=== PATIENT | female | born 1955 | race Caucasian/White ===

== ENCOUNTER 2016-09-29 01:56 | Observation (INO) | payer OTHER ==
[~2016-09-29] VITALS: Ht 154.9 cm; Wt 75.1 kg
[2016-09-29] VITALS (9 sets, daily range): BP systolic 120–155; BP diastolic 72–88; PULSE 65–84; TEMP 36.4–36.7; O2SAT 96–97; Ht 154.9 cm; Wt 75.1 kg
[~2016-09-29 01:56] MED LIST: AMT50 PO; ASPI81TA28 PO; DOCU-94 PO; FIBER PO; FRN PO; HYDR-5688 PO; LAMO25TA PO; MULT-506 PO; OMEG10007 PO; POLY1SOL6 OP; PROM25TA9 PO; TOPI100T20 PO
[2016-09-29] MEDS ORDERED: SODIUM CHLORIDE 0.9% 1000ML 1,000 ML IV STA (02:03)
[2016-09-29 02:11] LABS: HEMATOCRIT 36.6 % (37-47); MEAN CORPUSCULAR HEMOGLOBIN 33.4 pg (25-34); MEAN CORPUSCULAR HGB CONC 36.3 g/dl (32-36); MEAN PLATELET VOLUME 9.6 fL (7.4-10.4); PLATELET COUNT 158 K/uL (130-400); RED BLOOD COUNT 3.98 M/uL (4.2-5.4); WHITE BLOOD COUNT 5.01 K/uL (4.8-10.8)
[2016-09-29 02:32] LABS: ALT/SGPT 25 U/L (12-78); AST/SGOT 16 U/L (15-37); BLOOD UREA NITROGEN 25 mg/dl (7-18); BUN/CREATININE RATIO 26.4 (10-20); CALCIUM 9.2 mg/dl (8.5-10.1); CARBON DIOXIDE 24 mmol/L (21-32); CHLORIDE 108 mmol/L (98-107); CREATININE 0.94 mg/dl (0.60-1.20); GLUCOSE 95 mg/dl (70-99); POTASSIUM 3.4 mmol/L (3.5-5.1); SODIUM 143 mmol/L (136-145)
[2016-09-29 02:36] LABS: BASO ABS # 0.05 K/uL (0-0.2); BASOPHIL % 0.9 %; COMPLETE YES; EOSINOPHIL % 1.8 %; LYMPH ABS # 2.06 K/uL (1.2-3.4); LYMPHOCYTE % 41.2 %; NEUTROPHILS % 26.3 %; VARIANT LYM ABS # 1.36 K/uL; VARIANT LYMPHOCYTE % 27.2 %
[2016-09-29 02:37] LABS: ALKALINE PHOSPHATASE 85 U/L (45-117)
--- NOTE | 2016-09-29 03:35 | EMERGENCY ROOM VISIT NOTE ---
History Report prepared by Madi: Keya Luis Under the Supervision of: Dr. Pedro Glover M.D. First contact with patient: 01:58 Chief Complaint: SYNCOPE (NEAR SYNCOPE) Stated Complaint: SYNCOPE Nursing Triage Summary: Patient arrives to ED from 4th floor. 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 Patient informed physician that she nearly passed out. Patient has pale, haynes color. BSG in the 80's per PCU nurse. 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 She was working tonight. She was sitting in a chair watching a patient when she suddenly became very nauseated and developed indigestion and diffuse abdominal pain. She gets indigestion often and this is not unusual for her. Her pain did not radiate into her back, but it did go into her throat and left chest. The patient became lightheaded and felt like she was going to pass out. She informed a physician and a code purple was called to the fourth floor. The patient was brought down to the ED for further evaluation. She states that she is feeling better laying flat. She has not eaten a meal since yesterday morning and has only had a few crackers and coffee throughout the day. The patient denies pain or swelling in her legs, headache, black or bloody stools, headache, and any history of blood clots. She denies any alcohol use or any recent changes to medications. 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 A total of 10 systems reviewed and were otherwise negative. Past Medical & Surgical Medical Problems: (1) CVA (cerebral vascular accident) (2) Headache (3) PFO (patent foramen ovale) (4) Symptomatic anemia (5) Syncope Family History Stroke Social History Smoking Status: Unknown if Ever Smoked Alcohol Use: none Drug Use: none Marital Status: Occupation Status: employed Current/Historical Medications Scheduled Amitriptyline Hcl (Elavil), 25 MG PO HS Aspirin (Aspirin Ec), 81 MG PO QPM Fiber Laxative (Fiber Laxative), 1 DOSE PO QPM Fish Oil ([place]-3), 2 CAP PO QPM Lamotrigine (Lamictal), 50 MG PO BID Multivitamin (Multivitamin), 1 TAB PO QPM Topiramate (Topamax), 200 MG PO BID Scheduled PRN Zfryawmrrf-Lojrird-Rfkbghvw (Butalbital/Aspirin/Caffei 50-325-40 mg), 1 CAP PO UD PRN for HEADACHES Hydrocodone/Acetaminophen 5MG/325MG ([place] 5MG/325MG), 1 TABLET PO Q4 PRN for Pain Polyethylene Glycol-Propylene (Systane Ultra), 1 DROPS OP BID PRN for PRN Promethazine Hcl (Phenergan), 25 MG PO Q6H PRN for Nausea Allergies Coded Allergies: Nickel (Verified Allergy, Unknown, RASH, 09/29/16) Penicillins (Verified Allergy, Unknown, HIVES A CHILD, 09/29/16) Physical Exam Vital Signs Date Time Temp Pulse Resp B/P Pulse Ox O2 Delivery O2 Flow Rate FiO2 09/29/16 03:24 68 18 113/62 99 Room Air 69 141/71 64 141/71 09/29/16 02:26 60 18 132/55 99 Room Air 09/29/16 02:12 67 17 109/82 99 Room Air 09/29/16 02:04 63 Physical Exam GENERAL: Patient is unwell appearing and in mild distress, pale with clammy skin. HEENT: No acute trauma, normocephalic atraumatic, mucous membranes moist, no nasal congestion, no scleral icterus. NECK: No stridor, no adenopathy, no meningismus, trachea is midline. LUNGS: No dyspnea. Clear to auscultation and equal bilaterally. No wheeze, no rhonchi. HEART: Regular rate and rhythm. No murmurs, rubs, gallops appreciated. ABDOMEN: Soft, nontender, bowel sounds positive, no masses appreciated, no peritonitis. BACK: No midline tenderness, no CVA tenderness EXTREMITIES: Normal motion all extremities, no cyanosis, no edema. NEUROLOGIC: Alert and oriented, no acute motor or sensory deficits, no focal weakness, cranial nerves grossly intact. SKIN: No rash, no jaundice, no diaphoresis. Medical Decision & Procedures ER Provider Diagnostic Interpretation: X ray results are stated below per my interpretation: Chest: 1 view: No infiltrate, no effusion, normal cardiac border. CT HEAD: No ICH, mass effect or edema. No evidence of acute cortical stroke. No midline shift or hydrocephalus. Benign small cystic process along the anterior aspect of the left tentorium. Visualized sinuses and mastoid air cells are clear. Radiologist: Shaan Haque MD Laboratory Results 09/29/16 02:04 Red Blood Count 3.98, Mean Corpuscular Volume 92.0, Mean Corpuscular Hemoglobin 33.4, Mean Corpuscular Hemoglobin Concent 36.3, Mean Platelet Volume 9.6 09/29/16 02:04 Test 09/29/16 02:04 White Blood Count 5.01 K/uL (4.8-10.8) Red Blood Count 3.98 M/uL (4.2-5.4) Hemoglobin 13.3 g/dL (12.0-16.0) Hematocrit 36.6 % (37-47) Mean Corpuscular Volume 92.0 fL (80-100) Mean Corpuscular Hemoglobin 33.4 pg (25-34) Mean Corpuscular Hemoglobin Concent 36.3 g/dl (32-36) Platelet Count 158 K/uL (130-400) Mean Platelet Volume 9.6 fL (7.4-10.4) RDW Standard Deviation 43.4 fL (36.4-46.3) RDW Coefficient of Variation 12.9 % (11.5-14.5) Neutrophils % (Manual) 26.3 % Lymphocytes % (Manual) 41.2 % Variant Lymphocytes % (manual) 27.2 % Monocytes % (Manual) 2.6 % Eosinophils % (Manual) 1.8 % Basophils % (Manual) 0.9 % Neutrophils # (Manual) 1.32 K/uL (1.4-6.5) Total Absolute Neutrophils 1.32 K/uL (1.4-6.5) Lymphocytes # (Manual) 2.06 K/uL (1.2-3.4) Absolute Variant Lymphocytes 1.36 K/uL Total Absolute Lymphocytes 3.43 K/uL (1.2-3.4) Monocytes # (Manual) 0.13 K/uL (0.11-0.59) Eosinophils # (Manual) 0.09 K/uL (0-0.5) Basophils # (Manual) 0.05 K/uL (0-0.2) Anion Gap 11.0 mmol/L (3-11) Est Creatinine Clear Calc Drug Dose 59.9 ml/min Estimated GFR () 77.0 Estimated GFR (Non- 66.4 BUN/Creatinine Ratio 26.4 (10-20) Calcium Level 9.2 mg/dl (8.5-10.1) Total Bilirubin 0.3 mg/dl (0.2-1) Direct Bilirubin < 0.1 mg/dl (0-0.2) Aspartate Amino Transf (AST/SGOT) 16 U/L (15-37) Alanine Aminotransferase (ALT/SGPT) 25 U/L (12-78) Alkaline Phosphatase 85 U/L (45-117) Troponin I < 0.015 ng/ml (0-0.045) Total Protein 7.2 gm/dl (6.4-8.2) Albumin 3.8 gm/dl (3.4-5.0) Lipase 159 U/L (73-393) Laboratory results as reviewed by me. Medications Administered Medications (Trade) Dose Ordered Sig/Linsey Route Start Time Stop Time Status Last Admin Dose Admin Sodium Chloride (Nss 1000ml) 1,000 ml @ 999 mls/hr Q1H1M STAT IV 09/29/16 02:03 09/29/16 03:03 DC 09/29/16 02:03 999 MLS/HR ECG Indication: syncope Rate (beats per minute): 58 Rhythm: sinus bradycardia Findings: no acute ischemic change, no ectopy ED Course 0158: The patient was evaluated in room A1. A complete history and physical exam was performed. 0203: NSS 1000 ml @ 999 mls/hr IV 0230: The patient was moved to room A11B. 0311: I reassessed the patient at this time. On repeat evaluation her color is returning and she is looking much improved. She still has moments of lightheadedness and admits to having episodes of crushing chest pain over the past 3 days. 0401: I reassessed the patient at this time. She is resting comfortably. I discussed the results and treatment plan with the patient. I answered all pertaining questions that she had. She expressed understanding and verbalized agreement. 0416: I spoke with Dr. Newsome. We discussed the patients results and treatment plan. The patient will be evaluated by the [facility] for further management. Medical Decision Differential: Vaso-vagal, Intracerebral Event, Neurologic, Infectious, Volume Deficiency, Hypoglycemia, Electrolyte Abnormality, Cardiac Source, Toxicologic, amongst other pathologies entertained. 61 yr old female with full/near syncopal event while while working upstairs in hospital. Reportedly quite unwell appearing with severe bradycardia on hospitalist evaluation prior to being brought to ED. Improving here and much improved with NSS bolus. Appears this has happened previously without clear cause, though felt to be due to anemia from hemorrhoids. She has normal CT head here and no neuro deficits. No evidence of need for stroke alert. EKG/ Trop negative thus I do not feel ACS though will need further rule out. Seems likely vagal though will need further work-up. No history leaning towards dissection and without shortness of breath I do not feel there is PE risk currently. Consults Time Called: [phone] Consulting Physician: Dr. Newsome Returned Call: [phone] Newsome. We discussed the patients results and treatment plan. The patient will be evaluated by the [facility] for further management. Impression Primary Impression: Syncope Additional Impression: Chest pressure Scribe Attestation The scribe's documentation has been prepared under my direction and personally reviewed by me in its entirety. I confirm that the note above accurately reflects all work, treatment, procedures, and medical decision making performed by me. Departure Information Dispostion Being Evaluated By Hospitalist Referrals Jim Colin M.D. (PCP) Patient Instructions My [facility] Problem Qualifiers Primary Impression: Syncope Syncope type: unspecified Qualified Codes: R55 - Syncope and collapse
[2016-09-29] MEDS ORDERED: ZOLPIDEM TARTRATE 5 MG TAB PO PRN (04:15)
[2016-09-29] MEDS ORDERED: ACETAMINOPHEN 325 MG TAB PO PRN (04:15)
[2016-09-29] MEDS ORDERED: MAGNESIUM HYDROXIDE SUSP 30 ML UDC PO PRN (04:15)
[2016-09-29] MEDS ORDERED: POLYETHYLENE (MIRALAX) 17 GM PACK PO PRN (04:15)
[2016-09-29] MEDS ORDERED: ALUMINUM/MAGNESIUM/SIMETH (MAALOX MAX) 30 ML UDC PO PRN (04:15)
[2016-09-29] MEDS ORDERED: ARTIFICIAL TEARS OP SOLN OP PRN ×2 (04:15)
--- NOTE | 2016-09-29 04:48 | History and Physical ---
History & Physical Date & Time of Service: Sep 29, 2016 at 04:07 Chief Complaint: Syncope Primary Care Physician: Jim Colin M.D. 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 Pt has a history of syncope, symptomatic anemia, severe migraines and CVA possibly related to a PFO. She was sitting with a pt on the 4th floor and became nauseous and dizzy. She alerted another employee to get help from a nurse and then apparently lost consciousness briefly. She was dizzy and nauseous when she awoke. She was noted to be hypotensive although they could not obtain an exact pressure and was also bradycardic into the mid 30s. The pt was transported to the ER following a code purple. She was provided with hydration and gradually improved although she continues to c/o light headedness. She was not orthostatic after receiving a fluid bolus. Incidentally on further questioning she states that she had "crushing" chest pain 2 days earlier but had not alerted her rock dust sprayer. She denies CP or discernible palpitations prior to LOC this AM. On review of records the pt had a negative stress in 2014 and was placed on ambulatory monitoring which did not yield a diagnosis. She was admitted for syncope 10/12 and at the time this was partially attributed to symptomatic anemia due to hemorrhoidal bleeding. Past Medical/Surgical History Medical Problems: (1) CVA (cerebral vascular accident) Status: Resolved (2) Migraine disorder Status: Resolved (3) PFO (patent foramen ovale) Status: Resolved 4) Syncope 10/12, 10/13 5) PFO - there was some debate as to weather or not this should be surgically repaired - she consulted a rock dust sprayer at [place] who advised that this was not in her best interest 6) Hyperlipidemia 7) Small brain aneurysm being followed by neurology Family History Stroke Social History Smoking Status: Never Smoker Drug Use: none Marital Status: Housing status: lives with family Occupational Status: employed Multi-Drug Resistant Organisms History of MDRO: No Allergies Coded Allergies: Nickel (Verified Allergy, Unknown, RASH, 09/29/16) Penicillins (Verified Allergy, Unknown, HIVES A CHILD, 09/29/16) Home Medications Scheduled Amitriptyline Hcl (Elavil), 25 MG PO HS Aspirin (Aspirin Ec), 81 MG PO QPM Fiber Laxative (Fiber Laxative), 1 DOSE PO QPM Fish Oil ([place]-3), 2 CAP PO QPM Lamotrigine (Lamictal), 50 MG PO BID Multivitamin (Multivitamin), 1 TAB PO QPM Topiramate (Topamax), 200 MG PO BID Scheduled PRN Vgnzfstxzr-Bhjyymv-Tpcpwtvb (Butalbital/Aspirin/Caffei 50-325-40 mg), 1 CAP PO UD PRN for HEADACHES Hydrocodone/Acetaminophen 5MG/325MG ([place] 5MG/325MG), 1 TABLET PO Q4 PRN for Pain Polyethylene Glycol-Propylene (Systane Ultra), 1 DROPS OP BID PRN for PRN Promethazine Hcl (Phenergan), 25 MG PO Q6H PRN for Nausea Review of Systems Constitutional: No chills, No fever, No sweats Eyes: No eye pain, No worsening of vision ENT: No hearing loss, No nasal symptoms, No unusual epistaxis Respiratory: No cough, No sputum, No wheezing Cardiovascular: + chest pain (2 days prior), No PND, No claudication, No edema , No orthopnea Abdomen: + nausea, No pain, No vomiting Musculoskeletal: No joint pain, No muscle pain Genitourinary - Female: No dysuria, No urinary frequency, No urinary urgency Neurologic: + problem reported (syncopal episode as above), No memory loss Psychiatric: No depression symptoms Endocrine: No fatigue Hematologic / Lymphatic: No abnormal bleeding/bruising Integumentary: No rash Allergic / Immunologic: No environmental allergies Physical Exam Vital Signs Date Time Temp Pulse Resp B/P Pulse Ox O2 Delivery O2 Flow Rate FiO2 09/29/16 03:24 68 18 113/62 99 Room Air 69 141/71 64 141/71 09/29/16 02:26 60 18 132/55 99 Room Air 09/29/16 02:12 67 17 109/82 99 Room Air 09/29/16 02:04 63 General Appearance: WD/WN, no apparent distress Head: normocephalic, atraumatic Eyes: normal inspection, PERRL, EOMI ENT: normal ENT inspection, pharynx normal Neck: supple, no JVD Respiratory/Chest: chest non-tender, lungs clear, normal breath sounds, no respiratory distress, no accessory muscle use Cardiovascular: regular rate, rhythm, no edema, no gallop, no JVD, no murmur, normal peripheral pulses Abdomen/GI: normal bowel sounds, non tender, soft Back: normal inspection Extremities/Musculoskelatal: normal inspection, no calf tenderness, normal capillary refill, no pedal edema Neurologic/Psych: motion pictures cartoonist II-XII nml as tested, no motor/sensory deficits, alert, normal mood/affect, oriented x 3 Skin: normal color, warm/dry, no rash Diagnostics Laboratory Results Results Past 24 Hours Test 09/29/16 02:04 Range/Units White Blood Count 5.01 4.8-10.8 K/uL Red Blood Count 3.98 4.2-5.4 M/uL Hemoglobin 13.3 12.0-16.0 g/dL Hematocrit 36.6 37-47 % Mean Corpuscular Volume 92.0 80-100 fL Mean Corpuscular Hemoglobin 33.4 25-34 pg Mean Corpuscular Hemoglobin Concent 36.3 32-36 g/dl Platelet Count 158 130-400 K/uL Mean Platelet Volume 9.6 7.4-10.4 fL RDW Standard Deviation 43.4 36.4-46.3 fL RDW Coefficient of Variation 12.9 11.5-14.5 % Neutrophils % (Manual) 26.3 % Lymphocytes % (Manual) 41.2 % Variant Lymphocytes % (manual) 27.2 % Monocytes % (Manual) 2.6 % Eosinophils % (Manual) 1.8 % Basophils % (Manual) 0.9 % Neutrophils # (Manual) 1.32 1.4-6.5 K/uL Total Absolute Neutrophils 1.32 1.4-6.5 K/uL Lymphocytes # (Manual) 2.06 1.2-3.4 K/uL Absolute Variant Lymphocytes 1.36 K/uL Total Absolute Lymphocytes 3.43 1.2-3.4 K/uL Monocytes # (Manual) 0.13 0.11-0.59 K/uL Eosinophils # (Manual) 0.09 0-0.5 K/uL Basophils # (Manual) 0.05 0-0.2 K/uL Sodium Level 143 136-145 mmol/L Potassium Level 3.4 3.5-5.1 mmol/L Chloride Level 108 98-107 mmol/L Carbon Dioxide Level 24 21-32 mmol/L Anion Gap 11.0 3-11 mmol/L Blood Urea Nitrogen 25 7-18 mg/dl Creatinine 0.94 0.60-1.20 mg/dl Est Creatinine Clear Calc Drug Dose 59.9 ml/min Estimated GFR () 77.0 Estimated GFR (Non- 66.4 BUN/Creatinine Ratio 26.4 10-20 Random Glucose 95 70-99 mg/dl Calcium Level 9.2 8.5-10.1 mg/dl Total Bilirubin 0.3 0.2-1 mg/dl Direct Bilirubin < 0.1 0-0.2 mg/dl Aspartate Amino Transf (AST/SGOT) 16 15-37 U/L Alanine Aminotransferase (ALT/SGPT) 25 12-78 U/L Alkaline Phosphatase 85 45-117 U/L Troponin I < 0.015 0-0.045 ng/ml Total Protein 7.2 6.4-8.2 gm/dl Albumin 3.8 3.4-5.0 gm/dl Lipase 159 73-393 U/L Diagnostic Radiology Head CT negative EKG NSR Impression Assessment and Plan 61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 Pt has a history of syncope, symptomatic anemia, severe migraines and CVA possibly related to a PFO. She was sitting with a pt on the 4th floor and became nauseous and dizzy. She alerted another employee to get help from a nurse and then apparently lost consciousness briefly. She was dizzy and nauseous when she awoke. She was noted to be hypotensive although they could not obtain an exact pressure and was also bradycardic into the mid 30s. The pt was transported to the ER following a code purple. She was provided with hydration and gradually improved although she continues to c/o light headedness. She was not orthostatic after receiving a fluid bolus. Incidentally on further questioning she states that she had "crushing" chest pain 2 days earlier but had not alerted her rock dust sprayer. She denies CP or discernible palpitations prior to LOC this AM. 1) Syncope - 2nd admission for - previously attributed to symptomatic anemia and vasovagal syncope. She was notably bradycardic and likely hypotensive however this was preceded by intense nausea so it is not possible to know if this was again vasovagal or if her symptoms were precipitated by bradycardia. Pt will be hydrated obernight, monitored on telemetry and we will request a cardiology consultation to advise on any further workup. 2) History of CVA - cont ASA. 3) Migraines - cont Topamax and Lamictal. 4) Chest pain 2 days prior - normal trop and EKG - no recurrence prior to syncope - defer to cardiology for further workup. SCDs considering significant hemorrhoidal bleeding and aneurysm - Full code Total time for this admit including chart review - review of labs, imaging, ekg - discussion with pt and ER attending 38 min Level of Care Telemetry Resuscitation Status FULL RESUSCITATION VTE Prophylaxis Given or contraindicated: SCD's
[2016-09-29] MEDS ORDERED: IV FLUIDS COMPLETED PRN (06:00)
[2016-09-29] MEDS: D5NSS + 20MEQ KCL 1,000 ML IV SCH ×3 (06:21→19:35)
[2016-09-29] MEDS: HYDROCODONE/ACETAMOPHEN 5/325MG TAB PO PRN ×3 (06:27→19:31)
[2016-09-29] MEDS: ONDANSETRON INJ 2 MG/ML 2 ML VIAL IV PRN ×3 (06:27→19:31)
--- NOTE | 2016-09-29 06:35 | DIAGNOSTIC IMAGING REPORT ---
CT HEAD WITHOUT CONTRAST (CT) CLINICAL HISTORY: There is syncope COMPARISON STUDY: 09/29/2014 TECHNIQUE: Axial CT of the brain is performed from the vertex to the skull base. IV contrast was not administered for this examination. CT DOSE: 537.48 mGy.cm FINDINGS: No intra or extra-axial mass lesions are visualized. There is no CT evidence of acute cortical infarction. There is no evidence of midline shift. There is no acute hemorrhage. No calvarial fractures are visualized. There is stable hypodensity within the left cerebellar hemisphere abutting the left tentorium. There is no evidence of pathologic ventricular dilatation. There is no evidence of acute sinusitis IMPRESSION: No acute intracranial findings Electronically signed by: Zenon Mayer M.D. 09/29/2016 6:34 AM Dictated Date/Time: 09/29/2016 6:32 AM
--- NOTE | 2016-09-29 07:12 | DIAGNOSTIC IMAGING REPORT ---
CHEST ONE VIEW PORTABLE CLINICAL HISTORY: Altered mental status. Syncope. COMPARISON STUDY: Chest radiograph February 22, 2016. FINDINGS: Lung volumes are normal. There is no pneumothorax or pleural effusion. Cardiac size is normal. Mediastinal contours are normal. There is no evidence of pulmonary edema. IMPRESSION: No acute cardiopulmonary findings. Electronically signed by: Collin Fischer M.D. 09/29/2016 7:11 AM Dictated Date/Time: 09/29/2016 7:09 AM
[2016-09-29] MEDS: TOPIRAMATE 100 MG TAB PO SCH ×2 (08:09→21:05)
--- NOTE | 2016-09-29 10:40 | Cardiology Consultation ---
Cardiology Consultation Date of Consultation: Sep 29, 2016. Requesting Physician: Dr. Newsome Attending Physician: Dr. Owen Reason for Consultation: Syncope Pt evaluation today including: conversation w/ patient, physical exam, chart review, lab review, review of studies, review of inpatient medication list, conversation w/ attending History of Present Illness Mrs. Valdovinos is a 61-year-old female with a past medical history significant for PFO first diagnosed after TIA in 2002 and syncopal event in September 2015 who was admitted early this morning following a syncopal event. Her PFO was diagnosed in 2002 after a TIA. A RAJESH performed at that time demonstrated a patent foramen ovale. Thereafter she was felt to possibly have a second TIA in 2010. The symptoms on this occasion included paresthesias involving the right side of her body which lasted for a few minutes. At that time, it was recommended that she switch her anticoagulation therapy with warfarin and discontinue aspirin. She refused warfarin. She was seen in the [facility] at [facility] on October 14, 2014. It was felt by Dr. Severo Chung who performed the consult that it was unclear whether the patient actually ever had an embolic stroke. He felt that closure of her PFO was not indicated. This was based on review of her history as well as available trial data for PFO closure. There was no trial data evidence of benefit from device closure of a PFO. He recommend continued antiplatelet therapy or anticoagulation therapy. The patient declined anticoagulation therapy. She was comfortable with staying on aspirin therapy. In September 2015, she was admitted to [facility] after a syncopal event. At the time she was having marked hemorrhoidal bleeding. During the bleeding episodes she felt nauseated and then felt presyncopal. She then had a syncopal event. In the ED she was found to be anemic with a hemoglobin of 8.2. It was felt that her syncope was secondary to a vasovagal event. The patient herself thought that she was also dehydrated. She was transfused 2 units of packed red blood cells. Her cardiac enzymes were negative for myocardial injury. She subsequently underwent surgery for her hemorrhoids on February 21, 2016. Regarding her current admission, the patient was working at [employer] [employer] [employer] last evening. She was sitting with a patient at bedside a little before 2 am when she suddenly felt very lightheaded, nauseous, and diaphoretic. She felt as though she could pass out, and then she reports that she did lose consciousness while sitting in her chair. She is not sure how long she was unconscious. She did not experience any palpitations, chest pain, or shortness of breath prior to the syncopal event. A nurse came in to evaluate her. She reports that the nurse was unable to obtain her blood pressure and her heart rate was in the 30's. She reports that she could have been dehydrated since she only had a cup of tea with her breakfast that day and a cup of coffee. She did not eat or drink anything else the rest of the day. She is currently asymptomatic. She has not had any recurrent syncopal or presyncopal events since admission. She notes occasional chest tightness, which occurs in the setting of emotional distress. Her most recent episode was a couple of days ago, but she has had similar episodes of chest discomfort intermittently for several months. This discomfort was reported to Dr. Owen during her outpatient visit on 07/19/16. She denies any exertional chest discomfort, other anginal type symptoms, or limiting dyspnea. She notes occasional palpitations described as "skipped beats" which have also been occurring intermittently for an extended period of time and are not bothersome to her. She denies orthopnea or PND. She notes mild dependent edema, which resolves with elevating her extremities. She denies abnormal bleeding or cerebrovascular symptoms. Review of Systems: As noted in HPI. All other 10 point ROS otherwise negative. Past Medical/Surgical History 1. Patent foramen ovale 2. Hemorrhoidal bleeding s/p hemorrhoidal surgery 02/21/16 3. Possible TIA 4. Migraine headache 5. Tonsillectomy 6. Sinus surgery 7. Tubal ligation Family History Stroke Father of [place] at the age of 57. Social History Smoking Status: Never Smoker History of Alcohol Use: No She is and has 4 children. 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 She notes a remote history of smoking; she quit at the age of 26. She denies alcohol or drug use. Allergies Coded Allergies: Nickel (Verified Allergy, Unknown, RASH, 09/29/16) Penicillins (Verified Allergy, Unknown, HIVES A CHILD, 09/29/16) Medications Current Inpatient Medications Medications (Trade) Dose Ordered Sig/Linsey Route Start Time Stop Time Status Last Admin Dose Admin Amitriptyline HCl (Elavil Tab) 25 mg HS PO 09/29/16 21:00 10/29/16 20:59 Aspirin (Ecotrin Tab) 81 mg QPM PO 09/29/16 21:00 10/29/16 20:59 Fish Oil ([place]-3 (Purified Fish Oil) Cap) 1 gm QPM PO 09/29/16 21:00 10/29/16 20:59 Acetaminophen/ Hydrocodone Bitart ([place] 5/325 Tab) 1 tab Q4 PRN PO 09/29/16 04:15 10/13/16 04:14 09/29/16 06:27 1 TAB Lamotrigine (Lamictal Tab) 50 mg BID PO 09/29/16 09:00 10/29/16 08:59 09/29/16 08:09 50 MG Topiramate (Topamax Tab) 200 mg BID PO 09/29/16 09:00 10/29/16 08:59 09/29/16 08:09 200 MG Artificial Tears (Artificial Tears) 1 drops BID PRN OP 09/29/16 04:15 10/29/16 04:14 Acetaminophen (Tylenol Tab) 650 mg Q4H PRN PO 09/29/16 04:15 10/29/16 04:14 Al Hydrox/Mg Hydrox/Simethicone (Maalox Max Susp) 15 ml Q4H PRN PO 09/29/16 04:15 10/29/16 04:14 Magnesium Hydroxide (Milk Of Magnesia Susp) 30 ml Q6H PRN PO 09/29/16 04:15 10/29/16 04:14 Polyethylene (Miralax Powder Packet) 17 gm DAILY PRN PO 09/29/16 04:15 10/29/16 04:14 Zolpidem Tartrate (Ambien Tab) 5 mg HSZ PRN PO 09/29/16 04:15 10/29/16 04:14 Ondansetron HCl 4 mg 4 mg Q6H PRN IV 09/29/16 04:15 10/29/16 04:14 09/29/16 06:27 4 MG Potassium Chloride/Dextrose/ Sod Cl (D5nss + 20meq KCl) 1,000 ml @ 150 mls/hr Q6H40M IV 09/29/16 06:15 10/29/16 06:14 09/29/16 06:21 150 MLS/HR Miscellaneous (Iv Fluids Completed) 1 ea PRN PRN N/A 09/29/16 06:00 09/29/17 05:59 Physical Exam Vital Signs Past 12 Hours Date Time Temp Pulse Resp B/P Pulse Ox O2 Delivery O2 Flow Rate FiO2 09/29/16 07:57 36.4 65 18 120/75 97 Room Air 09/29/16 05:43 97 Room Air 09/29/16 05:14 36.4 84 20 155/88 09/29/16 04:42 71 20 152/89 97 Room Air 09/29/16 03:24 68 18 113/62 99 Room Air 69 141/71 64 141/71 09/29/16 02:26 60 18 132/55 99 Room Air 09/29/16 02:12 67 17 109/82 99 Room Air 09/29/16 02:04 63 Constitutional: Alert, oriented, in no acute distress HEENT: Head is atraumatic and normocephalic. EOMs intact. Sclera anicteric. Face is symmetric. No perioral cyanosis. Mucous membranes moist. Neck: Supple, no appreciable JVD, no carotid bruits Pulmonary: Normal respiratory effort, clear to auscultation bilaterally Cardiac: Regular rate and rhythm, normal S1 and S2, no gallops, no rubs, no murmur Extremities: No edema. No clubbing or cyanosis. Pulses intact. Abdomen: Normal bowel sounds, soft, non-tender, no abdominal mass palpated Skin: Normal skin color, turgor, and pigmentation, no rash, no skin lesions Neurological: Oriented to person, place, and time Data Laboratory Results: Last 24 Hours Test 09/29/16 02:04 White Blood Count 5.01 K/uL Red Blood Count 3.98 M/uL Hemoglobin 13.3 g/dL Hematocrit 36.6 % Mean Corpuscular Volume 92.0 fL Mean Corpuscular Hemoglobin 33.4 pg Mean Corpuscular Hemoglobin Concent 36.3 g/dl Platelet Count 158 K/uL Mean Platelet Volume 9.6 fL RDW Standard Deviation 43.4 fL RDW Coefficient of Variation 12.9 % Neutrophils % (Manual) 26.3 % Lymphocytes % (Manual) 41.2 % Variant Lymphocytes % (manual) 27.2 % Monocytes % (Manual) 2.6 % Eosinophils % (Manual) 1.8 % Basophils % (Manual) 0.9 % Neutrophils # (Manual) 1.32 K/uL Total Absolute Neutrophils 1.32 K/uL Lymphocytes # (Manual) 2.06 K/uL Absolute Variant Lymphocytes 1.36 K/uL Total Absolute Lymphocytes 3.43 K/uL Monocytes # (Manual) 0.13 K/uL Eosinophils # (Manual) 0.09 K/uL Basophils # (Manual) 0.05 K/uL Sodium Level 143 mmol/L Potassium Level 3.4 mmol/L Chloride Level 108 mmol/L Carbon Dioxide Level 24 mmol/L Anion Gap 11.0 mmol/L Blood Urea Nitrogen 25 mg/dl Creatinine 0.94 mg/dl Est Creatinine Clear Calc Drug Dose 59.9 ml/min Estimated GFR () 77.0 Estimated GFR (Non- 66.4 BUN/Creatinine Ratio 26.4 Random Glucose 95 mg/dl Calcium Level 9.2 mg/dl Total Bilirubin 0.3 mg/dl Direct Bilirubin < 0.1 mg/dl Aspartate Amino Transf (AST/SGOT) 16 U/L Alanine Aminotransferase (ALT/SGPT) 25 U/L Alkaline Phosphatase 85 U/L Troponin I < 0.015 ng/ml Total Protein 7.2 gm/dl Albumin 3.8 gm/dl Lipase 159 U/L Head CT: No acute intracranial findings. CXR: No acute cardiopulmonary findings. EKG: Sinus bradycardia at 58 bpm. Otherwise normal EKG. Telemetry reviewed: Normal sinus rhythm in 60-70's bpm. No ventricular or atrial arrhythmias. Assessment & Plan ASSESSMENT/PLAN: 1. 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 She was sitting at a patient's bedside when the event occurred. Her syncope was preceded by lightheadedness, nausea, and diaphoresis. She reports that a nurse was unable to obtain a blood pressure, and her heart rate was noted to be in the 30's. Work-up thus far has been unremarkable including cardiac enzymes, EKG, telemetry monitoring, and head CT. She reports that she may have been dehydrated with little food and water intake yesterday. She had a similar event about a year ago in the setting of anemia and dehydration. Her recent event appears vasovagal in nature given the description of her symptoms and unremarkable work-up thus far. Recommend continuing to monitor on telemetry today to monitor for any arrhythmias, but no additional cardiovascular studies or intervention is recommended at this time. Would encourage adequate hydration in the future. 2. Atypical chest pain: Patient notes intermittent chest tightness, which occurs at rest in the setting of emotional distress. This has been intermittent for several months. She denies any exertional chest pain or other anginal type symptoms. Her most recent episode was about 2 days ago. EKG this admission shows no acute ischemic change. Cardiac enzymes were negative. Her symptoms are not consistent with myocardial ischemia. 3. PFO: Patient diagnosed with patent foramen ovale in 2002. She was evaluated at [facility] in 2015, and they felt that closure of the PFO was not indicated. Head CT this admission showed no acute intracranial findings. Continue aspirin therapy. Thank you for allowing us to see this patient in consultation. Patient was discussed with Dr. Owen. The patient was seen and examined by me this evening. Her case was discussed earlier today by me with Ms. Chen. the patient reconfirmed to me this evening that she had minimal oral intake yesterday. She had eaten breakfast at approximately 9 a.m.. She had minimal intake until her episode of syncope overnight. She states that her any intake been a couple coffee and some Bartolome crackers. She had been sitting in a chair for 2-3 hours prior to her episode of lightheadedness, nausea, diaphoresis. The symptoms were worsened when she sat up and walked into the bathroom. The symptoms improved when she was placed supine on a stretcher. As documented above she was found to have a low blood pressure and low heart rate by the nursing staff. Since admission to the telemetry unit she has had no ectopy noted. No abnormal bradyarrhythmias noted. No current cardiac complaints. She does have a headache. This is typical for her. Her cardiovascular exam is unremarkable this evening. Agree that she likely had an episode of vasovagal syncope superimposed upon dehydration. She had also been sitting for a prolonged time with her legs dependent. Since admission no arrhythmia is noted. There is no evidence of an embolic event on her CT scan. Would not expect an embolic event to the brain to cause low blood pressure and a low heart rate. Recommend monitoring overnight. No further cardiac workup at this time other than the monitoring. No specific medical therapy for the episode yesterday. I strongly recommended to the patient that she try to maintain good hydration and to eat meals regularly. She was also advised to avoid standing or sitting in 1 position for a prolonged period of time. Thank you for asking us to see this patient in Cardiology consultation. Kodak Owen MD
--- NOTE | 2016-09-29 14:02 | Progress Note ---
Subjective Date of Service: Sep 29, 2016. (Berta Brand PA-C) Subjective Pt evaluation today including: conversation w/ patient, physical exam, chart review, lab review, review of studies, review of inpatient medication list Patient seen and evaluated. Patient was admitted overnight. Patient reports no further syncopal episodes. Denies lightheadedness. This report nausea after ambulation to the bathroom to urinate. Had similar episode one year ago due to hemorrhoidal bleeding and symptomatic anemia. Patient feels she was dehydrated and not much prior to this episode. Verbalizes no other complaints at this time. Cardiology was in to see patient. She follows with Dr. Owen. (Berta Brand PA-C) Problem List Medical Problems: (1) Chest pressure Status: Acute (2) Constipation Status: Acute (3) Syncope and collapse Status: Acute (Berta Brand PA-C) Review of Systems Constitutional: No chills, No fever Respiratory: No shortness of breath Cardiac: No chest pain Abdomen: + nausea, No constipation, No diarrhea, No pain, No vomiting Musculoskeletal: + swelling (chronic dependent edema), No muscle pain Female : No dysuria Neurologic: No vertigo Skin: No rash (Berta Brand PA-C) Medications Current Inpatient Medications Medications (Trade) Dose Ordered Sig/Linsey Route Start Time Stop Time Status Last Admin Dose Admin Amitriptyline HCl (Elavil Tab) 25 mg HS PO 09/29/16 21:00 10/29/16 20:59 Aspirin (Ecotrin Tab) 81 mg QPM PO 09/29/16 21:00 10/29/16 20:59 Fish Oil ([place]-3 (Purified Fish Oil) Cap) 1 gm QPM PO 09/29/16 21:00 10/29/16 20:59 Acetaminophen/ Hydrocodone Bitart ([place] 5/325 Tab) 1 tab Q4 PRN PO 09/29/16 04:15 10/13/16 04:14 09/29/16 13:00 1 TAB Lamotrigine (Lamictal Tab) 50 mg BID PO 09/29/16 09:00 10/29/16 08:59 09/29/16 08:09 50 MG Topiramate (Topamax Tab) 200 mg BID PO 09/29/16 09:00 10/29/16 08:59 09/29/16 08:09 200 MG Artificial Tears (Artificial Tears) 1 drops BID PRN OP 09/29/16 04:15 10/29/16 04:14 09/29/16 13:04 1 DROPS Acetaminophen (Tylenol Tab) 650 mg Q4H PRN PO 09/29/16 04:15 10/29/16 04:14 Al Hydrox/Mg Hydrox/Simethicone (Maalox Max Susp) 15 ml Q4H PRN PO 09/29/16 04:15 10/29/16 04:14 Magnesium Hydroxide (Milk Of Magnesia Susp) 30 ml Q6H PRN PO 09/29/16 04:15 10/29/16 04:14 Polyethylene (Miralax Powder Packet) 17 gm DAILY PRN PO 09/29/16 04:15 10/29/16 04:14 Zolpidem Tartrate (Ambien Tab) 5 mg HSZ PRN PO 09/29/16 04:15 10/29/16 04:14 Ondansetron HCl 4 mg 4 mg Q6H PRN IV 09/29/16 04:15 10/29/16 04:14 09/29/16 13:01 4 MG Potassium Chloride/Dextrose/ Sod Cl (D5nss + 20meq KCl) 1,000 ml @ 150 mls/hr Q6H40M IV 09/29/16 06:15 10/29/16 06:14 09/29/16 12:55 150 MLS/HR Miscellaneous (Iv Fluids Completed) 1 ea PRN PRN N/A 09/29/16 06:00 09/29/17 05:59 (Berta Brand, PA-C) Objective Vital Signs Date Time Temp Pulse Resp B/P Pulse Ox O2 Delivery O2 Flow Rate FiO2 09/29/16 12:00 96 Room Air 09/29/16 11:36 36.5 73 18 121/72 97 Room Air 09/29/16 08:00 97 Room Air 09/29/16 07:57 36.4 65 18 120/75 97 Room Air 09/29/16 05:43 97 Room Air 09/29/16 05:14 36.4 84 20 155/88 09/29/16 04:42 71 20 152/89 97 Room Air 09/29/16 03:24 68 18 113/62 99 Room Air 69 141/71 64 141/71 09/29/16 02:26 60 18 132/55 99 Room Air 09/29/16 02:12 67 17 109/82 99 Room Air 09/29/16 02:04 63 (Berta Brand PA-C) Physical Exam General Appearance: WD/WN, no apparent distress Eyes: sclerae normal ENT: hearing grossly normal Neck: supple, no JVD, trachea midline Respiratory/Chest: lungs clear, normal breath sounds, no respiratory distress, no accessory muscle use Cardiovascular: regular rate, rhythm, no gallop, no murmur Abdomen: normal bowel sounds, non tender, soft Extremities: no pedal edema, no calf tenderness Neurologic/Psychiatric: alert, oriented x 3 Skin: normal color, warm/dry (Berta Brand PA-C) Laboratory Results Last 24 Hours Test 09/29/16 02:04 White Blood Count 5.01 K/uL Red Blood Count 3.98 M/uL Hemoglobin 13.3 g/dL Hematocrit 36.6 % Mean Corpuscular Volume 92.0 fL Mean Corpuscular Hemoglobin 33.4 pg Mean Corpuscular Hemoglobin Concent 36.3 g/dl Platelet Count 158 K/uL Mean Platelet Volume 9.6 fL RDW Standard Deviation 43.4 fL RDW Coefficient of Variation 12.9 % Neutrophils % (Manual) 26.3 % Lymphocytes % (Manual) 41.2 % Variant Lymphocytes % (manual) 27.2 % Monocytes % (Manual) 2.6 % Eosinophils % (Manual) 1.8 % Basophils % (Manual) 0.9 % Neutrophils # (Manual) 1.32 K/uL Total Absolute Neutrophils 1.32 K/uL Lymphocytes # (Manual) 2.06 K/uL Absolute Variant Lymphocytes 1.36 K/uL Total Absolute Lymphocytes 3.43 K/uL Monocytes # (Manual) 0.13 K/uL Eosinophils # (Manual) 0.09 K/uL Basophils # (Manual) 0.05 K/uL Sodium Level 143 mmol/L Potassium Level 3.4 mmol/L Chloride Level 108 mmol/L Carbon Dioxide Level 24 mmol/L Anion Gap 11.0 mmol/L Blood Urea Nitrogen 25 mg/dl Creatinine 0.94 mg/dl Est Creatinine Clear Calc Drug Dose 59.9 ml/min Estimated GFR () 77.0 Estimated GFR (Non- 66.4 BUN/Creatinine Ratio 26.4 Random Glucose 95 mg/dl Calcium Level 9.2 mg/dl Total Bilirubin 0.3 mg/dl Direct Bilirubin < 0.1 mg/dl Aspartate Amino Transf (AST/SGOT) 16 U/L Alanine Aminotransferase (ALT/SGPT) 25 U/L Alkaline Phosphatase 85 U/L Troponin I < 0.015 ng/ml Total Protein 7.2 gm/dl Albumin 3.8 gm/dl Lipase 159 U/L (Berta Brand PA-C) Assessment and Plan 61 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 Pt has a history of syncope, symptomatic anemia, severe migraines and CVA possibly related to a PFO. She was sitting with a pt on the 4th floor and became nauseous and dizzy. She alerted another employee to get help from a nurse and then apparently lost consciousness briefly. She was dizzy and nauseous when she awoke. She was noted to be hypotensive although they could not obtain an exact pressure and was also bradycardic into the mid 30s. The pt was transported to the ER following a code purple. She was provided with hydration and gradually improved although she continues to c/o light headedness. She was not orthostatic after receiving a fluid bolus. Incidentally on further questioning she states that she had "crushing" chest pain 2 days earlier but had not alerted her plate driller. She denies CP or discernible palpitations prior to LOC this AM. Syncope: Symptomatic Bradycardia vs Vasovagal - Hydrate with D5 NSS + 20 mEq KCl - Cardiac enzymes trended and negative - Cardiology - appreciate recommendations - no further workup at this time -- Monitor rhythm today H/O TIA 2/2 PFO: - ASA 81 mg daily Migraines: - Topamax 200 mg BID and Lamictal 50 mg BID DVT Prophylaxis: - SCDs - withhold chemical prophylaxis due to significant hemorrhoidal bleeding and aneurysm Code Status: FULL RESUSCITATION Disposition: Probable D/C home tomorrow - will monitor rhythm today (Berta Brand PA-C) ATTENDING ATTESTATION I have seen and examined patient this am. I have discussed plan of care in detail with NING and agree with plan as stated above. Patient denies any dizziness or chest pain. Vitals-reviewed GEN- NAD CVS-RRR RESP-CTA ABD-+BS EXT- no edema Labs-reviewed Syncope h/o PFO Migraines HLD h/o CVA - appreciate cardiology input - continue to monitor on telemetry - per cardiology suspect 2/2 to vasovagal no more cardiac testing recommended - monitor on telemetry for arrhythmia overnight (Berta Hernandez MD)
[2016-09-29] MEDS ORDERED: AMITRIPTYLINE HCL 25 MG TAB PO SCH (21:00)
[2016-09-29] MEDS ORDERED: OMEGA-3 (PURIFIED FISH OIL) 1 GM CAP PO SCH (21:00)
[2016-09-29] MEDS ORDERED: ASPIRIN 81 MG ECTAB PO SCH (21:00)
[2016-09-30 00:17] VITALS: BP 111/71; PULSE 78; TEMP 36.5; O2SAT 97
[2016-09-30] MEDS: D5NSS + 20MEQ KCL 1,000 ML IV SCH ×2 (02:12→08:11)
[2016-09-30 03:57] VITALS: BP 118/72; PULSE 71; TEMP 36.6; O2SAT 98
[2016-09-30] MEDS: ONDANSETRON INJ 2 MG/ML 2 ML VIAL IV PRN (04:45)
[2016-09-30] MEDS: HYDROCODONE/ACETAMOPHEN 5/325MG TAB PO PRN (04:45)
[2016-09-30 06:59] LABS: HEMATOCRIT 32.2 % (37-47); MEAN CORPUSCULAR HEMOGLOBIN 32.4 pg (25-34); MEAN CORPUSCULAR HGB CONC 34.2 g/dl (32-36); MEAN PLATELET VOLUME 9.7 fL (7.4-10.4); PLATELET COUNT 128 K/uL (130-400); RED BLOOD COUNT 3.39 M/uL (4.2-5.4); WHITE BLOOD COUNT 2.64 K/uL (4.8-10.8)
[2016-09-30 07:34] LABS: BUN/CREATININE RATIO 14.7 (10-20); CREATININE 0.86 mg/dl (0.60-1.20); POTASSIUM 4.5 mmol/L (3.5-5.1)
[2016-09-30] MEDS: TOPIRAMATE 100 MG TAB PO SCH (08:13)
--- NOTE | 2016-09-30 11:35 | Discharge Instructions ---
Discharge Instructions Admission Admission Date: Sep 29, 2016 at 04:11 Admission Diagnosis: Syncope. Discharge Care Plan - Problem: Medical Problems: (1) Vasovagal Syncope Care Plan - Goal(s): Decrease discomfort, Improve function Care Plan - Instructions: Activity Recommendations: no limitations Recommended Home Diet: AHA Phase I (2gmNa/LoCho) Provider Instructions: Please follow up with PCP and Neurologist VTE Core Measure Inpt VTE Proph given/why not?: SCD's Work Instructions Additional Instructions: Return to Work on 10.03.16 [facility] Recommendations: Call your doctor if: * Temperature above 101 degrees * Pain not relieved by pain medicine ordered * There is increased drainage or redness from any incision * You have any unanswered questions or concerns. Your Doctors Instructions noted above were prepared by provider Berta Hernandez.
[2016-09-30 11:50] VITALS: BP 154/77; PULSE 65; TEMP 36.8; O2SAT 100
[2016-09-30 12:39] VITALS: BP 154/77; PULSE 65; TEMP 36.8; O2SAT 100
--- NOTE | 2016-09-30 17:36 | Discharge Summary ---
Discharge Summary Date of Service Sep 30, 2016. Discharge Summary Admission Date: Sep 29, 2016 at 04:11 Discharge Date: Sep 30, 2016 Discharge Disposition: Home Principal Diagnosis: Vasovagal Syncope Problems/Secondary Diagnoses: Migraines h/o CVA Consultations: Cardiology Medication Reconciliation Continued Medications: Amitriptyline Hcl (Elavil) 50 Mg Tab 25 MG PO HS, TAB Aspirin (Aspirin Ec) 81 Mg Tab 81 MG PO QPM Bxffivavuu-Pkbxwug-Ptkjszgl (Butalbital/Aspirin/Caffei 50-325-40 mg) 1 Cap Cap 1 CAP PO UD PRN for HEADACHES Fiber Laxative (Fiber Laxative) Ea 1 DOSE PO QPM Fish Oil ([place]-3) 1 Ea Cap 2 CAP PO QPM, CAP Hydrocodone/Acetaminophen 5MG/325MG ([place] 5MG/325MG) Tab 1 TABLET PO Q4 PRN for Pain Lamotrigine (Lamictal) 25 Mg Tab 50 MG PO BID, TAB Multivitamin (Multivitamin) Tab 1 TAB PO QPM, TAB Polyethylene Glycol-Propylene (Systane Ultra) 1 Jessica Jessica 1 DROPS OP BID PRN for PRN, 1 Refill Promethazine Hcl (Phenergan) 25 Mg Tab 25 MG PO Q6H PRN for Nausea Topiramate (Topamax) 100 Mg Tab 200 MG PO BID, TAB Discharge Exam Review of Systems: Constitutional: No chills, No fever Eyes: No worsening of vision Respiratory: No cough, No shortness of breath Cardiovascular: No chest pain, No orthopnea Abdomen: No diarrhea, No pain Musculoskeletal: No joint pain Genitourinary - Female: No dysuria Genitourinary - Male: No dysuria, No hematuria Neurologic: No memory loss Endocrine: No fatigue Integumentary: No itch, No rash Physical Exam: General Appearance: WD/WN, no apparent distress Eyes: normal inspection ENT: normal ENT inspection Neck: supple, no adenopathy Respiratory/Chest: chest non-tender, lungs clear, normal breath sounds Cardiovascular: regular rate, rhythm, no edema Abdomen / GI: normal bowel sounds, non tender, soft Extremities: normal inspection Neurologic/Psychiatric: magnetic healer II-XII nml as tested, no motor/sensory deficits , alert, oriented x 3 Skin: normal color, warm/dry Hospital Course 61 y/o F employed at [employer] as a [employer]. Pt has a history of syncope, symptomatic anemia, severe migraines and CVA possibly related to a PFO. She was sitting with a pt on the 4th floor and became nauseous and dizzy. She alerted another employee to get help from a nurse and then apparently lost consciousness briefly. She was dizzy and nauseous when she awoke. She was noted to be hypotensive although they could not obtain an exact pressure and was also bradycardic into the mid 30s. The pt was transported to the ER following a code purple. She was provided with hydration and gradually improved although she continues to c/o light headedness. She was not orthostatic after receiving a fluid bolus. Incidentally on further questioning she states that she had "crushing" chest pain 2 days earlier but had not alerted her transferrer. She denies CP or discernible palpitations prior to LOC this AM. Patient was admitted to the hospitalist service. Patient was placed on telemetry and ruled out for ACS. Cardiology was consulted. and believed symptoms were due to vasovagal syncope. Patient was observed for 24 hours on telemetry with no events. Patient was discharged and instructed to f/u with PCP Total Time Spent: Greater than 30 minutes This includes examination of the patient, discharge planning, medication reconciliation, and communication with other providers. Discharge Instructions Please refer to the electronic Patient Visit Report (Discharge Instructions) for additional information.
== END 2016-09-30 14:28 | disposition home or self-care (01) ==
LOC: ENRESERVTM → ENRESERVDT → C.EDA 01:57 → EEVIPCON 04:11 → C.2T 04:11
PROVIDERS: ADMIT Internal Medicine; ATTEND Internal Medicine
DX: R55 Syncope and collapse (principal); G43.909 Migraine, unspecified, not intractable, without status migrainosus; Q21.1 Atrial septal defect; E78.5 Hyperlipidemia, unspecified; Z86.73 Personal history of transient ischemic attack (TIA), and cerebral infarction without residual deficits; Z79.82 Long term (current) use of aspirin; Z79.899 Other long term (current) drug therapy

== ENCOUNTER → 2016-10-05 | Outpatient (CLI) | payer OTHER ==
[~2016-10-05] MED LIST changes: -DOCU-94 PO
[2016-10-05 12:55] LABS: BASO % 0.6 %; BASO ABS # 0.02 K/uL (0-0.2); COMPLETE YES; EOS % 2.9 %; HEMATOCRIT 36.2 % (37-47); LYMPH % 40.1 %; LYMPH ABS # 1.39 K/uL (1.2-3.4); MEAN CORPUSCULAR HEMOGLOBIN 33.6 pg (25-34); MEAN CORPUSCULAR HGB CONC 35.4 g/dl (32-36); MEAN PLATELET VOLUME 10.6 fL (7.4-10.4); MONO % 7.8 %; NEUT % 48.6 %; PLATELET COUNT 159 K/uL (130-400); RED BLOOD COUNT 3.81 M/uL (4.2-5.4); WHITE BLOOD COUNT 3.47 K/uL (4.8-10.8)
[2016-10-05 13:28] LABS: ALT/SGPT 38 U/L (12-78); BLOOD UREA NITROGEN 25 mg/dl (7-18); BUN/CREATININE RATIO 26.2 (10-20); CALCIUM 9.5 mg/dl (8.5-10.1); CARBON DIOXIDE 22 mmol/L (21-32); CHLORIDE 108 mmol/L (98-107); CHOLESTEROL 272 mg/dl (0-200); CREATININE 0.95 mg/dl (0.60-1.20); GLUCOSE 89 mg/dl (70-99); POTASSIUM 4.2 mmol/L (3.5-5.1); SODIUM 141 mmol/L (136-145)
[2016-10-05 13:38] LABS: ALKALINE PHOSPHATASE 93 U/L (45-117); AST/SGOT 26 U/L (15-37); CHOLESTEROL/HDL RATIO 3.5; HDL CHOLESTEROL 77 mg/dl; LDL CHOLESTEROL CALCULATED 162 mg/dl; TRIGLYCERIDES 163 mg/dl (0-150); VERY LOW DENSITY LIPOPROT CALC 33 mg/dl
== END | disposition home or self-care (01) ==
LOC: C.LABPVFM 11:25
PROVIDERS: ATTEND Family Medicine
DX: D50.0 Iron deficiency anemia secondary to blood loss (chronic) (principal); E78.5 Hyperlipidemia, unspecified; Z51.81 Encounter for therapeutic drug level monitoring; Z79.899 Other long term (current) drug therapy; Z11.59 Encounter for screening for other viral diseases

== ENCOUNTER → 2017-06-18 | Outpatient (CLI) | payer OTHER ==
[~2017-06-18] MED LIST changes: +CYCL0.052 OP; +ZNTT/150 PO
[2017-06-18 13:06] LABS: ALT/SGPT 29 U/L (12-78); AST/SGOT 21 U/L (15-37); BLOOD UREA NITROGEN 17 mg/dl (7-18); BUN/CREATININE RATIO 15.7 (10-20); CALCIUM 9.5 mg/dl (8.5-10.1); CARBON DIOXIDE 24 mmol/L (21-32); CHLORIDE 108 mmol/L (98-107); CHOLESTEROL 324 mg/dl (0-200); CREATININE 1.09 mg/dl (0.60-1.20); GLUCOSE 84 mg/dl (70-99); POTASSIUM 4.1 mmol/L (3.5-5.1); SODIUM 140 mmol/L (136-145); TRIGLYCERIDES 127 mg/dl (0-150); VERY LOW DENSITY LIPOPROT CALC 25 mg/dl
[2017-06-18 13:09] LABS: ALKALINE PHOSPHATASE 86 U/L (45-117); CHOLESTEROL/HDL RATIO 3.4; HDL CHOLESTEROL 94 mg/dl; LDL CHOLESTEROL CALCULATED 205 mg/dl
== END | disposition home or self-care (01) ==
LOC: C.LABPVFM 10:57
PROVIDERS: ATTEND Family Medicine
DX: Z51.81 Encounter for therapeutic drug level monitoring (principal); Z79.899 Other long term (current) drug therapy; E78.5 Hyperlipidemia, unspecified

== ENCOUNTER 2017-10-08 20:18 | Emergency (ER) | payer OTHER ==
[~2017-10-08] VITALS: Ht 154.9 cm; Wt 76.0 kg
[~2017-10-08 20:18] MED LIST changes: +RANI150T85 PO; -ZNTT/150 PO
[2017-10-08 20:24] VITALS: TEMP 36.5; Ht 154.9 cm; Wt 76.0 kg
[2017-10-08] MEDS ORDERED: DiphenhydrAMINE HCL 50 MG/ML VIAL IV STA (20:46)
[2017-10-08] MEDS ORDERED: SODIUM CHLORIDE 0.9% 1000ML 2,000 ML IV STA (20:46)
[2017-10-08] MEDS ORDERED: METOCLOPRAMIDE HCL INJ 5 MG/ML 2 ML VIAL IV STA (20:46)
--- NOTE | 2017-10-08 21:07 | EMERGENCY ROOM VISIT NOTE ---
History Report prepared by Madi: Gabriela Rainey Under the Supervision of: Dr. Tommy Dennis M.D. First contact with patient: 20:40 Chief Complaint: HEADACHE Stated Complaint: MIGRAINE History of Present Illness The patient is a 62 year old female who presents to the Emergency Room with complaints of a worsening migraine that began 5 hours prior to arrival. She states that her migraine radiates through her entire head, but is more prevalent on the left side. The patient describes her migraine as a pressure and throbbing feeling. She reports a history of migraines, noting that taking Maxalt usually resolves her symptoms. The patient states that this time she took her medication but was unable to relieve her symptoms, noting it worsened when with bright lighting but feels similar to her usual migraines. She notes that she has been experiencing some nausea and pressure behind her eyes, but denies any vomiting, diarrhea, changes in vision or hearing, burning with urination, shortness of breath, chest pain, or fevers. She states that applying pressure to her head and using an ice pack helps relieve some of her symptoms. The patient states that she sometimes vomits from when she has migraines. She reports that she woke up feeling fine this morning, but did have a minor migraine one day ago which relieved itself. The patient states a history of TIA' s and vertigo. 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 Source of History: patient Onset: 5 hours prior to arrival Position: other (neurological) Quality: other (migraine) Timing: worsening Associated Symptoms: + nausea (some), No fevers, No chest pain, No SOB, No diarrhea Note: Associated symptoms include: pressure behind her eyes Patient denies: any changes in vision or hearing, burning with urination Review of Systems See HPI for pertinent positives and negatives. A total of ten systems were reviewed and were otherwise negative. Past Medical & Surgical Medical Problems: (1) CVA (cerebral vascular accident) (2) Headache (3) PFO (patent foramen ovale) (4) Symptomatic anemia (5) Syncope Family History Stroke Social History Smoking Status: Never Smoker Alcohol Use: none Drug Use: none Marital Status: Occupation Status: employed Current/Historical Medications Scheduled Amitriptyline Hcl (Elavil), 50 MG PO HS Aspirin (Aspirin Ec), 81 MG PO QPM Cyclosporine (Ophth) (Restasis), 1 DROP OP BID Fish Oil ([place]-3), 2 CAP PO QPM Lamotrigine (Lamictal), 50 MG PO BID Multivitamin (Multivitamin), 1 TAB PO QPM Polyethylene Glycol 3350 (Clearlax), 1 DOSE PO DAILY Ranitidine (Zantac), 150 MG PO BID Topiramate (Topamax), 200 MG PO BID Scheduled PRN Sxpvtcubdl-Rvopsbm-Cwkxgxwl (Butalbital/Aspirin/Caffei 50-325-40 mg), 1 CAP PO UD PRN for Headache Promethazine Hcl (Phenergan), 25 MG PO Q6H PRN for Nausea Allergies Coded Allergies: Nickel (Verified Allergy, Unknown, RASH, 09/29/16) Penicillins (Verified Allergy, Unknown, HIVES A CHILD, 09/29/16) Physical Exam Vital Signs Date Time Temp Pulse Resp B/P (MAP) Pulse Ox O2 Delivery O2 Flow Rate FiO2 10/08/17 23:44 88 20 138/80 98 Room Air 10/08/17 22:09 78 18 141/73 98 Room Air 10/08/17 20:24 36.5 83 16 159/81 97 Room Air Physical Exam GENERAL: Awake, alert, uncomfortable-appearing, in no distress HENT: Dry mucous membranes. Normocephalic, atraumatic. Oropharynx unremarkable. EYES: Normal conjunctiva. Sclera non-icteric. NECK: Supple. No nuchal rigidity. FROM. No JVD. RESPIRATORY: Clear to auscultation. CARDIAC: Regular rate, normal rhythm. Extremities warm and well perfused. Pulses equal. ABDOMEN: Soft, non-distended. No tenderness to palpation. No rebound or guarding. No masses. RECTAL: Deferred. MUSCULOSKELETAL: Chest examination reveals no tenderness. The back is symmetrical on inspection without obvious abnormality. There is no CVA tenderness to palpation. No joint edema. LOWER EXTREMITIES: Calves are equal size bilaterally and non-tender. No edema. No discoloration. NEURO: Normal sensorium. No sensory or motor deficits noted. normal cerebellar function with [id number], alternating palms, [id number] SKIN: No rash or jaundice noted. Medical Decision & Procedures ER Provider Diagnostic Interpretation: Radiology results as stated below per my review and radiologist interpretation: Brain MRI WITHOUT CONTRAST HISTORY: vertigo TECHNIQUE: Multiplanar multisequence MRI of the brain was performed without the use of contrast. COMPARISON STUDY: Head CT 09/29/2016. Brain MRI 10/21/2015. FINDINGS: The paranasal sinuses are clear. The orbits are unremarkable. Trace fluid within the right mastoid air cells, unchanged. Hypoplastic basilar artery, unchanged. Otherwise, the major vascular flow-voids at the skull base are well-maintained. The ventricles are normal in size. There is no mass, hematoma, midline shift, acute infarct. Stable focal scarring within the body of the corpus callosum. No change in the old small cerebellar infarcts. No change in the mild periventricular white matter T2 hyperintensity. This may be due to mild microvascular ischemic change. IMPRESSION: No significant change compared to the prior study. No acute intracranial abnormality. Old cerebellar infarcts are again noted. Electronically signed by: Pb Ayala M.D. 10/08/2017 10:29 PM Dictated Date/Time: 10/08/2017 10:21 PM Laboratory Results 10/08/17 21:06 Red Blood Count 3.97, Mean Corpuscular Volume 92.2, Mean Corpuscular Hemoglobin 33.8, Mean Corpuscular Hemoglobin Concent 36.6, Mean Platelet Volume 9.6, Neutrophils (%) (Auto) 45.8, Lymphocytes (%) (Auto) 45.3, Monocytes (%) (Auto) 6.3, Eosinophils (%) (Auto) 1.9, Basophils (%) (Auto) 0.5, Neutrophils # (Auto) 1.88, Lymphocytes # (Auto) 1.86, Monocytes # (Auto) 0.26, Eosinophils # (Auto) 0.08, Basophils # (Auto) 0.02 10/08/17 21:06 Test 10/08/17 21:06 White Blood Count 4.11 K/uL (4.8-10.8) Red Blood Count 3.97 M/uL (4.2-5.4) Hemoglobin 13.4 g/dL (12.0-16.0) Hematocrit 36.6 % (37-47) Mean Corpuscular Volume 92.2 fL (80-100) Mean Corpuscular Hemoglobin 33.8 pg (25-34) Mean Corpuscular Hemoglobin Concent 36.6 g/dl (32-36) Platelet Count 155 K/uL (130-400) Mean Platelet Volume 9.6 fL (7.4-10.4) Neutrophils (%) (Auto) 45.8 % Lymphocytes (%) (Auto) 45.3 % Monocytes (%) (Auto) 6.3 % Eosinophils (%) (Auto) 1.9 % Basophils (%) (Auto) 0.5 % Neutrophils # (Auto) 1.88 K/uL (1.4-6.5) Lymphocytes # (Auto) 1.86 K/uL (1.2-3.4) Monocytes # (Auto) 0.26 K/uL (0.11-0.59) Eosinophils # (Auto) 0.08 K/uL (0-0.5) Basophils # (Auto) 0.02 K/uL (0-0.2) RDW Standard Deviation 42.9 fL (36.4-46.3) RDW Coefficient of Variation 12.7 % (11.5-14.5) Immature Granulocyte % (Auto) 0.2 % Immature Granulocyte # (Auto) 0.01 K/uL (0.00-0.02) Anion Gap 10.0 mmol/L (3-11) Est Creatinine Clear Calc Drug Dose 72.4 ml/min Estimated GFR () 97.3 Estimated GFR (Non- 83.9 BUN/Creatinine Ratio 24.0 (10-20) Calcium Level 9.3 mg/dl (8.5-10.1) Troponin I < 0.015 ng/ml (0-0.045) Laboratory results reviewed by me Medications Administered Medications (Trade) Dose Ordered Sig/[facility] Route Start Time Stop Time Status Last Admin Dose Admin Sodium Chloride 2,000 ml @ 999 mls/hr Q2H1M STAT IV 10/08/17 20:46 10/08/17 22:46 DC 10/08/17 21:16 999 MLS/HR Metoclopramide HCl (Reglan Inj) 10 mg NOW STAT IV 10/08/17 20:46 10/08/17 20:56 DC 10/08/17 21:16 10 MG Diphenhydramine HCl (Benadryl Inj) 25 mg NOW STAT IV 10/08/17 20:46 10/08/17 20:56 DC 10/08/17 21:16 25 MG Dexamethasone Sodium Phosphate (Dexamethasone Inj Pf) 10 mg NOW ONCE IV 10/08/17 23:45 10/08/17 23:46 DC 10/08/17 23:39 10 MG ECG Per My Interpretation Indication: nausea Rate (beats per minute): 64 Rhythm: normal sinus Findings: no acute ischemic change, other (Normal axis) ED Course 2044: The patient was evaluated in room A4. A complete history and physical exam was performed. 2158: I reevaluated the patient, who was resting. I updated her on some test findings and she verbalized complete understanding. 2332: I reevaluated the patient. Discussed results and discharge instructions: she verbalized understanding and agreement. The patient is ready for discharge. Medical Decision I reviewed the patient's past medical history, medications, and the nursing notes as described above. Differential diagnosis: Etiologies such as migraine headache, meningitis, sinusitis, CO exposure, ICH, SAH, infection, tumor, headache, sinus thrombosis, arterial dissection, as well as others were entertained. The patient is a 62 y/o woman with a pmhx of migraines and TIAs who presents to the emergency department with gradual onset ARAYA that is typical of her migraines per HPI. On arrival the patient is uncomfortable but in NAD, AFVSS. Of note, patient reports recent episodes of vertigo when waking up in the morning that would resolve. On exam, neuro intact including normal cerebellar function with hoxbti-jr-xblv, alternating palms, mwuh-eb-sbng. While the patient's sx appear as her typical migraines, given the patient's recent recurrent vertigo in the setting of her h/o TIAs, MRI was performed. MRI unchanged from prior. Labs unremarkable. Patient feeling some improvement after migraine cocktail but still with ARAYA. Patient requesting "pain medicine", I explained narcotics are an effective pain medication for acute severe pain such as from a bone fracture or after surgery, however, they are not recommended for chronic pain such as for headaches or back pain as they have the potential to promote rebound hyperalgesia resulting in increased severity of the initial chronic pain when not taking narcotics. We agreed to does of dexamethasone and patient then requesting discharge to rest at home. Findings and plan for follow-up reviewed with patient. Patient agreeable and d/c'd per discharge instructions. Medication Reconcilliation Current Medication List: was personally reviewed by me Blood Pressure Screening Patient's blood pressure: Normal blood pressure Blood pressure disposition: Did not require urgent referral Impression Primary Impression: Migraine Scribe Attestation The scribe's documentation has been prepared under my direction and personally reviewed by me in its entirety. I confirm that the note above accurately reflects all work, treatment, procedures, and medical decision making performed by me. Departure Information Dispostion Home / Self-Care Referrals No Doctor, Assigned (PCP) Forms HOME CARE DOCUMENTATION FORM, IMPORTANT VISIT INFORMATION Patient Instructions ED Headache Migraine, My [facility] Additional Instructions Please follow up with your primary care physician in the next 1-3 days for re- evaluation. Your symptoms are likely related to your chronic migraines. Otherwise, your exam, EKG, chest xray, lab results, and MRI of your brain did not show signs of an emergent condition at this time. Continue your current medications as prescribed. Drink plenty of fluids to ensure hydration. Return to the emergency department for worsening symptoms as described in the accompanying instructions. Work Instructions Return To Work: 2 days
[2017-10-08 21:19] LABS: BASO % 0.5 %; BASO ABS # 0.02 K/uL (0-0.2); EOS % 1.9 %; EOS ABS # 0.08 K/uL (0-0.5); HEMATOCRIT 36.6 % (37-47); HEMOGLOBIN 13.4 g/dL (12.0-16.0); IG# 0.01 K/uL (0.00-0.02); LYMPH % 45.3 %; LYMPH ABS # 1.86 K/uL (1.2-3.4); MEAN CELL VOLUME 92.2 fL (80-100); MEAN CORPUSCULAR HEMOGLOBIN 33.8 pg (25-34); MEAN CORPUSCULAR HGB CONC 36.6 g/dl (32-36); MEAN PLATELET VOLUME 9.6 fL (7.4-10.4); MONO % 6.3 %; MONO ABS # 0.26 K/uL (0.11-0.59); NEUT % 45.8 %; NEUT ABS # 1.88 K/uL (1.4-6.5); PLATELET COUNT 155 K/uL (130-400); RED CELL DISTRIBUTION WIDTH CV 12.7 % (11.5-14.5); RED CELL DISTRIBUTION WIDTH SD 42.9 fL (36.4-46.3); WHITE BLOOD COUNT 4.11 K/uL (4.8-10.8)
[2017-10-08 21:39] LABS: BLOOD UREA NITROGEN 18 mg/dl (7-18); CALCIUM 9.3 mg/dl (8.5-10.1); CARBON DIOXIDE 22 mmol/L (21-32); CREATININE 0.77 mg/dl (0.60-1.20); GLUCOSE 82 mg/dl (70-99); POTASSIUM 3.4 mmol/L (3.5-5.1); SODIUM 140 mmol/L (136-145)
--- NOTE | 2017-10-08 22:30 | DIAGNOSTIC IMAGING REPORT ---
Brain MRI WITHOUT CONTRAST HISTORY: vertigo TECHNIQUE: Multiplanar multisequence MRI of the brain was performed without the use of contrast. COMPARISON STUDY: Head CT 09/29/2016. Brain MRI 10/21/2015. FINDINGS: The paranasal sinuses are clear. The orbits are unremarkable. Trace fluid within the right mastoid air cells, unchanged. Hypoplastic basilar artery, unchanged. Otherwise, the major vascular flow-voids at the skull base are well-maintained. The ventricles are normal in size. There is no mass, hematoma, midline shift, acute infarct. Stable focal scarring within the body of the corpus callosum. No change in the old small cerebellar infarcts. No change in the mild periventricular white matter T2 hyperintensity. This may be due to mild microvascular ischemic change. IMPRESSION: No significant change compared to the prior study. No acute intracranial abnormality. Old cerebellar infarcts are again noted. Electronically signed by: Pb Ayala M.D. 10/08/2017 10:29 PM Dictated Date/Time: 10/08/2017 10:21 PM
[2017-10-08] MEDS ORDERED: POLY1POW PO (22:36)
[2017-10-08 23:44] VITALS: BP 138/80; PULSE 88; O2SAT 98
[2017-10-08] MEDS ORDERED: DEXAMETHASONE **PF** INJ 10 MG/ML VIAL IV ONE (23:45)
== END 2017-10-08 23:51 | disposition home or self-care (01) ==
LOC: C.EDB 20:20 → C.EDA 23:51
DX: G43.909 Migraine, unspecified, not intractable, without status migrainosus (principal); Z86.73 Personal history of transient ischemic attack (TIA), and cerebral infarction without residual deficits; Z79.82 Long term (current) use of aspirin; Z88.0 Allergy status to penicillin; Z91.048 Other nonmedicinal substance allergy status; Z82.3 Family history of stroke

== ENCOUNTER → 2017-10-26 | Outpatient (CLI) | payer OTHER ==
[~2017-10-26] MED LIST changes: -FIBER PO; -HYDR-5688 PO; +POLY1POW PO; -POLY1SOL6 OP
--- NOTE | 2017-10-26 15:04 | MAMMOGRAPHY REPORT ---
BILATERAL DIGITAL SCREENING MAMMOGRAM TOMOSYNTHESIS WITH CAD: 10/26/2017 CLINICAL HISTORY: Routine screening. Patient has no new complaints. TECHNIQUE: Breast tomosynthesis in addition to standard 2D mammography was performed. Current study was also evaluated with a Computer Aided Detection (CAD) system. COMPARISON: Comparison is made to exam dated: 10/05/2011 mammogram - [facility]. BREAST COMPOSITION: There are scattered areas of fibroglandular density in both breasts. FINDINGS: No suspicious masses, calcifications, or areas of architectural distortion are noted in ei ther breast. The breasts are diffusely less dense and more fatty compared to the 2011 exam, which ma y be due to interval weight gain. Scattered bilateral benign-appearing calcifications are again note d. IMPRESSION: ACR BI-RADS CATEGORY 2: BENIGN There is no mammographic evidence of malignancy. A 1 year screening mammogram is recommended. The pa tient will receive written notification of the results. Approximately 10% of breast cancers are not detected with mammography. A negative mammographic report should not delay biopsy if a clinically suggestive mass is present. Estelle Louis M.D. ah/:10/26/2017 08:55:32 Limb Driver: [place] PEREYRA,R, M, [facility] letter sent: Normal 1/2 BI-RADS Code: ACR BI-RADS Category 2: Benign
== END | disposition home or self-care (01) ==
LOC: C.MAMM 08:15
PROVIDERS: ATTEND Nurse Practitioner
DX: Z12.31 Encounter for screening mammogram for malignant neoplasm of breast (principal)

== ENCOUNTER 2019-09-04 21:26 | Observation (INO) ==
--- NOTE | 2019-09-04 21:55 | Emergency Department Note ---
History of Present Illness General Chief complaint: Neuro Symptoms/Deficit Stated complaint: CONFUSION,R ARM WENT NUMB History of Present Illness Maximum Pain Intensity: 3 This 64-year-old presents to the ER complaining of confusion and right arm weakness Location: Generalized Quality: Confused Severity: Moderate Duration: 1 hour Timing: Started a little after 6 Context: Patient and coworkers were concerned and brought her in Modifying factors: better with nothing; worse with rest Patient has a history of a brain aneurysm with history of TIAs and small ischemic stroke in the past. She follows Dr. Huffman. She does have a PFO. Patient states tonight she was driving to work and her right arm went weak and she lost vision in her right eye and next thing she knew she was nearly driving off the road. She corrected her driving and then made her way to work. She states she felt confused and sat in her car for a while. She then walked inside and next thing he knew it was 730pm. She normally goes to work early. Her coworkers noticed she was confused and had some facial droop and sent her in. Patient states she now feels back to baseline. She states she just feels fatigued. Patient states she did not sleep well today. Patient denies chest pain, dyspnea, fevers, cough, congestion, abdominal pain, localized weakness, loss of vision. She does not smoke. Home Medications Home Medications Medication Instructions Recorded Confirmed Type hydrocodone 5 mg-acetaminophen 325 1 tab PO .COMPLEX PRN tab 03/12/19 03/12/19 History mg tablet lifitegrast 5 % eye drops in a 1 OP .INSTILL 1 DROP Daily ea 03/12/19 03/12/19 History dropperette multivitamin 1 tab PO DAILY 03/12/19 03/12/19 History omega-3 acid ethyl esters 1 gram 2 PO .TAKE 2 CAPSULE Daily cap 03/12/19 03/12/19 History capsule peg 400-propylene glycol 0.4 %-0.3 OP .INSTILL 1 DROP IN AF ml 03/12/19 History % eye drops polyethylene glycol 3350 17 PO .USE 17 GRAMS (1 CAPF gm 03/12/19 03/12/19 History gram/dose oral powder galcanezumab-gnlm 120 mg/mL 120 mg SQ .COMPLEX 30 Days #1 ml 04/25/19 06/19/19 Rx subcutaneous pen injector aspirin 81 mg tablet 81 mg PO DAILY tab 06/05/19 06/19/19 History famotidine 20 mg tablet 20 mg PO BID #60 tab 06/05/19 06/19/19 Rx lamotrigine 100 mg tablet 100 mg PO BID #60 tab 06/19/19 06/19/19 Rx topiramate 100 mg tablet 200 mg PO .COMPLEX tab 06/19/19 03/12/19 History jgstlzgiuf-uptehlmvqhpmf-lmkzxfsz 1 tab PO .COMPLEX 30 Days #30 tab 08/14/19 Rx 50 mg-325 mg-40 mg tablet Allergies Allergy/AdvReac Type Severity Reaction Status Date / Time nickel Allergy Unknown RASH Verified 09/04/19 23:22 Penicillins Allergy Unknown HIVES A Verified 09/04/19 23:22 CHILD Sulfa (Sulfonamide Allergy Hives Verified 09/04/19 23:22 Antibiotics) Past Med/Surg History Medical History Cerebral aneurysm without rupture Cerebral infarct (Acute) Common migraine without aura (Acute) Hyperlipidemia (Acute) PFO (patent foramen ovale) (Resolved) Surgical History S/P hernia repair S/P hysterectomy S/P tonsillectomy Status post tubal ligation Family History Mother Diabetes Stroke Hypertension Brother Cancer Systemic lupus erythematosus Father Myocardial infarction Social History Preferred Language: Romanian Feels Safe at Home: Yes Smoking Status: Never smoker Review of Systems A total of 10 systems reviewed and were otherwise negative Physical Exam Vital Signs Vital Signs - 24 hr 09/04/19 21:28 Temperature 36.6 C Temperature Source Oral Pulse Rate 83 Respiratory Rate 18 Respiratory Effort / Characteristics Non-Labored Spontaneous Respiratory Depth Normal Respiratory Pattern Regular Blood Pressure 169/84 H Blood Pressure Mean 112 Blood Pressure Position Sitting Pulse Oximetry 98 Oxygen Delivery Method Room Air Sepsis Recent Fever Within 48 Hours No Sepsis Action Taken by Nursing No Action Required VITALS: Vitals are noted on the nurse's note and reviewed by myself. Vital signs stable. GENERAL: Pleasant female, in no acute distress, nondiaphoretic, well-developed well-nourished. SKIN: The skin was without rashes, erythema, edema, or bruising. There is no tenting of the skin. Capillary reflex less than 2 seconds. HEAD: Normocephalic atraumatic. EARS: External auditory canals clear, tympanic membranes pearly haynes without erythema or effusion bilaterally. EYES: Pupils equal round and reactive to light and accommodation. Conjunctivae without injection, sclerae without icterus. Extraocular movements intact. NOSE: Patent, turbinates without inflammation or discharge. MOUTH: Mucous membranes moist. Pharynx without erythema or exudate. Uvula midline. Airway patent. Tongue does not deviate. NECK: Supple without nuchal rigidity. No lymphadenopathy. No thyromegaly. Cer vical spine is nontender. No JVD. HEART: Regular rate and rhythm LUNGS: Clear to auscultation bilaterally without wheezes, rales or rhonchi. No retractions or accessory muscle use. ABDOMEN: Positive bowel sounds x 4. Normal tympanic percussion. Soft, nontender, without masses or organomegaly. Capps sign negative. No guarding or rebound tenderness. No CVA tenderness MUSCULOSKELETAL: No muscle atrophy, erythema, or edema noted. NEURO: Patient was alert and oriented to person place and time. Left nasolabial fold slightly decreased versus right side. Normal sensation to light and sharp touch. Cerebellar exam intact. No pronator drift. Course Administered Medications Ioversol (Optiray 320 125ml) 119 ml IV ONCE PRN PRN Reason: Interaction Checking Stop: 09/08/19 22:00 Last Admin: 09/04/19 22:02 Dose: 119 ml Documented by: [id number] Medical Decision Making Medical Records Attestation: I reviewed the patient's medical records. Home Medications Current Medication List: was personally reviewed by me Laboratory Data Attestation: I reviewed the patient's lab results. Result diagrams: 09/04/19 21:45 09/04/19 21:45 Lab Results 09/04/19 09/04/19 09/04/19 Range/Units 21:45 21:45 21:45 WBC 4.19 L (4.8-10.8) K/uL RBC 3.97 L (4.2-5.4) M/uL Hgb 13.4 (12.0-16.0) g/dL Hct 38.3 (37-47) % MCV 96.5 (80-100) fL MCH 33.8 (25-34) pg MCHC 35.0 (32-36) g/dL RDW Std Deviation 45.9 (36.4-46.3) fL RDW Coeff of Lopez 13.1 (11.5-14.5) % Plt Count 162 (130-400) K/uL MPV 9.9 (7.4-10.4) fL Immature Gran % (Auto) 0.0 % Neut % (Auto) 35.0 % Lymph % (Auto) 53.7 % Sibley % (Auto) 7.9 % Eos % (Auto) 2.9 % Baso % (Auto) 0.5 % Immature Gran # (Auto) 0.00 (0.00-0.02) K/uL Neut # (Auto) 1.47 (1.4-6.5) K/uL Lymph # (Auto) 2.25 (1.2-3.4) K/uL Sibley # (Auto) 0.33 (0.11-0.59) K/uL Eos # (Auto) 0.12 (0-0.5) K/uL Baso # (Auto) 0.02 (0-0.2) K/uL PT 10.2 (9.0-12.0) Seconds INR 1.0 (0.9-1.1) APTT 29.4 (21.0-31.0) Seconds PTT Ratio 1.1 Sodium 140 (136-145) mmol/L Potassium 3.7 (3.5-5.1) mmol/L Chloride 111 H (98-107) mmol/L Carbon Dioxide 23 (21-32) mmol/L Anion Gap 6.0 (3-11) BUN 21 H (7-18) mg/dl Creatinine 1.05 (0.6-1.2) mg/dl POC Creatinine (0.6-1.3) mg/dl Est Cr Clr Drug Dosing 51.0 ml/min Est GFR ( Amer) 65.9 Est GFR (Non-Af Amer) 56.9 BUN/Creatinine Ratio 20.0 (10-20) Glucose 89 (70-99) mg/dl Calcium 9.8 (8.5-10.1) mg/dl Magnesium 2.4 (1.8-2.4) mg/dl Total Bilirubin 0.3 (0.2-1) mg/dl AST 15 (15-37) U/L ALT 23 (12-78) U/L Alkaline Phosphatase 90 (45-117) U/L Troponin I < 0.015 (0-0.045) ng/ml Total Protein 8.0 (6.4-8.2) gm/dl Albumin 4.2 (3.4-5.0) gm/dl Globulin 3.8 (2.5-4.0) gm/dl Albumin/Globulin Ratio 1.1 (0.9-2) Blood Type Antibody Screen 09/04/19 09/04/19 Range/Units 21:52 21:54 WBC (4.8-10.8) K/uL RBC (4.2-5.4) M/uL Hgb (12.0-16.0) g/dL Hct (37-47) % MCV (80-100) fL MCH (25-34) pg MCHC (32-36) g/dL RDW Std Deviation (36.4-46.3) fL RDW Coeff of Lopez (11.5-14.5) % Plt Count (130-400) K/uL MPV (7.4-10.4) fL Immature Gran % (Auto) % Neut % (Auto) % Lymph % (Auto) % Sibley % (Auto) % Eos % (Auto) % Baso % (Auto) % Immature Gran # (Auto) (0.00-0.02) K/uL Neut # (Auto) (1.4-6.5) K/uL Lymph # (Auto) (1.2-3.4) K/uL Sibley # (Auto) (0.11-0.59) K/uL Eos # (Auto) (0-0.5) K/uL Baso # (Auto) (0-0.2) K/uL PT (9.0-12.0) Seconds INR (0.9-1.1) APTT (21.0-31.0) Seconds PTT Ratio Sodium (136-145) mmol/L Potassium (3.5-5.1) mmol/L Chloride (98-107) mmol/L Carbon Dioxide (21-32) mmol/L Anion Gap (3-11) BUN (7-18) mg/dl Creatinine (0.6-1.2) mg/dl POC Creatinine 1.1 (0.6-1.3) mg/dl Est Cr Clr Drug Dosing ml/min Est GFR ( Amer) Est GFR (Non-Af Amer) BUN/Creatinine Ratio (10-20) Glucose (70-99) mg/dl Calcium (8.5-10.1) mg/dl Magnesium (1.8-2.4) mg/dl Total Bilirubin (0.2-1) mg/dl AST (15-37) U/L ALT (12-78) U/L Alkaline Phosphatase (45-117) U/L Troponin I (0-0.045) ng/ml Total Protein (6.4-8.2) gm/dl Albumin (3.4-5.0) gm/dl Globulin (2.5-4.0) gm/dl Albumin/Globulin Ratio (0.9-2) Blood Type Cancelled Antibody Screen Cancelled Imaging Data Attestation: I personally reviewed and interpreted this imaging study as fo llows: MDM Narrative Prior records/ancillary studies reviewed and summarized above. Nursing notes reviewed. Additional history obtained from friend. The patient's history was concerning for neuro sx Differential diagnosis: Etiologies such as metabolic, infection, hypo/hyperglycemia, electrolyte abnormalities, cardiac sources, intracerebral event, toxicologic, neurologic, as well as others were entertained. Physical examination: As above. ER treatment provided: IV Lock An order was placed for continuous cardiac monitoring. The monitor shows a rate of 60-100 with a normal sinus rhythm. Patient was observed On reassessment the patient felt better. Diagnostics interpretation by me: ECG: Normal sinus, normal intervals, no acute ST-T wave changes. Impression normal sinus rhythm interpreted by myself Ordered for stroke symptoms I think arrhythmia is unlikely. EKG shows normal sinus rhythm with no interval abnormalities such as QT prolongation or WPW. There are no findings to suggest Brugada syndrome. Cardiac monitoring in the emergency department reveals no tachycardic or bradycardic dysrhythmia. Hypertrophic cardiomyopathy was considered but there are no clear historical elements pointing toward this. EKG is not suggestive. The QRS voltage is not extremely large and there are no suggestive Q waves. The labs revealed stable H&H. Negative plan. Stable creatinine Imaging studies: CT angio head w con CLINICAL HISTORY: 64 years-old Female presenting with confused, facial droop. TECHNIQUE: Multidetector CT angiography of the head was performed after the administration of intravenous contrast. 3-D volumetric and/or maximum intensity projection (MIP) images were subsequently reconstructed for review. IV contrast: 119 mL of Optiray 320. One or more dose lowering techniques were used consistent with the principles of ALARA (as low as reasonably achievable), including automatic exposure control, mA or kV adjustment to individual patient size, and/or use of iterative reconstruction. COMPARISON: MRA head from 07/10/2019. CT DOSE (mGy.cm): The estimated cumulative dose is 1441.76 mGy.cm. FINDINGS: Job Putter Up And Ticket Preparer topogram: Unremarkable. Anterior circulation: Intracranial portions of the internal carotid arteries patent to the level of the termini. Hypoplastic or aplastic A1 segment of the right anterior cerebral artery. Anterior cerebral arteries otherwise patent. Middle cerebral arteries patent. Anterior communicating artery patent. Posterior circulation: Codominant vertebral arteries. Intradural portions of the vertebral arteries patent. Posterior inferior cerebellar arteries patent. Basilar artery patent. Anterior inferior cerebellar arteries poorly visualized. Superior cerebellar arteries patent. Posterior cerebral arteries patent. 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 Bilateral posterior comm unicating arteries patent. Dural venous sinuses: Patent. Other: Allowing for the phase of contrast, brain parenchyma within normal limits. Calvarium intact. IMPRESSION: 1. No appreciable aneurysm on the current exam including at the site of the prior left P-comm aneurysm. Notably, CTA has improved resolution and specificity over MRA for small aneurysms. No current evidence of aneurysm, focal vessel occlusion, or significant stenosis of the intracranial arteries. ACT 112: Negative or not required by law. Electronically signed by: Jim Rios M.D. 09/04/2019 10:29 PM XR chest 1V portable CLINICAL HISTORY: 64 years-old Female presenting with weak. TECHNIQUE: Portable upright AP view of the chest was obtained. COMPARISON: 02/17/2018. FINDINGS: Cardiomediastinal silhouette normal. Mildly heterogeneous lung parenchyma. No new focal opacity is appreciated. The prior discrete nodule in the right upper lung is not appreciated on current exam. No large effusion or pneumothorax. Osseous structures normal. Upper abdomen normal. IMPRESSION: 1. No acute cardiopulmonary disease. ACT 112: Negative or not required by law. Electronically signed by: Jim Rios M.D. 09/04/2019 10:40 PM Dictated: 09/04/192237 Transcribed: 09/04/192237 CT angio neck with con CLINICAL HISTORY: 64 years-old Female presenting with stroke eval. TECHNIQUE: Multidetector CT angiography of the neck was performed after the administration of intravenous contrast. 3-D volumetric and/or maximum intensity projection (MIP) images were subsequently reconstructed for review. IV contrast: 119 mL of Optiray 320. One or more dose lowering techniques were used consistent with the principles of ALARA (as low as reasonably achievable), including automatic exposure control, mA or kV adjustment to individual patient size, and/or use of iterative reconstruction. Stenosis measurements were based on NASCET-like criteria (distal lumen diameter as the denominator for stenosis measurement). COMPARISON: Carotid Doppler ultrasound from 08/24/2014. CT DOSE (mGy.cm): The estimated cumulative dose is 1041.76. FINDINGS: Job Putter Up And Ticket Preparer topogram: Unremarkable. Aortic arch: Normal three-vessel aortic arch with patent origins of the branch vessels. Innominate artery: Patent. Right subclavian artery: Patent. Right common carotid artery: Patent. Right internal and external carotid arteries: Right carotid bifurcation patent. Right internal and external carotid arteries widely patent. Left common carotid artery: Patent. Left internal and external carotid arteries: Left carotid bifurcation patent. Left internal and external carotid arteries widely patent. Left subclavian artery: Patent. Vertebral arteries: Left dominant vertebral artery. Origins and courses of the bilateral vertebral arteries patent. Other: Limited intracranial evaluation within normal limits. Soft tissues of the neck normal allowing for the phase of contrast. Normal cervical spine. Lung apices clear. IMPRESSION: 1. No evidence of dissection, focal vessel occlusion, or significant stenosis of the cervical arteries. ACT 112: Negative or not required by law. CT head/brain wo con CLINICAL HISTORY: 64 years-old Female presenting with Stroke evaluation, confusion, facial droop. TECHNIQUE: Multidetector CT imaging of the head was performed without the use of intravenous contrast. IV contrast: None. One or more dose lowering techniques were used consistent with the principles of ALARA (as low as reasonably achievable), including automatic exposure control, mA or kV adjustment to individual patient size, and/or use of iterative reconstruction. COMPARISON: 02/17/2018. CT DOSE (mGy.cm): The estimated cumulative dose is 1441.76. FINDINGS: Job Putter Up And Ticket Preparer topogram: Unremarkable. Ventricles and sulci normal in size. Unchanged appearance of the small left posterior fossa cyst along the tentorium suggestive of a supracerebellar arachnoid cyst. No hemorrhage. Brain parenchyma normal in appearance with prese rved haynes-white differentiation. No acute territorial infarct. No mass effect or midline shift. No extra-axial fluid collection. Paranasal sinuses and mastoid air cells clear. Calvarium intact. IMPRESSION: 1. No acute intracranial abnormality. ACT 112: Negative or not required by law. Electronically signed by: Jim Rios M.D. 09/04/2019 10:15 PM Consultation: A consultation was placed with the hospitalist, Dr Miller. The case was discussed and diagnostics were reviewed. The patient was evaluated in the ER for further treatment. TIA Score: Age > 60:(1) 1 BP >140 >90 (1): 1 Clinical features (unilateral weakness) (2): 2 CF speech disturbance (1): 1 Duration of symptoms 10-60min (1): 0 Duration >60min (2): 2 Diabetes (1): 0 Score @ 2days @ 7days @ 90days 0-3 low 1% 1.2% 3.1% 4-5 mod 4.1% 5.9% 9.8% 6-7 high 8.1% 11.7% 17.8% Total: 7 NIH score is 1 for nasolabial fold weakness on the left side Exam and history seem consistent with TIA symptoms. Patient's risk score is high. Patient's had a stroke in the past. Patient will be evaluated by medicine. Patient is agreeable treatment plan of admission. Patient was reassessed multiple times. Imaging was negative. Medicine was consulted. By the evaluation outlined above emergent etiologies such as infection, e lectrolyte abnormalities, cardiac sources, abnormalities blood glucose, metabolic, as well as others were deemed relatively unlikely. The pt informed about the findings as listed above. All questions were answered and pleased with the treatment. The chart was completed utilizing [employer] voice recognition software. Grammatical errors, random word insertions, pronoun errors, and incomplete sentences are an occassional consequence of this system due to software limitations, ambient noise, and hardware issues. Any formal questions or concerns about the content, text, or information contained within the body of this dictation should be directly addressed to the physician assistant corporate secretary for clarification. Impression & Plan Transient ischemic attack (TIA) Discharge Plan Visit Data Chief Complaint: Neuro Symptoms/Deficit Stated Complaint: CONFUSION,R ARM WENT NUMB ED Provider: Gideon Ho ED Midlevel Provider: Louise Teran Discharge Problem: Transient ischemic attack (TIA) Patient Disposition: Admitted As Inpatient Condition: Fair Forms Stand Alone Forms: [facility] [place] [employer] Prescriptions Prescriptions: No Action Emgality Pen 120 mg/mL pen injector 120 mg SQ .COMPLEX 30 Days Qty: 1 RF: 11 famotidine [Pepcid] 20 mg tablet 20 mg PO BID Qty: 60 RF: 3 elpuamvvzc-qlhgufisqlnpv-rnqk 50-325-40 mg tablet 1 tab PO .COMPLEX 30 Days Qty: 30 RF: 1 Xiidra 5 % dropperette 1 OP .INSTILL 1 DROP Daily RF: 0 hydrocodone-acetaminophen 5-325 mg tablet 1 tab PO .COMPLEX PRN (Reason: SEVERE HEADACHE) RF: 0 multivitamin [Multiple Vitamins] tablet 1 tab PO DAILY RF: 0 omega-3 acid ethyl esters 1 gram capsule 2 PO .TAKE 2 CAPSULE Daily RF: 0 Systane (propylene glycol) 0.4-0.3 % drops OP .INSTILL 1 DROP IN AF RF: 0 polyethylene glycol 3350 17 gram/dose powder PO .USE 17 GRAMS (1 CAPF RF: 0 topiramate 100 mg tablet 200 mg PO .COMPLEX RF: 0 lamotrigine 100 mg tablet 100 mg PO BID Qty: 60 RF: 5 aspirin 81 mg tablet 81 mg PO DAILY RF: 0 Referrals Referrals: Adri Saunders CRNP [Primary Care Provider] -
[2019-09-04 22:01] LABS: Hematocrit (blood only) 38.3 % (37-47); Hemoglobin 13.4 g/dL (12.0-16.0); Mean Corpuscular Hemoglobin 33.8 pg (25-34); Mean Corpuscular Volume 96.5 fL (80-100); Mean Platelet Volume 9.9 fL (7.4-10.4); Platelet Count 162 K/uL (130-400); RDW Coefficient of Variation 13.1 % (11.5-14.5); RDW Standard Deviation 45.9 fL (36.4-46.3); Red Blood Count 3.97 M/uL (4.2-5.4); White Blood Count 4.19 K/uL (4.8-10.8)
[2019-09-04] MEDS ORDERED: OPTIRAY 320 125ml IV PRN (22:01)
[2019-09-04 22:13] LABS: Partial Thromboplastin Ratio 1.1; Partial Thromboplastin Time 29.4 Seconds (21.0-31.0); Prothrombin Time 10.2 Seconds (9.0-12.0)
[2019-09-04 22:15] LABS: Albumin Level 4.2 gm/dl (3.4-5.0); Blood Urea Nitrogen 21 mg/dl (7-18); Calcium 9.8 mg/dl (8.5-10.1); Carbon Dioxide 23 mmol/L (21-32); Chloride 111 mmol/L (98-107); Est GFR (African American) 65.9; Est GFR (Non-African American) 56.9; Glucose 89 mg/dl (70-99); Magnesium 2.4 mg/dl (1.8-2.4); Potassium 3.7 mmol/L (3.5-5.1); Sodium 140 mmol/L (136-145)
--- NOTE | 2019-09-04 22:16 | CT Scan Report ---
CT head/brain wo con CLINICAL HISTORY: 64 years-old Female presenting with Stroke evaluation, confusion, facial droop. TECHNIQUE: Multidetector CT imaging of the head was performed without the use of intravenous contrast . IV contrast: None. One or more dose lowering techniques were used consistent with the principles of ALARA (as low as reasonably achievable), including automatic exposure control, mA or kV adjustment t o individual patient size, and/or use of iterative reconstruction. COMPARISON: 02/17/2018. CT DOSE (mGy.cm): The estimated cumulative dose is 1441.76. FINDINGS: Recreation Specialist topogram: Unremarkable. Ventricles and sulci normal in size. Unchanged appearance of the small left posterior fossa cyst elif g the tentorium suggestive of a supracerebellar arachnoid cyst. No hemorrhage. Brain parenchyma sharmin l in appearance with preserved haynes-white differentiation. No acute territorial infarct. No mass effe ct or midline shift. No extra-axial fluid collection. Paranasal sinuses and mastoid air cells clear. Calvarium intact. IMPRESSION: 1. No acute intracranial abnormality. ACT 112: Negative or not required by law. Electronically signed by: Jim Rios M.D. 09/04/2019 10:15 PM
[2019-09-04 22:20] LABS: Alanine Aminotransferase 23 U/L (12-78); Albumin Globulin Ratio 1.1 (0.9-2); Alkaline Phosphatase 90 U/L (45-117); Aspartate Aminotransferase 15 U/L (15-37); Bilirubin,Total 0.3 mg/dl (0.2-1); Globulin 3.8 gm/dl (2.5-4.0); Troponin I < 0.015 ng/ml (0-0.045)
--- NOTE | 2019-09-04 22:20 | CT Scan Report ---
CT angio neck with con CLINICAL HISTORY: 64 years-old Female presenting with stroke eval. TECHNIQUE: Multidetector CT angiography of the neck was performed after the administration of intrave nous contrast. 3-D volumetric and/or maximum intensity projection (MIP) images were subsequently tereza nstructed for review. IV contrast: 119 mL of Optiray 320. One or more dose lowering techniques were u sed consistent with the principles of ALARA (as low as reasonably achievable), including automatic ex posure control, mA or kV adjustment to individual patient size, and/or use of iterative reconstructio n. Stenosis measurements were based on NASCET-like criteria (distal lumen diameter as the denominator for stenosis measurement). COMPARISON: Carotid Doppler ultrasound from 08/24/2014. CT DOSE (mGy.cm): The estimated cumulative dose is 1041.76. FINDINGS: Plastic Mixer topogram: Unremarkable. Aortic arch: Normal three-vessel aortic arch with patent origins of the branch vessels. Innominate artery: Patent. Right subclavian artery: Patent. Right common carotid artery: Patent. Right internal and external carotid arteries: Right carotid bifurcation patent. Right internal and ex ternal carotid arteries widely patent. Left common carotid artery: Patent. Left internal and external carotid arteries: Left carotid bifurcation patent. Left internal and exter nal carotid arteries widely patent. Left subclavian artery: Patent. Vertebral arteries: Left dominant vertebral artery. Origins and courses of the bilateral vertebral ar teries patent. Other: Limited intracranial evaluation within normal limits. Soft tissues of the neck normal allowing for the phase of contrast. Normal cervical spine. Lung apices clear. IMPRESSION: 1. No evidence of dissection, focal vessel occlusion, or significant stenosis of the cervical arteri es. ACT 112: Negative or not required by law. Electronically signed by: Jim Rios M.D. 09/04/2019 10:18 PM
--- NOTE | 2019-09-04 22:30 | CT Scan Report ---
CT angio head w con CLINICAL HISTORY: 64 years-old Female presenting with confused, facial droop. TECHNIQUE: Multidetector CT angiography of the head was performed after the administration of intrave nous contrast. 3-D volumetric and/or maximum intensity projection (MIP) images were subsequently tereza nstructed for review. IV contrast: 119 mL of Optiray 320. One or more dose lowering techniques were u sed consistent with the principles of ALARA (as low as reasonably achievable), including automatic ex posure control, mA or kV adjustment to individual patient size, and/or use of iterative reconstructio n. COMPARISON: MRA head from 07/10/2019. CT DOSE (mGy.cm): The estimated cumulative dose is 1441.76 mGy.cm. FINDINGS: Physician Representative topogram: Unremarkable. Anterior circulation: Intracranial portions of the internal carotid arteries patent to the level of t he termini. Hypoplastic or aplastic A1 segment of the right anterior cerebral artery. Anterior cerebr al arteries otherwise patent. Middle cerebral arteries patent. Anterior communicating artery patent. Posterior circulation: Codominant vertebral arteries. Intradural portions of the vertebral arteries p atent. Posterior inferior cerebellar arteries patent. Basilar artery patent. Anterior inferior cerebe llar arteries poorly visualized. Superior cerebellar arteries patent. Posterior cerebral arteries pat ent. Previously reported 2 mm aneurysm in the region of the ICA takeoff of the left posterior communi cating artery is not appreciated. Bilateral posterior communicating arteries patent. Dural venous sinuses: Patent. Other: Allowing for the phase of contrast, brain parenchyma within normal limits. Calvarium intact. IMPRESSION: 1. No appreciable aneurysm on the current exam including at the site of the prior left P-comm aneury sm. Notably, CTA has improved resolution and specificity over MRA for small aneurysms. No current aaliyah dence of aneurysm, focal vessel occlusion, or significant stenosis of the intracranial arteries. ACT 112: Negative or not required by law. Electronically signed by: Jim Rios M.D. 09/04/2019 10:29 PM
--- NOTE | 2019-09-04 22:41 | XRay Report ---
XR chest 1V portable CLINICAL HISTORY: 64 years-old Female presenting with weak. TECHNIQUE: Portable upright AP view of the chest was obtained. COMPARISON: 02/17/2018. FINDINGS: Cardiomediastinal silhouette normal. Mildly heterogeneous lung parenchyma. No new focal opacity is ap preciated. The prior discrete nodule in the right upper lung is not appreciated on current exam. No l arge effusion or pneumothorax. Osseous structures normal. Upper abdomen normal. IMPRESSION: 1. No acute cardiopulmonary disease. ACT 112: Negative or not required by law. Electronically signed by: Jim Rios M.D. 09/04/2019 10:40 PM
[2019-09-04 22:44] LABS: Basophils # (auto) 0.02 K/uL (0-0.2); Basophils % (auto) 0.5 %; Eosinophils # (auto) 0.12 K/uL (0-0.5); Eosinophils % (auto) 2.9 %; Lymphocytes # (auto) 2.25 K/uL (1.2-3.4); Lymphocytes % (auto) 53.7 %; Monocytes # (auto) 0.33 K/uL (0.11-0.59); Monocytes % (auto) 7.9 %; Neutrophils # (auto) 1.47 K/uL (1.4-6.5)
--- NOTE | 2019-09-05 00:12 | History & Physical Report ---
Date of Service September 04, 2019 Assessment & Plan (1) Altered mental state: Suspect symptoms are most likely from Complex Migraine; although differential includes TIA possible from emobolic known PFO, medication induced from adverse effects of Topiramate, Undiagnosed CHRISTIE. - CTA of Head and Neck confirmed that patient does not have reported aneurysm which was also conveyed from review of [facility] Neuro notes in 2016. - will get hypercoaguable workup since doesn't appear to have one prior to rule this out as etiology - Appears to not have any focal symptoms now of any weakness, does report some facial right sided sensory deficit, but symptoms of right eye blindness and fore arm numbness, facial deficits, and global amnesia are not consistent with a neurologic lesion; it was noted that her cerebellar stroke presented with non- unilateral findings from review of [facility] notes as well. - Will get a Brain MRI to further complete workup as well as consult Neurology. - Patient would greatly benefit from an outpatient sleep study as this could be cause of headaches and also why she has failed numerous outpatient regimens including beta/calcium channel blockers. - This could also be adverse effects from Topiramate as well. - was home too today and without headache so making Carbon Monoxide poisoning unlikely. - Neuro checks per protocol Code: Full DVT ppx: Lovenonx 40mg SQ q24h, receive after Hypercoaguable labs drawn FENGI: Don't see current reason for NPO, tolerating [employer] iced coffee at bedside Dipso: Obs (2) Common migraine without aura: as above, continue with home Lamictal and home Topiramate. (3) PFO (patent foramen ovale): As noted in hx (4) GERD (gastroesophageal reflux disease): c/w home pepcid (5) History of cerebellar stroke: as noted in hx History of Present Illness Chief Complaint: Confusion Primary Care Provider: REGAN Packyury Henning is a 64 y/o female with past medical hx of complex migraines, PFO, cerebellar infarct, GERD who presented to [facility] ED with confusion. 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 She woke up at usual time around 4pm, took her medications including Lamictal, Topiramate (both for migraines), ASA, and some ibuprofen for some low back pain. She started to have a mild typical migraine headache. She notes on the drive to work she had onset of right eye blindness and right forearm to hand numbness and weakness which only lasted a couple seconds. She notes she veered off the road but was able to correct and make it into work safely. She notes arriving to work a little early so she sat in her car to relax before entering building, notes she starts work at 6:40pm. She then is vague of details. She notes she went to women's locker room to change and later one of her co-workers told her she was going the wrong direction. Then she notes it was 10:30pm and somehow last track of time but cannot recall what exactly happened. In the ED, currently she notes her migraine headache is now worse. She also notes she feels tired. She states she has had right leg weakness intermittently for several weeks without evaluation. She also notes she had some right sided facial weakness as well during this but is vague of when this occurred. states she is at her neuro baseline with the exception of appearing tired. She denies any recent medication c hanges. notes she does snore but no hx of CHRISTIE and has never been tested. She follows with Dr. Armida Richardson for complex migraines. She noted to ED staff she has a hx of brain aneurysm. However, review of records from when she saw [facility] Neuro showed that this was infundibulum and not aneurysm. This was confirmed in ED on Head CTA in ED that there was no aneurysm. She has [employer] coffee next to her and notes no issues with drinking/swallowing. She notes she didn't eat anything since waking up for work but states that is typical for her. No recent head trauma. Review of old EMR in [facility] system show she was evaluated by [facility] and that she was prior on Coumadin for her PFO but discontinued it and remained on ASA bc she didn't like the weekly lab draws. She notes she follows with Dariel Thomas with [facility]. Allergies Allergy/AdvReac Type Severity Reaction Status Date / Time nickel Allergy Unknown RASH Verified 09/04/19 23:43 Penicillins Allergy Unknown HIVES A Verified 09/04/19 23:43 CHILD Sulfa (Sulfonamide Allergy Hives Verified 09/04/19 23:43 Antibiotics) Home Medications Home Medications Medication Instructions Recorded Confirmed Type hydrocodone 5 mg-acetaminophen 325 1 tab PO .COMPLEX PRN tab 03/12/19 09/04/19 History mg tablet multivitamin 1 tab PO DAILY 03/12/19 09/04/19 History omega-3 acid ethyl esters 1 gram 2 cap PO DAILY cap 03/12/19 09/04/19 History capsule polyethylene glycol 3350 17 17 g PO DAILY gm 03/12/19 09/04/19 History gram/dose oral powder galcanezumab-gnlm 120 mg/mL 120 mg SQ .COMPLEX 30 Days #1 ml 04/25/19 09/04/19 Rx subcutaneous pen injector aspirin 81 mg tablet 81 mg PO DAILY tab 06/05/19 09/04/19 History famotidine 20 mg tablet 20 mg PO BID #60 tab 06/05/19 09/04/19 Rx lamotrigine 100 mg tablet 100 mg PO BID #60 tab 06/19/19 09/04/19 Rx topiramate 100 mg tablet 300 mg PO DAILY tab 06/19/19 09/04/19 History umxfajagfm-jfwffcmvdilip-jbotthaf 1 tab PO .COMPLEX 30 Days #30 tab 08/14/19 09/04/19 Rx 50 mg-325 mg-40 mg tablet cyclosporine-chondroit sulf A 1 drp OPHTHALMIC (EYE) Q12H 09/04/19 09/04/19 History promethazine 25 mg PO Q6H PRN 09/04/19 09/04/19 History Past Med/Surg History Medical History Cerebral aneurysm without rupture Cerebral infarct (Acute) Common migraine without aura (Acute) Hyperlipidemia (Acute) PFO (patent foramen ovale) (Resolved) Surgical History S/P hernia repair S/P hysterectomy S/P tonsillectomy Status post tubal ligation Family History Mother Diabetes Stroke Hypertension Brother Cancer Systemic lupus erythematosus Father Myocardial infarction Social History Preferred Language: Spanish Communication Ability: Effective Accountant Auditor Required: No Beliefs That Will Affect Care: None Current Living Situation: Spouse Feels Safe at Home: Yes Smoking Status: Never smoker Hx Alcohol Use: No Hx Substance Use: No Review of Systems Review of Systems: All systems reviewed & are unremarkable except as noted in HPI & below Constitutional: no fever and no chills Eyes: as per Subjective / HPI and + eye pain Ear, Nose, Mouth, Throat: no nasal congestion and no sore throat Respiratory: no cough and no dyspnea Cardiovascular: no chest pain and no palpitations Gastrointestinal: no abdominal pain, no nausea and no vomiting Genitourinary: no dysuria and no difficulty urinating Musculoskeletal: + back pain (low); no joint pain and no stiffness Integumentary: no rash Neurologic: as per Subjective / HPI Physical Exam Constitutional: WD/WN, vitals as above comfortable; no acute distress and not ill appearing Eyes: PERRL, conjunctivae normal, anicteric sclerae ENMT: external ear and nose normal, oropharynx normal Neck: normal visual inspection and trachea midline Respiratory: normal respiratory effort, lungs clear to auscultation Cardiovascular: RRR, no murmur, no edema Gastrointestinal (Abdomen): Inspection/Auscultation: normal bowel sounds Percussion/Palpation: abdomen soft; abdomen nontender, no guarding and abdomen not rigid Musculoskeletal: Extremities: strength 5/5 throughout Skin: no rashes, warm and dry Neurologic: CN's II-XI intact bilaterally, moves all extremities and awake; no focal motor deficits Motor/Sensory: + sensory deficit (decreased on right forehead and right facial cheek; otherwise no deficient) Cranial Nerves: EOM intact bilaterally and tongue midline Coordination: normal ywsdya-ff-fqqu test Noted poor effort with facial movements for testing CN7 but test was symmetrical Psychiatric: Orientation: alert and oriented x 3 Affect: + flat affect Results & Data Vital Signs (Past 12 Hours) Vital Signs Temp Pulse Resp BP Pulse Ox 09/04/19 21:28 36.6 C 83 18 169/84 H 98 Code Status & VTE Plan Code Status Full VTE Prophylaxis Plan VTE Prophylaxis will be ordered: Yes Supervising Physician Co-Signing Physician Notes Attending addendum: I have physically seen this patient, have supervised the medical residents activities, and agree with the H&P unless as otherwise noted. Assessment and Plan: Resolved right eye vision and right arm weakness/history of 15 migraines per month- Admit to monitored bed for observation. CTA head neck negative Order hypercoagulable work-up. MRI brain without contrast. Sleep study in the outpatient setting. Consult neurology. Differential has to include complicated migraine. Remainder of orders and notations as noted. Resident Activity Tracking Resident Involvement: Resident Care Provided Care Provided: Adult [facility] Medicine
[2019-09-05] MEDS ORDERED: MAGNESIUM HYDROXIDE SUSP 30 ML UDC PO PRN (00:17)
[2019-09-05] MEDS ORDERED: ONDANSETRON INJ 2 MG/ML 2 ML VIAL IV PRN (00:17)
[2019-09-05] MEDS ORDERED: ALUMINUM/MAGNESIUM SUSP 30 ML UDC PO PRN (00:17)
[2019-09-05] MEDS ORDERED: POLYETHYLENE (MIRALAX) 17 GM PACK PO PRN (00:17)
[2019-09-05] MEDS ORDERED: KETOROLAC TROMETHAMINE 15 MG/ML VIAL IV ONE (00:39)
[2019-09-05] MEDS ORDERED: DiphenhydrAMINE HCL 50 MG/ML VIAL IV STA (00:39)
[2019-09-05] MEDS ORDERED: METOCLOPRAMIDE HCL INJ 5 MG/ML 2 ML VIAL IV ONE (00:39)
[2019-09-05] MEDS ORDERED: GADOBUTROL 65ML VIAL IV PRN (05:38)
[2019-09-05 06:56] LABS: BUN Creatinine Ratio 19.9 (10-20); Calcium 9.6 mg/dl (8.5-10.1); Creatinine Clr Calc Pharmacy 46.5 ml/min; Est GFR (African American) 59.1; Potassium 4.1 mmol/L (3.5-5.1)
--- NOTE | 2019-09-05 07:25 | Magnetic Resonance Report ---
MR brain wo/w con HISTORY: 64 years-old Female R.EyeBlind;R.ArmNumb both resolved; confused acute strokelike symptoms with altered mental status COMPARISON: CTA had and neck 09/04/2019, MRA of the head 07/10/2019, brain MRI 10/08/2017 TECHNIQUE: MRI of the brain was obtained both with and without the use of 7.0 mL Gadavist FINDINGS: Side Puller localizer images demonstrate no gross extracranial abnormality. There is no restricted diffusio n to suggest acute or subacute infarct. Volume loss of the mid body of the corpus callosum may reflec t remote insult, unchanged. Brainstem, optic chiasm, pituitary and pineal glands appear unremarkable on the sagittal T1 series. No cerebellar tonsillar herniation. Mild degenerative changes of the image d cervical spine. No acute intracranial hemorrhage, midline shift, abnormal extra axial collection, hydrocephalus or in tracranial mass. Encephalomalacia of the mid and superior left cerebellar hemisphere from remote infa rct redemonstrated. There are a few punctate foci of T2/FLAIR prolongation within the white matter of the bilateral cerebral hemispheres, indeterminate however statistically favoring early chronic micro vascular ischemic disease. No abnormal intra-axial or extra-axial enhancement. Flow voids appear unre markable. Trace right mastoid effusion. Mild mucosal thickening of the nasal terminates. Paranasal si nuses are clear. The orbits, skull and soft tissues are unremarkable. IMPRESSION: 1. No acute intracranial abnormality, specifically no acute or subacute infarct. 2. Remote cerebellar infarct redemonstrated. 3. No abnormal enhancement. ACT 112: Negative or not required by law. The above report was generated using voice recognition software. It may contain grammatical, syntax o r spelling errors. Electronically signed by: Redd Bermudez M.D. 09/05/2019 7:24 AM
[2019-09-05] MEDS: lamoTRIgine 100 MG TAB PO SCH ×2 (08:26→20:34)
[2019-09-05] MEDS: FAMOTIDINE 20 MG TAB PO SCH ×2 (08:26→20:34)
[2019-09-05] MEDS: ASPIRIN 81 MG ECTAB PO SCH (08:26)
[2019-09-05] MEDS: ENOXAPARIN INJ 40 MG/0.4 ML SYR SQ SCH ×2 (08:26→08:29)
[2019-09-05] MEDS: TOPIRAMATE 100 MG TAB PO SCH ×3 (08:27→20:33)
[2019-09-05] MEDS: ACETAMINOPHEN 325 MG TAB PO PRN ×3 (08:27→20:38)
[2019-09-05 08:45] LABS: Appearance Urine Clear (Clear); Bilirubin Urine Negative (Negative); Blood Urine Negative (Negative); Color Urine Dark Yellow; Glucose Urine UA Negative (Negative); Ketones Urine Negative (Negative); Leukocyte Esterase Urine Negative (Negative); Nitrite Urine Negative (Negative); Protein Urine Negative (Negative); Specific Gravity Urine > 1.045 (1.000-1.030); Urobilinogen Urine Negative (Negative); pH Urine 6.5 (4.5-7.5)
--- NOTE | 2019-09-05 10:32 | Neurology Consultation ---
Date of Consultation September 05, 2019 Assessment & Plan (1) Complicated migraine: This patient's current presentation is most consistent with a complicated migraine. Her MRI is negative for acute or subacute stroke. Her current neurological examination is intact, without evidence of hemiparesis, visual field defect, or ataxia. She does have some inconsistent mild flattening of the left nasolabial fold which I suspect is migrainous. Have patient continue with her standard outpatient migraine preventive medication including topiramate and lamotrigine. She also gets and Emgality injection once a month for migraine prevention as well. As she is still reporting a moderate grade migrainous headache at this time I would recommend treatment with a corticosteroid. Please order patient a one- time dose of 250 mg IV Solu-Medrol and then follow with a Medrol dose pack taper that she can continue as an outpatient. I would not recommend a triptan in this patient given her history of stroke. May use Tylenol or Fioricet to address migraine associated pain at this point in time. (2) H/O stroke without residual deficits: History of small superior left cerebellar ischemic infarct. History of PFO noted. Patient may continue with daily low-dose aspirin. No indication to change her antiplatelet medication at this time. Follow-up with results of hypercoagulable panel as ordered. 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 Patient's migraines have been of a complicated type and she has not done well with trials of several different preventive medications including topiramate, verapamil, propranolol, and amitriptyline as well as several CGRP antagonists. Currently, however, she has been continuing with topiramate, lamotrigine, and Emgality for migraine prevention and does believe that her migraines have been occurring much less frequently and with less intensity than they have been without these medications. In light of her history of stroke, we have avoided use of triptan's. She takes a daily low-dose aspirin as well. No changes were made to her medication regimen at her last appointment with me although I had referred her to physical therapy for assistance with her headaches. The patient presented to the emergency department yesterday with neurological symptoms that began while driving to work. She recalls having some numbness and weakness of the right arm that began acutely while driving, she think she has some difficulty with her vision off to the right as well and apparently began to drive off the road, towards the right. She apparently noticed her error and corrected her trajectory. She managed to drive to work without further incident. She indicates that her vision loss and right arm motor sensory disturbance had resolved by the time she made it to the office. However, she was apparently somewhat confused and had some difficulty clocking in properly. Her coworkers had noted some facial droop as well which prompted her assessment in the emergency department yesterday. The patient does admit that the above symptoms occurred in the context of a headache that began several days prior, consistent with her usual migrainous headache with some light and sound sensitivity. Currently, although her neurological symptoms have resolved, she continues to report a low-grade headache. Additional details including imaging evaluation are as described below. Allergies Allergy/AdvReac Type Severity Reaction Status Date / Time nickel Allergy Unknown RASH Verified 09/04/19 23:43 Penicillins Allergy Unknown HIVES A Verified 09/04/19 23:43 CHILD Sulfa (Sulfonamide Allergy Hives Verified 09/04/19 23:43 Antibiotics) Home Medications Home Medications Medication Instructions Recorded Confirmed Type hydrocodone 5 mg-acetaminophen 325 1 tab PO .COMPLEX PRN tab 03/12/19 09/04/19 History mg tablet multivitamin 1 tab PO DAILY 03/12/19 09/04/19 History omega-3 acid ethyl esters 1 gram 2 cap PO DAILY cap 03/12/19 09/04/19 History capsule polyethylene glycol 3350 17 17 g PO DAILY gm 03/12/19 09/04/19 History gram/dose oral powder galcanezumab-gnlm 120 mg/mL 120 mg SQ .COMPLEX 30 Days #1 ml 04/25/19 09/04/19 Rx subcutaneous pen injector aspirin 81 mg tablet 81 mg PO DAILY tab 06/05/19 09/04/19 History famotidine 20 mg tablet 20 mg PO BID #60 tab 06/05/19 09/04/19 Rx lamotrigine 100 mg tablet 100 mg PO BID #60 tab 06/19/19 09/04/19 Rx topiramate 100 mg tablet 300 mg PO DAILY tab 06/19/19 09/04/19 History ffulkiogkd-amrxbhrnotihw-ukmtxpel 1 tab PO .COMPLEX 30 Days #30 tab 08/14/19 09/04/19 Rx 50 mg-325 mg-40 mg tablet cyclosporine-chondroit sulf A 1 drp OPHTHALMIC (EYE) Q12H 09/04/19 09/04/19 History promethazine 25 mg PO Q6H PRN 09/04/19 09/04/19 History Patient History Medical History Cerebral aneurysm without rupture Cerebral infarct (Acute) Common migraine without aura (Acute) Hyperlipidemia (Acute) PFO (patent foramen ovale) (Resolved) Surgical History S/P hernia repair S/P hysterectomy S/P tonsillectomy Status post tubal ligation Family History Mother Diabetes Stroke Hypertension Brother Cancer Systemic lupus erythematosus Father Myocardial infarction Social History Preferred Language: Georgian Communication Ability: Effective Bus Person Required: No Beliefs That Will Affect Care: None Current Living Situation: Spouse Feels Safe at Home: Yes Smoking Status: Never smoker Hx Alcohol Use: No Hx Substance Use: No Review of Systems Constitutional: no fever, no chills and no fatigue Eyes: as per Subjective / HPI Ear, Nose, Mouth, Throat: no hearing loss Respiratory: no cough and no dyspnea Cardiovascular: no chest pain and no palpitations Gastrointestinal: no nausea and no vomiting Genitourinary: no urinary incontinence Musculoskeletal: no neck pain and no myalgia Integumentary: no rash and no lesions Neurologic: as per Subjective / HPI and + headache(s) Psychiatric: no depression and no anxiety Hematologic / Lymphatic: no easy bleeding and no easy bruising Physical Exam Physical Exam: The patient is a well-developed, well-nourished elderly female. She is alert and fully oriented. Recent and remote memory intact. Attention and concentration normal. Patient exhibits a normal spontaneous speech pattern. She is able to name objects and repeat phrases. Patient exhibits an age- appropriate fund of knowledge and normal comprehension of vocabulary. Visual bazzi full to confrontation. Visual acuity normal. Pupils equal round react to light and accommodation. Eye movements normal. There is no ptosis, nystagmus, ophthalmoplegia. Facial sensation intact. There is inconsistent mild flattening of the left nasolabial fold. Hearing intact. Palate elevates to midline. Shoulder shrug intact. Tongue protrudes to midline. Sensation intact all modalities in all 4 limbs. Deep tendon reflexes intact and symmetri haresh for the arms and legs. Plantar responses downgoing bilaterally. There is no dysdiadochokinesia or dysmetria gspiev-fi-nilu or xymp-pm-uzjy bilaterally. Ophthalmoscopic examination reveals normal-appearing optic disks and posterior segments. No papilledema or hemorrhages. Carotid pulses normal bilaterally, no bruits to auscultation. Gait and station not tested due to safety concerns. Patient exhibits normal muscle strength and tone for all 4 limbs. No atrophy. No abnormal movements observed. Results & Data Vital Signs (Past 12 Hours) Vital Signs Temp Pulse Pulse Resp BP BP Pulse Ox 09/05/19 07:00 36.6 C 71 16 124/79 98 09/05/19 01:29 72 09/05/19 00:19 36.5 C 70 16 147/72 H 98 09/04/19 23:47 68 16 182/71 H 97 09/04/19 23:32 65 16 146/82 H 97 09/04/19 23:00 67 24 146/82 H 98 09/04/19 22:30 67 17 139/76 98 09/04/19 22:12 75 19 155/79 H 96 Laboratory Results WBC 4.19, hemoglobin 13.4, hematocrit 38.3, platelet count 162, ESR 19, sodium 141, potassium 4.1, BUN 23, creatinine 1.15, glucose 131, calcium 9.6, magnesium 2.4, AST 15, ALT 23, troponin less than 0.[address] of the head completed yesterday was negative for hemorrhage or acute process. I reviewed the images as well as the radiologist interpretation of this test. A CT angiogram of the head and neck completed yesterday were normal, no evidence for dissection, focal occlusion, stenosis, or aneurysm. Of note, an MRA of the head done July 10, 2019 did reveal a very small, 2 mm aneurysm at the takeoff of the left posterior communicating artery. This finding was not seen on the recent CT angiogram. I reviewed the images as well as the radiologist interpretation of these tests. MRI of the brain completed September 05, 2019- for acute or subacute infarct. There is evidence of a remote left cerebellar infarct. No abnormal postcontrast enhancement. I reviewed the images as well as the radiologist interpretation of this test. Electrocardiogram reveals a normal sinus rhythm, 67 bpm Coding Level of Care Code 48930 Inpt Consult Level 5 Diagnoses Complicated migraine G43.109 H/O stroke without residual deficits Z86.73
[2019-09-05] MEDS ORDERED: methylPREDNISolone 250 MG in DEXTROSE 5% 100 ML IV ONE (12:00)
--- NOTE | 2019-09-05 14:13 | Electrocardiogram Report ---
Test Reason : Blood Pressure : / mmHG Vent. Rate : 067 BPM Atrial Rate : 067 BPM P-R Int : 160 ms QRS Dur : 086 ms QT Int : 396 ms P-R-T Axes : 050 001 020 degrees QTc Int : 418 ms Normal sinus rhythm Normal ECG When compared with ECG of 17-FEB-2018 22:12, No significant change was found Confirmed by Vladimir Guillen ([id number]) on 09/05/2019 2:13:01 PM Referred By: REFERRED SELF Confirmed By:Vladimir Guillen
--- NOTE | 2019-09-05 15:37 | Discharge Summary ---
Date of Service September 05, 2019 Admission HPI Per Admitting Provider Kristin Henning is a 64 y/o female with past medical hx of complex migraines, PFO, cerebellar infarct, GERD who presented to [facility] ED with confusion. She notes she works overnight at [employer] as a [employer]. She woke up at usual time around 4pm, took her medications including Lamictal, Topiramate (both for migraines), ASA, and some ibuprofen for some low back pain. She started to have a mild typical migraine headache. She notes on the drive to work she had onset of right eye blindness and right forearm to hand numbness and weakness which only lasted a couple seconds. She notes she veered off the road but was able to correct and make it into work safely. She notes arriving to work a little early so she sat in her car to relax before entering building, notes she starts work at 6:40pm. She then is vague of details. She notes she went to women's locker room to change and later one of her co-workers told her she was going the wrong direction. Then she notes it was 10:30pm and somehow last track of time but cannot recall what exactly happened. In the ED, currently she notes her migraine headache is now worse. She also notes she feels tired. She states she has had right leg weakness intermittently for several weeks without evaluation. She also notes she had some right sided facial weakness as well during this but is vague of when this occurred. states she is at her neuro baseline with the exception of appearing tired. She denies any recent medication changes. notes she does snore but no hx of CHRISTIE and has never been tested. She follows with Dr. Armida Richardson for complex migraines. She noted to ED staff she has a hx of brain aneurysm. However, review of records from when she saw [facility] Neuro showed that this was infundibulum and not aneurysm. This was confirmed in ED on Head CTA in ED that there was no aneurysm. She has [employer] coffee next to her and notes no issues with drinking/swallowing. She notes she didn't eat anything since waking up for work but states that is typical for her. No recent head trauma. Review of old EMR in [facility] system show she was evaluated by [facility] and that she was prior on Coumadin for her PFO but discontinued it and remained on ASA bc she didn't like the weekly lab draws. She notes she follows with Dariel Thomas with [facility] Cardiology. Discharge Data Allergies Allergy/AdvReac Type Severity Reaction Status Date / Time nickel Allergy Unknown RASH Verified 09/04/19 23:43 Penicillins Allergy Unknown HIVES A Verified 09/04/19 23:43 CHILD Sulfa (Sulfonamide Allergy Hives Verified 09/04/19 23:43 Antibiotics) Consultations 09/04/19 22:51 ED Decision to Admit Stat 09/05/19 00:17 Consult Neurology Routine Ordered Studies 09/04/19 21:41 CT angio neck with con Stat CT head/brain wo con Stat 09/04/19 21:42 CT angio head w con Stat 09/05/19 00:43 MR brain wo/w con Urgent Discharge Plan Discharge Items Reason For Visit: CONFUSION Condition on Discharge: Fair Medications and DC Order Prescriptions: No Action Emgality Pen 120 mg/mL pen injector 120 mg SQ .COMPLEX 30 Days Qty: 1 RF: 11 famotidine [Pepcid] 20 mg tablet 20 mg PO BID Qty: 60 RF: 3 jbjscddayn-vahzbhampquex-xxmj 50-325-40 mg tablet 1 tab PO .COMPLEX 30 Days Qty: 30 RF: 1 hydrocodone-acetaminophen 5-325 mg tablet 1 tab PO .COMPLEX PRN (Reason: SEVERE HEADACHE) RF: 0 multivitamin [Multiple Vitamins] tablet 1 tab PO DAILY RF: 0 omega-3 acid ethyl esters 1 gram capsule 2 cap PO DAILY RF: 0 polyethylene glycol 3350 17 gram/dose powder 17 g PO DAILY RF: 0 topiramate 100 mg tablet 300 mg PO DAILY RF: 0 lamotrigine 100 mg tablet 100 mg PO BID Qty: 60 RF: 5 aspirin 81 mg tablet 81 mg PO DAILY RF: 0 cyclosporine-chondroit sulf A 0.1-0.25 % Drops 1 drp OPHTHALMIC (EYE) Q12H RF: 0 promethazine 25 mg Tablet 25 mg PO Q6H PRN (Reason: Nausea) RF: 0 Admission Data Admit Date/Time: 09/04/19 23:32 Attending Provider: Cathi Simons Admit Provider: Severo Esquivel Primary Care Provider: Adri Saunders Other Providers: Ottoniel Huffman ; Benny Delatorre
--- NOTE | 2019-09-05 15:46 | Hospitalist Progress Note ---
Date of Service September 05, 2019 Assessment & Plan (1) Complicated migraine: AMS Suspect symptoms are most likely from Complex Migraine; although differential includes TIA possible from emobolic known PFO, medication induced from adverse effects of Topiramate, Undiagnosed CHRISTIE. - CTA of Head and Neck confirmed that patient does not have reported aneurysm which was also conveyed from review of [facility] Neuro notes in 2016. - will get hypercoaguable workup since doesn't appear to have one prior to rule this out as etiology MRI is only noted for old infarct - Patient would greatly benefit from an outpatient sleep study as this could be cause of headaches and also why she has failed numerous outpatient regimens including beta/calcium channel blockers. - This could also be adverse effects from Topiramate as well. Neuro recs for solumedrol 250mg x1 and PO taper Pt with ongoing migraine s/p steroids, monitor overnight for recurrent sx (2) History of cerebellar stroke: as noted in hx (3) GERD (gastroesophageal reflux disease): c/w home pepcid (4) PFO (patent foramen ovale): PFO (patent foramen ovale): As noted in hx (5) Common migraine without aura: as above, continue with home Lamictal and home Topiramate. (6) DVT prophylaxis: Subjective Pt has not had return of vision loss. No vision changes noted at this time. She does have a worse migraine today. No UE/LE weakness/numbness. Tolerating PO. Pt denies fever, SOB, chest pain, abd pain, n/v, LE pain or swelling. Pt states she has multiple loose stools daily and this is her baseline. She used to have significant constipation which resulted in hemorrhaging hemorrhoids 4 years ago that required OR. She has been on miralax since that time. Review of Systems Review of Systems: Pertinent positives and negatives reviewed in HPI--all others negative Physical Exam Constitutional: WD/WN, vitals as above Eyes: normal visual bazzi by confrontation and + anicteric sclerae Neck: normal visual inspection and trachea midline Respiratory: normal respiratory effort, lungs clear to auscultation Cardiovascular: Rate/Rhythm: regular rate and regular rhythm Gastrointestinal (Abdomen): Inspection/Auscultation: abdomen not distended Percussion/Palpation: abdomen soft; abdomen nontender Musculoskeletal: Head/Neck/Chest: normocephalic and head atraumatic negative for edema, peripheral pulses intact Skin: no rashes, warm and dry Neurologic: awake; not confused Speech / Cognition: normal speech Psychiatric: Orientation: oriented x 3 Speech: normal rate/rhythm/volume of speech Affect: + flat affect Results & Data ([facility]) Vital Signs (Past 12 Hours) Vital Signs Temp Pulse Resp BP Pulse Ox 09/05/19 12:07 36.8 C 74 18 143/69 H 95 09/05/19 07:00 36.6 C 71 16 124/79 98 PG Care Time/CCT Total # of Minutes Spent Total Time Spent with Patient: Total time spent is greater than 50% in coordination of care (as documented) at patient's floor/unit and/or counseling patient: Coding Level of Care Code 57725 Subseq Obs Care Lvl 3 Diagnoses Complicated migraine G43.109 History of cerebellar stroke Z86.73 GERD (gastroesophageal reflux disease) K21.9 PFO (patent foramen ovale) Q21.1 Common migraine without aura G43.009 DVT prophylaxis Z29.9
[2019-09-06] MEDS ORDERED: BUTALBITAL/ACETAMIN/CAFFEINE TAB PO STA (00:03)
[2019-09-06] MEDS ORDERED: PROMETHAZINE HCL 12.5 MG in SODIUM CHLORIDE 0.9% 50 ML IV STA (00:04)
--- NOTE | 2019-09-06 04:46 | Billing Data ---
Date of Service September 06, 2019 Coding Level of Care Code 95158 OBS Care - Level 3
[2019-09-06] MEDS ORDERED: methylPREDNISolone 4 MG TAB PO SCH ×2 (07:00→13:00)
[2019-09-06] MEDS: ENOXAPARIN INJ 40 MG/0.4 ML SYR SQ SCH (07:41)
[2019-09-06] MEDS: lamoTRIgine 100 MG TAB PO SCH (07:42)
[2019-09-06] MEDS: FAMOTIDINE 20 MG TAB PO SCH (07:42)
[2019-09-06] MEDS: TOPIRAMATE 100 MG TAB PO SCH (07:42)
[2019-09-06] MEDS: ASPIRIN 81 MG ECTAB PO SCH (07:42)
--- NOTE | 2019-09-06 09:29 | Neurology Progress Note ---
Date of Service September 06, 2019 Assessment & Plan (1) Complicated migraine: Persistent migrainous headache, associated neurological symptoms have resolved, however. Would recommend administration of another dose of IV Solu- Medrol, will give 125 mg IV, follow with Medrol Dosepak taper at time of discharge. Consider IV Toradol to address migraine pain if necessary. Have patient continue with her standard migraine preventive medication including topiramate and lamotrigine. She is also prescribed Emgality for migraine prevention and will be due for her next injection and the next 1 to 2 weeks. Have patient follow-up with me in clinic in 3 to 4 weeks. Subjective Follow-up for complicated migraine The patient is a 64-year-old female with a history of complicated migraine, small chronic left cerebellar infarct occurring in 2014, and PFO. She was admitted to the [facility] 2 days ago with refractory headache and associated neurological symptoms including right-sided numbness, weakness, transient vision disturbance, and confusion. The symptoms have fortunately resolved although she continues to complain of a mild to moderate, persistent migrainous headache. Her imaging evaluation was unremarkable for acute or subacute process or any evidence of a significant vascular lesion. She was given 250 mg of IV Solu-Medrol yesterday to treat her refractory migraine. She has some mild associated nausea as well which has been managed with promethazine. Review of Systems Constitutional: no fever Eyes: no blind spots and no diplopia Neurologic: as per Subjective / HPI and + headache(s); no localized weakness and no loss of sensation Physical Exam Physical Exam: The patient is a well-developed, well-nourished elderly female. She is sitting up comfortably in bed and does not appear to be in significant distress. She is alert and fully oriented. Recent and remote memory intact. Attention and concentration normal. Patient exhibits a normal spontaneous speech pattern as well as an age-appropriate fund of knowledge and normal comprehension of vocabulary. Visual bazzi full to confrontation. Visual acuity normal. Pupils equal round reactive to light and accommodation. Eye movements normal. No nystagmus, ptosis, or ophthalmoplegia. There is no facial droop or weakness. Tongue and palate midline. Shoulder shrug and hearing intact. Gait and station normal. Patient exhibits normal muscle strength and tone for all 4 limbs. No abnormal movements observed. Results & Data Vital Signs (Past 12 Hours) Vital Signs Temp Pulse Pulse Resp BP BP Pulse Ox 09/06/19 07:55 36.6 C 67 18 111/68 96 09/06/19 03:35 36.4 C L 71 18 102/60 97 09/05/19 23:41 36.5 C 79 18 107/62 96 09/05/19 22:20 85 PG Care Time/CCT Total # of Minutes Spent Total Time Spent with Patient: Total time spent is greater than 50% in co ordination of care (as documented) at patient's floor/unit and/or counseling patient: Coding Level of Care Code 49742 Subseq Hosp Care Lvl 2 Diagnoses Complicated migraine G43.109
[2019-09-06] MEDS ORDERED: PROMETHAZINE HCL 25 MG TAB PO PRN (09:30)
[2019-09-06] MEDS ORDERED: HYDROCODONE/ACETAMOPHEN 5/325MG TAB PO PRN (09:30)
[2019-09-06] MEDS ORDERED: methylPREDNISolone 125 MG in SYRINGE 0 ML IV STA (09:34)
[2019-09-06] MEDS ORDERED: POLYETHYLENE (MIRALAX) 17 GM PACK PO SCH (09:45)
[2019-09-06] MEDS ORDERED: KETOROLAC 30 MG/ML VIAL IV ONE (13:54)
--- NOTE | 2019-09-06 15:01 | Discharge Summary ---
Date of Service September 06, 2019 Principal Diagnosis Pt's headache is improved, but still present. She states that she generally takes vicodine and promethazine at home when her headaches are this severe, but it has not been ordered for her. She is requesting this. States she has also not been getting her miralax and is constipated. She has not had a bowel movement since [employer]. Tolerating PO. Pt denies fever, SOB, chest pain, abd pain, n/v, LE pain or swelling. Discharge Exam Constitutional WD/WN, vitals as above Eyes normal visual bazzi by confrontation and + anicteric sclerae Neck normal visual inspection and trachea midline Respiratory normal respiratory effort, lungs clear to auscultation Cardiovascular Rate/Rhythm: regular rate and regular rhythm Gastrointestinal (Abdomen) Inspection/Auscultation: abdomen not distended Percussion/Palpation: abdomen soft; abdomen nontender Musculoskeletal Head/Neck/Chest: normocephalic and head atraumatic Skin no rashes, warm and dry Neurologic awake; not confused Speech / Cognition: normal speech Psychiatric Orientation: oriented x 3 Speech: normal rate/rhythm/volume of speech Affect: + flat affect Discharge Data Allergies Allergy/AdvReac Type Severity Reaction Status Date / Time nickel Allergy Unknown RASH Verified 09/04/19 23:43 Penicillins Allergy Unknown HIVES A Verified 09/04/19 23:43 CHILD Sulfa (Sulfonamide Allergy Hives Verified 09/04/19 23:43 Antibiotics) Consultations 09/04/19 22:51 ED Decision to Admit Stat 09/05/19 00:17 Consult Neurology Routine Ordered Studies 09/04/19 21:41 CT angio neck with con Stat CT head/brain wo con Stat 09/04/19 21:42 CT angio head w con Stat 09/05/19 00:43 MR brain wo/w con Urgent Hospital Course (1) Altered mental state: AMS Suspect symptoms are most likely from Complex Migraine; although differential includes TIA possible from emobolic known PFO, medication induced from adverse effects of Topiramate, Undiagnosed CHRISTIE. - CTA of Head and Neck confirmed that patient does not have reported aneurysm which was also conveyed from review of [facility] Neuro notes in 2016. - hypercoag workup pending MRI is only noted for old infarct - Patient would greatly benefit from an outpatient sleep study as this could be cause of headaches and also why she has failed numerous outpatient regimens including beta/calcium channel blockers. - This could also be adverse effects from Topiramate as well. Neuro recs for solumedrol 250mg x1 and PO taper as outpt Pt with ongoing migraine s/p steroids, some improvement with home tx of vicodin and promethazine f/u neuro in 3-4 weeks Suggested trial of acupuncture as outpt (2) Common migraine without aura: as above, continue with home Lamictal and home Topiramate. (3) PFO (patent foramen ovale): PFO (patent foramen ovale): As noted in hx (4) GERD (gastroesophageal reflux disease): c/w home pepcid (5) History of cerebellar stroke: as noted in hx Total Time Total Time Spent Total Time Spent (In Minutes): >30 Total Time Includes: Examination of the Patient, Discharge Planning, Medication Reconciliation and Other Discharge Plan Discharge Items Patient Disposition: Home - Self-Care Reason For Visit: CONFUSION Discharge Diagnosis: Complex migraine Condition on Discharge: Fair Activity: Resume your previous activity Non-emergency contact: Primary Care Provider and Neurologist Call non-emergency contact if: you have any medication questions, your symptoms worsen and your pain is not controlled Follow-up/Referrals: Adri Saunders CRNP [Primary Care Provider] - (1 week) Ottoniel Huffman MD [Physician] - (3-4 weeks) Diet: Regular Addtl Attending Provider Instructions: You should consider adding a probiotic as it may help with your migraines. The one I recommend for most patients is Jarrow EPS 5 billion. It is a mix of 8 different bacteria. You can find this product at [employer] in [place]. You should start with 1 a day. The goal is to have 1 solid bowel movement a day. If after 2 weeks you are still having repeated loose bowel movements, you should increase to 2 probiotics daily. You can take up to 4 a day, but you want to take the least amount of any type of medication or supplement. You should take the probiotic away from your reflux medication. You can take it 30 minutes before the reflux medication in the morning or the evening. Pending Studies at Discharge: No Stand-Alone Forms: [employer], Smoking Cessation Medications and DC Order Prescriptions: New methylprednisolone [Medrol (Contreras)] 4 mg tablets,dose pack See Rx Instructions .ROUTE .COMPLEX Qty: 21 RF: 0 Continued Emgality Pen 120 mg/mL pen injector 120 mg SQ .COMPLEX 30 Days Qty: 1 RF: 11 famotidine [Pepcid] 20 mg tablet 20 mg PO BID Qty: 60 RF: 3 clhwrcalph-tuvoobgfwoamo-sdua 50-325-40 mg tablet 1 tab PO .COMPLEX 30 Days Qty: 30 RF: 1 hydrocodone-acetaminophen 5-325 mg tablet 1 tab PO .COMPLEX PRN (Reason: SEVERE HEADACHE) RF: 0 multivitamin [Multiple Vitamins] tablet 1 tab PO DAILY RF: 0 omega-3 acid ethyl esters 1 gram capsule 2 cap PO DAILY RF: 0 polyethylene glycol 3350 17 gram/dose powder 17 g PO DAILY RF: 0 topiramate 100 mg tablet 300 mg PO DAILY RF: 0 lamotrigine 100 mg tablet 100 mg PO BID Qty: 60 RF: 5 aspirin 81 mg tablet 81 mg PO DAILY RF: 0 cyclosporine-chondroit sulf A 0.1-0.25 % Drops 1 drp OPHTHALMIC (EYE) Q12H RF: 0 promethazine 25 mg Tablet 25 mg PO Q6H PRN (Reason: Nausea) RF: 0 Discharge Orders: Discharge Order (Routine); Ordered 09/06/19 Ordered By: Cathi Wright/Other Patient Handouts: Stroke Prevent Healthy Lifestyle Admission Data Admit Date/Time: 09/04/19 23:32 Attending Provider: Cathi Simons Admit Provider: Severo Esquivel Primary Care Provider: Adri Saunders Other Providers: Ottoniel Huffman ; Benny Delatorre Other Interventions: Discharge Summary Assessment (RN) Last Done: 09/06/19 15:15 DC Date/Time DO NOT enter until pt leaves facility: 09/06/19 18:46 Coding Level of Care Code D/C Day Management >30 mins Diagnoses Altered mental state R41.82 Common migraine without aura G43.009 PFO (patent foramen ovale) Q21.1 GERD (gastroesophageal reflux disease) K21.9 History of cerebellar stroke Z86.73
[2019-09-07] MEDS ORDERED: methylPREDNISolone 4 MG TAB PO SCH ×2 (07:00→21:00)
[2019-09-08] MEDS ORDERED: methylPREDNISolone 4 MG TAB PO SCH (07:00)
[2019-09-09] MEDS ORDERED: methylPREDNISolone 4 MG TAB PO SCH (07:00)
[2019-09-10] MEDS ORDERED: methylPREDNISolone 4 MG TAB PO SCH (07:00)
[2019-09-11] MEDS ORDERED: methylPREDNISolone 4 MG TAB PO SCH (07:00)
[2019-09-11 20:35] LABS: Anti-Thrombin III Activity 128 % activity (80-120); Protein S Functional(Activity) 89 % (60-140)
== END 2019-09-06 18:46 | disposition home or self-care (01) ==
LOC: 2N 21:26 → ED 21:26 → SUATTDRO 23:32 → 2N 23:54

== ENCOUNTER 2021-08-14 21:07 | Observation (INO) ==
[2021-08-14] MEDS ORDERED: LORazepam 2 MG/4 ML VIAL ONE (21:14)
[2021-08-14] MEDS ORDERED: ONDANSETRON INJ 2 MG/ML 2 ML VIAL ONE (21:16)
[2021-08-14] MEDS ORDERED: SODIUM CHLORIDE 0.9% 1000ML 500 ML IV ONE (21:21)
[2021-08-14] MEDS ORDERED: LORazepam 1 MG/2 ML VIAL IV STA ×2 (21:21→21:24)
[2021-08-14] MEDS ORDERED: ACETAMINOPHEN 1000 MG/100 ML IV IV STA (21:21)
[2021-08-14] MEDS ORDERED: ONDANSETRON INJ 2 MG/ML 2 ML VIAL IV STA (21:21)
--- NOTE | 2021-08-14 21:34 | Emergency Department Note ---
Impression & Plan Acute confusion, Headache, Near syncope, Visual disturbance, Hyperventilation ED Provider Note NAME: ENA GRAY AGE: 66 SEX: F : 1955 ARRIVES VIA: Walk-In INFORMANT: [Patient][nursing] ED PROVIDER(S): [Christopher Clemens MD] CHIEF COMPLAINT: Near syncope HISTORY OF PRESENT ILLNESS: The patient is a 66-year-old female who presents to the ER from the hospital niesha or for a near syncopal event. The patient works at [employer]. She began feeling nauseated. She noted double vision. She began to feel dizzy and faint and almost passed out. The patient was diaphoretic as per the [facility] staff and she seemed to have nystagmus. A code purple was called. She was brought to the ED for evaluation. The patient denies any current chest pain or chest pain pain during her event on the hospital floor She states that she is hyperventilating though and she cannot seem to stop her rapid breathing. She feels her eyes are moving in funny directions. She is nauseated. She denies any current headache. The patient is having a hard time focusing. She is having a hard time cooperating with her care. She does seem to be able to move all extremities and denies any weakness in 1 arm or 1 leg. The patient's daughter is in the room and states the patient has had a similar presentation before. She had a large work-up and was eventually diagnosed with a complex migraine. As per the daughter, the patient did have a headache earlier today. REVIEW OF SYSTEMS: See HPI for pertinent positives and negatives. A total of ten systems were reviewed and were otherwise negative. PMHx/PSHx: See Below SOCIAL HISTORY: See Below. PHYSICAL EXAM: GENERAL: Patient is in significant distress, hyperventilating. HEENT: No acute trauma, normocephalic atraumatic, mucous membranes moist, no nasal congestion, no scleral icterus. Pupils are equal round and reactive to light. She appears to have a disconjugate gaze. No nystagmus. NECK: No stridor, no adenopathy, no meningismus, trachea is midline. LUNGS: Clear to auscultation bilaterally, no wheeze, no rhonchi, breath sounds equal. There is an increased respiratory rate and she is hyperventilating. HEART: Without murmurs gallops or rubs, regular rate and rhythm. Heart sounds are distant secondary to her rapid breathing. ABDOMEN: Soft, nontender, bowel sounds positive, no hernias, no peritonitis. EXTREMITIES: No cyanosis or edema, full range of motion of all the joints without pain or difficulty, no signs for acute trauma. NEUROLOGIC: Awake and alert, slightly confused, moves all extremities, hyperventilating. No speech slur. Able to answer questions. SKIN: No rash, no jaundice, no diaphoresis. DIFFERENTIAL DIAGNOSIS: Infection, UTI, dehydration, metabolic abnormality, hypo/hyperglycemia, electrolyte disturbance, anemia, complex migraine, hypoxia, cardiac sources, intracerebral event, toxicologic issues, stroke, TIA, as well as other pathologies. EMERGENCY DEPARTMENT COURSE/PROCEDURES: ECG: Indication was near syncope. The ECG shows a sinus rhythm with some potential PACs. The rate is 94. There is some nonspecific ST change. There is significant baseline artifact. No PVCs. There is no ST elevation. The QTC is 507. Compared to an ECG from 09 April 2021, the artifact is now present. The nonspecific ST changes now present. Continuous Cardiac Monitoring: An order was placed for continuous cardiac monitoring. The monitor shows a rate of 87 with normal sinus rhythm. Critical Care Note: I have personally spent 53 minutes of critical care time in the direct management of this patient. This includes bedside care, interpretation of diagnostic studies, and testing, discussion with consultants, patient, and family members, and other required patient management activities. This 53 minutes is in excess of all separately billable procedures. MEDICAL DECISION MAKING: There is no leukocytosis or concerning anemia. There is a normal platelet count. No coagulopathy. Renal panel testing shows a lower CO2 and slight anion gap. I suspect these abnormalities are from her hyperventilation. There was no renal failure. No concerning liver enzyme elevation. ECG shows sinus rhythm with artifact. No ST elevation. No dysrhythmia. Cardiac enzyme testing x1 is not consistent with acute cardiac injury. COVID testing returned negative. Chest film shows a poor inspiratory effort but no focal pneumonia, no CHF. Brain CT shows no acute bleed or mass-effect. CT angio of the head and neck did not show any significant stenosis or clot. The patient presents hyperventilating, somewhat confused and agitated. She was a code purple after a near syncopal event on the [facility] floors. She works here at [facility]. The patient was aggressively managed. She received IV Ativan, a total of 2 mg. This did help her relax and helped her cooperate with care. She did require some O2 supplementation though after the Ativan. She received IV Zofran for nausea, IV saline for hydration. She was given IV Tylenol for her complaints of headache earlier. She received IV Solu-Medrol for the possibility of her headache being migrainous in nature. Patient is doing better, she seems to be resting comfortably. She can follow commands. No focal neurologic deficits. She currently denies any headache. She says that she feels improved compared to earlier. I did speak with case management, I do think a hospital stay is warranted. The on-call hospitalist was consulted. Attempts were made to speak with [facility] neurology however, there was no one environmental engineering technician. Past Med/Surg History Medical History (Updated 08/14/21 @ 22:42 by Christopher Clemens MD) Cerebral aneurysm without rupture Cerebral infarct Common migraine without aura Dry skin Fatigue Hair loss Hyperlipidemia Memory impairment PFO (patent foramen ovale) Surgical History History of hemorrhoidectomy History of sinus surgery S/P hernia repair S/P hysterectomy S/P tonsillectomy Status post tubal ligation Family History Mother Diabetes Stroke Hypertension Brother Cancer Systemic lupus erythematosus Father Myocardial infarction Social History Smoking Status: Former smoker Second Hand Exposure: No; Hx Alcohol Use: No Hx Substance Use: No Preferred Language: Greek Communication Ability: Effective Statue Maker Required: No Beliefs That Will Affect Care: None marital status: Current Living Situation: Spouse current occupational status: employed current occupation: [employer] Feels Safe at Home: Yes caffeine: Yes (coffee) Dental Care, Regularly: Yes Physical Activity Frequency: 1-2 Times per Week Seatbelt Use: always Sunscreen Use: No Assistive Devices: Glasses Allergies Allergies Allergy/AdvReac Type Severity Reaction Status Date / Time nickel Allergy Unknown RASH Verified 08/14/21 21:28 Penicillins Allergy Unknown HIVES A Verified 08/14/21 21:28 CHILD Sulfa (Sulfonamide Allergy Hives Verified 08/14/21 21:28 Antibiotics) Home Meds Home Medications Medication Instructions Recorded Confirmed multivitamin (Multiple Vitamins) 1 tab PO DAILY 03/12/19 08/14/21 omega-3 acid ethyl esters 1 gram 2 cap PO DAILY cap 03/12/19 08/14/21 capsule polyethylene glycol 3350 17 17 g PO DAILY gm 03/12/19 08/14/21 gram/dose oral powder cyclosporine 0.1 %-chondroitin 1 drp OPHTHALMIC (EYE) Q12H 09/04/19 08/14/21 sulfate A sodium 0.25 % eye drops aspirin 81 mg tablet,delayed 81 mg PO DAILY 08/14/21 08/14/21 release (Aspirin Low Dose) Previous Rx's Medication Instructions Recorded famotidine 20 mg tablet (Pepcid) 20 mg PO BID #60 tab 06/21/20 lamotrigine 100 mg tablet 100 mg PO BID #60 tab 08/20/20 topiramate 100 mg tablet 200 mg PO BID 30 Days #120 tab 08/20/20 verapamil 240 mg 24 hr 240 mg PO DAILY #30 cap 08/20/20 capsule,extended release terbinafine HCl 250 mg tablet 250 mg PO DAILY #30 tab 05/13/21 tzfffjwmce-ivqvdvgayprhv-chkexafh 1 tab PO .COMPLEX 30 Days #30 tab 06/01/21 50 mg-325 mg-40 mg tablet rimegepant 75 mg disintegrating 75 mg PO .COMPLEX 30 Days #8 tab 06/01/21 tablet (Nurtec ODT) Results & Data (ED) Vital Signs Vital Signs - 24 hr 08/14/21 21:05 08/14/21 21:20 08/14/21 21:22 Temperature 36.6 C Temperature Source Oral Pulse Rate 88 87 Pulse Rate from SpO2 Sensor 78 Pulse Rhythm Regular Pulse Strength Normal Respiratory Rate 30 H 23 18 Respiratory Effort / Characteristics Spontaneous Labored Short of Breath Non-Labored Spontaneous Respiratory Depth Normal Respiratory Pattern Regular Blood Pressure 92/68 L 92/68 L Blood Pressure Mean 76 76 Blood Pressure Position Lying Pulse Oximetry 96 85 L 93 Oxygen Delivery Method Room Air Room Air Oxymask Oxygen Flow Rate Sepsis Recent Fever Within 48 Hours No Sepsis New/Unexplained Change in Mental Status N/A Sepsis Action Taken by Nursing No Action Required 08/14/21 21:29 08/14/21 21:30 08/14/21 21:47 Temperature Temperature Source Pulse Rate 77 99 H Pulse Rate from SpO2 Sensor 76 74 Pulse Rhythm Pulse Strength Respiratory Rate 20 15 Respiratory Effort / Characteristics Respiratory Depth Respiratory Pattern Blood Pressure 128/75 121/66 125/65 Blood Pressure Mean 92 84 85 Blood Pressure Position Pulse Oximetry 96 100 100 Oxygen Delivery Method Oxymask Nasal Cannula Nasal Cannula Oxygen Flow Rate 6 3 3 Sepsis Recent Fever Within 48 Hours Sepsis New/Unexplained Change in Mental Status Sepsis Action Taken by Nursing 08/14/21 22:08 08/14/21 22:15 08/14/21 22:30 Temperature Temperature Source Pulse Rate 75 71 72 Pulse Rate from SpO2 Sensor 72 70 72 Pulse Rhythm Pulse Strength Respiratory Rate 24 19 13 Respiratory Effort / Characteristics Respiratory Depth Respiratory Pattern Blood Pressure 124/57 L 102/49 L 89/46 L Blood Pressure Mean 79 66 60 Blood Pressure Position Pulse Oximetry 97 96 98 Oxygen Delivery Method Nasal Cannula Nasal Cannula Nasal Cannula Oxygen Flow Rate 3 3 3 Sepsis Recent Fever Within 48 Hours Sepsis New/Unexplained Change in Mental Status Sepsis Action Taken by Nursing 08/14/21 22:45 Temperature Temperature Source Pulse Rate 80 Pulse Rate from SpO2 Sensor 81 Pulse Rhythm Pulse Strength Respiratory Rate 13 Respiratory Effort / Characteristics Respiratory Depth Respiratory Pattern Blood Pressure 113/57 L Blood Pressure Mean 75 Blood Pressure Position Pulse Oximetry 99 Oxygen Delivery Method Nasal Cannula Oxygen Flow Rate 3 Sepsis Recent Fever Within 48 Hours Sepsis New/Unexplained Change in Mental Status Sepsis Action Taken by Correction Medications Current Medication List: was personally reviewed by me Laboratory Data Attestation: I reviewed the patient's lab results. Result diagrams: 08/14/21 21:15 08/14/21 21:15 Lab Results 08/14/21 08/14/21 08/14/21 Range/Units 21:15 21:15 21:15 WBC 5.79 (4.8-10.8) K/uL RBC 3.89 L (4.2-5.4) M/uL Hgb 13.3 (12.0-16.0) g/dL POC Hgb (12.0-16.0) g/dl Hct 38.1 (37-47) % POC Hct (37-47) % MCV 97.9 (80-100) fL MCH 34.2 H (25-34) pg MCHC 34.9 (32-36) g/dL RDW Std Deviation 47.4 H (36.4-46.3) fL RDW Coeff of Lopez 13.3 (11.5-14.5) % Plt Count 190 (130-400) K/uL MPV 10.0 (7.4-10.4) fL Neutrophils % (Manual) 29.8 % Lymphocytes % (Manual) 33.4 % Reactive Lymphs % (Man) 33.3 % Monocytes % (Manual) 2.6 % Eosinophils % (Manual) 0.9 % Neutrophils # (Manual) 1.73 (1.4-6.5) K/uL Total Absolute Neuts 1.73 (1.4-6.5) K/uL Lymphocytes # (Manual) 1.93 (1.2-3.4) K/uL Reactive Lymphs # 1.93 K/uL Total Abs Lymphocytes 3.86 H (1.2-3.4) K/uL Monocytes # (Manual) 0.15 (0.11-0.59) K/uL Eosinophils # (Manual) 0.05 (0-0.5) K/uL RBC Morphology Unremarkable PT 10.0 (9.0-12.0) Seconds INR 1.0 (0.9-1.1) APTT 24.0 (21.0-31.0) Seconds PTT Ratio 0.9 POC Sodium (135-144) mmol/L Sodium 141 (136-145) mmol/L POC Potassium (3.3-5.0) mmol/L Potassium 3.6 (3.5-5.1) mmol/L POC Chloride (101-112) mmol/L Chloride 111 H (98-107) mmol/L Carbon Dioxide 17 L (21-32) mmol/L POC Total CO2 (24-31) mmol/L Anion Gap 13 H (3-11) POC Anion Gap (16-25) mmol/L POC BUN (7-18) mg/dl BUN 25 H (6-23) mg/dl Creatinine 1.17 (0.6-1.2) mg/dl POC Creatinine (0.6-1.3) mg/dl Est Cr Clr Drug Dosing 43.0 ml/min Est GFR ( Amer) 57.0 ml/min Est GFR (Non-Af Amer) 49.2 ml/min BUN/Creatinine Ratio 21.4 H (10-20) Glucose 112 H (70-99(Fasting)) mg/dl POC Glucose (other) (70-99) mg/dl Calcium 9.9 (8.5-10.1) mg/dl POC Ioniz Calcium Vicente (1.12-1.32) mmol/l Magnesium 2.4 (1.7-2.4) mg/dl Total Bilirubin 0.4 (0.2-1.0) mg/dl AST 22 (13-39) U/L ALT 15 (7-52) U/L Alkaline Phosphatase 57 (34-104) U/L Troponin I < 0.03 (0-0.04) ng/ml Total Protein 7.2 (6.0-8.3) gm/dl Albumin 4.4 (3.4-5.0) gm/dl Globulin 2.8 (2.5-4.0) gm/dl Albumin/Globulin Ratio 1.6 (0.9-2) SARS-CoV-2, RNA, NAAT (NEGATIVE) 08/14/21 08/14/21 Range/Units 21:23 21:35 WBC (4.8-10.8) K/uL RBC (4.2-5.4) M/uL Hgb (12.0-16.0) g/dL POC Hgb 12.2 (12.0-16.0) g/dl Hct (37-47) % POC Hct 36 L (37-47) % MCV (80-100) fL MCH (25-34) pg MCHC (32-36) g/dL RDW Std Deviation (36.4-46.3) fL RDW Coeff of Lopez (11.5-14.5) % Plt Count (130-400) K/uL MPV (7.4-10.4) fL Neutrophils % (Manual) % Lymphocytes % (Manual) % Reactive Lymphs % (Man) % Monocytes % (Manual) % Eosinophils % (Manual) % Neutrophils # (Manual) (1.4-6.5) K/uL Total Absolute Neuts (1.4-6.5) K/uL Lymphocytes # (Manual) (1.2-3.4) K/uL Reactive Lymphs # K/uL Total Abs Lymphocytes (1.2-3.4) K/uL Monocytes # (Manual) (0.11-0.59) K/uL Eosinophils # (Manual) (0-0.5) K/uL RBC Morphology PT (9.0-12.0) Seconds INR (0.9-1.1) APTT (21.0-31.0) Seconds PTT Ratio POC Sodium 143 (135-144) mmol/L Sodium (136-145) mmol/L POC Potassium 3.7 (3.3-5.0) mmol/L Potassium (3.5-5.1) mmol/L POC Chloride 114 H (101-112) mmol/L Chloride (98-107) mmol/L Carbon Dioxide (21-32) mmol/L POC Total CO2 18 L (24-31) mmol/L Anion Gap (3-11) POC Anion Gap 16.0 (16-25) mmol/L POC BUN 26 H (7-18) mg/dl BUN (6-23) mg/dl Creatinine (0.6-1.2) mg/dl POC Creatinine 1.2 (0.6-1.3) mg/dl Est Cr Clr Drug Dosing ml/min Est GFR ( Amer) ml/min Est GFR (Non-Af Amer) ml/min BUN/Creatinine Ratio (10-20) Glucose (70-99(Fasting)) mg/dl POC Glucose (other) 111 H (70-99) mg/dl Calcium (8.5-10.1) mg/dl POC Ioniz Calcium Vicente 1.20 (1.12-1.32) mmol/l Magnesium (1.7-2.4) mg/dl Total Bilirubin (0.2-1.0) mg/dl AST (13-39) U/L ALT (7-52) U/L Alkaline Phosphatase (34-104) U/L Troponin I (0-0.04) ng/ml Total Protein (6.0-8.3) gm/dl Albumin (3.4-5.0) gm/dl Globulin (2.5-4.0) gm/dl Albumin/Globulin Ratio (0.9-2) SARS-CoV-2, RNA, NAAT NEGATIVE (NEGATIVE) Administered Medications Discontinued Medications Acetaminophen (Acetaminophen 1000 Mg/100 Ml Iv) 1,000 mg IV NOW STA Stop: 08/14/21 21:22 Last Admin: 08/14/21 21:51 Dose: 1,000 mg Documented by: [id number] Lorazepam (Ativan) 1 mg in 2 mls @ 2 mls/min IV NOW STA Stop: 08/14/21 21:22 Last Admin: 08/14/21 21:43 Dose: 2 mls/min Documented by: [id number] Sodium Chloride (Nss 1000ml) 500 mls @ 999 mls/hr IV .Q31M ONE Stop: 08/14/21 21:51 Last Infusion: 08/14/21 22:15 Dose: 0 mls/hr Documented by: [id number] Admin: 08/14/21 21:42 Dose: 999 mls/hr Documented by: [id number] Lorazepam (Ativan) 1 mg in 2 mls @ 2 mls/min IV NOW STA Stop: 08/14/21 21:25 Last Admin: 08/14/21 21:44 Dose: 2 mls/min Documented by: [id number] Ioversol (Optiray 320 125ml) 116 ml IV ONCE ONE Stop: 08/14/21 22:08 Last Admin: 08/14/21 22:08 Dose: 116 ml Documented by: [id number] Lorazepam (Lorazepam 2 Mg/4 Ml Vial) Confirm Administered Dose 2 mg .ROUTE .STK- MED ONE Stop: 08/14/21 21:15 Last Admin: 08/14/21 21:42 Dose: Not Given Documented by: [id number] Methylprednisolone (Methylprednisolone 125 Mg/2 Ml Vial) 60 mg IV NOW STA Stop: 08/14/21 22:34 Last Admin: 08/14/21 23:04 Dose: 60 mg Documented by: [id number] Ondansetron HCl (Ondansetron Inj 2 Mg/Ml 2 Ml Vial) Confirm Administered Dose 4 mg .ROUTE .STK-MED ONE Stop: 08/14/21 21:17 Last Admin: 08/14/21 21:18 Dose: 4 mg Documented by: [id number] Ondansetron HCl (Ondansetron Inj 2 Mg/Ml 2 Ml Vial) 4 mg IV NOW STA Stop: 08/14/21 21:22 Last Admin: 08/14/21 21:51 Dose: Not Given Documented by: [id number] Imaging Data Radiologist's Impression: Chest X-Ray 08/14/21 21:22 XR chest 1V portable CLINICAL HISTORY: Stroke Like Symptoms. Evaluate cardiopulmonary status COMPARISON STUDY: 04/09/2021 TECHNIQUE: 1 view of the chest FINDINGS: Single frontal view of the chest demonstrates the cardiomediastinal silhouette to be within normal limits. There is a decreased inspiratory effort with elevation of the hemidiaphragms and crowding of the bronchovascular markings at the lung bases and centrally. The lungs are clear of alveolar opacities. There is no evidence for pleural effusion. There is no evidence for vascular congestion. There is no acute osseous pathology. IMPRESSION: There is a decreased inspiratory effort with otherwise no acute chest disease. ACT 112: Negative or not required by law. Electronically signed by: Enrrique Roach M.D. 08/14/2021 10:[address] 08/14/21 21:22 CT head/brain wo con CLINICAL HISTORY: Stroke Like Symptoms COMPARISON STUDY: No previous studies for comparison. CT DOSE: TECHNIQUE: Standard CT of the Brain was performed without IV contrast. A dose lowering technique was utilized adhering to the principles of ALARA. FINDINGS: Extraaxial space: There is no evidence for subdural hematoma. There are no extra-axial fluid collections. Ventricles and cisterns: The ventricles are normal in size and configuration. There is no evidence for midline shift or mass effect. Parenchyma: There is no subarachnoid or intraparenchymal hemorrhage. There is no evidence for an acute infarct or cerebral edema. There is homogeneous attenuation of the brain parenchyma. There are no gross mass lesions. Osseous structures: There is no evidence for an acute fracture. The visualized paranasal sinuses are clear. The mastoid air cells are clear bilaterally. Soft tissues: There is no evidence for focal soft tissue swelling. IMPRESSION: No acute intracerebral pathology. ACT 112: Negative or not required by law. Electronically signed by: Enrrique Roach M.D. 08/14/2021 10:30 PM Head CTA 08/14/21 21:22 CT angio head w con CLINICAL HISTORY: Stroke Like Symptoms COMPARISON STUDY: CT brain without contrast from 08/14/2021 CT DOSE: TECHNIQUE: CT Angio of the brain was performed.followed by image post processing with coronal, and sagittal MIP reformats. Contrast Volume: Optiray 320, 116 ml FINDINGS: Vascular findings: There is normal enhancement within the internal carotid arteries bilaterally. There is normal enhancement noted within the anterior, middle and posterior cerebral arteries. The vessels of the [place] are tortuous. Nonvascular findings: There is homogeneous attenuation of the brain parenchyma bilaterally. There is no evidence for an acute infarct or cerebral edema. IMPRESSION: Essentially negative CT angiogram of the brain with contrast. ACT 112: Negative or not required by law. Electronically signed by: Enrrique Roach M.D. 08/14/2021 10:34 PM Neck CTA 08/14/21 21:22 CT angio neck with con CLINICAL HISTORY: Stroke Like Symptoms COMPARISON STUDY: No previous studies for comparison. CT DOSE: 991.36 mGy.cm TECHNIQUE: CT Angio of the neck was performed.followed by image post processing with coronal, and sagittal MIP reformats.. Stenosis assessment by NASCET criteria. Contrast Volume: Optiray 320, 116 ml FINDINGS: Vascular findings: Right common carotid artery: Patent without significant stenosis. Right internal carotid artery: Patent without significant stenosis. Right vertebral artery: Patent without significant stenosis. Left common carotid artery: Patent without significant stenosis. Left internal carotid artery: Patent without significant stenosis. Left vertebral artery: Patent without significant stenosis. Nonvascular findings: The parotid and submandibular salivary glands appear normal. There is no enlarged cervical adenopathy noted. The airway appears patent. The thyroid gland appears within normal limits. The lung apices appear within normal limits. Impression: Negative CT angiogram of the neck with contrast. ACT 112: Negative or not required by law. Electronically signed by: Enrrique Roach M.D. 08/14/2021 10:39 PM Discharge Plan Visit Data Chief Complaint: Syncope (Near Syncope) Stated Complaint: sob ED Provider: Christopher Clemens Discharge Problem: Acute confusion, Headache, Near syncope, Visual disturbance, Hyperventilation Patient Disposition: Admitted As Inpatient Condition: Fair Forms Stand Alone Forms: [facility] [employer] Prescriptions Prescriptions: No Action famotidine [Pepcid] 20 mg tablet 20 mg PO BID Qty: 60 RF: 11 Nurtec ODT 75 mg tablet,disintegrating 75 mg PO .COMPLEX 30 Days Qty: 8 RF: 3 sipxbdlxcz-wxbzxsbhmgrkd-kzry 50-325-40 mg tablet 1 tab PO .COMPLEX 30 Days Qty: 30 RF: 0 multivitamin [Multiple Vitamins] tablet 1 tab PO DAILY RF: 0 omega-3 acid ethyl esters 1 gram capsule 2 cap PO DAILY RF: 0 polyethylene glycol 3350 17 gram/dose powder 17 g PO DAILY RF: 0 verapamil 240 mg capsule,ext rel. pellets 24 hr 240 mg PO DAILY Qty: 30 RF: 5 lamotrigine 100 mg tablet 100 mg PO BID Qty: 60 RF: 5 topiramate 100 mg tablet 200 mg PO BID 30 Days Qty: 120 RF: 5 terbinafine HCl 250 mg tablet 250 mg PO DAILY Qty: 30 RF: 1 cyclosporine-chondroit sulf A 0.1-0.25 % Drops 1 drp OPHTHALMIC (EYE) Q12H RF: 0 aspirin [Aspirin Low Dose] 81 mg Tablet,Delayed Release (Dr/Ec) 81 mg PO DAILY RF: 0 Referrals Referrals: Adri Saunders CRNP [Primary Care Provider] - Discharge Problem: Headache Qualifiers: Headache type: unspecified Headache chronicity pattern: acute headache Intractability: not intractable Qualified Code(s): R51.9 - Headache, unspecified
[2021-08-14 21:37] LABS: iSTAT Creatinine 1.2 mg/dl (0.6-1.3); iSTAT Hemoglobin 12.2 g/dl (12.0-16.0); iSTAT Ionized Calcium 1.2 mmol/l (1.12-1.32); iSTAT Potassium 3.7 mmol/L (3.3-5.0)
[2021-08-14 21:39] LABS: Hematocrit (blood only) 38.1 % (37-47); Hemoglobin 13.3 g/dL (12.0-16.0); Mean Corpuscular Hemoglobin 34.2 pg (25-34); Mean Corpuscular Hgb Conc 34.9 g/dL (32-36); Mean Corpuscular Volume 97.9 fL (80-100); Platelet Count 190 K/uL (130-400); RDW Coefficient of Variation 13.3 % (11.5-14.5); RDW Standard Deviation 47.4 fL (36.4-46.3); Red Blood Count 3.89 M/uL (4.2-5.4); White Blood Count 5.79 K/uL (4.8-10.8)
[2021-08-14 21:50] LABS: Partial Thromboplastin Ratio 0.9
[2021-08-14 21:55] LABS: Alanine Aminotransferase 15 U/L (7-52); Albumin Globulin Ratio 1.6 (0.9-2); Albumin Level 4.4 gm/dl (3.4-5.0); Alkaline Phosphatase 57 U/L (34-104); Anion Gap 13 (3-11); Aspartate Aminotransferase 22 U/L (13-39); BUN Creatinine Ratio 21.4 (10-20); Bilirubin,Total 0.4 mg/dl (0.2-1.0); Blood Urea Nitrogen 25 mg/dl (6-23); Calcium 9.9 mg/dl (8.5-10.1); Carbon Dioxide 17 mmol/L (21-32); Chloride 111 mmol/L (98-107); Est GFR (Non-African American) 49.2 ml/min; Globulin 2.8 gm/dl (2.5-4.0); Glucose 112 mg/dl (70-99(Fasting)); Magnesium 2.4 mg/dl (1.7-2.4); Potassium 3.6 mmol/L (3.5-5.1); Sodium 141 mmol/L (136-145); Total Protein 7.2 gm/dl (6.0-8.3)
[2021-08-14 21:59] LABS: Troponin I < 0.03 ng/ml (0-0.04)
[2021-08-14] MEDS ORDERED: OPTIRAY 320 125ml IV ONE (22:07)
--- NOTE | 2021-08-14 22:31 | CT Scan Report ---
CT head/brain wo con CLINICAL HISTORY: Stroke Like Symptoms COMPARISON STUDY: No previous studies for comparison. CT DOSE: TECHNIQUE: Standard CT of the Brain was performed without IV contrast. A dose lowering technique was utilized adhering to the principles of ALARA. FINDINGS: Extraaxial space: There is no evidence for subdural hematoma. There are no extra-axial fluid collecti ons. Ventricles and cisterns: The ventricles are normal in size and configuration. There is no evidence f or midline shift or mass effect. Parenchyma: There is no subarachnoid or intraparenchymal hemorrhage. There is no evidence for an acu te infarct or cerebral edema. There is homogeneous attenuation of the brain parenchyma. There are no gross mass lesions. Osseous structures: There is no evidence for an acute fracture. The visualized paranasal sinuses are clear. The mastoid air cells are clear bilaterally. Soft tissues: There is no evidence for focal soft tissue swelling. IMPRESSION: No acute intracerebral pathology. ACT 112: Negative or not required by law. Electronically signed by: Enrrique Roach M.D. 08/14/2021 10:30 PM
[2021-08-14] MEDS ORDERED: methylPREDNISolone 125 MG/2 ML VIAL IV STA (22:33)
--- NOTE | 2021-08-14 22:35 | CT Scan Report ---
CT angio head w con CLINICAL HISTORY: Stroke Like Symptoms COMPARISON STUDY: CT brain without contrast from 08/14/2021 CT DOSE: TECHNIQUE: CT Angio of the brain was performed.followed by image post processing with coronal, and s agittal MIP reformats. Contrast Volume: Optiray 320, 116 ml FINDINGS: Vascular findings: There is normal enhancement within the internal carotid arteries bilaterally. The re is normal enhancement noted within the anterior, middle and posterior cerebral arteries. The vess els of the [place] of [place] are tortuous. Nonvascular findings: There is homogeneous attenuation of the brain parenchyma bilaterally. There is no evidence for an acute infarct or cerebral edema. IMPRESSION: Essentially negative CT angiogram of the brain with contrast. ACT 112: Negative or not required by law. Electronically signed by: Enrrique Roach M.D. 08/14/2021 10:34 PM
--- NOTE | 2021-08-14 22:41 | CT Scan Report ---
CT angio neck with con CLINICAL HISTORY: Stroke Like Symptoms COMPARISON STUDY: No previous studies for comparison. CT DOSE: 991.36 mGy.cm TECHNIQUE: CT Angio of the neck was performed.followed by image post processing with coronal, and sa gittal MIP reformats.. Stenosis assessment by NASCET criteria. Contrast Volume: Optiray 320, 116 ml FINDINGS: Vascular findings: Right common carotid artery: Patent without significant stenosis. Right internal carotid artery: Patent without significant stenosis. Right vertebral artery: Patent without significant stenosis. Left common carotid artery: Patent without significant stenosis. Left internal carotid artery: Patent without significant stenosis. Left vertebral artery: Patent without significant stenosis. Nonvascular findings: The parotid and submandibular salivary glands appear normal. There is no enlarged cervical adenopathy noted. The airway appears patent. The thyroid gland appears within normal limits. The lung apices ap pear within normal limits. Impression: Negative CT angiogram of the neck with contrast. ACT 112: Negative or not required by law. Electronically signed by: Enrrique Roach M.D. 08/14/2021 10:39 PM
[2021-08-14 22:44] LABS: ALC (manual) 3.86 K/uL (1.2-3.4); ANC (manual) 1.73 K/uL (1.4-6.5); Eosinophils # (manual) 0.05 K/uL (0-0.5); Eosinophils % (manual) 0.9 %; Lymphocytes # (manual) 1.93 K/uL (1.2-3.4); Lymphocytes % (manual) 33.4 %; Monocytes # (manual) 0.15 K/uL (0.11-0.59); Monocytes % (manual) 2.6 %; Neutrophils # (manual) 1.73 K/uL (1.4-6.5); Neutrophils % (manual) 29.8 %; RBC Morphology Unremarkable; Reactive Lymphocytes # (manual) 1.93 K/uL; Reactive Lymphocytes % (manual) 33.3 %
--- NOTE | 2021-08-14 22:55 | XRay Report ---
XR chest 1V portable CLINICAL HISTORY: Stroke Like Symptoms. Evaluate cardiopulmonary status COMPARISON STUDY: 04/09/2021 TECHNIQUE: 1 view of the chest FINDINGS: Single frontal view of the chest demonstrates the cardiomediastinal silhouette to be within normal li mits. There is a decreased inspiratory effort with elevation of the hemidiaphragms and crowding of th e bronchovascular markings at the lung bases and centrally. The lungs are clear of alveolar opacities . There is no evidence for pleural effusion. There is no evidence for vascular congestion. There is n o acute osseous pathology. IMPRESSION: There is a decreased inspiratory effort with otherwise no acute chest disease. ACT 112: Negative or not required by law. Electronically signed by: Enrrique Roach M.D. 08/14/2021 10:54 PM
--- NOTE | 2021-08-14 23:35 | History & Physical Report ---
Date of Service August 14, 2021 Assessment & Plan (1) Near syncope: Plan: 66 y/o F w/ migraines,, remote L cerebellar infarct, PFO who presents w/ near syncope and some ocular/facial symptoms. Stable. Considered atypical migraine (most likely) vs near syncope (vasovagal vs cardiogenic) vs CVA vs panic attack. Initially did not have headache but does now, more suggestive of migraine. Lower suspicion for infection. Less consistent w/ seizure. Considered vertigo a nd medication-induced symptoms. Nystagmus on my exam was mild. Slight L lower facial droop noted; will follow clinically. - monitor telemetry - neuro checks - check tickborne - CTA head and neck w/o acute changes - provide full dose ASAx1 - check orthostatics in AM - cbc, cmp, tick borne, mg, a1c, fasting lipids - palpitations: check TSH - MRI brain. defer neuro consult until resulted (2) Hx of atypical migraine: Plan: Patient has frequent migraines and has an extensive regimen. Verapamil, lamotrigine, topiramate, and PRN Fioricet. Has not taken Nurtec in months. She has had migraine w/ aura in past as well as a hospital admission to [facility] 07/2019 w/ similar presentation to today, diagnosed as complicated migraine. (3) Visual disturbance: Plan: - see above (4) Hyperventilation: Plan: - secondary to above, acute, resolved (5) Memory impairment: Plan: - chronic (6) H/O stroke without residual deficits: Plan: - see above (7) PFO (patent foramen ovale): Plan: - noted per hx (8) Transient ischemic attack (TIA): Plan: - considered on differential (9) Palpitations: Plan: -noted (10) Hyperlipidemia: Plan: - not on statin at home. checking fasting lipids in AM Plan: HH diet. Maintenance IV fluids. Full code Impliant History of Present Illness Chief Complaint: near syncope, stroke-like symptoms Primary Care Provider: REGAN Pack 66 y/o F w/ PMHx of migraines (distant hx of aura), remote L cerebellar infarct, PFO, prior hx of brain aneurysm resolved on imaging who presents via code purple this evening for near syncopal symptoms while at work. She has had 2-3 days of migraine (R sided) but otherwise was feeling at baseline. At work today, ~8 or 9 PM, she felt weak and nauseated and after leaning forward to rest, her symptoms worsened. She told a coworker that she wasn't feeling well and a code purple was called. Per staff, some nystagmus on exam. Per ER physician, some dysconjugate gaze. Patient endorsed horizontal diplopia, some room spinning dizziness, near syncopal, and her arms felt weak and shaky. She was hyperventilating during the episode. Nursing report later states patient did not remember the events after the code started. Currently feels better. Had similar symptoms that required hospitalization 07/2019 dx'd as complex migraine. Patient states she was likely slightly dehydrated today. Denies tick bites. Patient's migraines are very frequent and is following neurology. She is on a large regimen of prn Fioricet on top of daily lamotrigine, topiramate, and verapamil. Her migraines have been milder lately, though still present twice a week. Denies med side effects. Per patient, family hx of seizure. Patient had seizure during infancy, but was off of antiepileptics since. PMHx: cerebellar stroke in 2002 and per patient another stroke in late . Asymptomatic covid 03/2021. Has had Pfizer x2. Has not taken Nurtec in months. ED course: 2mg IV Ativan. NSS 500mL. Methylpred 60mg IV. Allergies Allergy/AdvReac Type Severity Reaction Status Date / Time nickel Allergy Unknown RASH Verified 08/14/21 21:28 Penicillins Allergy Unknown HIVES A Verified 08/14/21 21:28 CHILD Sulfa (Sulfonamide Allergy Hives Verified 08/14/21 21:28 Antibiotics) Home Medications Medication Instructions Recorded Confirmed Type multivitamin (Multiple Vitamins) 1 tab PO DAILY 03/12/19 08/14/21 History omega-3 acid ethyl esters 1 gram 2 cap PO DAILY cap 03/12/19 08/14/21 History capsule polyethylene glycol 3350 17 17 g PO DAILY gm 03/12/19 08/14/21 History gram/dose oral powder cyclosporine 0.1 %-chondroitin 1 drp OPHTHALMIC (EYE) Q12H 09/04/19 08/14/21 History sulfate A sodium 0.25 % eye drops famotidine 20 mg tablet (Pepcid) 20 mg PO BID #60 tab 11/23/20 01/16/22 Rx lamotrigine 100 mg tablet 100 mg PO BID #60 tab 08/20/20 08/14/21 Rx topiramate 100 mg tablet 200 mg PO BID 30 Days #120 tab 08/20/20 08/14/21 Rx verapamil 240 mg 24 hr 240 mg PO DAILY #30 cap 08/20/20 08/14/21 Rx capsule,extended release terbinafine HCl 250 mg tablet 250 mg PO DAILY #30 tab 05/13/21 08/14/21 Rx vtilxbiqrj-ymfloznxqiuzb-wtsyllme 1 tab PO .COMPLEX 30 Days #30 tab 06/01/21 08/14/21 Rx 50 mg-325 mg-40 mg tablet rimegepant 75 mg disintegrating 75 mg PO .COMPLEX 30 Days #8 tab 06/01/21 08/14/21 Rx tablet (Nurtec ODT) aspirin 81 mg tablet,delayed 81 mg PO DAILY 08/14/21 08/14/21 History release (Aspirin Low Dose) Past Med/Surg History Medical History (Updated 08/15/21 @ 00:51 by Jona An MD) Cerebral aneurysm without rupture Cerebral infarct Common migraine without aura Dry skin Fatigue Hair loss Hyperlipidemia Memory impairment PFO (patent foramen ovale) Surgical History History of hemorrhoidectomy History of sinus surgery S/P hernia repair S/P hysterectomy S/P tonsillectomy Status post tubal ligation Family History Mother Diabetes Stroke Hypertension Brother Cancer Systemic lupus erythematosus Father Myocardial infarction Social History Smoking Status: Never smoker Second Hand Exposure: No; Hx Alcohol Use: No Hx Substance Use: No Preferred Language: Guatemalan Communication Ability: Effective Carbider Required: No Beliefs That Will Affect Care: None marital status: Current Living Situation: Spouse current occupational status: employed current occupation: [employer] Other Information That Helps Us Care for You: No Feels Safe at Home: Yes Safety Concerns: Feels Safe At This Time caffeine: Yes (coffee) Dental Care, Regularly: Yes Physical Activity Frequency: 1-2 Times per Week Seatbelt Use: always Sunscreen Use: No Assistive Devices: Glasses Review of Systems Review of Systems: All systems reviewed & are unremarkable except as noted in HPI & below Chronic palpitations, fluttering sensation daily. No headache currently. + photophobia. + mild blurry vision. still has some. Update: 1AM paged by nurse that patient has 8/10 headache. Not currently seeing double. Physical Exam 2 Physical Exam: General: A&Ox4. NAD. Cooperative. HEENT: Atraumatic, normocephalic. EOMI. PERRLA. Mild horizontal nystagmus, not crossing midline, symmetric on both sides. Pulm: CTAB. -wheezes, -rales, -rhonchi. No respiratory distress. No LE edema. Cardiac: RRR, -mrg. Radial pulses intact and symmetrical. Abdominal: Nontender, nondistended, soft. Neuro: Radio Intelligence Operator strength. Strength and sensation of extrem intact. Mild left lower facial droop. Other cranial nerves intact. Finger to nose exam: slightly less smooth motions on right, but still able to perform. No disdiadochokinesia. Normal heel-rodríguez test bilaterally. Passed serial sevens. Patellar reflexes 2+ Normal strength and sensation of extremities. Results & Data Results & Data ([facility]) Vital Signs (Past 12 Hours) Vital Signs Temp Pulse Resp BP Pulse Ox 08/14/21 22:45 80 16 113/57 L 99 08/14/21 22:30 72 13 89/46 L 98 08/14/21 22:15 71 19 102/49 L 96 08/14/21 22:08 75 24 124/57 L 97 08/14/21 21:47 99 H 15 125/65 100 08/14/21 21:30 77 20 121/66 100 08/14/21 21:29 128/75 96 08/14/21 21:22 36.6 C 87 18 92/68 L 93 08/14/21 21:20 88 23 92/68 L 85 L 08/14/21 21:05 30 H 96 Laboratory Results cbc, coags, cmp reviewed. Cr 1.17, ~baseline. trop <0.03. 08/14/21 21:15 08/14/21 21:15 Cardiac Enzymes 08/14/21 Range/Units 21:15 AST 22 (13-39) U/L Troponin I < 0.03 (0-0.04) ng/ml Coagulation 08/14/21 Range/Units 21:15 PT 10.0 (9.0-12.0) Seconds APTT 24.0 (21.0-31.0) Seconds CBC 08/14/21 Range/Units 21:15 WBC 5.79 (4.8-10.8) K/uL RBC 3.89 L (4.2-5.4) M/uL Hgb 13.3 (12.0-16.0) g/dL Hct 38.1 (37-47) % Plt Count 190 (130-400) K/uL Comprehensive Metabolic Panel 08/14/21 Range/Units 21:15 Sodium 141 (136-145) mmol/L Potassium 3.6 (3.5-5.1) mmol/L Chloride 111 H (98-107) mmol/L Carbon Dioxide 17 L (21-32) mmol/L BUN 25 H (6-23) mg/dl Creatinine 1.17 (0.6-1.2) mg/dl Glucose 112 H (70-99(Fasting)) mg/dl Calcium 9.9 (8.5-10.1) mg/dl AST 22 (13-39) U/L ALT 15 (7-52) U/L Alkaline Phosphatase 57 (34-104) U/L Total Protein 7.2 (6.0-8.3) gm/dl Albumin 4.4 (3.4-5.0) gm/dl Intake and Output 08/14/21 08/14/21 08/15/21 14:59 22:59 06:59 Intake Total 500 / 500 Balance 500 / 500 Intake: IV 500 / 500 Sodium Chloride 0.9% 1000ML 500 500 / 500 ml @ 999 mls/hr IV .Q31M ONE Rx#:[id number] Other: Weight 68.4 kg Weight Measurement Method Built in [facility] Patient Weight 08/15/21 06:59 Weight 68.4 kg Diagnostic Findings Chest X-Ray 08/14/21 21:22 XR chest 1V portable CLINICAL HISTORY: Stroke Like Symptoms. Evaluate cardiopulmonary status COMPARISON STUDY: 04/09/2021 TECHNIQUE: 1 view of the chest FINDINGS: Single frontal view of the chest demonstrates the cardiomediastinal silhouette to be within normal limits. There is a decreased inspiratory effort with elevati on of the hemidiaphragms and crowding of the bronchovascular markings at the lung bases and centrally. The lungs are clear of alveolar opacities. There is no evidence for pleural effusion. There is no evidence for vascular congestion. There is no acute osseous pathology. IMPRESSION: There is a decreased inspiratory effort with otherwise no acute chest disease. ACT 112: Negative or not required by law. Electronically signed by: Enrrique Roach M.D. 08/14/2021 10:[address] 08/14/21 21:22 CT head/brain wo con CLINICAL HISTORY: Stroke Like Symptoms COMPARISON STUDY: No previous studies for comparison. CT DOSE: TECHNIQUE: Standard CT of the Brain was performed without IV contrast. A dose lowering technique was utilized adhering to the principles of ALARA. FINDINGS: Extraaxial space: There is no evidence for subdural hematoma. There are no extra-axial fluid collections. Ventricles and cisterns: The ventricles are normal in size and configuration. There is no evidence for midline shift or mass effect. Parenchyma: There is no subarachnoid or intraparenchymal hemorrhage. There is no evidence for an acute infarct or cerebral edema. There is homogeneous attenuation of the brain parenchyma. There are no gross mass lesions. Osseous structures: There is no evidence for an acute fracture. The visualized paranasal sinuses are clear. The mastoid air cells are clear bilaterally. Soft tissues: There is no evidence for focal soft tissue swelling. IMPRESSION: No acute intracerebral pathology. ACT 112: Negative or not required by law. Electronically signed by: Enrrique Roach M.D. 08/14/2021 10:30 PM Head CTA 08/14/21 21:22 CT angio head w con CLINICAL HISTORY: Stroke Like Symptoms COMPARISON STUDY: CT brain without contrast from 08/14/2021 CT DOSE: TECHNIQUE: CT Angio of the brain was performed.followed by image post processing with coronal, and sagittal MIP reformats. Contrast Volume: Optiray 320, 116 ml FINDINGS: Vascular findings: There is normal enhancement within the internal carotid arteries bilaterally. There is normal enhancement noted within the anterior, middle and posterior cerebral arteries. The vessels of the [place] of [place] are tortuous. Nonvascular findings: There is homogeneous attenuation of the brain parenchyma bilaterally. There is no evidence for an acute infarct or cerebral edema. IMPRESSION: Essentially negative CT angiogram of the brain with contrast. ACT 112: Negative or not required by law. Electronically signed by: Enrrique Roach M.D. 08/14/2021 10:34 PM Neck CTA 08/14/21 21:22 CT angio neck with con CLINICAL HISTORY: Stroke Like Symptoms COMPARISON STUDY: No previous studies for comparison. CT DOSE: 991.36 mGy.cm TECHNIQUE: CT Angio of the neck was performed.followed by image post processing with coronal, and sagittal MIP reformats.. Stenosis assessment by NASCET criteria. Contrast Volume: Optiray 320, 116 ml FINDINGS: Vascular findings: Right common carotid artery: Patent without significant stenosis. Right internal carotid artery: Patent without significant stenosis. Right vertebral artery: Patent without significant stenosis. Left common carotid artery: Patent without significant stenosis. Left internal carotid artery: Patent without significant stenosis. Left vertebral artery: Patent without significant stenosis. Nonvascular findings: The parotid and submandibular salivary glands appear normal. There is no enlarge d cervical adenopathy noted. The airway appears patent. The thyroid gland appears within normal limits. The lung apices appear within normal limits. Impression: Negative CT angiogram of the neck with contrast. ACT 112: Negative or not required by law. Electronically signed by: Enrrique Roach M.D. 08/14/2021 10:39 PM Code Status & VTE Plan Code Status full VTE Prophylaxis Plan VTE Prophylaxis will be ordered: Yes Supervising Physician Co-Signing Physician Notes patient seen and examined, chart reviewed, case discussed with Dr. An and I agree with the assessment and plan as above.. Will order MRI brain Defer Neuro consult until MRI results Resident Activity Tracking Resident Involvement: Resident Care Provided Care Provided: Adult [facility]
[2021-08-15] MEDS ORDERED: PHARMACIST DISCHARGE MED REC CONSULT PRN (03:06)
[2021-08-15] MEDS ORDERED: ONDANSETRON INJ 2 MG/ML 2 ML VIAL IV PRN (03:06)
[2021-08-15] MEDS ORDERED: ACETAMINOPHEN 325 MG TAB PO PRN (03:06)
[2021-08-15] MEDS ORDERED: KETOROLAC TROMETHAMINE 15 MG/ML VIAL ONE (03:46)
[2021-08-15] MEDS ORDERED: LACTATED RINGER'S 1,000 ML IV SCH (05:00)
--- NOTE | 2021-08-15 05:30 | Billing Data ---
Date of Service August 14, 2021 Coding Level of Care Code INT OBSERVATION CARE 70M LVL 3
[2021-08-15 05:37] LABS: Appearance Urine Turbid (Clear); Bacteria Urine Automated 1+ (Negative); Bilirubin Urine Negative (Negative); Blood Urine Negative (Negative); Color Urine Dark Yellow; Epithelial Cell Urine Auto >30 /lpf (0-5); Glucose Urine UA Negative (Negative); Ketones Urine Negative (Negative); Leukocyte Esterase Urine Negative (Negative); Nitrite Urine Negative (Negative); Protein Urine Negative (Negative); RBC Urine Automated 0-4 /hpf (0-4); Specific Gravity Urine 1.045 (1.000-1.030); Urobilinogen Urine Negative (Negative); pH Urine 8.5 (4.5-7.5)
[2021-08-15] MEDS ORDERED: ASPIRIN CHEW 324 MG PO STA (05:51)
[2021-08-15 06:56] LABS: Hematocrit (blood only) 36.9 % (37-47); Hemoglobin 12.7 g/dL (12.0-16.0); Immature Granulocytes # (auto) 0.01 K/uL (0.00-0.02); Immature Granulocytes % (auto) 0.3 %; Lymphocytes # (auto) 0.63 K/uL (1.2-3.4); Lymphocytes % (auto) 20.7 %; Mean Corpuscular Hemoglobin 34.3 pg (25-34); Mean Corpuscular Hgb Conc 34.4 g/dL (32-36); Mean Corpuscular Volume 99.7 fL (80-100); Mean Platelet Volume 10.1 fL (7.4-10.4); Neutrophils # (auto) 2.41 K/uL (1.4-6.5); Platelet Count 169 K/uL (130-400); RDW Coefficient of Variation 13.6 % (11.5-14.5); RDW Standard Deviation 49.2 fL (36.4-46.3); White Blood Count 3.05 K/uL (4.8-10.8)
[2021-08-15 07:17] LABS: Albumin Globulin Ratio 1.5 (0.9-2); Albumin Level 4.2 gm/dl (3.4-5.0); BUN Creatinine Ratio 19.4 (10-20); Bilirubin,Total 0.3 mg/dl (0.2-1.0); Calcium 9.4 mg/dl (8.5-10.1); Chol HDL Ratio 3.2; Creatinine Clr Calc Pharmacy 51.6 ml/min; Est GFR (African American) 70.7 ml/min; Globulin 2.8 gm/dl (2.5-4.0)
[2021-08-15 07:42] LABS: Lyme Ab IgG w/WB Rflx Negative (Negative); Lyme Ab IgM w/WB Rflx Negative (Negative)
--- NOTE | 2021-08-15 08:52 | Electrocardiogram Report ---
Test Reason : Blood Pressure : / mmHG Vent. Rate : 094 BPM Atrial Rate : 094 BPM P-R Int : 140 ms QRS Dur : 088 ms QT Int : 406 ms P-R-T Axes : 051 017 031 degrees QTc Int : 507 ms Poor data quality, interpretation may be adversely affected Sinus rhythm Prolonged QT Abnormal ECG When compared with ECG of 09-APR-2021 15:07, Vent. rate has increased BY 31 BPM QT has lengthened Confirmed by Drew Mei ([id number]) on 08/15/2021 8:52:23 AM Referred By: REFERRED SELF Confirmed By:Drew Mei
--- NOTE | 2021-08-15 08:53 | Electrocardiogram Report ---
Test Reason : Blood Pressure : / mmHG Vent. Rate : 093 BPM Atrial Rate : 093 BPM P-R Int : 146 ms QRS Dur : 086 ms QT Int : 372 ms P-R-T Axes : 057 014 029 degrees QTc Int : 462 ms Poor data quality, interpretation may be adversely affected Normal sinus rhythm Prolonged QT Abnormal ECG When compared with ECG of 14-AUG-2021 21:15, No significant change Confirmed by Drew Mei ([id number]) on 08/15/2021 8:52:47 AM Referred By: REFERRED SELF Confirmed By:Drew Mei
[2021-08-15] MEDS ORDERED: GADOBUTROL 30ML VIAL IV ONE (09:21)
[2021-08-15 09:30] LABS: Estimated Average Glucose 94 mg/dl; Hemoglobin A1C 4.9 % (4.5-5.6)
--- NOTE | 2021-08-15 09:42 | Magnetic Resonance Report ---
MR brain wo/w con CLINICAL HISTORY: diplopia. COMPARISON STUDY: 09/05/[address] of the brain from 08/14/2021 TECHNIQUE: Multiplanar multisequence images of the brain were performed before and after Gadavist, 6 .5 mL of IV contrast. Diffusion weighted imaging and ADC mapping was also performed. FINDINGS: Extra-axial space: There is no evidence for a subdural hematoma, There are no extra-axial fluid rusty ections. Ventricles and cisterns: The ventricles are normal in size and configuration. There is no evidence f or midline shift or mass effect. Parenchyma: On noncontrast images, there is no evidence for an acute hemorrhage or infarct. No acute diffusion abnormalities are noted on diffusion weighted imaging or ADC mapping. There is an old lacun ar infarct present within the left cerebellar hemisphere which is unchanged. There is normal haynes-wh ite differentiation. The sulci and gyri appear normal without effacement. The midline structures are unremarkable. The posterior fossa structures appear normal. On postcontrast images, there is no evidence for enhancing mass lesion. Osseous structures: The paranasal sinuses are well aerated. The mastoid air cells are well aerated. Soft tissues: No focal soft tissue abnormalities are identified. IMPRESSION: No acute intracranial abnormalities. Old lacunar infarct within the left cerebellar michele sphere, unchanged. ACT 112: Negative or not required by law. Electronically signed by: Enrrique Roach M.D. 08/15/2021 9:41 AM
[2021-08-15] MEDS: ENOXAPARIN INJ 40 MG/0.4 ML SYR SQ SCH ×2 (09:50→10:49)
[2021-08-15] MEDS: VERAPAMIL HCL 240 MG TABCR PO SCH (09:51)
[2021-08-15] MEDS: FAMOTIDINE 20 MG TAB PO SCH ×2 (09:51→21:35)
[2021-08-15] MEDS: lamoTRIgine 100 MG TAB PO SCH ×2 (09:51→21:35)
[2021-08-15] MEDS: TOPIRAMATE 100 MG TAB PO SCH ×2 (09:51→22:07)
[2021-08-15] MEDS: POLYETHYLENE (MIRALAX) 17 GM PACK PO SCH (09:51)
[2021-08-15] MEDS ORDERED: BUTALBITAL/ACETAMIN/CAFFEINE TAB PO STA (10:46)
--- NOTE | 2021-08-15 11:36 | Hospitalist Progress Note ---
Date of Service August 15, 2021 Assessment & Plan (1) UTI (urinary tract infection): Plan: Start ceftriaxone 1g IV daily Follow up urine culture (2) Near syncope: Plan: Possible full syncopal episode No arrhythmia on telemetry MRI brain negative for acute CVA Suspect hypotension in setting of dehydration, UTI and verapamil use BP now improved with IV fluids Will continue verapamil for migraine prophylaxis as long as no further syncope (3) Hx of atypical migraine: Plan: Patient has frequent migraines and has an extensive regimen. Verapamil, lamotrigine, topiramate, and PRN Fioricet. Has not taken rimegepant in months. She has had migraine w/ aura in past as well as a hospital admission to [facility] 07/2019 w/ similar presentation to today, diagnosed as complicated migraine. (4) Visual disturbance: Plan: ?from migraine in setting of acute UTI. Although isolated diplopia rather than just fizzu vision is difficult to explain therefore will consult neurology to make sure we are not missing any potential diagnosis. (5) Hyperventilation: Plan: - secondary to above, acute, resolved (6) Memory impairment: Plan: - chronic (7) H/O stroke without residual deficits: Plan: - see above (8) PFO (patent foramen ovale): Plan: - noted per hx (9) Transient ischemic attack (TIA): Plan: - low likelihood (10) Palpitations: Plan: -noted (11) Hyperlipidemia: Plan: - not on statin at home. checking fasting lipids in AM Plan: HH diet. Stop IV fluids Full code VTE Prophylaxis - SCDs Discposition - stable for transfer to Med/tele Admission and Anticipated Discharge Date Admission Date: August 14, 2021 Anticipated date of discharge: 08/16/21 Subjective Dysuria for 1 week in setting of hypotensive episode causing a syncopal event. Patient much improved since yesterday but intermittent memory of entire episode. Concern for seizure during code purple from nursing staff with shaking of all four limbs. She report ongoing diplopia and headache (has been going on all we ek) but otherwise back to her baseline. Orthostatics not yet performed. Review of Systems Review of Systems: All systems reviewed & are unremarkable except as noted in HPI & below Physical Exam Constitutional: WD/WN, vitals as above Eyes: + anicteric sclerae; normal pupil size ENMT: Mouth: + dry oral mucous membranes Respiratory: normal respiratory effort, lungs clear to auscultation Cardiovascular: RRR, no murmur, no edema Gastrointestinal (Abdomen): Percussion/Palpation: abdomen soft; abdomen nontender Skin: no rashes, warm and dry Neurologic: moves all extremities and awake; not confused Psychiatric: A+Ox3, euthymic affect Results & Data Results & Data ([facility]) Vital Signs (Past 12 Hours) Vital Signs Temp Pulse Pulse Resp BP BP Pulse Ox 08/15/21 07:22 36.9 C 83 18 126/74 96 08/15/21 04:00 79 08/15/21 03:06 36.6 C 70 20 131/68 98 08/15/21 02:00 69 19 125/52 L 97 08/15/21 01:01 89/63 L 08/15/21 01:00 66 16 99 08/15/21 00:00 67 18 130/73 99 Pulse Ox 08/15/21 07:22 08/15/21 04:00 08/15/21 03:06 94 08/15/21 02:00 08/15/21 01:01 08/15/21 01:00 08/15/21 00:00 PG Care Time/CCT Total # of Minutes Spent Total Time Spent with Patient: Total time spent is greater than 50% in coordination of care (as documented) at patient's floor/unit and/or counseling patient: Coding Level of Care Code 60164 Subseq Hosp Care Lvl 2 Diagnoses Near syncope R55 Hx of atypical migraine Z86.69 Visual disturbance H53.9 Hyperventilation R06.4 Memory impairment R41.3 H/O stroke without residual deficits Z86.73 PFO (patent foramen ovale) Q21.1 Transient ischemic attack (TIA) G45.9 Palpitations R00.2 Hyperlipidemia E78.5 UTI (urinary tract infection) N39.0
[2021-08-15] MEDS ORDERED: cefTRIAXone SODIUM 1,000 MG in DEXTROSE 5% 50 ML IV SCH (18:00)
[2021-08-15] MEDS: KETOROLAC TROMETHAMINE 15 MG/ML VIAL IV PRN (19:41)
[2021-08-15] MEDS ORDERED: BUTALBITAL/ACETAMIN/CAFFEINE TAB PO ONE (22:00)
[2021-08-16 06:12] LABS: Hematocrit (blood only) 33.9 % (37-47); Hemoglobin 11.4 g/dL (12.0-16.0); Mean Corpuscular Hemoglobin 33.2 pg (25-34); Mean Corpuscular Hgb Conc 33.6 g/dL (32-36); Mean Corpuscular Volume 98.8 fL (80-100); Mean Platelet Volume 10.3 fL (7.4-10.4); Platelet Count 153 K/uL (130-400); RDW Coefficient of Variation 13.7 % (11.5-14.5); RDW Standard Deviation 49.5 fL (36.4-46.3); Red Blood Count 3.43 M/uL (4.2-5.4); White Blood Count 4.48 K/uL (4.8-10.8)
[2021-08-16 06:39] LABS: BUN Creatinine Ratio 26.4 (10-20); Calcium 8.7 mg/dl (8.5-10.1); Creatinine Clr Calc Pharmacy 46.7 ml/min; Est GFR (African American) 61.4 ml/min
[2021-08-16 06:50] LABS: Basophils # (auto) 0.02 K/uL (0-0.2); Basophils % (auto) 0.4 %; Eosinophils # (auto) 0.08 K/uL (0-0.5); Eosinophils % (auto) 1.8 %; Immature Granulocytes # (auto) 0.01 K/uL (0.00-0.02); Immature Granulocytes % (auto) 0.2 %; Lymphocytes # (auto) 2.45 K/uL (1.2-3.4); Lymphocytes % (auto) 54.7 %; Monocytes # (auto) 0.32 K/uL (0.11-0.59); Monocytes % (auto) 7.1 %; Neutrophils % (auto) 35.8 %
--- NOTE | 2021-08-16 08:32 | Neurology Consultation ---
Date of Consultation August 16, 2021 Assessment & Plan (1) Near syncope: (2) Complicated migraine: (3) H/O stroke without residual deficits: (4) Migraine headache: (5) Cerebral aneurysm without rupture: (6) Memory impairment: Patient had an event the evening of August 14 consistent with hypotension and near syncope. She is dehydrated some on laboratory testing and had typical symptoms including nausea, diaphoresis, pale appearance, and some hyperventilation. She also had some nonspecific double vision and nystagmus. All of this was resolved by the time she got to the emergency room. There was a question of some abnormal activity consisting of twitching and flailing of her limbs. The patient recalls this and I do not believe this was seizure activity. In addition, she is on 2 anticonvulsants (to prevent headaches) as well. MRI of the brain showed no acute stroke. The patient has a longstanding history of migraine headaches including complicated migraines. I would not call this episode a technically a complicated migraine but she has a migraine type currently. It is improved. She has a history of a tiny 2 millimeter left posterior cerebral artery aneurysm seen on MR angiography but not CT angiography. This is incidental and requires no further action. She also has a history of mild nonspecific memory impairment which is stable and not causing any specific issues currently. Currently she is back to her baseline neurologically. Recommendations: 1. Consider prednisone 60 milligrams today, 40 milligrams tomorrow, and 20 milligrams the 3rd day to resolve her headache. 2. She can take Fioricet as needed. 3. I see no need for additional neurologic testing at this time. 4. Increase Lamictal to 150 milligrams twice daily. A level could be checked as an outpatient in 2 weeks. 5. Consider Vyepti for headache prophylaxis as she has failed many other CGRP inhibitors. This will be done as an outpatient with Dr. Huffman who she follows with closely. Overall, I spent a total of 110 minutes with this case including review of records, review of MRI films, direct evaluation the patient bedside, and discussion of the case with the patient and RN at bedside as well as Dr. Hampton, including differential diagnosis treatment options. History of Present Illness Reason for Consultation: Patient is a 66-year-old, who I was asked to see at the request of Dr. Hampton, for a neurologic consultation regarding abnormal episode August 14. Requesting Physician: Dr. Hampton Attending Physician: Kwasi Hampton MD History of Present Illness this patient has a longstanding history of migraine headaches. She started getting them as a preteen and has had them intermittently for many years. She is followed closely by Dr. Huffman for these headaches. For many years, the patient has been on topiramate 200 milligrams twice a day, verapamil 240 milligrams a day, and Lamictal 100 milligrams twice a day for headache prophylaxis. She believes this helps her headaches and has brought them down from multiple severe headaches per week to zqsr-pz-zdbpoeqh headaches 1 time every 1-2 weeks. Weather fronts stress, smells, and bright lights can trigger her headaches. Most of the time she will have a bifrontal or unilateral onset of a headache speaking by 1 hour. Occasionally she can have a aura of flashing lights lasting 30 minutes prior to the headache. It will be is steady throbbing pain with nausea, occasional vomiting, photophobia, and phonophobia. Smells bother her as well in these headaches can last up to 3 days. She has tried and failed Ajovy, Aimovig, Botox, and other medication to prevent headaches. Nurtec has not helped and she cannot take Triptans because of complicated migraines in the past. Fioricet And small doses of prednisone can help her headaches. Reyvow has been only somewhat helpful. The patient has had chronic neck pain and spasms in her upper extremities for at least 4 years. Patient had a small left cerebellar stroke in 2014 as noted to have a patent foramina ovale. She is also known to have an incidental 2 millimeter left posterior cerebral artery aneurysm noted by MR angiography in June of 2019.. In August of 2019 she had an episode of numbness and weakness of the right upper extremity followed by difficulty with vision. She was confused and had a facial droop. There was a headache associated. She was admitted and seen by Dr. Huffman. CT scan of the head and CT angiography of the head and neck were unremarkable. MRI of the brain was unremarkable for any acute stroke. She was diagnosed with complicated migraine. steroids helped. For the last 2 weeks she has noted some pressure in her bladder area but no luz marina pain. she had had a right-sided headache for 3 days of a mild to moderate nature. 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 Sometime later in the evening she had the onset of lightheadedness followed by some nausea and diaphoresis. She was pale and felt like she was passing out. She gagged but did not vomit. She noted that she had had a headache still. she was hyperventilating and her blood pressure was apparently low at "50/30" taken by the RN in the Covid-19 unit. She had some confusion and some double vision. Apparently she had some twitching and flailing of all 4 limbs. Someone felt that this could have been a seizure. The patient remembers having these movements of her limbs. She arrived to the emergency room that evening at 21:05 with a temperature of 36.6, respiratory rate 30, pulse 88 and regular, blood pressure 92/68, and O2 saturation 96 percent. Laboratory studies were unremarkable including CBC and Chem profile. Chest x-ray, CT of the head, and CT angiography of the head and neck were all unremarkable. TSH and Lyme antibody titer were unremarkable as well. MRI of the brain showed no acute stroke. There was the small old left cerebellar stroke. I reviewed these films. She was given Fioricet in the hospital for headache which help. Today, this morning she has a dull headache on the right of the 3/10 in nature. Blood pressure is 125/77. She is afebrile. CBC and Chem profile were unremarkable and triglycerides were 51. Total cholesterol was 288. She has no more double vision or confusion. Allergies Allergy/AdvReac Type Severity Reaction Status Date / Time nickel Allergy Intermediate RASH Verified 08/15/21 17:58 Penicillins Allergy Intermediate HIVES A Verified 08/15/21 17:58 CHILD Sulfa (Sulfonamide Allergy Intermediate Hives Verified 08/15/21 17:58 Antibiotics) Home Medications Medication Instructions Recorded Confirmed Type multivitamin (Multiple Vitamins) 1 tab PO DAILY 03/12/19 08/14/21 History omega-3 acid ethyl esters 1 gram 2 cap PO DAILY cap 03/12/19 08/14/21 History capsule polyethylene glycol 3350 17 17 g PO DAILY gm 03/12/19 08/14/21 History gram/dose oral powder cyclosporine 0.1 %-chondroitin 1 drp OPHTHALMIC (EYE) Q12H 09/04/19 08/14/21 History sulfate A sodium 0.25 % eye drops famotidine 20 mg tablet (Pepcid) 20 mg PO BID #60 tab 06/21/20 08/14/21 Rx lamotrigine 100 mg tablet 100 mg PO BID #60 tab 08/20/20 08/14/21 Rx topiramate 100 mg tablet 200 mg PO BID 30 Days #120 tab 08/20/20 08/14/21 Rx verapamil 240 mg 24 hr 240 mg PO DAILY #30 cap 08/20/20 08/14/21 Rx capsule,extended release terbinafine HCl 250 mg tablet 250 mg PO DAILY #30 tab 05/13/21 08/14/21 Rx uxmidobyta-laseewfkvwvad-chodduml 1 tab PO .COMPLEX 30 Days #30 tab 06/01/21 08/14/21 Rx 50 mg-325 mg-40 mg tablet rimegepant 75 mg disintegrating 75 mg PO .COMPLEX 30 Days #8 tab 06/01/21 08/14/21 Rx tablet (Nurtec ODT) aspirin 81 mg tablet,delayed 81 mg PO DAILY 08/14/21 08/14/21 History release (Aspirin Low Dose) Patient History Medical History Cerebral aneurysm without rupture Cerebral infarct Common migraine without aura Dry skin Fatigue Hair loss Hyperlipidemia Memory impairment PFO (patent foramen ovale) Surgical History History of hemorrhoidectomy History of sinus surgery S/P hernia repair S/P hysterectomy S/P tonsillectomy Status post tubal ligation Family History Mother , age 87 of congestive heart failure Diabetes Stroke Hypertension Heart disease Brother Cancer Systemic lupus erythematosus Father , age 57 of an [place] Myocardial infarction Social History Smoking Status: Former smoker Age Quit Using Tobacco: 27; Number of Years Since Quit: 40; Second Hand Exposure: No; Hx Alcohol Use: No Hx Substance Use: No Preferred Language: Sammarinese Communication Ability: Effective 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 Required: No Beliefs That Will Affect Care: None marital status: Current Living Situation: Spouse current occupational status: employed current occupation: [employer] Other Information That Helps Us Care for You: No Feels Safe at Home: Yes Safety Concerns: Feels Safe At This Time caffeine: Yes (coffee) Dental Care, Regularly: Yes Physical Activity Frequency: 1-2 Times per Week Seatbelt Use: always Sunscreen Use: No Assistive Devices: Glasses Review of Systems Constitutional: no fever, no fatigue and no weakness Eyes: no diplopia, no eye pain and no worsening vision Ear, Nose, Mouth, Throat: no ear pain, no tinnitus, no hearing loss, no dizziness, no snoring, no hoarseness and no dysphagia Respiratory: no cough and no dyspnea Cardiovascular: no chest pain, no palpitations and no lightheadedness Gastrointestinal: no abdominal pain, no nausea and no vomiting Genitourinary: no dysuria, no urinary frequency and no urinary incontinence Musculoskeletal: + neck pain; no back pain, no radicular pain, no joint pain and no myalgia Integumentary: no rash and no lesions Neurologic: + headache(s); no gait abnormality, no localized weakness, no generalized weakness, no tingling, no numbness, no tremor(s), no abnormal movements, no abnormal speech, no confusion and no memory loss Psychiatric: no depression, no irritability, no anxiety, no difficulty concentrating, no confusion and no hallucinations Endocrine: no fatigue and no flushing Hematologic / Lymphatic: no easy bleeding and no easy bruising Allergy / Immunological: no urticaria and no problem reported Exam (Neuro) Physical Exam: The patient is right-handed. The patient is awake, alert, and attentive. Speech is normal without any aphasia or dysarthria. The patient can name objects, repeat phrases, and has normal spontaneous speech. Mentation and thought processes are intact, with orientation to person, place and time, and normal fund of knowledge. Attention and concentration are normal. Mood and affect are normal and appropriate. General appearance and grooming are normal. Short and long-term memory are intact. Pupils are 4 mm bilaterally and reactive to light. Extraocular eye muscles are intact without nystagmus. Visual acuity and visual bazzi seem normal grossly to confrontation. There are no deficits to sensation in the face in all 3 distributions of the fifth cranial nerve bilaterally. Corneal reflexes are positive bilaterally. Facial strength and symmetry was normal bilaterally. Hearing seems normal bilaterally. Palate moves well without asymmetry. There is normal sternocl eidomastoid and trapezius (shoulder shrug) strength bilaterally. Tongue is midline with good strength bilaterally. Neck has a full range of motion without discomfort. There are no cervical bruits bilaterally. There are no cranial or ocular bruits. Cervical, thoracic, and lumbar spine are nontender to palpation. Gait is narrow based, with good arm swing, turns, and stance. Balance is normal eyes open or closed. With outstretched arms there is no drift. There are no resting, postural, or action tremors. There is no ataxia with finger to nose testing. There is good facility in the hands. No other abnormal involuntary movements are noted. Motor strength is 5/5 diffusely in the arms bilaterally including deltoids, biceps, triceps, brachioradialis, wrist flexors and extensors, airborne mission systems superintendent, and intrinsic hand muscles. Motor strength is 5/5 diffusely in the legs bilaterally including hip flexors, quadriceps, hamstrings, gastrocnemius, tibialis anterior, tibialis posterior, and Peroneii muscles. Toe extensors are normal and there is good bulk in the extensor digitorum brevis muscles bilaterally. The limbs have good tone without rigidity or spasticity. There is no atrophy noted in the muscles. Muscle bulk is normal, there is no tenderness to palpation, no myotonia to percussion, and no fasciculations seen. Sensory examination is intact to touch and pin throughout all 4 limbs diffusely. Reflexes are 2/4 in the biceps, triceps, brachioradialis, quadriceps, and Achilles tendons bilaterally. There is no clonus bilaterally. Toes are downgoing with plantar stimulation bilaterally. Peripheral pulses are present and of normal quality distally in all 4 limbs. There is no peripheral edema noted in the limbs. Results & Data ([facility]) Vital Signs (Past 12 Hours) Vital Signs Temp Pulse Pulse Resp BP Pulse Ox Pulse Ox 08/16/21 08:02 36.8 C 64 18 129/80 95 08/16/21 03:47 36.5 C 62 16 125/77 96 08/16/21 03:06 97 08/15/21 23:32 36.7 C 71 20 126/70 97 08/15/21 22:19 70 PG Care Time/CCT Total # of Minutes Spent Total Time Spent with Patient: Total time spent is greater than 50% in coordination of care (as documented) at patient's floor/unit and/or counseling patient: Coding Level of Care Code 10485 Office/Outpt Visit, Est Diagnoses Near syncope R55 Memory impairment R41.3 Complicated migraine G43.109 H/O stroke without residual deficits Z86.73 Cerebral aneurysm without rupture I67.1 Migraine headache G43.909 Time Spent (min) 110 Comment At modifiers as able
[2021-08-16] MEDS: TOPIRAMATE 100 MG TAB PO SCH (08:49)
[2021-08-16] MEDS: lamoTRIgine 100 MG TAB PO SCH (08:49)
[2021-08-16] MEDS: VERAPAMIL HCL 240 MG TABCR PO SCH (08:49)
[2021-08-16] MEDS: POLYETHYLENE (MIRALAX) 17 GM PACK PO SCH (08:50)
[2021-08-16] MEDS: FAMOTIDINE 20 MG TAB PO SCH (08:51)
[2021-08-16] MEDS ORDERED: ASPIRIN 81 MG ECTAB PO SCH (09:00)
[2021-08-16] MEDS: KETOROLAC TROMETHAMINE 15 MG/ML VIAL IV PRN (11:39)
[2021-08-16] MEDS ORDERED: predniSONE 20 MG TAB PO ONE (13:00)
--- NOTE | 2021-08-16 13:40 | Discharge Summary ---
Date of Service August 16, 2021 Admission HPI Per Admitting Provider 66 y/o F w/ PMHx of migraines (distant hx of aura), remote L cerebellar infarct, PFO, prior hx of brain aneurysm resolved on imaging who presents via code purple this evening for near syncopal symptoms while at work. She has had 2-3 days of migraine (R sided) but otherwise was feeling at baseline. At work today, ~8 or 9 PM, she felt weak and nauseated and after leaning forward to rest, her symptoms worsened. She told a coworker that she wasn't feeling well and a code purple was called. Per staff, some nystagmus on exam. Per ER physician, some dysconjugate gaze. Patient endorsed horizontal diplopia, some room spinning dizziness, near syncopal, and her arms felt weak and shaky. She was hyperventilating during the episode. Nursing report later states patient did not remember the events after the code started. Currently feels better. Had similar symptoms that required hospitalization 07/2019 dx'd as complex migraine. Patient states she was likely slightly dehydrated today. Denies tick bites. Patient's migraines are very frequent and is following neurology. She is on a large regimen of prn Fioricet on top of daily lamotrigine, topiramate, and verapamil. Her migraines have been milder lately, though still present twice a week. Denies med side effects. Per patient, family hx of seizure. Patient had seizure during infancy, but was off of antiepileptics since. PMHx: cerebellar stroke in 2002 and per patient another stroke in late . Asymptomatic covid 03/2021. Has had Pfizer x2. Has not taken Nurtec in months. ED course: 2mg IV Ativan. NSS 500mL. Methylpred 60mg IV. Principal Diagnosis Presyncope/syncope, UTI, Migraine Discharge Data Allergies Allergy/AdvReac Type Severity Reaction Status Date / Time nickel Allergy Intermediate RASH Verified 08/15/21 17:58 Penicillins Allergy Intermediate HIVES A Verified 08/15/21 17:58 CHILD Sulfa (Sulfonamide Allergy Intermediate Hives Verified 08/15/21 17:58 Antibiotics) Consultations 08/14/21 22:51 ED Decision to Admit Stat 08/15/21 17:38 Consult Neurology Routine Ordered Studies 08/14/21 21:22 CT angio head w con Stat CT angio neck with con Stat CT head/brain wo con Stat 08/15/21 05:37 MR brain wo/w con Routine Hospital Course (1) UTI (urinary tract infection): Start ceftriaxone 1g IV daily Follow up urine culture (2) Near syncope: Possible full syncopal episode No arrhythmia on telemetry MRI brain negative for acute CVA Suspect hypotension in setting of dehydration, UTI and verapamil use BP now improved with IV fluids Will continue verapamil for migraine prophylaxis as long as no further syncope (3) Hx of atypical migraine: Patient has frequent migraines and has an extensive regimen. Verapamil, lamotrigine, topiramate, and PRN Fioricet. Has not taken rimegepant in months. She has had migraine w/ aura in past as well as a hospital admission to [facility] 07/2019 w/ similar presentation to today, diagnosed as complicated migraine. (4) Visual disturbance: ?from migraine in setting of acute UTI. Although isolated diplopia rather than just fizzu vision is difficult to explain therefore will consult neurology to make sure we are not missing any potential diagnosis. (5) Hyperventilation: - secondary to above, acute, resolved (6) Memory impairment: - chronic (7) H/O stroke without residual deficits: - see above (8) PFO (patent foramen ovale): - noted per hx (9) Transient ischemic attack (TIA): - low likelihood (10) Palpitations: -noted (11) Hyperlipidemia: - not on statin at home. checking fasting lipids in AM HH diet. Stop IV fluids Full code VTE Prophylaxis - SCDs Discposition - stable for transfer to [facility]/tele Discharge Plan Discharge Items Patient Disposition: Home - Self-Care Reason For Visit: NEAR SYNCOPE Discharge Diagnosis: UTI, Presyncope, Migraine Condition on Discharge: Fair Activity: Resume your previous activity Non-emergency contact: Primary Care Provider Call non-emergency contact if: you have any medication questions and your symptoms worsen Follow-up/Referrals: Adri Saunders CRNP [Primary Care Provider] - Diet: Regular Addtl Attending Provider Instructions: You were admitted to [facility] from August 14 - 2020 due to a presyncopal/syncopal episode associated with low blood pressure and shaking. Suspect your symptoms were caused by a UTI in the setting of migraine, dehydration and verapamil. Stroke was ruled out on MRI. Neurology recommended migraine management with prednisone and increasing lamotrigine dose as prescribed. No seizures suspected. For dehydration you were treated with intravenous fluids. For urinary tract infection (UTI) you received a dose of ceftriaxone and will be switched to cefdinir as prescribed below. Pending Studies at Discharge: No Stand-Alone Forms: My [facility], Smoking Cessation Medications and DC Order Prescriptions: New cefdinir 300 mg capsule 300 mg PO BID 6 Days Qty: 12 RF: 0 prednisone 20 mg tablet See Rx Instructions .ROUTE .COMPLEX Qty: 3 RF: 0 Continued famotidine [Pepcid] 20 mg tablet 20 mg PO BID Qty: 60 RF: 11 Nurtec ODT 75 mg tablet,disintegrating 75 mg PO .COMPLEX 30 Days Qty: 8 RF: 3 srzuxbznxn-ujjznwvwfkmqr-bfar 50-325-40 mg tablet 1 tab PO .COMPLEX 30 Days Qty: 30 RF: 0 multivitamin [Multiple Vitamins] tablet 1 tab PO DAILY RF: 0 omega-3 acid ethyl esters 1 gram capsule 2 cap PO DAILY RF: 0 polyethylene glycol 3350 17 gram/dose powder 17 g PO DAILY RF: 0 verapamil 240 mg capsule,ext rel. pellets 24 hr 240 mg PO DAILY Qty: 30 RF: 5 topiramate 100 mg tablet 200 mg PO BID 30 Days Qty: 120 RF: 5 terbinafine HCl 250 mg tablet 250 mg PO DAILY Qty: 30 RF: 1 cyclosporine-chondroit sulf A 0.1-0.25 % Drops 1 drp OPHTHALMIC (EYE) Q12H RF: 0 aspirin [Aspirin Low Dose] 81 mg Tablet,Delayed Release (Dr/Ec) 81 mg PO DAILY RF: 0 Changed lamotrigine 100 mg tablet 150 mg PO BID Qty: 60 RF: 5 Discharge Orders: Discharge Order (Routine); Ordered 08/16/21 Ordered By: Kwasi Hampton Admission Data Admit Date/Time: 08/15/21 01:46 Attending Provider: Kwasi Hampton Admit Provider: Jona An Primary Care Provider: Adri Saunders Other Providers: Sandhya Ricks ; Humble Leonard Coding Diagnoses UTI (urinary tract infection) N39.0 Near syncope R55 Hx of atypical migraine Z86.69 Visual disturbance H53.9 Hyperventilation R06.4 Memory impairment R41.3 H/O stroke without residual deficits Z86.73 PFO (patent foramen ovale) Q21.1 Transient ischemic attack (TIA) G45.9 Palpitations R00.2 Hyperlipidemia E78.5
== END 2021-08-16 14:53 | disposition home or self-care (01) ==
LOC: 2S 21:07 → ED 21:07 → SUATTDRO 08-15 01:46 → 2S 08-15 02:32 → 2N 08-15 20:21

== ENCOUNTER 2022-07-26 23:12 | Inpatient (IN) ==
[2022-07-27] MEDS ORDERED: LORazepam 2 MG/1 ML VIAL ONE (00:04)
[2022-07-27] MEDS ORDERED: LORazepam 2 MG/1 ML VIAL IV STA (00:14)
[2022-07-27 01:29] LABS: Basophils # (auto) 0.04 K/uL (0-0.2); Basophils % (auto) 0.8 %; Eosinophils # (auto) 0.06 K/uL (0-0.50); Eosinophils % (auto) 1.2 %; Hematocrit (blood only) 36.1 % (34.1-44.9); Hemoglobin 12.9 g/dl (12.0-16.0); Immature Granulocytes # (auto) 0.01 K/uL (0.00-0.02); Immature Granulocytes % (auto) 0.2 %; Lymphocytes # (auto) 2.41 K/uL (1.2-3.4); Lymphocytes % (auto) 46.3 %; Mean Corpuscular Hemoglobin 33.7 pg (25.0-34.0); Mean Corpuscular Hgb Conc 35.7 g/dL (32.0-36.0); Mean Corpuscular Volume 94.3 fL (80.0-100.0); Mean Platelet Volume 10.6 fL (9.4-12.3); Monocytes # (auto) 0.33 K/uL (0.24-0.82); Monocytes % (auto) 6.3 %; Neutrophils # (auto) 2.36 K/uL (1.4-6.5); Neutrophils % (auto) 45.2 %; Platelet Count 193 K/uL (130-400); RDW Coefficient of Variation 12.4 % (11.5-14.5); Red Blood Count 3.83 M/uL (3.93-5.22); White Blood Count 5.21 K/ul (4.8-10.8)
[2022-07-27 01:39] LABS: Albumin Globulin Ratio 1.5 (0.9-2); Albumin Level 4.4 gm/dl (3.4-5.0); BUN Creatinine Ratio 22.9 (10-20); Bilirubin,Total 0.5 mg/dl (0.2-1.0); Calcium 10.1 mg/dl (8.5-10.1); Creatinine Clr Calc Pharmacy 42.1 ml/min; Est GFR (Non-African American) 48.4 ml/min; Globulin 2.9 gm/dl (2.5-4.0); Potassium 3.7 mmol/L (3.5-5.1); Total Protein 7.3 gm/dl (6.0-8.3)
[2022-07-27] MEDS ORDERED: SODIUM CHLORIDE 0.9% 1000ML 1,000 ML IV ONE (01:48)
[2022-07-27 05:34] LABS: Appearance Urine Cloudy (Clear); Bacteria Urine Automated Negative (Negative); Bilirubin Urine Negative (Negative); Blood Urine Negative (Negative); Cast Urine Automated 0 /lpf (0-5); Color Urine Dark Yellow; Epithelial Cell Urine Auto >30 /lpf (0-5); Glucose Urine UA Negative (Negative); Ketones Urine Negative (Negative); Leukocyte Esterase Urine Negative (Negative); Nitrite Urine Negative (Negative); Protein Urine Negative (Negative); RBC Urine Automated 0-4 /hpf (0-4); Specific Gravity Urine 1.015 (1.000-1.030); Urobilinogen Urine Negative (Negative); pH Urine 7.5 (4.5-7.5)
--- NOTE | 2022-07-27 05:49 | Emergency Department Note ---
Impression & Plan Syncope, Suicidal ideation, Migraine The case was signed out to Dr. Ellison at change of shift awaiting bed placement ED Provider Note NAME: ENA GRAY AGE: 67 SEX: F ARRIVES VIA: Ambulance INFORMANT: Patient and her daughter ED PROVIDER(S): Padmini Reyna DO CHIEF COMPLAINT: Headache and syncope PLAN: Disposition: The case was signed out to Dr. Ellison at change of shift Condition: Fair MEDICAL DECISION MAKING: Patient has a longstanding history of complex migraines with episodes of near syncope and syncope. She has had multiple evaluations here in the emergency d epartment as well as evaluation by neurology including EEG. The patient does admit that she is under more stress as she is a "worrier." She then confided in me that she has felt increasingly depressed and has had suicidal thoughts over the past 3 days with a plan to either hang herself or overdose on medication. The patient was quite anxious initially on presentation to the ER from upstairs. She was given a dose of IV Ativan. She rested for some time and then we had a detailed conversation about her depression and thoughts of suicide. She was evaluated by the ED psychiatric telephonic case manager. She was willing to admit herself voluntarily for inpatient psychiatric care. The case was signed out to Dr. Ellison at change of shift awaiting evaluation by 3 S. Triage Nursing notes reviewed and agree with them. Additional history obtained from the patient's daughters who are at the bedside Prior medical records reviewed including multiple previous visits to the em ergency department for syncopal and near syncopal events as well as neurology consultation for complex migraine and EEG evaluation. Vital Signs: reviewed and unremarkable Differential diagnosis: Syncope, near syncope, seizure, complex migraine, conversion disorder, mood disorder, thought disorder ER treatment provided: IV Ativan Diagnostics interpreted by me: ECG: Normal sinus rhythm at a rate of [address] segment elevation or signs of ischemia. No ectopy Cardiac Monitoring: Normal sinus rhythm at a rate of 88 Laboratory studies: See below HPI: 67/F arrives for evaluation of syncope. The patient has a history of complex migraines and anxiety. She has had multiple episodes of near syncope and syncope which seem to happen while she is at work. Tonight, the patient began to feel unwell and seemed to start hyperventilating. She then became lightheaded and had a syncopal episode. 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 ROS: See above HPI for pertinent positives & negatives. A total of 10 systems reviewed and were otherwise negative. PAST MEDICAL HISTORY:See Below PAST SURGICAL HISTORY:See Below FAMILY HISTORY:See Below SOCIAL HISTORY:See Below HOME MEDICATIONS:See list ALLERGIES:See list VITALS:See Below PHYSICAL EXAMINATION: HEENT: Head - normocephalic and atraumatic. Pupils are equal, round, and reactive to light. Extraocular eye muscles are intact and sclera are anicteric. Ears - bilaterally patent canals with noninjected tympanic membranes and no evidence of hemotympanum. Nose - moist nasal mucosa without discharge. Mouth - moist buccal mucosa. Oropharynx is nonerythematous and there is no tonsillar exudate or edema noted. Neck: Supple; no JVD, nuchal rigidity, cervical lymphadenopathy, or auscultated bruits. Heart: Regular rate and rhythm. There is a normal S1 and S2 with no murmurs, clicks, or gallops appreciated. Lungs: Clear to auscultation bilaterally with no wheezes, rales, or rhonchi. Abdomen: Soft, completely nontender, nondistended, with good bowel sounds. There are no palpable pulsatile masses or hepatosplenomegaly. There is no guarding, rigidity, or rebound noted. Extremities: No evidence of cyanosis, clubbing, or edema. There are easily palpable peripheral pulses. Neuro:The patient is awake and alert, oriented to day, time, and place. Muscle strength is 5/5 in all 4 extremities. The patient has equal mask designer strength and equal pedal push and pull. There are no cerebellar signs. Psych: Patient admitted to suicidal thoughts over the past 3 days including plans to hang herself or overdose on medications ED COURSE: Times/Reassessments: 2345: The patient was evaluated in room C10. A complete history and physical was performed. An order was placed for continuous cardiac monitoring. The patient was in a normal sinus rhythm at a rate of 88. A twelve-lead EKG was obtained as described above. The patient began to have an episode here in the ER where she was not feeling right in her head and she began to hyperventilate. I monitor her during this episode and she had no EKG changes but did have a very rapid respiratory rate and seemed to develop a near syncopal event. She could not answer my questions during this event. The patient was quite anxious on exam. She was given a dose of IV Ativan. I reviewed the results of the laboratory studies with the patient and her daugh seemas. The patient seemed to be quite irritated on this evaluation and reassessment. I asked the daughter to leave the room and questioned the patient as to whether she was depressed and she admitted that she had become increasingly depressed recently. I asked the patient whether she was suicidal and she admitted that she had had thoughts of suicide in the past and as recent as the past 2 or 3 days. I asked her if she had a plan and she told me that she had thoughts of hanging herself or overdosing on medications. At this point, she was evaluated by the ED psychiatric telephonic case manager who did a full mental health assessment on the patient. The patient is willing to sign herself in voluntarily. Padmini Reyna, DO Past Med/Surg History Medical History Cerebral aneurysm without rupture Cerebral infarct Common migraine without aura Dry skin Fatigue Hair loss Hyperlipidemia Lacunar infarction Memory impairment PFO (patent foramen ovale) Surgical History History of hemorrhoidectomy History of sinus surgery S/P hernia repair S/P hysterectomy S/P tonsillectomy Status post tubal ligation Family History Mother , age 87 of congestive heart failure Diabetes Stroke Hypertension Heart disease Brother Cancer Systemic lupus erythematosus Father , age 57 of an MA Myocardial infarction Social History Smoking Status: Never smoker Age Quit Using Tobacco: 27; Second Hand Exposure: No; Hx Alcohol Use: No Hx Substance Use: No Preferred Language: Uzbek Communication Ability: Effective Screenplay Writer Required: No Beliefs That Will Affect Care: None marital status: Current Living Situation: Spouse current occupational status: employed 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 Feels Safe at Home: Yes caffeine: Yes (coffee) Dental Care, Regularly: Yes Physical Activity Frequency: 1-2 Times per Week Seatbelt Use: always Sunscreen Use: No Assistive Devices: Glasses Allergies Allergies Allergy/AdvReac Type Severity Reaction Status Date / Time nickel Allergy Intermediate RASH Verified 07/26/22 23:50 Penicillins Allergy Intermediate HIVES A Verified 07/26/22 23:50 CHILD Sulfa (Sulfonamide Allergy Intermediate Hives Verified 07/26/22 23:50 Antibiotics) Home Meds Home Medications Medication Instructions Recorded Confirmed multivitamin (Multiple Vitamins 1 tab PO DAILY 03/12/19 07/26/22 tablet) omega-3 acid ethyl esters 1 gram 2 cap PO DAILY 03/12/19 07/26/22 capsule polyethylene glycol 3350 17 17 g PO DAILY 03/12/19 07/26/22 gram/dose oral powder cyclosporine 0.1 %-chondroitin 1 drp ophthalmic (eye) Q12H 09/04/19 07/26/22 sulfate A sodium 0.25 % eye drops aspirin 81 mg tablet,delayed 162 mg PO DAILY 08/14/21 07/26/22 release (Joey Low Dose Aspirin) lamotrigine 100 mg tablet 150 mg PO BID 01/05/22 07/26/22 obaiidothh-mzswcfsalsjxv-sottmqoi 1 tab PO .COMPLEX PRN Migraine 07/26/22 07/26/22 50 mg-325 mg-40 mg tablet Headache cyclobenzaprine 10 mg tablet 10 mg PO QPM PRN MUSCLE SPASMS 07/26/22 07/26/22 trazodone 50 mg tablet 50 - 100 mg PO HS PRN Sleep 07/26/22 07/26/22 Previous Rx's Medication Instructions Recorded famotidine 20 mg tablet (Pepcid) 20 mg PO BID #60 tabs 08/23/21 topiramate 100 mg tablet 200 mg PO BID 30 days #120 tabs 09/26/21 verapamil 240 mg 24 hr 240 mg PO DAILY #30 caps 09/26/21 capsule,extended release eptinezumab-jjmr 100 mg/mL 100 mg IV .COMPLEX #1 mL 02/03/22 intravenous solution (Vyepti) Results & Data (ED) Vital Signs Vital Signs - 24 hr 07/26/22 23:50 07/26/22 23:48 07/27/22 00:30 Temperature 37.1 C Temperature Source Oral Pulse Rate 70 87 Pulse Rate [Apical] Respiratory Rate 23 22 Blood Pressure 126/57 L 119/77 109/70 Blood Pressure [Left Arm] Blood Pressure Mean 80 91 83 Blood Pressure Mean [Left Arm] Pulse Oximetry 99 93 Oxygen Delivery Method Room Air Room Air Sepsis Recent Fever Within 48 Hours No Sepsis New/Unexplained Change in Mental Status No Sepsis Action Taken by Nursing No Action Required 07/27/22 01:00 07/27/22 01:30 07/27/22 02:00 Temperature Temperature Source Pulse Rate 77 76 70 Pulse Rate [Apical] Respiratory Rate 15 16 19 Blood Pressure 97/51 L 87/50 L 98/65 L Blood Pressure [Left Arm] Blood Pressure Mean 66 62 76 Blood Pressure Mean [Left Arm] Pulse Oximetry 90 91 95 Oxygen Delivery Method Room Air Room Air Room Air Sepsis Recent Fever Within 48 Hours Sepsis New/Unexplained Change in Mental Status Sepsis Action Taken by Nursing 07/27/22 02:33 07/27/22 03:10 07/27/22 05:00 Temperature Temperature Source Pulse Rate 67 79 Pulse Rate [Apical] 78 Respiratory Rate 17 22 19 Blood Pressure 111/66 104/65 Blood Pressure [Left Arm] 112/68 Blood Pressure Mean 81 78 Blood Pressure Mean [Left Arm] 82 Pulse Oximetry 98 99 99 Oxygen Delivery Method Room Air Room Air Room Air Sepsis Recent Fever Within 48 Hours Sepsis New/Unexplained Change in Mental Status Sepsis Action Taken by Nursing 07/27/22 09:22 Temperature Temperature Source Pulse Rate Pulse Rate [Apical] 77 Respiratory Rate 16 Blood Pressure Blood Pressure [Left Arm] 153/85 H Blood Pressure Mean Blood Pressure Mean [Left Arm] 107 Pulse Oximetry 97 Oxygen Delivery Method Sepsis Recent Fever Within 48 Hours Sepsis New/Unexplained Change in Mental Status Sepsis Action Taken by Nursing Laboratory Data Result diagrams: 07/26/22 23:15 07/26/22 23:15 Lab Results 07/26/22 07/26/22 07/26/22 Range/Units 23:15 23:15 23:15 WBC 5.21 (4.8-10.8) K/ul RBC 3.83 L (3.93-5.22) M/uL Hgb 12.9 (12.0-16.0) g/dl Hct 36.1 (34.1-44.9) % MCV 94.3 (80.0-100.0) fL MCH 33.7 (25.0-34.0) pg MCHC 35.7 (32.0-36.0) g/dL RDW Std Deviation 43.0 (36.4-46.3) fL RDW Coeff of Lopez 12.4 (11.5-14.5) % Plt Count 193 (130-400) K/uL MPV 10.6 (9.4-12.3) fL Immature Gran % (Auto) 0.2 % Neut % (Auto) 45.2 % Lymph % (Auto) 46.3 % Gonzales % (Auto) 6.3 % Eos % (Auto) 1.2 % Baso % (Auto) 0.8 % Neut # (Auto) 2.36 (1.4-6.5) K/uL Lymph # (Auto) 2.41 (1.2-3.4) K/uL Gonzales # (Auto) 0.33 (0.24-0.82) K/uL Eos # (Auto) 0.06 (0-0.50) K/uL Baso # (Auto) 0.04 (0-0.2) K/uL Immature Gran # (Auto) 0.01 (0.00-0.02) K/uL Sodium 140 (136-145) mmol/L Potassium 3.7 (3.5-5.1) mmol/L Chloride 107 (98-107) mmol/L Carbon Dioxide 21 (21-32) mmol/L Anion Gap 12 H (3-11) BUN 27 H (6-23) mg/dl Creatinine 1.18 (0.6-1.2) mg/dl Est Cr Clr Drug Dosing 42.1 ml/min Est GFR ( Amer) 56.0 ml/min Est GFR (Non-Af Amer) 48.4 ml/min BUN/Creatinine Ratio 22.9 H (10-20) Glucose 113 H (70-99(Fasting)) mg/dl Calcium 10.1 (8.5-10.1) mg/dl Total Bilirubin 0.5 (0.2-1.0) mg/dl AST 20 (13-39) U/L ALT 15 (7-52) U/L Alkaline Phosphatase 60 (34-104) U/L Total Protein 7.3 (6.0-8.3) gm/dl Albumin 4.4 (3.4-5.0) gm/dl Globulin 2.9 (2.5-4.0) gm/dl Albumin/Globulin Ratio 1.5 (0.9-2) TSH 2.789 (0.300-4.500) uIu/ml Urine Color Urine Appearance (Clear) Urine pH (4.5-7.5) Ur Specific [place] (1.000-1.030) Urine Protein (Negative) Urine Glucose (UA) (Negative) Urine Ketones (Negative) Urine Blood (Negative) Urine Nitrite (Negative) Urine Bilirubin (Negative) Urine Urobilinogen (Negative) Ur Leukocyte Esterase (Negative) Urine WBC (Auto) (0-5) /hpf Urine RBC (Auto) (0-4) /hpf U Hyaline Cast (Auto) (0-5) /lpf U Epithel Cells (Auto) (0-5) /lpf Urine Bacteria (Auto) (Negative) Salicylates (3.0-30) mg/dl Urine Opiates Screen (Neg) Ur Methadone, Qual (Neg) Acetaminophen (10-30) ug/ml Urine Barbiturates (Neg) Ur Phencyclidine (PCP) (Neg) U Amphetamin/Meth Scrn (Neg) MDMA (Ecstasy) Screen (Neg) U Benzodiazepines Scrn (Neg) Ur Cocaine Metabolite (Neg) U Marijuana (THC) Screen (Neg) Ethyl Alcohol mg/dL (<10.0) mg/dl SARS-CoV-2, RNA, NAAT (NEGATIVE) 07/27/22 07/27/22 07/27/22 Range/Units 05:00 05:00 05:00 WBC (4.8-10.8) K/ul RBC (3.93-5.22) M/uL Hgb (12.0-16.0) g/dl Hct (34.1-44.9) % MCV (80.0-100.0) fL MCH (25.0-34.0) pg MCHC (32.0-36.0) g/dL RDW Std Deviation (36.4-46.3) fL RDW Coeff of Lopez (11.5-14.5) % Plt Count (130-400) K/uL MPV (9.4-12.3) fL Immature Gran % (Auto) % Neut % (Auto) % Lymph % (Auto) % Gonzales % (Auto) % Eos % (Auto) % Baso % (Auto) % Neut # (Auto) (1.4-6.5) K/uL Lymph # (Auto) (1.2-3.4) K/uL Gonzales # (Auto) (0.24-0.82) K/uL Eos # (Auto) (0-0.50) K/uL Baso # (Auto) (0-0.2) K/uL Immature Gran # (Auto) (0.00-0.02) K/uL Sodium (136-145) mmol/L Potassium (3.5-5.1) mmol/L Chloride (98-107) mmol/L Carbon Dioxide (21-32) mmol/L Anion Gap (3-11) BUN (6-23) mg/dl Creatinine (0.6-1.2) mg/dl Est Cr Clr Drug Dosing ml/min Est GFR ( Amer) ml/min Est GFR (Non-Af Amer) ml/min BUN/Creatinine Ratio (10-20) Glucose (70-99(Fasting)) mg/dl Calcium (8.5-10.1) mg/dl Total Bilirubin (0.2-1.0) mg/dl AST (13-39) U/L ALT (7-52) U/L Alkaline Phosphatase (34-104) U/L Total Protein (6.0-8.3) gm/dl Albumin (3.4-5.0) gm/dl Globulin (2.5-4.0) gm/dl Albumin/Globulin Ratio (0.9-2) TSH (0.300-4.500) uIu/ml Urine Color Dark Yellow Urine Appearance Cloudy A (Clear) Urine pH 7.5 (4.5-7.5) Ur Specific [place] 1.015 (1.000-1.030) Urine Protein Negative (Negative) Urine Glucose (UA) Negative (Negative) Urine Ketones Negative (Negative) Urine Blood Negative (Negative) Urine Nitrite Negative (Negative) Urine Bilirubin Negative (Negative) Urine Urobilinogen Negative (Negative) Ur Leukocyte Esterase Negative (Negative) Urine WBC (Auto) 1-5 (0-5) /hpf Urine RBC (Auto) 0-4 (0-4) /hpf U Hyaline Cast (Auto) 0 (0-5) /lpf U Epithel Cells (Auto) >30 H (0-5) /lpf Urine Bacteria (Auto) Negative (Negative) Salicylates (3.0-30) mg/dl Urine Opiates Screen Neg (Neg) Ur Methadone, Qual Neg (Neg) Acetaminophen (10-30) ug/ml Urine Barbiturates Neg (Neg) Ur Phencyclidine (PCP) Neg (Neg) U Amphetamin/Meth Scrn Neg (Neg) MDMA (Ecstasy) Screen Neg (Neg) U Benzodiazepines Scrn Neg (Neg) Ur Cocaine Metabolite Neg (Neg) U Marijuana (THC) Screen Neg (Neg) Ethyl Alcohol mg/dL (<10.0) mg/dl SARS-CoV-2, RNA, NAAT NEGATIVE (NEGATIVE) 07/27/22 07/27/22 Range/Units 05:52 05:52 WBC (4.8-10.8) K/ul RBC (3.93-5.22) M/uL Hgb (12.0-16.0) g/dl Hct (34.1-44.9) % MCV (80.0-100.0) fL MCH (25.0-34.0) pg MCHC (32.0-36.0) g/dL RDW Std Deviation (36.4-46.3) fL RDW Coeff of Lopez (11.5-14.5) % Plt Count (130-400) K/uL MPV (9.4-12.3) fL Immature Gran % (Auto) % Neut % (Auto) % Lymph % (Auto) % Gonzales % (Auto) % Eos % (Auto) % Baso % (Auto) % Neut # (Auto) (1.4-6.5) K/uL Lymph # (Auto) (1.2-3.4) K/uL Gonzales # (Auto) (0.24-0.82) K/uL Eos # (Auto) (0-0.50) K/uL Baso # (Auto) (0-0.2) K/uL Immature Gran # (Auto) (0.00-0.02) K/uL Sodium (136-145) mmol/L Potassium (3.5-5.1) mmol/L Chloride (98-107) mmol/L Carbon Dioxide (21-32) mmol/L Anion Gap (3-11) BUN (6-23) mg/dl Creatinine (0.6-1.2) mg/dl Est Cr Clr Drug Dosing ml/min Est GFR ( Amer) ml/min Est GFR (Non-Af Amer) ml/min BUN/Creatinine Ratio (10-20) Glucose (70-99(Fasting)) mg/dl Calcium (8.5-10.1) mg/dl Total Bilirubin (0.2-1.0) mg/dl AST (13-39) U/L ALT (7-52) U/L Alkaline Phosphatase (34-104) U/L Total Protein (6.0-8.3) gm/dl Albumin (3.4-5.0) gm/dl Globulin (2.5-4.0) gm/dl Albumin/Globulin Ratio (0.9-2) TSH (0.300-4.500) uIu/ml Urine Color Urine Appearance (Clear) Urine pH (4.5-7.5) Ur Specific [place] (1.000-1.030) Urine Protein (Negative) Urine Glucose (UA) (Negative) Urine Ketones (Negative) Urine Blood (Negative) Urine Nitrite (Negative) Urine Bilirubin (Negative) Urine Urobilinogen (Negative) Ur Leukocyte Esterase (Negative) Urine WBC (Auto) (0-5) /hpf Urine RBC (Auto) (0-4) /hpf U Hyaline Cast (Auto) (0-5) /lpf U Epithel Cells (Auto) (0-5) /lpf Urine Bacteria (Auto) (Negative) Salicylates < 3.0 L (3.0-30) mg/dl Urine Opiates Screen (Neg) Ur Methadone, Qual (Neg) Acetaminophen < 3 L (10-30) ug/ml Urine Barbiturates (Neg) Ur Phencyclidine (PCP) (Neg) U Amphetamin/Meth Scrn (Neg) MDMA (Ecstasy) Screen (Neg) U Benzodiazepines Scrn (Neg) Ur Cocaine Metabolite (Neg) U Marijuana (THC) Screen (Neg) Ethyl Alcohol mg/dL < 10.0 (<10.0) mg/dl SARS-CoV-2, RNA, NAAT (NEGATIVE) Administered Medications Discontinued Medications Sodium Chloride (Nss 1000ml) 1,000 mls @ 999 mls/hr IV .Q1H1M ONE Stop: 07/27/22 02:48 Last Infusion: 07/27/22 03:23 Dose: 0 mls/hr Documented By: Admin: 07/27/22 02:22 Dose: 999 mls/hr Documented By: YAIR Lorazepam (Lorazepam 2 Mg/1 Ml Vial) Confirm Administered Dose 2 mg .ROUTE .STK- MED ONE Stop: 07/27/22 00:05 Last Admin: 07/27/22 00:15 Dose: Not Given Documented By: SANTANA Lorazepam (Lorazepam 2 Mg/1 Ml Vial) 1 mg IV NOW STA Stop: 07/27/22 00:15 Last Admin: 07/27/22 00:15 Dose: 1 mg Documented By: SANTANA Discharge Plan Visit Data Chief Complaint: Headache ED Provider: Tori Ellison Discharge Problem: Syncope, Suicidal ideation, Migraine Patient Disposition: Admitted As Inpatient Discharge Instructions Interventions: ED Discharge Assessment Last Done: 07/27/22 09:23 : Syncope Qualifiers: Syncope type: unspecified Qualified Code(s): R55 - Syncope and collapse Migraine Qualifiers: Migraine type: other Status migrainosus presence: without status migrainosus Intractability: not intractable Qualified Code(s): G43.809 - Other migraine, not intractable, without status migrainosus
[2022-07-27 05:57] LABS: Amphetamines+Metham, Urine Neg (Neg); Barbiturates, Urine Neg (Neg); Benzodiazepine, Urine Neg (Neg); Cocaine, Urine Neg (Neg); MDMA (Ecstacy), Urine Neg (Neg); Methadone, Urine Neg (Neg); Opiate, Urine Neg (Neg); Phencyclidine, Urine Neg (Neg)
--- NOTE | 2022-07-27 08:36 | Emergency Department Note ---
ED Visit Note I received this patient in signout at the change of shift from Dr. Reyna. 3 S. was consulted due to suicidal ideation and patient was accepted for inpatient admission. .
[2022-07-27 09:28] LABS: Acetaminophen < 3 ug/ml (10-30); Salicylate < 3.0 mg/dl (3.0-30)
[2022-07-27] MEDS ORDERED: BISMUTH SUBSALICYLATE LIQD 236 ML PO PRN (09:28)
[2022-07-27] MEDS ORDERED: ALUMINUM/MAGNESIUM SUSP 30 ML UDC PO PRN (09:28)
[2022-07-27] MEDS ORDERED: hydrOXYzine HCl 25 MG TAB PO PRN (09:28)
[2022-07-27] MEDS ORDERED: SODIUM CHLORIDE 0.65% NA SOLN 45 ML (OCEAN) PRN (09:28)
[2022-07-27] MEDS ORDERED: ACETAMINOPHEN 325 MG TAB PO PRN (09:28)
[2022-07-27] MEDS ORDERED: MAGNESIUM HYDROXIDE SUSP 30 ML UDC PO PRN (09:28)
[2022-07-27] MEDS ORDERED: CYCLOBENZAPRINE HCL 10 MG TAB PO PRN (12:53)
[2022-07-27] MEDS ORDERED: traZODone HCL 100 MG TAB PO PRN (12:53)
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
[2022-07-27] MEDS ORDERED: traZODone HCL 50 MG TAB PO PRN (13:28)
--- NOTE | 2022-07-27 17:47 | Electrocardiogram Report ---
Test Reason : Blood Pressure : / mmHG Vent. Rate : 073 BPM Atrial Rate : 074 BPM P-R Int : 000 ms QRS Dur : 092 ms QT Int : 432 ms P-R-T Axes : 000 009 037 degrees QTc Int : 475 ms Poor data quality, interpretation may be adversely affected Sinus rhythm Confirmed by Marcelo Healy ([id number]) on 07/27/2022 5:47:20 PM Referred By: REFERRED SELF Confirmed By:Jerod Healy
[2022-07-27] MEDS: lamoTRIgine 100 MG TAB PO SCH (20:52)
[2022-07-27] MEDS: lamoTRIgine 25 MG TAB PO SCH (20:53)
[2022-07-27] MEDS: FAMOTIDINE 20 MG TAB PO SCH (20:54)
[2022-07-27] MEDS: TOPIRAMATE 100 MG TAB PO SCH (20:55)
[2022-07-28] MEDS: TOPIRAMATE 100 MG TAB PO SCH ×2 (09:04→21:18)
[2022-07-28] MEDS: ASPIRIN 81 MG ECTAB PO SCH (09:04)
[2022-07-28] MEDS: lamoTRIgine 100 MG TAB PO SCH ×2 (09:05→21:18)
[2022-07-28] MEDS: FAMOTIDINE 20 MG TAB PO SCH ×2 (09:05→21:19)
[2022-07-28] MEDS: MULTIVITAMIN TAB PO SCH (09:06)
[2022-07-28] MEDS: POLYETHYLENE (MIRALAX) 17 GM PACK PO SCH (09:06)
[2022-07-28] MEDS: lamoTRIgine 25 MG TAB PO SCH ×2 (09:06→21:18)
[2022-07-28] MEDS: VERAPAMIL HCL 240 MG TABCR PO SCH (09:07)
--- NOTE | 2022-07-28 09:41 | Psychiatric Progress Note ---
Date of Service July 28, 2022 Impression / Recommendations Impression Ena Gray is a 67 year old with a history of depression and anxiety who was admitted for worsening depression and SI with plans. Diagnostically consistent with MDD with anxious distress and KIMBERLYN and possibility of contribution from dealing with chronic migraines. The patient is deemed unstable and requires psychiatric hospitalization for diagnostic clarification, safety and stabilization, medication management and development of further coping skills. 07/28/22: Ongoing depression and intermittent SI. Reviewed option to try SSRI for depression and anxiety. Discussed risks, benefits and alternatives. Patient would like to start and consented to sertraline for MDD and KIMBERLYN. Reviewed side effects including but not limited to: GI, ARAYA, sexual side effects, potential for strange dreams. Encouraged her to think about family meeting and ways to begin to discuss depression and SI with her and/or other trusted supports. (1) Major depression: (2) Suicidal ideation: (3) KIMBERLYN (generalized anxiety disorder): Plan 07/28/2022: Start sertraline 25mg qd today. If well tolerated will titrate to 50mg tomorrow. 07/27/2022: The patient was admitted to the [facility] on q15 min checks (behavioral with suicide precautions) for safety. The patient will participate in group, recreational, and milieu therapies and will be offered additional individual and family sessions as clinically appropriate. -trazodone 150mg qhs -she is going to consider starting escitalopram or sertraline Inventory Assets Strengths: supportive relationships, willing to get treatment, employed Needs: safety and stabilization, medication adjustment, additional coping skills, increased outpatient services Suicide Risk Level Suicide Risk Level: High-Moderate (q15 min suicide checks) (High-Moderate due to depression with SI with plan prior to admission but feels safe in the hospital, able to safety contract and agrees to let nursing/staff know should they develop plan, intent or feel unable to remain safe.) Suicide Risk Level Comments: Risk Factors Assessment Male: No : Yes Do You Have Access To A Gun?: Yes (husbands hunting guns ) Health Problems: Yes Mental Health Diagnoses: Yes Substance Use Disorders: No Previous Attempt: No Family History of Suicide: Yes (of attempts) Previous Psychiatric Hospitalization: No Protective Factors Assessment : Yes 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 Chief Complaint "I'm ok". Review of Systems Sleep Information Total Hours of Sleep: 5.25 Sleep Comments: Pt asleep and in room since begining of shift at 1900. Meal Information Percent Meal Consumed - Breakfast: 25 Percent Meal Consumed - Lunch: 50 Percent Meal Consumed - Dinner: 50 Subjective Subjective Patient was seen & assessed and interval progress reviewed with treatment team nursing and social work. Napped yesterday afternoon. Attended an evening group. Slept about 5.5 hours overnight. Did not need prn trazodone last night. Continues to have depression and intermittent SI. Notes worrying a bit about missing her son's 34th birthday on Sunday. Describes that her daughter was upset at her when she learned Ena was going to be admitted psychiatrically as this would cause her to miss the birthday. Reflected on how to potentially begin to speak to her family about her depression and anxiety and how this impacts her. Physical Exam Psychiatric Orientation: alert and oriented x 3 Apperance: appropriately dressed and appropriately groomed Eye Contact: good eye contact Motor Behavior: no abnormal motor movements Speech: normal rate/rhythm/volume of speech Affect: + flat affect Mood: + depressed mood and + anxious mood Thought Process: goal directed thought process Thought Content: reality based without delusions Suicidal Thoughts: denies suicidal intent; + reports suicidal thoughts (intermittent thoughts ) and + reports suicidal plan (none for in the hospital) Homicidal Thoughts: denies homicidal thoughts Hallucinations: no auditory hallucinations and no visual hallucinations Cognition: recent memory grossly intact, remote memory grossly intact, attention grossly intact and language grossly intact Estimated Intelligence: consistent with education level Insight: + limited insight Judgement: + limited judgement Vital Signs (Past 24 Hours) Last Vital Signs Temp 36.3 C L 07/28/22 06:44 Pulse 89 07/27/22 10:55 Resp 18 07/28/22 06:44 BP 141/82 H 07/28/22 06:45 Pulse Ox 97 07/27/22 09:22 O2 Del Method 07/27/22 05:00 A physical exam was performed in the ED by Dr. Reyna for the purposes of medical clearance. I accept that physical as correct and adequate for the purposes of the inpatient physical exam. Results & Data ([facility]) Current Inpatient Medications Current Inpatient Medications: Current Inpatient Medications Acetaminophen (Acetaminophen 325 Mg Tab) 650 mg PO Q4H PRN PRN Reason: Headache or Minor Fever Stop: 08/26/22 09:27 Acetaminophen/Butalbital/Caffeine (Butalbital/Acetamin/Caffeine Tab) 1 - 2 tab PO BID PRN PRN Reason: Migraine Headache Stop: 08/26/22 12:52 Al Hydrox/Mg Hydrox/Simethicone (Aluminum/Magnesium Susp 30 Ml Udc) 30 ml PO Q4H PRN PRN Reason: GI Upset Stop: 08/26/22 09:27 Aspirin (Aspirin 81 Mg Ectab) 162 mg PO DAILY ARLEEN Stop: 08/27/22 08:59 Last Admin: 07/28/22 09:04 Dose: 162 mg Bismuth Subsalicylate (Bismuth Subsalicylate Liqd 236 Ml) 15 ml PO PRN PRN PRN Reason: Loose Stool Stop: 08/26/22 09:27 Cyclobenzaprine HCl (Cyclobenzaprine Hcl 10 Mg Tab) 10 mg PO QPM PRN PRN Reason: MUSCLE SPASMS Stop: 08/26/22 12:52 Famotidine (Famotidine 20 Mg Tab) 20 mg PO BID ARLEEN Stop: 08/26/22 20:59 Last Admin: 07/28/22 09:05 Dose: 20 mg Hydroxyzine HCl (Hydroxyzine Hcl 25 Mg Tab) 50 mg PO HSZ PRN PRN Reason: Insomnia Stop: 08/26/22 09:27 Hydroxyzine HCl (Hydroxyzine Hcl 25 Mg Tab) 25 mg PO Q4H PRN PRN Reason: Anxiety Stop: 08/26/22 09:27 Lamotrigine (Lamotrigine 100 Mg Tab) 100 mg PO BID ARLEEN Stop: 08/26/22 20:59 Last Admin: 07/28/22 09:05 Dose: 100 mg Lamotrigine (Lamotrigine 25 Mg Tab) 50 mg PO BID ARLEEN Stop: 08/26/22 20:59 Last Admin: 07/28/22 09:06 Dose: 50 mg Magnesium Hydroxide (Magnesium Hydroxide Susp 30 Ml Udc) 30 ml PO DAILY PRN PRN Reason: Constipation Stop: 08/26/22 09:27 Multivitamins (Multivitamin Tab) 1 tab PO QAM ARLEEN Stop: 08/27/22 08:59 Last Admin: 07/28/22 09:06 Dose: 1 tab Polyethylene Glycol (Polyethylene (Miralax) 17 Gm Pack) 17 gm PO DAILY ARLEEN Stop: 08/27/22 08:59 Last Admin: 07/28/22 09:06 Dose: 17 gm Sodium Chloride (Sodium Chloride 0.65% Na Soln 45 Ml ([place])) 1 - 2 sprays NA PRN PRN PRN Reason: Nasal Dryness/Congestion Stop: 08/26/22 09:27 Topiramate (Topiramate 100 Mg Tab) 200 mg PO BID ARLEEN Stop: 08/26/22 20:59 Last Admin: 07/28/22 09:04 Dose: 200 mg Trazodone HCl (Trazodone Hcl 50 Mg Tab) 150 mg PO HS PRN PRN Reason: Sleep Stop: 08/26/22 12:52 Verapamil HCl (Verapamil Hcl 240 Mg Tabcr) 240 mg PO DAILY ARLEEN Stop: 08/27/22 08:59 Last Admin: 07/28/22 09:07 Dose: 240 mg Mental Health & Subst Abuse Tx Therapist Name of Therapist: None Bridge Game Director Name of Bridge Game Director: None Post Discharge Appointments Primary Care Physician Name Of Family Doctor/PCP: Dr. Paul
[2022-07-28] MEDS: SERTRALINE HCL 50 MG TABLET PO SCH (10:29)
[2022-07-29] MEDS: POLYETHYLENE (MIRALAX) 17 GM PACK PO SCH (09:10)
[2022-07-29] MEDS: SERTRALINE HCL 50 MG TABLET PO SCH (09:14)
[2022-07-29] MEDS: lamoTRIgine 100 MG TAB PO SCH ×2 (09:14→22:06)
[2022-07-29] MEDS: MULTIVITAMIN TAB PO SCH (09:14)
[2022-07-29] MEDS: FAMOTIDINE 20 MG TAB PO SCH ×2 (09:14→22:04)
[2022-07-29] MEDS: ASPIRIN 81 MG ECTAB PO SCH (09:14)
[2022-07-29] MEDS: lamoTRIgine 25 MG TAB PO SCH ×2 (09:14→22:07)
[2022-07-29] MEDS: VERAPAMIL HCL 240 MG TABCR PO SCH (09:15)
[2022-07-29] MEDS: TOPIRAMATE 100 MG TAB PO SCH ×2 (09:15→22:04)
--- NOTE | 2022-07-29 13:50 | Psychiatric Progress Note ---
Date of Service July 29, 2022 Impression / Recommendations Impression Kristin Valdovinos is a 67 year old with a history of depression and anxiety who was admitted for worsening depression and SI with plans. Diagnostically consistent with MDD with anxious distress and KIMBERLYN and possibility of contribution from dealing with chronic migraines. The patient is deemed unstable and requires psychiatric hospitalization for diagnostic clarification, safety and stabilization, medication management and development of further coping skills. 07/29/22: Ongoing depression and intermittent SI. Increase sertraline to 50mg. (1) Major depression: (2) Suicidal ideation: (3) KIMBERLYN (generalized anxiety disorder): Plan 07/29/2022: Increase sertraline to 50mg qd. 07/28/2022: Start sertraline 25mg qd today. If well tolerated will titrate to 50mg tomorrow. 07/27/2022: The patient was admitted to the [facility] ([facility] mental health unit) on q15 min checks (behavioral with suicide precautions) for safety. The patient will participate in group, recreational, and milieu therapies and will be offered additional individual and family sessions as clinically appropriate. -trazodone 150mg qhs -she is going to consider starting escitalopram or sertraline Inventory Assets Strengths: supportive relationships, willing to get treatment, employed Needs: safety and stabilization, medication adjustment, additional coping skills, increased outpatient services Suicide Risk Level Suicide Risk Level: High-Moderate (q15 min suicide checks) (High-Moderate due to depression with SI with plan prior to admission but feels safe in the hospital, able to safety contract and agrees to let nursing/staff know should they develop plan, intent or feel unable to remain safe.) Suicide Risk Level Comments: Risk Factors Assessment Male: No : Yes Do You Have Access To A Gun?: Yes (husbands hunting guns ) Health Problems: Yes Mental Health Diagnoses: Yes Substance Use Disorders: No Previous Attempt: No Family History of Suicide: Yes (of attempts) Previous Psychiatric Hospitalization: No Protective Factors Assessment : Yes 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 Chief Complaint "I have a migraine". Review of Systems Sleep Information Total Hours of Sleep: 8.25 Sleep Comments: Pt asleep and in room since begining of shift at 1900. Meal Information Percent Meal Consumed - Breakfast: 50 Percent Meal Consumed - Lunch: 50 Percent Meal Consumed - Dinner: 40 Subjective Subjective Patient was seen & assessed and interval progress reviewed with treatment team nursing and social work. Ongoing depression and reflects on worries about shame/judgement as her family doesn't really understand what it's like to have a psychiatric condition. Still with intermittent SI. Tried to call her son last night but he didn't answer. Hasn't talked to anyone else in her family. Reflected on challenge of talking to her family about her depression. No side effects from the sertraline except weird dreams which she feels are tolerable, she's agreeable to a dose increase. Physical Exam Psychiatric Orientation: alert and oriented x 3 Apperance: appropriately dressed and appropriately groomed Eye Contact: good eye contact Motor Behavior: no abnormal motor movements Speech: normal rate/rhythm/volume of speech Affect: + flat affect Mood: + depressed mood and + anxious mood Thought Process: goal directed thought process Thought Content: reality based without delusions Suicidal Thoughts: denies suicidal intent; + reports suicidal thoughts (intermittent thoughts ) and + reports suicidal plan (none for in the hospital) Homicidal Thoughts: denies homicidal thoughts Hallucinations: no auditory hallucinations and no visual hallucinations Cognition: recent memory grossly intact, remote memory grossly intact, attention grossly intact and language grossly intact Estimated Intelligence: consistent with education level Insight: + limited insight Judgement: + limited judgement Vital Signs (Past 24 Hours) Last Vital Signs Temp 36.2 C L 07/29/22 06:46 Pulse 73 07/29/22 06:47 Resp 16 07/29/22 06:46 BP 134/70 07/29/22 06:47 Pulse Ox 97 07/27/22 09:22 O2 Del Method 07/27/22 05:00 Results & Data ([facility]) Current Inpatient Medications Current Inpatient Medications: Current Inpatient Medications Acetaminophen (Acetaminophen 325 Mg Tab) 650 mg PO Q4H PRN PRN Reason: Headache or Minor Fever Stop: 08/26/22 09:27 Acetaminophen/Butalbital/Caffeine (Butalbital/Acetamin/Caffeine Tab) 1 - 2 tab PO BID PRN PRN Reason: Migraine Headache Stop: 08/26/22 12:52 Al Hydrox/Mg Hydrox/Simethicone (Aluminum/Magnesium Susp 30 Ml Udc) 30 ml PO Q4H PRN PRN Reason: GI Upset Stop: 08/26/22 09:27 Aspirin (Aspirin 81 Mg Ectab) 162 mg PO DAILY [facility] Stop: 08/27/22 08:59 Last Admin: 07/29/22 09:14 Dose: 162 mg Bismuth Subsalicylate (Bismuth Subsalicylate Liqd 236 Ml) 15 ml PO PRN PRN PRN Reason: Loose Stool Stop: 08/26/22 09:27 Cyclobenzaprine HCl (Cyclobenzaprine Hcl 10 Mg Tab) 10 mg PO QPM PRN PRN Reason: MUSCLE SPASMS Stop: 08/26/22 12:52 Famotidine (Famotidine 20 Mg Tab) 20 mg PO BID [facility] Stop: 08/26/22 20:59 Last Admin: 07/29/22 09:14 Dose: 20 mg Hydroxyzine HCl (Hydroxyzine Hcl 25 Mg Tab) 50 mg PO HSZ PRN PRN Reason: Insomnia Stop: 08/26/22 09:27 Hydroxyzine HCl (Hydroxyzine Hcl 25 Mg Tab) 25 mg PO Q4H PRN PRN Reason: Anxiety Stop: 08/26/22 09:27 Lamotrigine (Lamotrigine 100 Mg Tab) 100 mg PO BID [facility] Stop: 08/26/22 20:59 Last Admin: 07/29/22 09:14 Dose: 100 mg Lamotrigine (Lamotrigine 25 Mg Tab) 50 mg PO BID [facility] Stop: 08/26/22 20:59 Last Admin: 07/29/22 09:14 Dose: 50 mg Magnesium Hydroxide (Magnesium Hydroxide Susp 30 Ml Udc) 30 ml PO DAILY PRN PRN Reason: Constipation Stop: 08/26/22 09:27 Multivitamins (Multivitamin Tab) 1 tab PO QAM [facility] Stop: 08/27/22 08:59 Last Admin: 07/29/22 09:14 Dose: 1 tab Polyethylene Glycol (Polyethylene (Miralax) 17 Gm Pack) 17 gm PO DAILY [facility] Stop: 08/27/22 08:59 Last Admin: 07/29/22 09:10 Dose: 17 gm Sertraline HCl (Sertraline Hcl 50 Mg Tablet) 25 mg PO QAM [facility] Stop: 08/27/22 10:14 Last Admin: 07/29/22 09:14 Dose: 25 mg Sodium Chloride (Sodium Chloride 0.65% Na Soln 45 Ml ([place])) 1 - 2 sprays NA PRN PRN PRN Reason: Nasal Dryness/Congestion Stop: 08/26/22 09:27 Topiramate (Topiramate 100 Mg Tab) 200 mg PO BID [facility] Stop: 08/26/22 20:59 Last Admin: 07/29/22 09:15 Dose: 200 mg Trazodone HCl (Trazodone Hcl 50 Mg Tab) 150 mg PO HS PRN PRN Reason: Sleep Stop: 08/26/22 12:52 Verapamil HCl (Verapamil Hcl 240 Mg Tabcr) 240 mg PO DAILY [facility] Stop: 08/27/22 08:59 Last Admin: 07/29/22 09:15 Dose: 240 mg Mental Health & Subst Abuse Tx Therapist Name of Therapist: None Java [employer] Lead Name of Java J[employer] Lead: None Post Discharge Appointments Primary Care Physician Name Of Family Doctor/PCP: TOMY Toribio Primary [facility] Time of Appointment with PCP: 12pm Provider Appointment Comment: [id number] [facility] [address] [place] [address] [address]
[2022-07-29] MEDS ORDERED: BUTALBITAL/ACETAMIN/CAFFEINE TAB PO PRN (14:43)
[2022-07-29] MEDS: BUTALBITAL/ACETAMIN/CAFFEINE TAB PO PRN (16:00)
[2022-07-30] MEDS: lamoTRIgine 25 MG TAB PO SCH ×2 (08:54→20:38)
[2022-07-30] MEDS: ASPIRIN 81 MG ECTAB PO SCH (08:54)
[2022-07-30] MEDS: FAMOTIDINE 20 MG TAB PO SCH ×2 (08:54→20:37)
[2022-07-30] MEDS: MULTIVITAMIN TAB PO SCH (08:55)
[2022-07-30] MEDS: lamoTRIgine 100 MG TAB PO SCH ×2 (08:55→20:37)
[2022-07-30] MEDS: TOPIRAMATE 100 MG TAB PO SCH ×2 (08:56→20:39)
[2022-07-30] MEDS: VERAPAMIL HCL 240 MG TABCR PO SCH (08:56)
[2022-07-30] MEDS: SERTRALINE HCL 50 MG TABLET PO SCH (08:56)
[2022-07-30] MEDS: POLYETHYLENE (MIRALAX) 17 GM PACK PO SCH (08:56)
--- NOTE | 2022-07-30 12:03 | Psychiatric Progress Note ---
Date of Service July 30, 2022 Impression / Recommendations Impression Kristin Gray is a 67 year old with a history of depression and anxiety who was admitted for worsening depression and SI with plans. Diagnostically consistent with MDD with anxious distress and KIMBERLYN and possibility of contribution from dealing with chronic migraines. The patient is deemed unstable and requires psychiatric hospitalization for diagnostic clarification, safety and stabilization, medication management and development of further coping skills. 07/30/2022: Ongoing depression and intermittent SI with plans for outside the hospital. Participated and showed more emotional range with tearfulness during groups today, starting to open up more about stressors contributing to depression including low self-worth, bullying, and self-guilt. Tolerating higher dose of trazodone and sertraline. (1) Major depression: (2) Suicidal ideation: (3) KIMBERLYN (generalized anxiety disorder): Plan 07/30/2022: Continue with current medications and tx plan. Needs family meeting once ready for this. 07/29/2022: Increase sertraline to 50mg qd. 07/28/2022: Start sertraline 25mg qd today. If well tolerated will titrate to 50mg tomorrow. 07/27/2022: The patient was admitted to the [facility] ([facility] unit) on q15 min checks (behavioral with suicide precautions) for safety. The patient will participate in group, recreational, and milieu therapies and will be offered additional individual and family sessions as clinically appropriate. -trazodone 150mg qhs -she is going to consider starting escitalopram or sertraline Inventory Assets Strengths: supportive relationships, willing to get treatment, employed Needs: safety and stabilization, medication adjustment, additional coping skills, increased outpatient services Suicide Risk Level Suicide Risk Level: High-Moderate (q15 min suicide checks) (High-Moderate due to depression with SI with plan prior to admission but feels safe in the hospital, able to safety contract and agrees to let nursing/staff know should they develop plan, intent or feel unable to remain safe.) Suicide Risk Level Comments: Risk Factors Assessment Male: No : Yes Do You Have Access To A Gun?: Yes (husbands hunting guns ) Health Problems: Yes Mental Health Diagnoses: Yes Substance Use Disorders: No Previous Attempt: No Family History of Suicide: Yes (of attempts) Previous Psychiatric Hospitalization: No Protective Factors Assessment : Yes 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 Chief Complaint "I'm sorry I don't know why I'm having these thoughts of hurting myself again, I don't want to be having them". Review of Systems Sleep Information Total Hours of Sleep: 6.5 Sleep Comments: Pt asleep and in room since begining of shift at 1900. Meal Information Percent Meal Consumed - Breakfast: 50 Percent Meal Consumed - Lunch: 100 Percent Meal Consumed - Dinner: 0 Subjective Subjective Patient was seen & assessed and interval progress reviewed with treatment team nursing and social work. Kristin continues to nap at times during the day and sleeps less overnight due to typically works night shifts but feels higher dose of trazodone may be helping with her sleep. Has some neck stiffness today that's been going on for a few weeks. She thinks her anxiety is lessening a bit. No side effects from higher dose of sertraline. Still with depression which is more intense today and again having thoughts of SI with plans for outside the hospital but continues to deny intent and in fact feels guilty she is having these thoughts noting "why am I having these thoughts?". Reviewed impact of depression and she agrees this seems to be the cause. She was surprised that she spent 2.5 hours in processing group opening up about past bullying, low self- worth, relationship conflicts as some of these things "I've never talked about with anyone". She found processing group helpful. Did speak with her on the phone. Worries about how others may view her if they knew about her depression. Physical Exam Psychiatric Orientation: alert and oriented x 3 Apperance: appropriately dressed and appropriately groomed Eye Contact: good eye contact Motor Behavior: no abnormal motor movements Speech: normal rate/rhythm/volume of speech Affect: + flat affect Mood: + depressed mood and + anxious mood Thought Process: goal directed thought process Thought Content: reality based without delusions Suicidal Thoughts: denies suicidal intent; + reports suicidal thoughts (intermittent thoughts ) and + reports suicidal plan (none for in the hospital) Homicidal Thoughts: denies homicidal thoughts Hallucinations: no auditory hallucinations and no visual hallucinations Cognition: recent memory grossly intact, remote memory grossly intact, attention grossly intact and language grossly intact Estimated Intelligence: consistent with education level Insight: + limited insight Judgement: + limited judgement Vital Signs (Past 24 Hours) Last Vital Signs Temp 36.5 C 07/30/22 06:45 Pulse 67 07/30/22 06:46 Resp 16 07/30/22 06:45 BP 118/68 07/30/22 06:46 Pulse Ox 97 07/27/22 09:22 O2 Del Method 07/27/22 05:00 Results & Data ([facility]) Current Inpatient Medications Current Inpatient Medications: Current Inpatient Medications Acetaminophen (Acetaminophen 325 Mg Tab) 650 mg PO Q4H PRN PRN Reason: Headache or Minor Fever Stop: 08/26/22 09:27 Acetaminophen/Butalbital/Caffeine (Butalbital/Acetamin/Caffeine Tab) 1 - 2 tab PO BID PRN PRN Reason: Migraine Headache Stop: 08/26/22 12:52 Last Admin: 07/29/22 16:00 Dose: 1 tab Al Hydrox/Mg Hydrox/Simethicone (Aluminum/Magnesium Susp 30 Ml Udc) 30 ml PO Q4H PRN PRN Reason: GI Upset Stop: 08/26/22 09:27 Aspirin (Aspirin 81 Mg Ectab) 162 mg PO DAILY [facility] Stop: 08/27/22 08:59 Last Admin: 07/30/22 08:54 Dose: 162 mg Bismuth Subsalicylate (Bismuth Subsalicylate Liqd 236 Ml) 15 ml PO PRN PRN PRN Reason: Loose Stool Stop: 08/26/22 09:27 Cyclobenzaprine HCl (Cyclobenzaprine Hcl 10 Mg Tab) 10 mg PO QPM PRN PRN Reason: MUSCLE SPASMS Stop: 08/26/22 12:52 Famotidine (Famotidine 20 Mg Tab) 20 mg PO BID [facility] Stop: 08/26/22 20:59 Last Admin: 07/30/22 08:54 Dose: 20 mg Hydroxyzine HCl (Hydroxyzine Hcl 25 Mg Tab) 50 mg PO HSZ PRN PRN Reason: Insomnia Stop: 08/26/22 09:27 Hydroxyzine HCl (Hydroxyzine Hcl 25 Mg Tab) 25 mg PO Q4H PRN PRN Reason: Anxiety Stop: 08/26/22 09:27 Lamotrigine (Lamotrigine 100 Mg Tab) 100 mg PO BID [facility] Stop: 08/26/22 20:59 Last Admin: 07/30/22 08:55 Dose: 100 mg Lamotrigine (Lamotrigine 25 Mg Tab) 50 mg PO BID [facility] Stop: 08/26/22 20:59 Last Admin: 07/30/22 08:54 Dose: 50 mg Magnesium Hydroxide (Magnesium Hydroxide Susp 30 Ml Udc) 30 ml PO DAILY PRN PRN Reason: Constipation Stop: 08/26/22 09:27 Multivitamins (Multivitamin Tab) 1 tab PO QAM [facility] Stop: 08/27/22 08:59 Last Admin: 07/30/22 08:55 Dose: 1 tab Polyethylene Glycol (Polyethylene (Miralax) 17 Gm Pack) 17 gm PO DAILY [facility] Stop: 08/27/22 08:59 Last Admin: 07/30/22 08:56 Dose: 17 gm Sertraline HCl (Sertraline Hcl 50 Mg Tablet) 50 mg PO QAM [facility] Stop: 08/29/22 08:59 Last Admin: 07/30/22 08:56 Dose: 50 mg Sodium Chloride (Sodium Chloride 0.65% Na Soln 45 Ml ([place])) 1 - 2 sprays NA PRN PRN PRN Reason: Nasal Dryness/Congestion Stop: 08/26/22 09:27 Topiramate (Topiramate 100 Mg Tab) 200 mg PO BID [facility] Stop: 08/26/22 20:59 Last Admin: 07/30/22 08:56 Dose: 200 mg Trazodone HCl (Trazodone Hcl 50 Mg Tab) 150 mg PO HS PRN PRN Reason: Sleep Stop: 08/26/22 12:52 Verapamil HCl (Verapamil Hcl 240 Mg Tabcr) 240 mg PO DAILY [facility] Stop: 08/27/22 08:59 Last Admin: 07/30/22 08:56 Dose: 240 mg Mental Health & Subst Abuse Tx Therapist Name of Therapist: None Insulation Inspector Name of Insulation Inspector: None Post Discharge Appointments Primary Care Physician Name Of Family Doctor/PCP: TOMY Toribio Primary [facility] Time of Appointment with PCP: 12pm Provider Appointment Comment: [id number] [facility] [address] [place] [id number]
[2022-07-30] MEDS: BUTALBITAL/ACETAMIN/CAFFEINE TAB PO PRN ×2 (14:39→20:49)
[2022-07-31] MEDS: lamoTRIgine 25 MG TAB PO SCH ×2 (08:41→21:14)
[2022-07-31] MEDS: ASPIRIN 81 MG ECTAB PO SCH (08:41)
[2022-07-31] MEDS: FAMOTIDINE 20 MG TAB PO SCH ×2 (08:41→21:14)
[2022-07-31] MEDS: POLYETHYLENE (MIRALAX) 17 GM PACK PO SCH (08:42)
[2022-07-31] MEDS: TOPIRAMATE 100 MG TAB PO SCH ×2 (08:42→21:15)
[2022-07-31] MEDS: SERTRALINE HCL 50 MG TABLET PO SCH (08:42)
[2022-07-31] MEDS: MULTIVITAMIN TAB PO SCH (08:42)
[2022-07-31] MEDS: lamoTRIgine 100 MG TAB PO SCH ×2 (08:42→21:14)
[2022-07-31] MEDS: VERAPAMIL HCL 240 MG TABCR PO SCH (08:43)
--- NOTE | 2022-07-31 14:07 | Psychiatric Progress Note ---
Date of Service July 31, 2022 Impression / Recommendations Impression Kristin Gray is a 67 year old with a history of depression and anxiety who was admitted for worsening depression and SI with plans. Diagnostically consistent with MDD with anxious distress and KIMBERLYN and possibility of contribution from dealing with chronic migraines. The patient is deemed unstable and requires psychiatric hospitalization for diagnostic clarification, safety and stabilization, medication management and development of further coping skills. 07/31/2022: as per Dr. Aquino above, minimal change, very depressed. Overwhelmed in dealing with children and ambivalent about work. (1) Major depression: (2) Suicidal ideation: (3) KIMBERLYN (generalized anxiety disorder): Plan 07/31/2022: continue current medication and tx plan. 07/30/2022: Continue with current medications and tx plan. Needs family meeting once ready for this. 07/29/2022: Increase sertraline to 50mg qd. 07/28/2022: Start sertraline 25mg qd today. If well tolerated will titrate to 50mg tomorrow. 07/27/2022: The patient was admitted to the [facility] ([facility] unit) on q15 min checks (behavioral with suicide precautions) for safety. The patient will participate in group, recreational, and milieu therapies and will be offered additional individual and family sessions as clinically appropriate. -trazodone 150mg qhs -she is going to consider starting escitalopram or sertraline Inventory Assets Strengths: supportive relationships, willing to get treatment, employed Needs: safety and stabilization, medication adjustment, additional coping skills, increased outpatient services Suicide Risk Level Suicide Risk Level: Moderate (q15 min suicide checks) Suicide Risk Level Comments: Risk Factors Assessment Male: No : Yes Do You Have Access To A Gun?: Yes (husbands hunting guns ) Health Problems: Yes Mental Health Diagnoses: Yes Substance Use Disorders: No Previous Attempt: No Family History of Suicide: Yes (of attempts) Previous Psychiatric Hospitalization: No Protective Factors Assessment : Yes 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 Chief Complaint "My daughter just doesn't get it". Review of Systems Sleep Information Total Hours of Sleep: 5.5 Meal Information Percent Meal Consumed - Breakfast: 50 Percent Meal Consumed - Lunch: 40 Percent Meal Consumed - Dinner: 20 Subjective Subjective Patient was seen & assessed and interval progress reviewed with treatment team. Somatic and preoccupied with comments daughter made on phone last night, was more reclusive. Prn Fioricet minimally effective. Says she has vague ARAYA. Ongoing feelings of hopelessness and guilt. Physical Exam Psychiatric Orientation: alert and oriented x 3 Apperance: appropriately dressed and appropriately groomed Eye Contact: good eye contact Motor Behavior: no abnormal motor movements Speech: normal rate/rhythm/volume of speech Affect: + depressed affect and + anxious affect Mood: + depressed mood Thought Process: goal directed thought process Thought Content: reality based without delusions Suicidal Thoughts: denies suicidal thoughts (but unable to safety plan due to hopelessness), denies suicidal plan and denies suicidal intent Homicidal Thoughts: denies homicidal thoughts Hallucinations: no auditory hallucinations and no visual hallucinations Cognition: attention grossly intact and language grossly intact Estimated Intelligence: consistent with education level Insight: + limited insight Judgement: + limited judgement Vital Signs (Past 24 Hours) Last Vital Signs Temp 36.8 C 07/31/22 06:44 Pulse 61 07/31/22 06:45 Resp 18 07/31/22 06:44 BP 138/75 07/31/22 06:45 Pulse Ox 97 07/27/22 09:22 O2 Del Method 07/27/22 05:00 Results & Data ([facility]) Current Inpatient Medications Current Inpatient Medications: Current Inpatient Medications Acetaminophen (Acetaminophen 325 Mg Tab) 650 mg PO Q4H PRN PRN Reason: Headache or Minor Fever Stop: 08/26/22 09:27 Acetaminophen/Butalbital/Caffeine (Butalbital/Acetamin/Caffeine Tab) 1 - 2 tab PO BID PRN PRN Reason: Migraine Headache Stop: 08/26/22 12:52 Last Admin: 07/30/22 20:49 Dose: 1 tab Al Hydrox/Mg Hydrox/Simethicone (Aluminum/Magnesium Susp 30 Ml Udc) 30 ml PO Q4H PRN PRN Reason: GI Upset Stop: 08/26/22 09:27 Aspirin (Aspirin 81 Mg Ectab) 162 mg PO DAILY [facility] Stop: 08/27/22 08:59 Last Admin: 07/31/22 08:41 Dose: 162 mg Bismuth Subsalicylate (Bismuth Subsalicylate Liqd 236 Ml) 15 ml PO PRN PRN PRN Reason: Loose Stool Stop: 08/26/22 09:27 Cyclobenzaprine HCl (Cyclobenzaprine Hcl 10 Mg Tab) 10 mg PO QPM PRN PRN Reason: MUSCLE SPASMS Stop: 08/26/22 12:52 Famotidine (Famotidine 20 Mg Tab) 20 mg PO BID [facility] Stop: 08/26/22 20:59 Last Admin: 07/31/22 08:41 Dose: 20 mg Hydroxyzine HCl (Hydroxyzine Hcl 25 Mg Tab) 50 mg PO HSZ PRN PRN Reason: Insomnia Stop: 08/26/22 09:27 Hydroxyzine HCl (Hydroxyzine Hcl 25 Mg Tab) 25 mg PO Q4H PRN PRN Reason: Anxiety Stop: 08/26/22 09:27 Lamotrigine (Lamotrigine 100 Mg Tab) 100 mg PO BID [facility] Stop: 08/26/22 20:59 Last Admin: 07/31/22 08:42 Dose: 100 mg Lamotrigine (Lamotrigine 25 Mg Tab) 50 mg PO BID [facility] Stop: 08/26/22 20:59 Last Admin: 07/31/22 08:41 Dose: 50 mg Magnesium Hydroxide (Magnesium Hydroxide Susp 30 Ml Udc) 30 ml PO DAILY PRN PRN Reason: Constipation Stop: 08/26/22 09:27 Multivitamins (Multivitamin Tab) 1 tab PO QAM [facility] Stop: 08/27/22 08:59 Last Admin: 07/31/22 08:42 Dose: 1 tab Polyethylene Glycol (Polyethylene (Miralax) 17 Gm Pack) 17 gm PO DAILY [facility] Stop: 08/27/22 08:59 Last Admin: 07/31/22 08:42 Dose: 17 gm Sertraline HCl (Sertraline Hcl 50 Mg Tablet) 50 mg PO QAM [facility] Stop: 08/29/22 08:59 Last Admin: 07/31/22 08:42 Dose: 50 mg Sodium Chloride (Sodium Chloride 0.65% Na Soln 45 Ml ([place])) 1 - 2 sprays NA PRN PRN PRN Reason: Nasal Dryness/Congestion Stop: 08/26/22 09:27 Topiramate (Topiramate 100 Mg Tab) 200 mg PO BID [facility] Stop: 08/26/22 20:59 Last Admin: 07/31/22 08:42 Dose: 200 mg Trazodone HCl (Trazodone Hcl 50 Mg Tab) 150 mg PO HS PRN PRN Reason: Sleep Stop: 08/26/22 12:52 Verapamil HCl (Verapamil Hcl 240 Mg Tabcr) 240 mg PO DAILY [facility] Stop: 08/27/22 08:59 Last Admin: 07/31/22 08:43 Dose: 240 mg Mental Health & Subst Abuse Tx Therapist Name of Therapist: Nelly Lopez- on waiting list Therapist's Therapy Appointment Comment: email for [email or web address] Director Medical Economics Name of Director Medical Economics: None Post Discharge Appointments Primary Care Physician Name Of Family Doctor/PCP: TOMY Toribio Primary Care Time of Appointment with PCP: 12pm Provider Appointment Comment: [address] [place] [address] Contact Information Discharge /[phone] Discharge Address: [address] [place] [address]
[2022-08-01] MEDS: BUTALBITAL/ACETAMIN/CAFFEINE TAB PO PRN ×2 (04:32→14:08)
[2022-08-01] MEDS: FAMOTIDINE 20 MG TAB PO SCH ×2 (09:24→21:13)
[2022-08-01] MEDS: ASPIRIN 81 MG ECTAB PO SCH (09:24)
[2022-08-01] MEDS: lamoTRIgine 25 MG TAB PO SCH ×2 (09:25→21:13)
[2022-08-01] MEDS: MULTIVITAMIN TAB PO SCH (09:25)
[2022-08-01] MEDS: lamoTRIgine 100 MG TAB PO SCH ×2 (09:25→21:13)
[2022-08-01] MEDS: SERTRALINE HCL 50 MG TABLET PO SCH (09:25)
[2022-08-01] MEDS: TOPIRAMATE 100 MG TAB PO SCH ×2 (09:26→21:13)
[2022-08-01] MEDS: VERAPAMIL HCL 240 MG TABCR PO SCH (09:26)
[2022-08-01] MEDS: POLYETHYLENE (MIRALAX) 17 GM PACK PO SCH (09:27)
--- NOTE | 2022-08-01 12:27 | Psychiatric Progress Note ---
Date of Service August 01, 2022 Impression / Recommendations Impression Kristin Gray is a 67 year old with a history of depression and anxiety who was admitted for worsening depression and SI with plans. Diagnostically consistent with MDD with anxious distress and KIMBERLYN and possibility of contribution from dealing with chronic migraines. The patient is deemed unstable and requires psychiatric hospitalization for diagnostic clarification, safety and stabilization, medication management and development of further coping skills. 08/01/2022: as per Dr. Aquino above, minimal change, odd behavior ahead of family meeting (1) Major depression: (2) Suicidal ideation: (3) KIMBERLYN (generalized anxiety disorder): Plan 08/01/2022: family meeting, offered premedication, she is unable to discuss any additional med changes at this time, no objective restlessness/implusivity on exam, ie no evidence of activation. 07/31/2022: continue current medication and tx plan. 07/30/2022: Continue with current medications and tx plan. Needs family meeting once ready for this. 07/29/2022: Increase sertraline to 50mg qd. 07/28/2022: Start sertraline 25mg qd today. If well tolerated will titrate to 50mg tomorrow. 07/27/2022: The patient was admitted to the [facility] ([facility] inpatient mental health unit) on q15 min checks (behavioral with suicide precautions) for safety. The patient will participate in group, recreational, and milieu therapies and will be offered additional individual and family sessions as clinically appropriate. -trazodone 150mg qhs -she is going to consider starting escitalopram or sertraline Inventory Assets Strengths: supportive relationships, willing to get treatment, employed Needs: safety and stabilization, medication adjustment, additional coping skills, increased outpatient services Suicide Risk Level Suicide Risk Level: Moderate (q15 min suicide checks) Suicide Risk Level Comments: Risk Factors Assessment Male: No : Yes Do You Have Access To A Gun?: Yes (husbands hunting guns ) Health Problems: Yes Mental Health Diagnoses: Yes Substance Use Disorders: No Previous Attempt: No Family History of Suicide: Yes (of attempts) Previous Psychiatric Hospitalization: No Protective Factors Assessment : Yes 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 Chief Complaint "he's not going to change, I'm sorry." Review of Systems Sleep Information Total Hours of Sleep: 6.25 Sleep Comments: pt on q-15 minute checks Meal Information Percent Meal Consumed - Breakfast: 100 Percent Meal Consumed - Lunch: 40 Percent Meal Consumed - Dinner: 50 Subjective Subjective Patient was seen & assessed and interval progress reviewed with nursing and social work. The patient is anxious ahead of her family meeting but outwardly appears sullen. reports ongoing sensitivity to sound, irritability with the noise of the doors to the staff room/etc. closing repeatedly. For some reason rather than expressing to staff she used the extra bed in her room to barricade her door. Processed with staff and myself, isn't able to communicate why, repeatedly apologetic, denies related to any SI. Physical Exam Psychiatric Orientation: alert Apperance: appropriately groomed Eye Contact: + poor eye contact Motor Behavior: no abnormal motor movements Speech: normal rate/rhythm/volume of speech Affect: + depressed affect Mood: + depressed mood and + irritable mood Thought Process: + perseveration Thought Content: reality based without delusions Suicidal Thoughts: denies suicidal thoughts Homicidal Thoughts: denies homicidal thoughts Hallucinations: no auditory hallucinations and no visual hallucinations Cognition: attention grossly intact and language grossly intact Estimated Intelligence: consistent with education level Insight: + limited insight Judgement: + limited judgement Vital Signs (Past 24 Hours) Last Vital Signs Temp 36.4 C L 08/01/22 06:38 Pulse 62 08/01/22 06:38 Resp 16 08/01/22 06:38 BP 121/78 08/01/22 06:38 Pulse Ox 97 07/27/22 09:22 O2 Del Method 07/27/22 05:00 Results & Data ([facility]) Current Inpatient Medications Current Inpatient Medications: Current Inpatient Medications Acetaminophen (Acetaminophen 325 Mg Tab) 650 mg PO Q4H PRN PRN Reason: Headache or Minor Fever Stop: 08/26/22 09:27 Acetaminophen/Butalbital/Caffeine (Butalbital/Acetamin/Caffeine Tab) 1 - 2 tab PO BID PRN PRN Reason: Migraine Headache Stop: 08/26/22 12:52 Last Admin: 08/01/22 04:32 Dose: 2 tab Al Hydrox/Mg Hydrox/Simethicone (Aluminum/Magnesium Susp 30 Ml Udc) 30 ml PO Q4H PRN PRN Reason: GI Upset Stop: 08/26/22 09:27 Aspirin (Aspirin 81 Mg Ectab) 162 mg PO DAILY [facility] Stop: 08/27/22 08:59 Last Admin: 08/01/22 09:24 Dose: 162 mg Bismuth Subsalicylate (Bismuth Subsalicylate Liqd 236 Ml) 15 ml PO PRN PRN PRN Reason: Loose Stool Stop: 08/26/22 09:27 Cyclobenzaprine HCl (Cyclobenzaprine Hcl 10 Mg Tab) 10 mg PO QPM PRN PRN Reason: MUSCLE SPASMS Stop: 08/26/22 12:52 Famotidine (Famotidine 20 Mg Tab) 20 mg PO BID [facility] Stop: 08/26/22 20:59 Last Admin: 08/01/22 09:24 Dose: 20 mg Hydroxyzine HCl (Hydroxyzine Hcl 25 Mg Tab) 50 mg PO HSZ PRN PRN Reason: Insomnia Stop: 08/26/22 09:27 Hydroxyzine HCl (Hydroxyzine Hcl 25 Mg Tab) 25 mg PO Q4H PRN PRN Reason: Anxiety Stop: 08/26/22 09:27 Last Admin: 08/01/22 08:53 Dose: 25 mg Lamotrigine (Lamotrigine 100 Mg Tab) 100 mg PO BID [facility] Stop: 08/26/22 20:59 Last Admin: 08/01/22 09:25 Dose: 100 mg Lamotrigine (Lamotrigine 25 Mg Tab) 50 mg PO BID [facility] Stop: 08/26/22 20:59 Last Admin: 08/01/22 09:25 Dose: 50 mg Magnesium Hydroxide (Magnesium Hydroxide Susp 30 Ml Udc) 30 ml PO DAILY PRN PRN Reason: Constipation Stop: 08/26/22 09:27 Multivitamins (Multivitamin Tab) 1 tab PO QAM [facility] Stop: 08/27/22 08:59 Last Admin: 08/01/22 09:25 Dose: 1 tab Polyethylene Glycol (Polyethylene (Miralax) 17 Gm Pack) 17 gm PO DAILY [facility] Stop: 08/27/22 08:59 Last Admin: 08/01/22 09:27 Dose: 17 gm Sertraline HCl (Sertraline Hcl 50 Mg Tablet) 50 mg PO QAM [facility] Stop: 08/29/22 08:59 Last Admin: 08/01/22 09:25 Dose: 50 mg Sodium Chloride (Sodium Chloride 0.65% Na Soln 45 Ml ([place])) 1 - 2 sprays NA PRN PRN PRN Reason: Nasal Dryness/Congestion Stop: 08/26/22 09:27 Topiramate (Topiramate 100 Mg Tab) 200 mg PO BID [facility] Stop: 08/26/22 20:59 Last Admin: 08/01/22 09:26 Dose: 200 mg Trazodone HCl (Trazodone Hcl 50 Mg Tab) 150 mg PO HS PRN PRN Reason: Sleep Stop: 08/26/22 12:52 Verapamil HCl (Verapamil Hcl 240 Mg Tabcr) 240 mg PO DAILY [facility] Stop: 08/27/22 08:59 Last Admin: 08/01/22 09:26 Dose: 240 mg Mental Health & Subst Abuse Tx Therapist Name of Therapist: Nelly Lopez- on waiting list Therapist's Therapy Appointment Comment: email for [email or web address] Wood Web Weaving Machine Operator Name of Wood Web Weaving Machine Operator: None Post Discharge Appointments Primary Care Physician Name Of Family Doctor/PCP: TOMY Toribio Primary [facility] Time of Appointment with PCP: 12:30 pm Provider Appointment Comment: [facility] [place] [address] Contact Information Discharge /[phone] Discharge Address: [address] [place] [address]
--- NOTE | 2022-08-01 13:09 | Communication Note ---
Date of Service: August 01, 2022 reexamined patient after being found on routine checks attempting to hang self by wrapping scrub pants around her neck off of the side of her medical bed. This event occurred 30 min prior to her family meeting which will now be cancelled to process. There is no apparent injury. She will be placed on 1-on-1 and changed to safety scrubs/bedding/meal tray until reviewed by treatment team. She continues to complain of residual migraine which predates the onset of her AARYA. Hospitalist stated given that triptans have been d/c and failed multiple agents, my desire to avoid steroids given level of mood sx, and inability to give IV could offer benadryl or compazine for symptomatic relief or additional NSAIDs.
[2022-08-02] MEDS: lamoTRIgine 25 MG TAB PO SCH ×2 (09:21→20:29)
[2022-08-02] MEDS: ASPIRIN 81 MG ECTAB PO SCH (09:21)
[2022-08-02] MEDS: FAMOTIDINE 20 MG TAB PO SCH ×2 (09:21→20:29)
[2022-08-02] MEDS: MULTIVITAMIN TAB PO SCH (09:22)
[2022-08-02] MEDS: TOPIRAMATE 100 MG TAB PO SCH ×2 (09:22→20:29)
[2022-08-02] MEDS: POLYETHYLENE (MIRALAX) 17 GM PACK PO SCH (09:22)
[2022-08-02] MEDS: VERAPAMIL HCL 240 MG TABCR PO SCH (09:22)
[2022-08-02] MEDS: lamoTRIgine 100 MG TAB PO SCH ×2 (09:22→20:29)
--- NOTE | 2022-08-02 11:39 | Psychiatric Progress Note ---
Date of Service August 02, 2022 Impression / Recommendations Impression Kristin Gray is a 67 year old with a history of depression and anxiety who was admitted for worsening depression and SI with plans. Diagnostically consistent with MDD with anxious distress and KIMBERLYN and possibility of contribution from dealing with chronic migraines. The patient is deemed unstable and requires psychiatric hospitalization for diagnostic clarification, safety and stabilization, medication management and development of further coping skills. 08/02/2022: s/p suicidal gesture on unit 07/31/22 (1) Major depression: (2) Suicidal ideation: (3) KIMBERLYN (generalized anxiety disorder): Plan 08/02/2022: Risks/benefits/alternatives were reviewed re: antipsychotics for mood and/or psychosis. Discussion included but was not limited to metabolic side effects, risks of TD and suicidal thoughts. Fasting glucose and lipid panel ordered for baseline monitoring. She agreed to a trial of Abilify 2.5 mg daily starting today i place of Zoloft given severity of depression and gesture few days into Zoloft (though no other evidence of activation). Patient will be move to [place] so closer to nurses station as transitions off of 1-on-1. Will allow [facility] bed given medical comorbidities and still in safety mesures. 08/01/2022: family meeting, offered premedication, she is unable to discuss any additional med changes at this time, no objective restlessness/implusivity on exam, ie no evidence of activation. 07/31/2022: continue current medication and tx plan. 07/30/2022: Continue with current medications and tx plan. Needs family meeting once ready for this. 07/29/2022: Increase sertraline to 50mg qd. 07/28/2022: Start sertraline 25mg qd today. If well tolerated will titrate to 50mg tomorrow. 07/27/2022: The patient was admitted to the [facility] ([facility] inpatient mental health unit) on q15 min checks (behavioral with suicide precautions) for safety. The patient will participate in group, recreational, and milieu therapies and will be offered additional individual and family sessions as clinically appropriate. -trazodone 150mg qhs -she is going to consider starting escitalopram or sertraline Inventory Assets Strengths: supportive relationships, willing to get treatment, employed Needs: safety and stabilization, medication adjustment, additional coping skills, increased outpatient services Suicide Risk Level Suicide Risk Level: High-Moderate (q15 min suicide checks) (just shifted from Imminent) Suicide Risk Level Comments: Risk Factors Assessment Male: No : Yes Do You Have Access To A Gun?: Yes (husbands hunting guns ) Health Problems: Yes Mental Health Diagnoses: Yes Substance Use Disorders: No Previous Attempt: No Family History of Suicide: Yes (of attempts) Previous Psychiatric Hospitalization: No Protective Factors Assessment : Yes 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 Chief Complaint "I just wanted it to be a wake up call about how bad this is and it worked." Review of Systems Sleep Information Total Hours of Sleep: 7 Sleep Comments: pt on q-15 minute checks Meal Information Percent Meal Consumed - Breakfast: 0 Percent Meal Consumed - Lunch: 50 Percent Meal Consumed - Dinner: 75 Telehealth Telehealth Options: Telephone only For the duration of the visit, provider was performing the assessment from: A different facility than the patient After establishing a telemedicine visit, patient was: Gave permission to continue telehealth session (note care provided via telehealth due to COVID health emergency of provider (test pending so isolating)) Total Time Spent (minutes): 15 Subjective Subjective Patient was seen & assessed and interval progress reviewed with treatment team. Patient has been maintained on -- since yesterday afternoon's self-harm gesture. She has since processed with staff and maintains that he acted out to let her know how bad things are and "maybe he'll compromise." She just completed a successful family meeting with her daughter and is considering staying with her after her hospital stay if "he doesn't come around." Attended her treatment plan review and behavioral darryl with unit therapist. Physical Exam Psychiatric Orientation: alert and oriented x 3 Speech: normal rate/rhythm/volume of speech Mood: + depressed mood and + anxious mood Thought Process: + perseveration and + concrete thought process Thought Content: reality based without delusions Suicidal Thoughts: denies suicidal plan and denies suicidal intent; + reports suicidal thoughts (chronic, passive, behaviorally contracts on unit) Homicidal Thoughts: denies homicidal thoughts Cognition: attention grossly intact and language grossly intact Insight: + limited insight Judgement: + limited judgement Vital Signs (Past 24 Hours) Last Vital Signs Temp 36.6 C 08/02/22 06:36 Pulse 63 08/02/22 06:37 Resp 16 08/02/22 06:36 BP 124/79 08/02/22 06:37 Pulse Ox 97 07/27/22 09:22 O2 Del Method 07/27/22 05:00 Results & Data ([facility]) Current Inpatient Medications Current Inpatient Medications: Current Inpatient Medications Acetaminophen (Acetaminophen 325 Mg Tab) 650 mg PO Q4H PRN PRN Reason: Headache or Minor Fever Stop: 08/26/22 09:27 Acetaminophen/Butalbital/Caffeine (Butalbital/Acetamin/Caffeine Tab) 1 - 2 tab PO BID PRN PRN Reason: Migraine Headache Stop: 08/26/22 12:52 Last Admin: 08/01/22 14:08 Dose: 1 tab Al Hydrox/Mg Hydrox/Simethicone (Aluminum/Magnesium Susp 30 Ml Udc) 30 ml PO Q4H PRN PRN Reason: GI Upset Stop: 08/26/22 09:27 Aspirin (Aspirin 81 Mg Ectab) 162 mg PO DAILY [facility] Stop: 08/27/22 08:59 Last Admin: 08/02/22 09:21 Dose: 162 mg Bismuth Subsalicylate (Bismuth Subsalicylate Liqd 236 Ml) 15 ml PO PRN PRN PRN Reason: Loose Stool Stop: 08/26/22 09:27 Cyclobenzaprine HCl (Cyclobenzaprine Hcl 10 Mg Tab) 10 mg PO QPM PRN PRN Reason: MUSCLE SPASMS Stop: 08/26/22 12:52 Famotidine (Famotidine 20 Mg Tab) 20 mg PO BID [facility] Stop: 08/26/22 20:59 Last Admin: 08/02/22 09:21 Dose: 20 mg Hydroxyzine HCl (Hydroxyzine Hcl 25 Mg Tab) 50 mg PO HSZ PRN PRN Reason: Insomnia Stop: 08/26/22 09:27 Hydroxyzine HCl (Hydroxyzine Hcl 25 Mg Tab) 25 mg PO Q4H PRN PRN Reason: Anxiety Stop: 08/26/22 09:27 Last Admin: 08/01/22 08:53 Dose: 25 mg Lamotrigine (Lamotrigine 100 Mg Tab) 100 mg PO BID [facility] Stop: 08/26/22 20:59 Last Admin: 08/02/22 09:22 Dose: 100 mg Lamotrigine (Lamotrigine 25 Mg Tab) 50 mg PO BID [facility] Stop: 08/26/22 20:59 Last Admin: 08/02/22 09:21 Dose: 50 mg Magnesium Hydroxide (Magnesium Hydroxide Susp 30 Ml Udc) 30 ml PO DAILY PRN PRN Reason: Constipation Stop: 08/26/22 09:27 Multivitamins (Multivitamin Tab) 1 tab PO QAM [facility] Stop: 08/27/22 08:59 Last Admin: 08/02/22 09:22 Dose: 1 tab Polyethylene Glycol (Polyethylene (Miralax) 17 Gm Pack) 17 gm PO DAILY [facility] Stop: 08/27/22 08:59 Last Admin: 08/02/22 09:22 Dose: 17 gm Sertraline HCl (Sertraline Hcl 50 Mg Tablet) 50 mg PO QAM [facility] Stop: 08/29/22 08:59 Last Admin: 08/01/22 09:25 Dose: 50 mg Sodium Chloride (Sodium Chloride 0.65% Na Soln 45 Ml ([place])) 1 - 2 sprays NA PRN PRN PRN Reason: Nasal Dryness/Congestion Stop: 08/26/22 09:27 Topiramate (Topiramate 100 Mg Tab) 200 mg PO BID [facility] Stop: 08/26/22 20:59 Last Admin: 08/02/22 09:22 Dose: 200 mg Trazodone HCl (Trazodone Hcl 50 Mg Tab) 150 mg PO HS PRN PRN Reason: Sleep Stop: 08/26/22 12:52 Verapamil HCl (Verapamil Hcl 240 Mg Tabcr) 240 mg PO DAILY [facility] Stop: 08/27/22 08:59 Last Admin: 08/02/22 09:22 Dose: 240 mg Mental Health & Subst Abuse Tx Therapist Name of Therapist: Nelly Lopez- on waiting list Therapist's Therapy Appointment Comment: email for [email or web address] Name of Magazine Editor: None Post Discharge Appointments Primary Care Physician Name Of Family Doctor/PCP: TOMY Toribio Primary Care Time of Appointment with PCP: 12:30 pm Provider Appointment Comment: [address] [place] [address] [address] Contact Information Discharge /[phone] Discharge Address: [address] [place] [address]
[2022-08-02] MEDS: BUTALBITAL/ACETAMIN/CAFFEINE TAB PO PRN (11:44)
[2022-08-02] MEDS: ARIPiprazole 5 MG TAB PO SCH (12:09)
[2022-08-03] MEDS: MULTIVITAMIN TAB PO SCH (09:39)
[2022-08-03] MEDS: VERAPAMIL HCL 240 MG TABCR PO SCH (09:39)
[2022-08-03] MEDS: ASPIRIN 81 MG ECTAB PO SCH (09:39)
[2022-08-03] MEDS: ARIPiprazole 5 MG TAB PO SCH (09:39)
[2022-08-03] MEDS: TOPIRAMATE 100 MG TAB PO SCH ×2 (09:41→20:47)
[2022-08-03] MEDS: lamoTRIgine 100 MG TAB PO SCH ×2 (09:41→20:47)
[2022-08-03] MEDS: FAMOTIDINE 20 MG TAB PO SCH ×2 (09:41→20:47)
[2022-08-03] MEDS: lamoTRIgine 25 MG TAB PO SCH ×2 (09:41→20:47)
[2022-08-03] MEDS: POLYETHYLENE (MIRALAX) 17 GM PACK PO SCH (09:41)
[2022-08-03 09:59] LABS: Chol HDL Ratio 4.3 (0-5)
--- NOTE | 2022-08-03 12:09 | Psychiatric Progress Note ---
Date of Service August 03, 2022 Impression / Recommendations Impression Kristin Gray is a 67 year old with a history of depression and anxiety who was admitted for worsening depression and SI with plans. Diagnostically consistent with MDD with anxious distress and KIMBERLYN and possibility of contribution from dealing with chronic migraines. The patient is deemed unstable and requires psychiatric hospitalization for diagnostic clarification, safety and stabilization, medication management and development of further coping skills. 08/03/2022: depressed but expressive (1) Major depression: (2) Suicidal ideation: (3) KIMBERLYN (generalized anxiety disorder): Plan 08/03/2022: shift Abilify to hs. 08/02/2022: Risks/benefits/alternatives were reviewed re: antipsychotics for mood and/or psychosis. Discussion included but was not limited to metabolic side effects, risks of TD and suicidal thoughts. Fasting glucose and lipid panel ordered for baseline monitoring. She agreed to a trial of Abilify 2.5 mg daily starting today i place of Zoloft given severity of depression and gesture few days into Zoloft (though no other evidence of activation). Patient will be move to [facility] so closer to nurses station as transitions off of 1-on-1. Will allow aarti bed given medical comorbidities and still in safety mesures. 08/01/2022: family meeting, offered premedication, she is unable to discuss any additional med changes at this time, no objective restlessness/implusivity on exam, ie no evidence of activation. 07/31/2022: continue current medication and tx plan. 07/30/2022: Continue with current medications and tx plan. Needs family meeting once ready for this. 07/29/2022: Increase sertraline to 50mg qd. 07/28/2022: Start sertraline 25mg qd today. If well tolerated will titrate to 50mg tomorrow. 07/27/2022: [facility] ([facility] inpatient mental health unit) on q15 min checks (behavioral with suicide precautions) for safety. The patient will participate in group, recreational, and milieu therapies and will be offered additional individual and family sessions as clinically appropriate. -trazodone 150mg qhs -she is going to consider starting escitalopram or sertraline Inventory Assets Strengths: supportive relationships, willing to get treatment, employed Needs: safety and stabilization, medication adjustment, additional coping skills, increased outpatient services Suicide Risk Level Suicide Risk Level: High-Moderate (q15 min suicide checks) Suicide Risk Level Comments: Risk Factors Assessment Male: No : Yes Do You Have Access To A Gun?: Yes (husbands hunting guns ) Health Problems: Yes Mental Health Diagnoses: Yes Substance Use Disorders: No Previous Attempt: No Family History of Suicide: Yes (of attempts) Previous Psychiatric Hospitalization: No Protective Factors Assessment : Yes 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 Chief Complaint "I was frustrated with no silverware and it's cold." Review of Systems Sleep Information Total Hours of Sleep: 7 Sleep Comments: pt on q-15 minute checks Meal Information Percent Meal Consumed - Breakfast: 100 Percent Meal Consumed - Lunch: 0 Percent Meal Consumed - Dinner: 100 Subjective Subjective Patient was seen & assessed and interval progress reviewed with nursing and social work. Patient expresses that feels that safety measures following the gesture on the unit are no longer necessary. She spoke with her and got the response that she was hoping for. staff and myself have reviewed with patient how to frame this as in future would hope she would chose other methods to express her distress to . She would prefer Abilify at hs as notes some mild sedation, otherwise no side effects. Rates mood as 3/low but also requesting when she can leave. Physical Exam Psychiatric Orientation: alert Apperance: appropriately dressed and appropriately groomed Eye Contact: good eye contact Motor Behavior: no abnormal motor movements Speech: normal rate/rhythm/volume of speech Affect: + depressed affect Mood: + depressed mood Thought Process: goal directed thought process Thought Content: reality based without delusions Suicidal Thoughts: denies suicidal thoughts (though has chronic intermittent), denies suicidal plan and denies suicidal intent Homicidal Thoughts: denies homicidal thoughts Hallucinations: no auditory hallucinations and no visual hallucinations Cognition: attention grossly intact and language grossly intact Estimated Intelligence: consistent with education level Insight: + limited insight Judgement: + limited judgement Vital Signs (Past 24 Hours) Last Vital Signs Temp 36.5 C 08/03/22 06:00 Pulse 60 08/03/22 06:00 Resp 18 08/03/22 06:00 BP 126/80 08/03/22 06:31 Pulse Ox 97 08/03/22 06:00 O2 Del Method 08/03/22 06:00 Results & Data ([facility]) Laboratory Results Laboratory Results - last 24 hr 08/03/22 08:55 Fasting Glucose 89 Triglycerides 176 H Cholesterol 307 H LDL Cholesterol, Calc 201 VLDL Cholesterol, Calc 35 H HDL Cholesterol 71 Cholesterol/HDL Ratio 4.3 Current Inpatient Medications Current Inpatient Medications: Current Inpatient Medications Acetaminophen (Acetaminophen 325 Mg Tab) 650 mg PO Q4H PRN PRN Reason: Headache or Minor Fever Stop: 08/26/22 09:27 Acetaminophen/Butalbital/Caffeine (Butalbital/Acetamin/Caffeine Tab) 1 - 2 tab PO BID PRN PRN Reason: Migraine Headache Stop: 08/26/22 12:52 Last Admin: 08/02/22 11:44 Dose: 1 tab Al Hydrox/Mg Hydrox/Simethicone (Aluminum/Magnesium Susp 30 Ml Udc) 30 ml PO Q4H PRN PRN Reason: GI Upset Stop: 08/26/22 09:27 Aripiprazole (Aripiprazole 5 Mg Tab) 2.5 mg PO QAM [facility] Stop: 09/01/22 11:44 Last Admin: 08/03/22 09:39 Dose: 2.5 mg Aspirin (Aspirin 81 Mg Ectab) 162 mg PO DAILY [facility] Stop: 08/27/22 08:59 Last Admin: 08/03/22 09:39 Dose: 162 mg Bismuth Subsalicylate (Bismuth Subsalicylate Liqd 236 Ml) 15 ml PO PRN PRN PRN Reason: Loose Stool Stop: 08/26/22 09:27 Cyclobenzaprine HCl (Cyclobenzaprine Hcl 10 Mg Tab) 10 mg PO QPM PRN PRN Reason: MUSCLE SPASMS Stop: 08/26/22 12:52 Famotidine (Famotidine 20 Mg Tab) 20 mg PO BID [facility] Stop: 08/26/22 20:59 Last Admin: 08/03/22 09:41 Dose: 20 mg Hydroxyzine HCl (Hydroxyzine Hcl 25 Mg Tab) 50 mg PO HSZ PRN PRN Reason: Insomnia Stop: 08/26/22 09:27 Hydroxyzine HCl (Hydroxyzine Hcl 25 Mg Tab) 25 mg PO Q4H PRN PRN Reason: Anxiety Stop: 08/26/22 09:27 Last Admin: 08/01/22 08:53 Dose: 25 mg Lamotrigine (Lamotrigine 100 Mg Tab) 100 mg PO BID [facility] Stop: 08/26/22 20:59 Last Admin: 08/03/22 09:41 Dose: 100 mg Lamotrigine (Lamotrigine 25 Mg Tab) 50 mg PO BID [facility] Stop: 08/26/22 20:59 Last Admin: 08/03/22 09:41 Dose: 50 mg Magnesium Hydroxide (Magnesium Hydroxide Susp 30 Ml Udc) 30 ml PO DAILY PRN PRN Reason: Constipation Stop: 08/26/22 09:27 Multivitamins (Multivitamin Tab) 1 tab PO QAM [facility] Stop: 08/27/22 08:59 Last Admin: 08/03/22 09:39 Dose: 1 tab Polyethylene Glycol (Polyethylene (Miralax) 17 Gm Pack) 17 gm PO DAILY [facility] Stop: 08/27/22 08:59 Last Admin: 08/03/22 09:41 Dose: 17 gm Sodium Chloride (Sodium Chloride 0.65% Na Soln 45 Ml ([place])) 1 - 2 sprays NA PRN PRN PRN Reason: Nasal Dryness/Congestion Stop: 08/26/22 09:27 Topiramate (Topiramate 100 Mg Tab) 200 mg PO BID [facility] Stop: 08/26/22 20:59 Last Admin: 08/03/22 09:41 Dose: 200 mg Trazodone HCl (Trazodone Hcl 50 Mg Tab) 150 mg PO HS PRN PRN Reason: Sleep Stop: 08/26/22 12:52 Verapamil HCl (Verapamil Hcl 240 Mg Tabcr) 240 mg PO DAILY [facility] Stop: 08/27/22 08:59 Last Admin: 08/03/22 09:39 Dose: 240 mg Mental Health & Subst Abuse Tx Therapist Name of Therapist: Nelly Lopez- on waiting list Therapist's Therapy Appointment Comment: email for [email or web address] Retail Service Technician Name of Retail Service Technician: None Post Discharge Appointments Primary Care Physician Name Of Family Doctor/PCP: TOMY Toribio Primary [facility] Time of Appointment with PCP: 12:30 pm Provider Appointment Comment: [address] [place] [address] Contact Information Discharge /[phone] Discharge Address: [address] [place] [address]
[2022-08-03] MEDS ORDERED: ONDANSETRON 8MG OD TAB PO PRN ×2 (14:09→14:11)
[2022-08-03] MEDS: BUTALBITAL/ACETAMIN/CAFFEINE TAB PO PRN (14:11)
[2022-08-04] MEDS: VERAPAMIL HCL 240 MG TABCR PO SCH (09:34)
[2022-08-04] MEDS: lamoTRIgine 25 MG TAB PO SCH ×2 (09:34→21:19)
[2022-08-04] MEDS: FAMOTIDINE 20 MG TAB PO SCH ×2 (09:34→21:19)
[2022-08-04] MEDS: lamoTRIgine 100 MG TAB PO SCH ×2 (09:34→21:19)
[2022-08-04] MEDS: MULTIVITAMIN TAB PO SCH (09:34)
[2022-08-04] MEDS: TOPIRAMATE 100 MG TAB PO SCH ×2 (09:35→21:18)
[2022-08-04] MEDS: POLYETHYLENE (MIRALAX) 17 GM PACK PO SCH (09:35)
[2022-08-04] MEDS: ASPIRIN 81 MG ECTAB PO SCH (09:35)
[2022-08-04] MEDS: BUTALBITAL/ACETAMIN/CAFFEINE TAB PO PRN ×2 (14:08→21:18)
--- NOTE | 2022-08-04 16:36 | Psychiatric Progress Note ---
Date of Service August 04, 2022 Impression / Recommendations Impression Kristin Gray is a 67 year old with a history of depression and anxiety who was admitted for worsening depression and SI with plans. Diagnostically consistent with MDD with anxious distress and KIMBERLYN and possibility of contribution from dealing with chronic migraines. The patient is deemed unstable and requires psychiatric hospitalization for diagnostic clarification, safety and stabilization, medication management and development of further coping skills. 08/04/2022: Reviewed interim progress per Dr. Talamantes. Had self-harm versus suicide attempt prior to family meeting, unclear if this represented attention seeking behavior in effort to get increased family support/attention versus anxiety- driven versus poor coping skills versus 2/2 hopelessness. Encouragingly since family meeting has been showing some progress with improving mood and lessening of SI but still with limited insight about recent attempt. Tolerating abilify. Reviewed fasting lipid panel which was notable for elevated triglycerides, cholesterol and LDL. Discussed importance of discussing this with her primary care provider and that abilify can worsen this and need for ongoing monitoring and possibly additional medication which she understands and agrees to discuss with her PCP. Given ongoing improvement in mood and SI and after discussion at treatment team will plan to move back to normal blankets/bedding. 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 History of possible embolic stroke vs due to patent PFO with hx TIAs so would suspect statin therapy has been discussed in the past and highly encouraged. Plan 08/04/2022: Continue with current medications and tx plan. 08/03/2022: shift Abilify to hs. 08/02/2022: Risks/benefits/alternatives were reviewed re: antipsychotics for mood and/or psychosis. Discussion included but was not limited to metabolic side effects, risks of TD and suicidal thoughts. Fasting glucose and lipid panel ordered for baseline monitoring. She agreed to a trial of Abilify 2.5 mg daily starting today i place of Zoloft given severity of depression and gesture few days into Zoloft (though no other evidence of activation). Patient will be move to [facility] so closer to nurses station as transitions off of 1-on-1. Will allow aarti bed given medical comorbidities and still in safety mesures. 08/01/2022: family meeting, offered premedication, she is unable to discuss any additional med changes at this time, no objective restlessness/implusivity on exam, ie no evidence of activation. 07/31/2022: continue current medication and tx plan. 07/30/2022: Continue with current medications and tx plan. Needs family meeting once ready for this. 07/29/2022: Increase sertraline to 50mg qd. 07/28/2022: Start sertraline 25mg qd today. If well tolerated will titrate to 50mg tomorrow. 07/27/2022: The patient was admitted to the [facility] ([facility] mental health unit) on q15 min checks (behavioral with suicide precautions) for safety. The patient will participate in group, recreational, and milieu therapies and will be offered additional individual and family sessions as clinically appropriate. -trazodone 150mg qhs -she is going to consider starting escitalopram or sertraline Inventory Assets Strengths: supportive relationships, willing to get treatment, employed Needs: safety and stabilization, medication adjustment, additional coping skills, increased outpatient services Suicide Risk Level Suicide Risk Level: High-Moderate (q15 min suicide checks) (depression with SI with plan prior to admission and then attempt vs gesture on the unit during admission. Now reporting improving mood and denies SI and agrees to alert nursing if she feels unable to remain safe or develops SI with plan or intent. 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 Chief Complaint "I'm pretty good". Review of Systems Sleep Information Total Hours of Sleep: 7 Sleep Comments: pt on q-15 minute checks Meal Information Percent Meal Consumed - Breakfast: 90 Percent Meal Consumed - Lunch: 90 Percent Meal Consumed - Dinner: 70 Subjective Subjective Patient was seen & assessed and interval progress reviewed with treatment team nursing and social work. States her mood is improving, denies SI, however very limited ability to speak to why she attempted suicide versus self-harm a few days ago. Likes the abilify, denies any side effects from this. Has been talking to her . Still with intermittent migraines. Physical Exam Psychiatric Orientation: alert and oriented x 3 Apperance: appropriately dressed and appropriately groomed Eye Contact: good eye contact Motor Behavior: no abnormal motor movements Speech: normal rate/rhythm/volume of speech Affect: + constricted affect Mood: + depressed mood Thought Process: goal directed thought process Thought Content: reality based without delusions Suicidal Thoughts: denies suicidal thoughts (though has chronic intermittent), denies suicidal plan and denies suicidal intent Homicidal Thoughts: denies homicidal thoughts Hallucinations: no auditory hallucinations and no visual hallucinations Cognition: remote memory grossly intact, attention grossly intact and language grossly intact; + recent memory not intact Estimated Intelligence: consistent with education level Insight: + limited insight Judgement: + limited judgement Vital Signs (Past 24 Hours) Last Vital Signs Temp 36.8 C 08/04/22 06:34 Pulse 71 08/04/22 06:36 Resp 18 08/04/22 06:34 BP 130/73 08/04/22 06:36 Pulse Ox 97 08/03/22 06:00 O2 Del Method 08/03/22 06:00 Results & Data ([facility]) Current Inpatient Medications Current Inpatient Medications: Current Inpatient Medications Acetaminophen (Acetaminophen 325 Mg Tab) 650 mg PO Q4H PRN PRN Reason: Headache or Minor Fever Stop: 08/26/22 09:27 Last Admin: 08/03/22 12:43 Dose: 650 mg Acetaminophen/Butalbital/Caffeine (Butalbital/Acetamin/Caffeine Tab) 1 - 2 tab PO BID PRN PRN Reason: Migraine Headache Stop: 08/26/22 12:52 Last Admin: 08/04/22 14:08 Dose: 1 tab Al Hydrox/Mg Hydrox/Simethicone (Aluminum/Magnesium Susp 30 Ml Udc) 30 ml PO Q4H PRN PRN Reason: GI Upset Stop: 08/26/22 09:27 Aripiprazole (Aripiprazole 5 Mg Tab) 2.5 mg PO HS [facility] Stop: 09/03/22 21:59 Aspirin (Aspirin 81 Mg Ectab) 162 mg PO DAILY [facility] Stop: 08/27/22 08:59 Last Admin: 08/04/22 09:35 Dose: 162 mg Bismuth Subsalicylate (Bismuth Subsalicylate Liqd 236 Ml) 15 ml PO PRN PRN PRN Reason: Loose Stool Stop: 08/26/22 09:27 Cyclobenzaprine HCl (Cyclobenzaprine Hcl 10 Mg Tab) 10 mg PO QPM PRN PRN Reason: MUSCLE SPASMS Stop: 08/26/22 12:52 Famotidine (Famotidine 20 Mg Tab) 20 mg PO BID [facility] Stop: 08/26/22 20:59 Last Admin: 08/04/22 09:34 Dose: 20 mg Hydroxyzine HCl (Hydroxyzine Hcl 25 Mg Tab) 50 mg PO HSZ PRN PRN Reason: Insomnia Stop: 08/26/22 09:27 Hydroxyzine HCl (Hydroxyzine Hcl 25 Mg Tab) 25 mg PO Q4H PRN PRN Reason: Anxiety Stop: 08/26/22 09:27 Last Admin: 08/01/22 08:53 Dose: 25 mg Lamotrigine (Lamotrigine 100 Mg Tab) 100 mg PO BID [facility] Stop: 08/26/22 20:59 Last Admin: 08/04/22 09:34 Dose: 100 mg Lamotrigine (Lamotrigine 25 Mg Tab) 50 mg PO BID [facility] Stop: 08/26/22 20:59 Last Admin: 08/04/22 09:34 Dose: 50 mg Magnesium Hydroxide (Magnesium Hydroxide Susp 30 Ml Udc) 30 ml PO DAILY PRN PRN Reason: Constipation Stop: 08/26/22 09:27 Multivitamins (Multivitamin Tab) 1 tab PO QAM [facility] Stop: 08/27/22 08:59 Last Admin: 08/04/22 09:34 Dose: 1 tab Ondansetron HCl (Ondansetron 8mg Od Tab) 8 mg PO Q8H PRN PRN Reason: Nausea Stop: 09/02/22 14:08 Last Admin: 08/03/22 14:48 Dose: 8 mg Polyethylene Glycol (Polyethylene (Miralax) 17 Gm Pack) 17 gm PO DAILY [facility] Stop: 08/27/22 08:59 Last Admin: 08/04/22 09:35 Dose: 17 gm Sodium Chloride (Sodium Chloride 0.65% Na Soln 45 Ml ([place])) 1 - 2 sprays NA PRN PRN PRN Reason: Nasal Dryness/Congestion Stop: 08/26/22 09:27 Topiramate (Topiramate 100 Mg Tab) 200 mg PO BID [facility] Stop: 08/26/22 20:59 Last Admin: 08/04/22 09:35 Dose: 200 mg Trazodone HCl (Trazodone Hcl 50 Mg Tab) 150 mg PO HS PRN PRN Reason: Sleep Stop: 08/26/22 12:52 Verapamil HCl (Verapamil Hcl 240 Mg Tabcr) 240 mg PO DAILY [facility] Stop: 08/27/22 08:59 Last Admin: 08/04/22 09:34 Dose: 240 mg Mental Health & Subst Abuse Tx Psychiatrist [facility]rist's Time of Appointment with Psychiatrist: 10:15 AM Psychiatric Appointment Comment: [address] [facility], [place] Therapist Name of Therapist: Nelly Lopez- on waiting list Therapist's Therapy Appointment Comment: email for [email or web address] Assistant Name of Video Production Assistant: None Post Discharge Appointments Primary Care Physician Name Of Family Doctor/PCP: TOMY Toribio Primary Care Time of Appointment with PCP: 12:30 pm Provider Appointment Comment: [facility] [place] [address] [address] [address] Contact Information Discharge /[phone] Discharge Address: [address] [place] [address]
[2022-08-04] MEDS: ARIPiprazole 5 MG TAB PO SCH (21:20)
--- NOTE | 2022-08-05 09:19 | Psychiatric Progress Note ---
Date of Service August 05, 2022 Impression / Recommendations Impression Kristin Gray is a 67 year old with a history of depression and anxiety who was admitted for worsening depression and SI with plans. Diagnostically consistent with MDD with anxious distress and KIMBERLYN and possibility of contribution from dealing with chronic migraines. The patient is deemed unstable and requires psychiatric hospitalization for diagnostic clarification, safety and stabilization, medication management and development of further coping skills. 08/05/2022: Mood continues to slowly improve and better able to vocalize factors that lead to increased SI prior to family meeting. Suspect TBI may have co ntributed to impulsive attempt, no evidence of activation on abilify. Continue to monitor response to abilify. 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 History of possible embolic stroke vs due to patent PFO with hx TIAs so would suspect statin therapy has been discussed in the past and highly encouraged. Plan 08/05/22: Continue current medications and tx plan. Focusing on safety planning. 08/04/2022: Continue with current medications and tx plan. 08/03/2022: shift Abilify to hs. 08/02/2022: Risks/benefits/alternatives were reviewed re: antipsychotics for mood and/or psychosis. Discussion included but was not limited to metabolic side effects, risks of TD and suicidal thoughts. Fasting glucose and lipid panel ordered for baseline monitoring. She agreed to a trial of Abilify 2.5 mg daily starting today i place of Zoloft given severity of depression and gesture few days into Zoloft (though no other evidence of activation). Patient will be move to [facility] so closer to nurses station as transitions off of 1-on-1. Will allow aarti bed given medical comorbidities and still in safety mesures. 08/01/2022: family meeting, offered premedication, she is unable to discuss any additional med changes at this time, no objective restlessness/implusivity on exam, ie no evidence of activation. 07/31/2022: continue current medication and tx plan. 07/30/2022: Continue with current medications and tx plan. Needs family meeting once ready for this. 07/29/2022: Increase sertraline to 50mg qd. 07/28/2022: Start sertraline 25mg qd today. If well tolerated will titrate to 50mg tomorrow. 07/27/2022: The patient was admitted to the [facility] ([facility] mental [facility] unit) on q15 min checks (behavioral with suicide precautions) for safety. The patient will participate in group, recreational, and milieu therapies and will be offered additional individual and family sessions as clinically appropriate. -trazodone 150mg qhs -she is going to consider starting escitalopram or sertraline Inventory Assets Strengths: supportive relationships, willing to get treatment, employed Needs: safety and stabilization, medication adjustment, additional coping skills, increased outpatient services Suicide Risk Level Suicide Risk Level: High-Moderate (q15 min suicide checks) (depression with SI with plan prior to admission and then attempt vs gesture on the unit during admission. Now reporting improving mood and denies SI and agrees to alert nursing if she feels unable to remain safe or develops SI with plan or intent. 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 Chief Complaint "I'm pretty good". Review of Systems Sleep Information Total Hours of Sleep: 5.25 Sleep Comments: pt on q-15 minute checks Meal Information Percent Meal Consumed - Breakfast: 90 Percent Meal Consumed - Lunch: 90 Percent Meal Consumed - Dinner: 100 Subjective Subjective Patient was seen & assessed and interval progress reviewed with treatment team nursing and social work. Has been talking to her family and having good conversations with her . Today mood remains positive. Denies SI. Reviewed attempt on unit a few days ago. Kristin explains she "felt like I had to do something to get through to him" in terms of getting her to make any changes to their marriage. She feels her depression is due to years of things of building up including feeling targeted by peers when they changed to a new voodoo and her relying on her to make all the financial income for the family and run the household. She's felt burdened by all the responsibility and that he's been unwilling to help or support her. She felt overwhelmed by the family meeting with fears that he may not change or that his attitude toward her would not change. Now she feels that he understands "how serious this is" and is concerned about her health and wellbeing and says he's going to be more supportive. She feels if he doesn't stick to or make these changes then she'll move in with her older daughter. She's still unsure why she moved from having suicidal thoughts to acting on them but can vocalize that the family meeting really felt like a "make or break it" moment for her. Physical Exam Psychiatric Orientation: alert and oriented x 3 Apperance: appropriately dressed and appropriately groomed Eye Contact: good eye contact Motor Behavior: no abnormal motor movements Speech: normal rate/rhythm/volume of speech Affect: + constricted affect Mood: + depressed mood Thought Process: goal directed thought process Thought Content: reality based without delusions Suicidal Thoughts: denies suicidal thoughts (though has chronic intermittent), denies suicidal plan and denies suicidal intent Homicidal Thoughts: denies homicidal thoughts Hallucinations: no auditory hallucinations and no visual hallucinations Cognition: remote memory grossly intact, attention grossly intact and language grossly intact; + recent memory not intact Estimated Intelligence: consistent with education level Insight: + limited insight Judgement: + limited judgement Vital Signs (Past 24 Hours) Last Vital Signs Temp 36.9 C 08/05/22 06:49 Pulse 72 08/05/22 06:50 Resp 18 08/05/22 06:49 BP 145/68 H 08/05/22 06:50 Pulse Ox 97 08/03/22 06:00 O2 Del Method 08/03/22 06:00 Results & Data ([facility]) Current Inpatient Medications Current Inpatient Medications: Current Inpatient Medications Acetaminophen (Acetaminophen 325 Mg Tab) 650 mg PO Q4H PRN PRN Reason: Headache or Minor Fever Stop: 08/26/22 09:27 Last Admin: 08/03/22 12:43 Dose: 650 mg Acetaminophen/Butalbital/Caffeine (Butalbital/Acetamin/Caffeine Tab) 1 - 2 tab PO BID PRN PRN Reason: Migraine Headache Stop: 08/26/22 12:52 Last Admin: 08/04/22 21:18 Dose: 1 tab Al Hydrox/Mg Hydrox/Simethicone (Aluminum/Magnesium Susp 30 Ml Udc) 30 ml PO Q4H PRN PRN Reason: GI Upset Stop: 08/26/22 09:27 Aripiprazole (Aripiprazole 5 Mg Tab) 2.5 mg PO HS ARLEEN Stop: 09/03/22 21:59 Last Admin: 08/04/22 21:20 Dose: 2.5 mg Aspirin (Aspirin 81 Mg Ectab) 162 mg PO DAILY ARLEEN Stop: 08/27/22 08:59 Last Admin: 08/04/22 09:35 Dose: 162 mg Bismuth Subsalicylate (Bismuth Subsalicylate Liqd 236 Ml) 15 ml PO PRN PRN PRN Reason: Loose Stool Stop: 08/26/22 09:27 Cyclobenzaprine HCl (Cyclobenzaprine Hcl 10 Mg Tab) 10 mg PO QPM PRN PRN Reason: MUSCLE SPASMS Stop: 08/26/22 12:52 Famotidine (Famotidine 20 Mg Tab) 20 mg PO BID ARLEEN Stop: 08/26/22 20:59 Last Admin: 08/04/22 21:19 Dose: 20 mg Hydroxyzine HCl (Hydroxyzine Hcl 25 Mg Tab) 50 mg PO HSZ PRN PRN Reason: Insomnia Stop: 08/26/22 09:27 Hydroxyzine HCl (Hydroxyzine Hcl 25 Mg Tab) 25 mg PO Q4H PRN PRN Reason: Anxiety Stop: 08/26/22 09:27 Last Admin: 08/01/22 08:53 Dose: 25 mg Lamotrigine (Lamotrigine 100 Mg Tab) 100 mg PO BID ARLEEN Stop: 08/26/22 20:59 Last Admin: 08/04/22 21:19 Dose: 100 mg Lamotrigine (Lamotrigine 25 Mg Tab) 50 mg PO BID ARLE[place] Stop: 08/26/22 20:59 Last Admin: 08/04/22 21:19 Dose: 50 mg Magnesium Hydroxide (Magnesium Hydroxide Susp 30 Ml Udc) 30 ml PO DAILY PRN PRN Reason: Constipation Stop: 08/26/22 09:27 Multivitamins (Multivitamin Tab) 1 tab PO QAM ARLEEN Stop: 08/27/22 08:59 Last Admin: 08/04/22 09:34 Dose: 1 tab Ondansetron HCl (Ondansetron 8mg Od Tab) 8 mg PO Q8H PRN PRN Reason: Nausea Stop: 09/02/22 14:08 Last Admin: 08/03/22 14:48 Dose: 8 mg Polyethylene Glycol (Polyethylene (Miralax) 17 Gm Pack) 17 gm PO DAILY ARLEEN Stop: 08/27/22 08:59 Last Admin: 08/04/22 09:35 Dose: 17 gm Sodium Chloride (Sodium Chloride 0.65% Na Soln 45 Ml ([place])) 1 - 2 sprays NA PRN PRN PRN Reason: Nasal Dryness/Congestion Stop: 08/26/22 09:27 Topiramate (Topiramate 100 Mg Tab) 200 mg PO BID ARLEEN Stop: 08/26/22 20:59 Last Admin: 08/04/22 21:18 Dose: 200 mg Trazodone HCl (Trazodone Hcl 50 Mg Tab) 150 mg PO HS PRN PRN Reason: Sleep Stop: 08/26/22 12:52 Verapamil HCl (Verapamil Hcl 240 Mg Tabcr) 240 mg PO DAILY ARLEEN Stop: 08/27/22 08:59 Last Admin: 08/04/22 09:34 Dose: 240 mg Mental Health & Subst Abuse Tx Psychiatrist Name of Psychiatrist: [facility] Psychiatrist's Time of Appointment with Psychiatrist: 10:15 AM Psychiatric Appointment Comment: [address], [place] Therapist Name of Therapist: Nelly Lopez- on waiting list Therapist's Therapy Appointment Comment: email for [email or web address] Audio Specialist Name of Audio Specialist: None Post Discharge Appointments Primary Care Physician Name Of Family Doctor/PCP: TOMY Toribio [facility] Time of Appointment with PCP: 12:30 pm Provider Appointment Comment: [address] [place], [place] [address] [address] Contact Information Discharge /[phone] Discharge Address: [address] [place] [address]
[2022-08-05] MEDS: FAMOTIDINE 20 MG TAB PO SCH ×2 (09:25→20:56)
[2022-08-05] MEDS: lamoTRIgine 25 MG TAB PO SCH ×2 (09:25→20:55)
[2022-08-05] MEDS: ASPIRIN 81 MG ECTAB PO SCH (09:25)
[2022-08-05] MEDS: lamoTRIgine 100 MG TAB PO SCH ×2 (09:25→20:55)
[2022-08-05] MEDS: POLYETHYLENE (MIRALAX) 17 GM PACK PO SCH (09:26)
[2022-08-05] MEDS: VERAPAMIL HCL 240 MG TABCR PO SCH (09:26)
[2022-08-05] MEDS: TOPIRAMATE 100 MG TAB PO SCH ×2 (09:26→20:54)
[2022-08-05] MEDS: MULTIVITAMIN TAB PO SCH (09:26)
[2022-08-05] MEDS: ARIPiprazole 5 MG TAB PO SCH (20:53)
[2022-08-05] MEDS: hydrOXYzine HCl 25 MG TAB PO PRN (21:09)
--- NOTE | 2022-08-06 09:09 | Psychiatric Progress Note ---
Date of Service August 06, 2022 Impression / Recommendations Impression Kristin Gray is a 67 year old with a history of depression and anxiety who was admitted for worsening depression and SI with plans. Diagnostically consistent with MDD with anxious distress and KIMBERLYN and possibility of contribution from dealing with chronic migraines. The patient is deemed unstable and requires psychiatric hospitalization for diagnostic clarification, safety and stabilization, medication management and development of further coping skills. 08/06/2022: Mood continuing to improve and insight about family stressors impacting mood and suicidality improving. Denies SI today. Focusing on safety planning and anticipating potential future stressors which could be mitigated. Tolerating abilify well with improvement in anxiety. Liked Vistaril for sleep, will try this again tonight as it significantly improved her duration of sleep. (1) Major depression: (2) Suicidal ideation: (3) KIMBERLYN (generalized anxiety disorder): (4) Hyperlipidemia: Encouraged to discuss with her PCP and igniter capper. History of possible embolic stroke vs due to patent PFO with hx TIAs so would suspect statin therapy has been discussed in the past and highly encouraged. Plan 08/06/22: Continue current medications and tx plan. Will try Vistaril 50mg qhs prn again tonight for help with sleep. Ongoing safety planning focus. 08/05/22: Continue current medications and tx plan. Focusing on safety planning. 08/04/2022: Continue with current medications and tx plan. 08/03/2022: shift Abilify to hs. 08/02/2022: Risks/benefits/alternatives were reviewed re: antipsychotics for mood and/or psychosis. Discussion included but was not limited to metabolic side effects, risks of TD and suicidal thoughts. Fasting glucose and lipid panel ordered for baseline monitoring. She agreed to a trial of Abilify 2.5 mg daily starting today i place of Zoloft given severity of depression and gesture few days into Zoloft (though no other evidence of activation). Patient will be move to [facility] so closer to nurses station as transitions off of 1-on-1. Will allow aarti bed given medical comorbidities and still in safety mesures. 08/01/2022: family meeting, offered premedication, she is unable to discuss any additional med changes at this time, no objective restlessness/implusivity on exam, ie no evidence of activation. 07/31/2022: continue current medication and tx plan. 07/30/2022: Continue with current medications and tx plan. Needs family meeting once ready for this. 07/29/2022: Increase sertraline to 50mg qd. 07/28/2022: Start sertraline 25mg qd today. If well tolerated will titrate to 50mg tomorrow. 07/27/2022: The patient was admitted to the [facility] ([facility] health unit) on q15 min checks (behavioral with suicide precautions) for safety. The patient will participate in group, recreational, and milieu therapies and will be offered additional individual and family sessions as clinically appropriate. -trazodone 150mg qhs -she is going to consider starting escitalopram or sertraline Inventory Assets Strengths: supportive relationships, willing to get treatment, employed Needs: safety and stabilization, medication adjustment, additional coping skills, increased outpatient services Suicide Risk Level Suicide Risk Level: Moderate (q15 min suicide checks) (depression with SI with plan prior to admission and then attempt vs gesture on the unit during admission but improving mood and denies SI and agrees to alert nursing if she feels unable to remain safe or develops SI with plan or intent. 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 Chief Complaint "I'm pretty good". Review of Systems Sleep Information Total Hours of Sleep: 7.75 Sleep Comments: pt on q-15 minute checks Meal Information Percent Meal Consumed - Breakfast: 100 Percent Meal Consumed - Lunch: 100 Percent Meal Consumed - Dinner: 60 Subjective Subjective Patient was seen & assessed and interval progress reviewed with treatment team nursing and social work. Attending groups and interacting with peers. Had Vistaril last night to help with sleep and slept well overnight. She's interested in trying this again tonight. Denies SI. No side effects from abilify. Continuing to process potential stressors once she returns home as family acceptance and conflict was primary driving factor of suicide attempt on the unit. She's continuing to have good conversations with her . Plans to reach out to her daughter today. Physical Exam Psychiatric Orientation: alert and oriented x 3 Apperance: appropriately dressed and appropriately groomed Eye Contact: good eye contact Motor Behavior: no abnormal motor movements Speech: normal rate/rhythm/volume of speech Affect: + constricted affect Mood: + depressed mood Thought Process: goal directed thought process Thought Content: reality based without delusions Suicidal Thoughts: denies suicidal thoughts, denies suicidal plan and denies suicidal intent Homicidal Thoughts: denies homicidal thoughts Hallucinations: no auditory hallucinations and no visual hallucinations Cognition: recent memory grossly intact, remote memory grossly intact, attention grossly intact and language grossly intact Estimated Intelligence: consistent with education level Insight: + limited insight Judgement: + limited judgement Vital Signs (Past 24 Hours) Last Vital Signs Temp 36.6 C 08/06/22 06:40 Pulse 71 08/06/22 06:42 Resp 18 08/06/22 06:40 BP 111/73 08/06/22 06:42 Pulse Ox 97 08/03/22 06:00 O2 Del Method 08/03/22 06:00 Results & Data ([facility]) Current Inpatient Medications Current Inpatient Medications: Current Inpatient Medications Acetaminophen (Acetaminophen 325 Mg Tab) 650 mg PO Q4H PRN PRN Reason: Headache or Minor Fever Stop: 08/26/22 09:27 Last Admin: 08/03/22 12:43 Dose: 650 mg Acetaminophen/Butalbital/Caffeine (Butalbital/Acetamin/Caffeine Tab) 1 - 2 tab PO BID PRN PRN Reason: Migraine Headache Stop: 08/26/22 12:52 Last Admin: 08/04/22 21:18 Dose: 1 tab Al Hydrox/Mg Hydrox/Simethicone (Aluminum/Magnesium Susp 30 Ml Udc) 30 ml PO Q4H PRN PRN Reason: GI Upset Stop: 08/26/22 09:27 Aripiprazole (Aripiprazole 5 Mg Tab) 2.5 mg PO HS ARLEEN Stop: 09/03/22 21:59 Last Admin: 08/05/22 20:53 Dose: 2.5 mg Aspirin (Aspirin 81 Mg Ectab) 162 mg PO DAILY [facility] Stop: 08/27/22 08:59 Last Admin: 08/05/22 09:25 Dose: 162 mg Bismuth Subsalicylate (Bismuth Subsalicylate Liqd 236 Ml) 15 ml PO PRN PRN PRN Reason: Loose Stool Stop: 08/26/22 09:27 Cyclobenzaprine HCl (Cyclobenzaprine Hcl 10 Mg Tab) 10 mg PO QPM PRN PRN Reason: MUSCLE SPASMS Stop: 08/26/22 12:52 Famotidine (Famotidine 20 Mg Tab) 20 mg PO BID [facility] Stop: 08/26/22 20:59 Last Admin: 08/05/22 20:56 Dose: 20 mg Hydroxyzine HCl (Hydroxyzine Hcl 25 Mg Tab) 50 mg PO HSZ PRN PRN Reason: Insomnia Stop: 08/26/22 09:27 Last Admin: 08/05/22 21:09 Dose: 50 mg Hydroxyzine HCl (Hydroxyzine Hcl 25 Mg Tab) 25 mg PO Q4H PRN PRN Reason: Anxiety Stop: 08/26/22 09:27 Last Admin: 08/01/22 08:53 Dose: 25 mg Lamotrigine (Lamotrigine 100 Mg Tab) 100 mg PO BID [facility] Stop: 08/26/22 20:59 Last Admin: 08/05/22 20:55 Dose: 100 mg Lamotrigine (Lamotrigine 25 Mg Tab) 50 mg PO BID [facility] Stop: 08/26/22 20:59 Last Admin: 08/05/22 20:55 Dose: 50 mg Magnesium Hydroxide (Magnesium Hydroxide Susp 30 Ml Udc) 30 ml PO DAILY PRN PRN Reason: Constipation Stop: 08/26/22 09:27 Multivitamins (Multivitamin Tab) 1 tab PO QAM [facility] Stop: 08/27/22 08:59 Last Admin: 08/05/22 09:26 Dose: 1 tab Ondansetron HCl (Ondansetron 8mg Od Tab) 8 mg PO Q8H PRN PRN Reason: Nausea Stop: 09/02/22 14:08 Last Admin: 08/03/22 14:48 Dose: 8 mg Polyethylene Glycol (Polyethylene (Miralax) 17 Gm Pack) 17 gm PO DAILY ARLEEN Stop: 08/27/22 08:59 Last Admin: 08/05/22 09:26 Dose: 17 gm Sodium Chloride (Sodium Chloride 0.65% Na Soln 45 Ml ([place])) 1 - 2 sprays NA PRN PRN PRN Reason: Nasal Dryness/Congestion Stop: 08/26/22 09:27 Topiramate (Topiramate 100 Mg Tab) 200 mg PO BID ARLEEN Stop: 08/26/22 20:59 Last Admin: 08/05/22 20:54 Dose: 200 mg Trazodone HCl (Trazodone Hcl 50 Mg Tab) 150 mg PO HS PRN PRN Reason: Sleep Stop: 08/26/22 12:52 Verapamil HCl (Verapamil Hcl 240 Mg Tabcr) 240 mg PO DAILY ARLEEN Stop: 08/27/22 08:59 Last Admin: 08/05/22 09:26 Dose: 240 mg Mental Health & Subst Abuse Tx Psychiatrist Name of Psychiatrist: [facility]iel [facility] Psychiatrist's Time of Appointment with Psychiatrist: 10:15 AM Psychiatric Appointment Comment: [address] [facility], [place] Therapist Name of Therapist: Nelly Lopez- on waiting list Therapist's Therapy Appointment Comment: email for [email or web address] Mess Attendant Crew Name of Mess Attendant Crew: None Post Discharge Appointments Primary Care Physician Name Of Family Doctor/PCP: TOMY Toribio Primary Care Time of Appointment with PCP: 12:30 pm Provider Appointment Comment: [facility] [place] [address] Contact Information Discharge /[phone] Discharge Address: [address] [place] [address]
[2022-08-06] MEDS: TOPIRAMATE 100 MG TAB PO SCH ×2 (09:33→22:36)
[2022-08-06] MEDS: VERAPAMIL HCL 240 MG TABCR PO SCH (09:33)
[2022-08-06] MEDS: MULTIVITAMIN TAB PO SCH (09:34)
[2022-08-06] MEDS: lamoTRIgine 100 MG TAB PO SCH ×2 (09:34→22:39)
[2022-08-06] MEDS: POLYETHYLENE (MIRALAX) 17 GM PACK PO SCH (09:34)
[2022-08-06] MEDS: lamoTRIgine 25 MG TAB PO SCH ×2 (09:34→22:36)
[2022-08-06] MEDS: FAMOTIDINE 20 MG TAB PO SCH ×2 (09:34→22:35)
[2022-08-06] MEDS: ASPIRIN 81 MG ECTAB PO SCH (09:34)
[2022-08-06] MEDS: ARIPiprazole 5 MG TAB PO SCH (22:37)
[2022-08-06] MEDS: hydrOXYzine HCl 25 MG TAB PO PRN (22:43)
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
[2022-08-07] MEDS: MULTIVITAMIN TAB PO SCH (08:53)
[2022-08-07] MEDS: lamoTRIgine 25 MG TAB PO SCH (08:54)
[2022-08-07] MEDS: TOPIRAMATE 100 MG TAB PO SCH (08:54)
[2022-08-07] MEDS: FAMOTIDINE 20 MG TAB PO SCH (08:54)
[2022-08-07] MEDS: POLYETHYLENE (MIRALAX) 17 GM PACK PO SCH (08:54)
[2022-08-07] MEDS: lamoTRIgine 100 MG TAB PO SCH (08:54)
[2022-08-07] MEDS: VERAPAMIL HCL 240 MG TABCR PO SCH (08:54)
[2022-08-07] MEDS: ASPIRIN 81 MG ECTAB PO SCH (08:54)
== END 2022-08-07 09:32 | disposition home or self-care (01) | DRG 881 ==
LOC: ED 23:12 → 3S 07-27 09:23 → SUATTDRO 07-27 09:29 → 3S 07-27 09:29

== ENCOUNTER 2023-12-21 20:28 | Observation (INO) ==
--- NOTE | 2023-12-21 20:48 | Emergency Department Note ---
Impression & Plan HTN (hypertension), Headache, Shortness of breath ED Provider Note NAME: ENA GRAY AGE: 68 SEX: F : 1955 ARRIVES VIA: Walk-In INFORMANT: Patient ED PROVIDER(S): Gideon Ho DO CHIEF COMPLAINT: Lightheaded HPI: Patient is a 68-year-old female who presents the ER for feeling lightheaded for the past week off and on. She notes that it started when she started taking baclofen. This Sunday she started with a headache and notes that she gets intermittent lightheadedness. She denies any change in vision or loss of vision. Does have shortness of breath and swelling in the legs. Shortness of breath is worse with exertion. It resolves with rest. She denies any cough or congestion. No chest pain. No belly pain, nausea, vomiting, or diarrhea. No dysuria, urgency, or frequency. No other exacerbating or remitting factors. ADDITIONAL HISTORY OBTAINED: Per HPI Chronic Medical/Social Conditions Affecting Care: Per HPI PAST MEDICAL HISTORY:See Below PAST SURGICAL HISTORY:See Below FAMILY HISTORY:See Below SOCIAL HISTORY:See Below HOME MEDICATIONS:See Below ALLERGIES:See Below VITALS:See Below PHYSICAL EXAMINATION: GENERAL: Sitting up in bed, alert, well appearing, well nourished, no distress, non-toxic EYE EXAM: normal conjunctiva. PERRL and EOM's intact. OROPHARYNX: no exudate, no erythema, lips, buccal mucosa, and tongue normal and mucous membranes are moist NECK: supple, no nuchal rigidity, no adenopathy, non-tender LUNGS: Clear to auscultation. Normal chest wall mechanics HEART: no murmurs, S1 normal and S2 normal ABDOMEN: abdomen soft, non-tender, normo-active bowel sounds, no masses, no rebound or guarding. BACK: Back is symmetrical on inspection and there is no deformity, no midline tenderness, no CVA tenderness. SKIN: no rashes and no bruising UPPER EXTREMITIES: upper extremities are grossly normal. LOWER EXTREMITIES: Pitting edema in the lower extremities. NEURO EXAM: Normal sensorium, cranial nerves II-XII grossly intact, normal speech, no gross weakness of arms, no gross weakness of legs. No drift. Finger to nose intact. Gross sensation intact. MEDICAL DECISION MAKING: Patient is a 68-year-old female who presents the ER for the above-stated complaint. IV was established blood work was obtained. Labs show mild leukopenia 4.3 thousand. No significant anemia. BMP along with LFTs bilirubin lipase was unremarkable. Troponin was negative. She was neurologically intact. CT angios of the head and neck were negative. She does have new pitting edema in the lower extremities associate with shortness of breath and systolic pressures in the 200s. She was given IV labetalol. Systolics trend down to 160s. She was updated bedside. Discussed case with the hospitalist for further evaluation management treatment. Consults/Care Managements Discussions: Per [facility] Triage Nursing notes reviewed. Limited review of prior medical records performed Vital Signs: reviewed and remarkable for HTN Differential diagnosis: Cardiac ischemia, aortic dissection, pulmonary embolism, pneumothorax, pneumonia, pericarditis, myocarditis, esophageal rupture, GERD, cholecystitis, pancreatitis, musculoskeletal, as well as other pathologies. ER treatment provided: See below Diagnostics interpreted by me include EKG and cardiac monitoring as listed below: -Cardiac Monitoring: An order was placed for continuous cardiac monitoring. The monitor shows a rate of 70 with sinus rhythm. -ECG: Sinus rhythm rate 71 Normal axis No PVCs QTc 439 -Laboratory studies:Interpreted by me as stated above in MDM and shown below. Imaging studies: Xrays: As interpreted by me: Portable AP upright 1 view of the chest shows no focal infiltrate CTs show: CT angios of the head and neck were negative Procedures:none Critical Care: None Past Med/Surg History Problem List (Updated 12/21/23 @ 23:29 by Gideon Ho DO) Shortness of breath (Acute) Headache (Acute) HTN (hypertension) (Acute) Urinary incontinence Weight gain Encounter for screening and preventative care Muscle pain Dyslipidemia Encounter for wellness examination in adult Migraine (Acute) Suicidal ideation (Acute) Syncope (Acute) KIMBERLYN (generalized anxiety disorder) Major depression Antiplatelet or antithrombotic long-term use Old cerebellar infarct without late effect Vasovagal syncope Seizure-like activity Ingrown toenail of both feet Cervicogenic headache Encounter for examination following treatment at hospital UTI (urinary tract infection) Hx of atypical migraine Hyperventilation (Acute) Visual disturbance (Acute) Near syncope (Acute) Headache (Acute) Acute confusion (Acute) COVID-19 (Acute) Onychomycosis of great toe Memory impairment (Acute) Hair loss (Acute) Fatigue (Acute) Dry skin (Acute) DVT prophylaxis H/O stroke without residual deficits Complicated migraine (Acute) History of cerebellar stroke GERD (gastroesophageal reflux disease) Altered mental state (Acute) Transient ischemic attack (TIA) (Acute) Cerebral aneurysm without rupture Cerebral infarct (Acute) Common migraine without aura (Acute) Hyperlipidemia (Acute) Migraine headache (Chronic) Palpitations (Acute) Unruptured cerebral aneurysm (Acute) Symptomatic anemia Left radial head fracture (Acute) Anemia (Acute) Headache (Acute) Vitamin D deficiency Medical History Lacunar infarction Surgical History History of sinus surgery History of hemorrhoidectomy Status post tubal ligation S/P tonsillectomy S/P hernia repair S/P hysterectomy Family History Mother Diabetes Stroke Hypertension Heart disease Brother Cancer Systemic lupus erythematosus Father Myocardial infarction Social History Smoking Status: Never smoker Age Quit Using Tobacco: 27; Second Hand Exposure: No; Do You Dip or Chew Tobacco: No; Hx Alcohol Use: No Hx Substance Use: No Preferred Language: Divehi Communication Ability: Effective Visual Impairment: Limited Hearing Ability: Normal Manager System Required: No Beliefs That Will Affect Care: None marital status: Current Living Situation: Spouse current occupational status: retired 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 How many Children do You have: 4 Feels Safe at Home: Yes Childhood Exposure to Second-Hand Smoke: Yes Diet: regular caffeine: Yes (coffee) during the past year weight has: remained stable Dental Care, Regularly: Yes Physical Activity Frequency: Does not Exercise Seatbelt Use: always Sunscreen Use: No Assistive Devices: Glasses Allergies Allergies Allergy/AdvReac Type Severity Reaction Status Date / Time nickel Allergy Intermediate RASH Verified 12/12/23 11:18 Penicillins Allergy Intermediate HIVES A Verified 12/12/23 11:18 CHILD Sulfa (Sulfonamide Allergy Intermediate Hives Verified 12/12/23 11:18 Antibiotics) Home Meds Home Medications Medication Instructions Recorded Confirmed multivitamin (Multiple Vitamins 1 tab PO DAILY 03/12/19 12/12/23 tablet) omega-3 acid ethyl esters 1 gram 2 cap PO DAILY 03/12/19 12/12/23 capsule polyethylene glycol 3350 17 17 g PO DAILY 03/12/19 12/12/23 gram/dose oral powder aspirin 81 mg tablet,delayed 162 mg PO DAILY 08/14/21 12/12/23 release (Joey Low Dose Aspirin) cyclosporine 0.1 %-chondroitin 1 drp ophthalmic (eye) Q12H 08/07/22 12/12/23 sulfate A sodium 0.25 % eye drops cholecalciferol (vitamin D3) 25 25 mcg PO DAILY 04/17/23 12/12/23 mcg (1,000 unit) capsule Previous Rx's Medication Instructions Recorded verapamil 240 mg 24 hr 240 mg PO DAILY #30 caps 04/17/23 capsule,extended release atorvastatin 10 mg tablet 10 mg PO DAILY #90 tabs 07/16/23 [id number]-[id number] 1 tab PO DAILY PRN headache #10 09/21/23 50 mg-325 mg-40 mg tablet tabs famotidine 20 mg tablet (Pepcid) 20 mg PO BID #60 tabs 10/24/23 trazodone 50 mg tablet 50 - 100 mg (1 - 2 x 50 mg) PO HS 12/17/23 PRN Sleep #90 tabs cyclobenzaprine 10 mg tablet 10 mg PO BID PRN MUSCLE SPASMS #60 12/20/23 tabs Results & Data (ED) Vital Signs Vital Signs - 24 hr 12/21/23 20:28 12/21/23 20:31 12/21/23 20:37 Temperature 36.0 C L Temperature Source Temporal Artery Scan Pulse Rate 78 Pulse Rate [Apical] 69 Pulse Rate from SpO2 Sensor Pulse Rhythm [Apical] Regular Pulse Strength [Apical] Normal Respiratory Rate 16 19 Respiratory Effort / Characteristics Non-Labored Non-Labored Spontaneous Respiratory Depth Normal Normal Respiratory Pattern Regular Regular Blood Pressure 215/111 H Blood Pressure [Right Arm] 173/93 H Blood Pressure Mean 145 Blood Pressure Mean [Right Arm] 119 Pulse Oximetry 98 96 98 Oxygen Delivery Method Room Air Room Air Room Air Sepsis Recent Fever Within 48 Hours No Sepsis New/Unexplained Change in Mental Status N/A Sepsis Action Taken by Nursing No Action Required 12/21/23 21:41 12/21/23 21:41 12/21/23 21:50 Temperature Temperature Source Pulse Rate 63 64 63 Pulse Rate [Apical] Pulse Rate from SpO2 Sensor 63 63 Pulse Rhythm [Apical] Pulse Strength [Apical] Respiratory Rate 20 19 Respiratory Effort / Characteristics Respiratory Depth Respiratory Pattern Blood Pressure Blood Pressure [Right Arm] Blood Pressure Mean Blood Pressure Mean [Right Arm] Pulse Oximetry 98 99 Oxygen Delivery Method Sepsis Recent Fever Within 48 Hours Sepsis New/Unexplained Change in Mental Status Sepsis Action Taken by Nursing 12/21/23 22:00 12/21/23 22:01 12/21/23 22:01 Temperature Temperature Source Pulse Rate 70 64 Pulse Rate [Apical] Pulse Rate from SpO2 Sensor 71 66 Pulse Rhythm [Apical] Pulse Strength [Apical] Respiratory Rate 26 H 14 Respiratory Effort / Characteristics Respiratory Depth Respiratory Pattern Blood Pressure 173/107 H Blood Pressure [Right Arm] Blood Pressure Mean 138 Blood Pressure Mean [Right Arm] Pulse Oximetry 92 95 Oxygen Delivery Method Sepsis Recent Fever Within 48 Hours Sepsis New/Unexplained Change in Mental Status Sepsis Action Taken by Nursing 12/21/23 22:35 12/21/23 22:35 12/21/23 22:40 Temperature Temperature Source Pulse Rate 70 71 Pulse Rate [Apical] Pulse Rate from SpO2 Sensor 70 70 Pulse Rhythm [Apical] Pulse Strength [Apical] Respiratory Rate 19 21 Respiratory Effort / Characteristics Respiratory Depth Respiratory Pattern Blood Pressure 190/92 H Blood Pressure [Right Arm] Blood Pressure Mean 131 Blood Pressure Mean [Right Arm] Pulse Oximetry 98 97 Oxygen Delivery Method Sepsis Recent Fever Within 48 Hours Sepsis New/Unexplained Change in Mental Status Sepsis Action Taken by Nursing 12/21/23 22:50 12/21/23 23:00 12/21/23 23:00 Temperature Temperature Source Pulse Rate 72 69 Pulse Rate [Apical] Pulse Rate from SpO2 Sensor 71 68 Pulse Rhythm [Apical] Pulse Strength [Apical] Respiratory Rate 19 14 Respiratory Effort / Characteristics Respiratory Depth Respiratory Pattern Blood Pressure 167/84 H Blood Pressure [Right Arm] Blood Pressure Mean 125 Blood Pressure Mean [Right Arm] Pulse Oximetry 96 97 Oxygen Delivery Method Sepsis Recent Fever Within 48 Hours Sepsis New/Unexplained Change in Mental Status Sepsis Action Taken by Nursing 12/21/23 23:10 Temperature Temperature Source Pulse Rate 70 Pulse Rate [Apical] Pulse Rate from SpO2 Sensor 70 Pulse Rhythm [Apical] Pulse Strength [Apical] Respiratory Rate 30 H Respiratory Effort / Characteristics Respiratory Depth Respiratory Pattern Blood Pressure Blood Pressure [Right Arm] Blood Pressure Mean Blood Pressure Mean [Right Arm] Pulse Oximetry 98 Oxygen Delivery Method Sepsis Recent Fever Within 48 Hours Sepsis New/Unexplained Change in Mental Status Sepsis Action Taken by Nursing Laboratory Data 12/21/23 21:12/21/23 21: Lab Results 12/21/23 12/21/23 Range/Units 21:25 21:28 WBC 4.30 L (4.8-10.8) K/ul RBC 3.77 L (4.20-5.40) M/uL Hgb 12.3 (12.0-16.0) g/dl POC Hgb 12.2 (12.0-16.0) g/dl Hct 36.0 L (37.0-47.0) % POC Hct 36 L (37-47) % MCV 95.5 (80.0-100.0) fL MCH 32.6 (25.0-34.0) pg MCHC 34.2 (32.0-36.0) g/dL RDW Std Deviation 45.9 (36.4-46.3) fL RDW Coeff of Lopez 13.2 (11.5-14.5) % Plt Count 189 (130-400) K/uL MPV 10.3 (9.4-12.4) fL Immature Gran % (Auto) 0.2 % Neut % (Auto) 40.7 % Lymph % (Auto) 49.8 % [place] % (Auto) 7.2 % Eos % (Auto) 1.4 % Baso % (Auto) 0.7 % Neut # (Auto) 1.75 (1.40-6.50) K/uL Lymph # (Auto) 2.14 (1.20-3.40) K/uL [place] # (Auto) 0.31 (0.11-0.59) K/uL Eos # (Auto) 0.06 (0.00-0.50) K/uL Baso # (Auto) 0.03 (0.00-0.20) K/uL Immature Gran # (Auto) 0.01 (0.01-0.20) K/uL POC Sodium 140 (135-144) mmol/L Sodium 140 (136-145) mmol/L POC Potassium 4.2 (3.3-5.0) mmol/L Potassium 4.4 (3.5-5.1) mmol/L POC Chloride 106 (101-112) mmol/L Chloride 107 (98-107) mmol/L Carbon Dioxide 27 (21-32) mmol/L POC Total CO2 25 (24-31) mmol/L Anion Gap 6 (3-11) POC Anion Gap 14.0 L (16-25) mmol/L POC BUN 16 (7-18) mg/dl BUN 16 (6-23) mg/dl Creatinine 0.84 (0.6-1.2) mg/dl POC Creatinine 0.8 (0.6-1.3) mg/dl Est Cr Clr Drug Dosing 64.2 ml/min Est GFR ( Amer) 83.9 ml/min Est GFR (Non-Af Amer) 72.4 ml/min BUN/Creatinine Ratio 19.0 (10-20) Glucose 104 H (70-99(Fasting)) mg/dl POC Glucose (other) 103 H (70-99) mg/dl Calcium 9.6 (8.6-10.3) mg/dl POC Ioniz Calcium Vicente 1.23 (1.12-1.32) mmol/l Total Bilirubin 0.3 (0.2-1.0) mg/dl AST 21 (13-39) U/L ALT 18 (7-52) U/L Alkaline Phosphatase 83 (34-104) U/L Troponin I High Sens 3.4 (0-14) pg/ml Total Protein 7.3 (6.0-8.3) gm/dl Albumin 4.2 (3.4-5.0) gm/dl Globulin 3.1 (2.5-4.0) gm/dl Albumin/Globulin Ratio 1.4 (0.9-2) Lipase 26 (11-82) U/L Administered Medications Discontinued Medications Sodium Chloride (Nss) 1,000 mls @ 999 mls/hr IV .Q1H1M ONE Stop: 12/21/23 21:44 Last Infusion: 12/21/23 23:11 Dose: Infused Documented By: Admin: 12/21/23 21:38 Dose: 999 mls/hr Documented By: KG Ioversol (Optiray 320 125ml) 119 ml IV ONCE ONE Stop: 12/21/23 22:15 Last Admin: 12/21/23 22:14 Dose: 119 ml Documented By: WILL Labetalol HCl (Labetalol Hcl Iv 5 Mg/Ml 20ml) 10 mg IV NOW STA Stop: 12/21/23 22:43 Last Admin: 12/21/23 23:15 Dose: 10 mg Documented By: KG Co-signed By: MALLORY Imaging Data Radiologist's Impression: Head CTA 12/21/23 20:44 Exam(s): CTA HEAD W/WO Contrast IV Amt: 119ML OPTIRAY 320 EXAM: CT Angiography Head Without and With Intravenous Contrast CLINICAL HISTORY: Reason for exam: dizzy. TECHNIQUE: Axial computed tomographic angiography images of the head without and with intravenous contrast. CTDI is 37.01 mGy and DLP is 1006.72 mGy-cm. Automated exposure control was utilized for the study. A dose lowering technique was utilized adhering to the principles of ALARA. MIP reconstructed images were created and reviewed. CONTRAST: Patient received 119ML OPTIRAY 320 of IV contrast COMPARISON: January 08, 2022 FINDINGS: VASCULATURE: Right internal carotid artery: No acute findings. Intracranial segment is patent with no significant stenosis. No aneurysm. Right anterior cerebral artery: Normally anatomic variant of hypoplasia of the right A1 segment. The anterior cerebral arteries fill from the left side. No occlusion or significant stenosis. No aneurysm. Right middle cerebral artery: Unremarkable. No occlusion or significant stenosis. No aneurysm. Right posterior cerebral artery: See below. Right vertebral artery: Unremarkable as visualized. Left internal carotid artery: No acute findings. Intracranial segment is patent with no significant stenosis. No aneurysm. Left anterior cerebral artery: Unremarkable. No occlusion or significant stenosis. No aneurysm. Left middle cerebral artery: Unremarkable. No occlusion or significant stenosis. No aneurysm. Left posterior cerebral artery: See below. Left vertebral artery: Unremarkable as visualized. Basilar artery: The basilar artery is small due to normal anatomic variant of origin of the posterior cerebral artery from the anterior circulation. No occlusion or significant stenosis. No aneurysm. HEAD: Brain: No acute findings. No hemorrhage. No edema. Normal enhancement. Ventricles: Unremarkable. No ventriculomegaly. Bones/joints: No acute fracture. Soft tissues: Unremarkable. Sinuses: Unremarkable as visualized. No acute sinusitis. Mastoid air cells: Unremarkable as visualized. No mastoid effusion. IMPRESSION: The arterial structures of the brain are within normal limits as described above. No aneurysm, vascular malformation, or large vessel occlusion is identified. Unremarkable appearance of the brain. No intracranial hemorrhage or infarct is identified. Electronically signed by: Jay Jay Ricks MD 12/21/23 22:53 PM Neck CTA 12/21/23 20:44 Exam(s): CTA NECK With Contrast IV Amt: 119 ml opti 320 EXAM: CT Angiography Neck With Intravenous Contrast CLINICAL HISTORY: Reason for exam: dizzy. TECHNIQUE: Routine carotid CT angiography protocol was performed with intravenous contrast. NASCET criteria using the distal ICAs for comparison were used for evaluation of stenoses. CTDI is 37.01 mGy and DLP is 1006.72 mGy-cm. Automated exposure control was utilized for the study. A dose lowering technique was utilized adhering to the principles of ALARA. MIP reconstructed images were created and reviewed. CONTRAST: Patient received 119 ml opti 320 of IV contrast COMPARISON: None. FINDINGS: VASCULATURE: Right common carotid artery: Unremarkable. No occlusion or significant stenosis. No dissection. Right internal carotid artery: Unremarkable. Extracranial segment is patent with no occlusion or significant stenosis. No dissection. Right external carotid artery: Unremarkable. No occlusion. Right vertebral artery: The right vertebral artery is congenitally small but patent. No occlusion or significant stenosis. No dissection. Left common carotid artery: The proximal left common carotid artery is mildly tortuous but widely patent. No occlusion or significant stenosis. No dissection. Left internal carotid artery: Unremarkable. Extracranial segment is patent with no occlusion or significant stenosis. No dissection. Left external carotid artery: Unremarkable. No occlusion. Left vertebral artery: Unremarkable. No occlusion or significant stenosis. No dissection. NECK: Bones/joints: Mild degenerative changes in the cervical spine. No acute fracture or subluxation is seen. Soft tissues: Unremarkable. Lung apices: Clear. CAROTID STENOSIS REFERENCE USING NASCET CRITERIA: % ICA stenosis = (1 - narrowest ICA diameter/diameter of distal cervical ICA) x 100. Mild - <50% stenosis. Moderate - 50-69% stenosis. Severe - 70-94% stenosis. Near occlusion - 95-99% stenosis. Occluded - 100% stenosis. IMPRESSION: No acute findings in the arteries of the neck. Electronically signed by: Jay Jay Ricks MD 12/21/23 22:59 PM Discharge Plan Visit Data Chief Complaint: Hypertension Stated Complaint: HYPERTENSION, HEADACHE, DR REF ED Provider: Gideon Ho Discharge Problem: HTN (hypertension), Headache, Shortness of breath Forms Stand Alone Forms: [employer] [facility] Prescriptions Prescriptions: No Action atorvastatin 10 mg tablet 10 mg PO DAILY Qty: 90 3RF dauchafqys-kwvvbvtgfgxjb-cgpq 50-325-40 mg tablet 1 tab PO DAILY PRN (Reason: headache) Qty: 10 5RF Rx Instructions: must last one month famotidine [Pepcid] 20 mg tablet 20 mg PO BID Qty: 60 11RF trazodone 50 mg tablet 50 - 100 mg PO HS PRN (Reason: Sleep) Qty: 90 1RF cyclobenzaprine 10 mg tablet 10 mg PO BID PRN (Reason: MUSCLE SPASMS) Qty: 60 5RF multivitamin [Multiple Vitamins] tablet 1 tab PO DAILY omega-3 acid ethyl esters 1 gram capsule 2 cap PO DAILY polyethylene glycol 3350 17 gram/dose powder 17 g PO DAILY verapamil 240 mg capsule,ext rel. pellets 24 hr 240 mg PO DAILY Qty: 30 5RF cholecalciferol (vitamin D3) 25 mcg (1,000 unit) capsule 25 mcg PO DAILY cyclosporine-chondroit sulf A 0.1-0.25 % drops 1 drp OPHTHALMIC (EYE) Q12H aspirin [Joey Low Dose Aspirin] 81 mg Tablet,Delayed Release (Dr/Ec) 162 mg PO DAILY Referrals Referrals: Mona Paul MD [Primary Care Provider] - Discharge Problem: HTN (hypertension) Qualifiers: Hypertension type: unspecified Qualified Code(s): I10 - Essential (primary) hypertension Headache Qualifiers: Headache type: unspecified Headache chronicity pattern: unspecified pattern I ntractability: not intractable Qualified Code(s): R51.9 - Headache, unspecified
[2023-12-21 21:37] LABS: iSTAT Creatinine 0.8 mg/dl (0.6-1.3); iSTAT Hemoglobin 12.2 g/dl (12.0-16.0); iSTAT Ionized Calcium 1.23 mmol/l (1.12-1.32); iSTAT Potassium 4.2 mmol/L (3.3-5.0)
[2023-12-21] MEDS: SODIUM CHLORIDE 0.9% 1,000 ML IV ONE (21:38)
[2023-12-21 21:54] LABS: Basophils # (auto) 0.03 K/uL (0.00-0.20); Basophils % (auto) 0.7 %; Eosinophils # (auto) 0.06 K/uL (0.00-0.50); Eosinophils % (auto) 1.4 %; Hemoglobin 12.3 g/dl (12.0-16.0); Immature Granulocytes # (auto) 0.01 K/uL (0.01-0.20); Immature Granulocytes % (auto) 0.2 %; Lymphocytes # (auto) 2.14 K/uL (1.20-3.40); Lymphocytes % (auto) 49.8 %; Mean Corpuscular Hemoglobin 32.6 pg (25.0-34.0); Mean Corpuscular Hgb Conc 34.2 g/dL (32.0-36.0); Mean Corpuscular Volume 95.5 fL (80.0-100.0); Mean Platelet Volume 10.3 fL (9.4-12.4); Monocytes # (auto) 0.31 K/uL (0.11-0.59); Monocytes % (auto) 7.2 %; Neutrophils # (auto) 1.75 K/uL (1.40-6.50); Neutrophils % (auto) 40.7 %; Platelet Count 189 K/uL (130-400); RDW Coefficient of Variation 13.2 % (11.5-14.5); RDW Standard Deviation 45.9 fL (36.4-46.3); Red Blood Count 3.77 M/uL (4.20-5.40)
[2023-12-21 21:55] LABS: Albumin Globulin Ratio 1.4 (0.9-2); Albumin Level 4.2 gm/dl (3.4-5.0); Bilirubin,Total 0.3 mg/dl (0.2-1.0); Calcium 9.6 mg/dl (8.6-10.3); Creatinine Clr Calc Pharmacy 64.2 ml/min; Est GFR (African American) 83.9 ml/min; Est GFR (Non-African American) 72.4 ml/min; Globulin 3.1 gm/dl (2.5-4.0); Potassium 4.4 mmol/L (3.5-5.1); Total Protein 7.3 gm/dl (6.0-8.3)
[2023-12-21 22:02] LABS: Troponin I High Sensitivity 3.4 pg/ml (0-14)
[2023-12-21] MEDS: OPTIRAY 320 125ml IV ONE (22:14)
--- NOTE | 2023-12-21 22:54 | CT Scan Report ---
Exam(s): CTA HEAD W/WO Contrast IV Amt: 119ML OPTIRAY 320 EXAM: CT Angiography Head Without and With Intravenous Contrast CLINICAL HISTORY: Reason for exam: dizzy. TECHNIQUE: Axial computed tomographic angiography images of the head without and with intravenous contrast. CTDI is 37.01 mGy and DLP is 1006.72 mGy-cm. Automated exposure control was utilized for the study. A dose lowering technique was utilized adhering to the principles of ALARA. MIP reconstructed images were created and reviewed. CONTRAST: Patient received 119ML OPTIRAY 320 of IV contrast COMPARISON: January 08, 2022 FINDINGS: VASCULATURE: Right internal carotid artery: No acute findings. Intracranial segment is patent with no significant stenosis. No aneurysm. Right anterior cerebral artery: Normally anatomic variant of hypoplasia of the right A1 segment. The anterior cerebral arteries fill from the left side. No occlusion or significant stenosis. No aneurysm. Right middle cerebral artery: Unremarkable. No occlusion or significant stenosis. No aneurysm. Right posterior cerebral artery: See below. Right vertebral artery: Unremarkable as visualized. Left internal carotid artery: No acute findings. Intracranial segment is patent with no significant stenosis. No aneurysm. Left anterior cerebral artery: Unremarkable. No occlusion or significant stenosis. No aneurysm. Left middle cerebral artery: Unremarkable. No occlusion or significant stenosis. No aneurysm. Left posterior cerebral artery: See below. Left vertebral artery: Unremarkable as visualized. Basilar artery: The basilar artery is small due to normal anatomic variant of origin of the posterior cerebral artery from the anterior circulation. No occlusion or significant stenosis. No aneurysm. HEAD: Brain: No acute findings. No hemorrhage. No edema. Normal enhancement. Ventricles: Unremarkable. No ventriculomegaly. Bones/joints: No acute fracture. Soft tissues: Unremarkable. Sinuses: Unremarkable as visualized. No acute sinusitis. Mastoid air cells: Unremarkable as visualized. No mastoid effusion. IMPRESSION: The arterial structures of the brain are within normal limits as described above. No aneurysm, vascular malformation, or large vessel occlusion is identified. Unremarkable appearance of the brain. No intracranial hemorrhage or infarct is identified. Electronically signed by: Jay Jay Ricks MD 12/21/23 22:53 PM
--- NOTE | 2023-12-21 23:00 | CT Scan Report ---
Exam(s): CTA NECK With Contrast IV Amt: 119 ml opti 320 EXAM: CT Angiography Neck With Intravenous Contrast CLINICAL HISTORY: Reason for exam: dizzy. TECHNIQUE: Routine carotid CT angiography protocol was performed with intravenous contrast. NASCET criteria using the distal ICAs for comparison were used for evaluation of stenoses. CTDI is 37.01 mGy and DLP is 1006.72 mGy-cm. Automated exposure control was utilized for the study. A dose lowering technique was utilized adhering to the principles of ALARA. MIP reconstructed images were created and reviewed. CONTRAST: Patient received 119 ml opti 320 of IV contrast COMPARISON: None. FINDINGS: VASCULATURE: Right common carotid artery: Unremarkable. No occlusion or significant stenosis. No dissection. Right internal carotid artery: Unremarkable. Extracranial segment is patent with no occlusion or significant stenosis. No dissection. Right external carotid artery: Unremarkable. No occlusion. Right vertebral artery: The right vertebral artery is congenitally small but patent. No occlusion or significant stenosis. No dissection. Left common carotid artery: The proximal left common carotid artery is mildly tortuous but widely patent. No occlusion or significant stenosis. No dissection. Left internal carotid artery: Unremarkable. Extracranial segment is patent with no occlusion or significant stenosis. No dissection. Left external carotid artery: Unremarkable. No occlusion. Left vertebral artery: Unremarkable. No occlusion or significant stenosis. No dissection. NECK: Bones/joints: Mild degenerative changes in the cervical spine. No acute fracture or subluxation is seen. Soft tissues: Unremarkable. Lung apices: Clear. CAROTID STENOSIS REFERENCE USING NASCET CRITERIA: % ICA stenosis = (1 - narrowest ICA diameter/diameter of distal cervical ICA) x 100. Mild - <50% stenosis. Moderate - 50-69% stenosis. Severe - 70-94% stenosis. Near occlusion - 95-99% stenosis. Occluded - 100% stenosis. IMPRESSION: No acute findings in the arteries of the neck. Electronically signed by: Jay Jay Ricks MD 12/21/23 22:59 PM
[2023-12-21] MEDS: LABETALOL HCL IV 5 MG/ML 20ML IV STA (23:15)
[2023-12-21] MEDS: ACETAMINOPHEN 1,000 MG/100 ML VIAL IV STA (23:49)
--- NOTE | 2023-12-21 23:55 | History & Physical Report ---
Date of Service December 21, 2023 Assessment & Plan (1) Hypertensive urgency: Plan: 68yo female presenting with hypertensive urgency. She describes a persistent, severe headache. Blood pressure at home was >180mmHg. Patient with no evidence of end-organ dysfunction. She has been given IV Labetalol with some improvement in her blood pressure. Presently 191/91. EKG with no acute ischemic changes. CXR with no pulmonary edema. Troponin and renal function are WNL. Concern for complaint of progressive SOB and decreased exercise tolerance over the last several days. Etiology of uncontrolled hypertension unknown. She is normothermic and not tachycardic. Patient reports compliance with her medications. Electrolytes are WNL. UA without proteinuria. Possible effect of Baclofen? Rare side effects include ARAYA, HTN and edema? She has been taking Ibuprofen as well at home which can contribute to hypertension as well. -Admit to PCU -Continue to monitor BP - goal to decrease MAP by 25% overnight - target SBP of 170-180mmHg for now. -Check TSH -Continue Verapamil -Hydralazine 10mg po q8 hours as needed for BP > 180/110 (2) Shortness of breath: Plan: Patient notes decline in exercise tolerance over the last several days and some mild MONTANEZ. Concern for developing CHF with persistent hypertension. Patient does not appear to be in CHF at this time. No pulmonary edema -Check 2D echo -BP management as above (3) Headache: Plan: Patient with persistent headache. She has been taking Ibuprofen -Tylenol PRN -Oxycodone PRN -BP control -Want to avoid use of Reglan, Steroids or Toradol at this time due to acutely elevated blood pressure Plan Insomnia: chronic. stable -Continue Trazodone 100mg po qHS PRN GERD: chronic. stable -Continue Pepcid 20mg po BID TIA: no new neurologic deficits -Continue ASA and Atorvastatin History of Present Illness Chief Complaint: headache, hypertensive urgency Primary Care Provider: Mona Paul MD Kristin Valdovinos is a pleasant 68yo female with history of HTN, HLP, GERD and prior CVA presenting with complaint of headache and hypertension. Patient reports having a fairly severe headache all last week. She was taking Tylenol and Ibuprofen with minimal improvement. The headache did resolve eventually however returned again on 12/19/23. Headache has been fairly persistent since 12/19/23. She checked her blood pressure today and it was found to be elevated at 188/96. Patient has had some nausea as well as LE edema over the last week. She reports some decreased exercise tolerance and mild MONTANEZ. She denies chest pain or back pain, no visual changes or focal neurologic deficits, no abdominal pain, vomiting or diarrhea. Patient is compliant with her medications. She is only on Verapamil for her blood pressure. She has been taking Ibuprofen for her headache as well as pain in her knee. Denies stimulant use or other OTC medications/cold remedies She drinks caffeinated tea x 1 daily - no energy drinks She has taken Fioricet for her headache. Does not use triptans. She does snore - no prior sleep study. She was started on Baclofen on 12/11/23 by her PCP for treatment of muscle spasm - small amount of 10mg po BID. This has since been discontinued and patient has returned to taking Flexeril Patient was told that she had a cerebral aneurysm in 2013. She did have an MRA of the brain performed on 07/10/2019. 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 No new aneurysm. Hypertensive upon arrival with blood pressure 215/111 ER Course: NSS x 1L Labetalol 10mg IV Acetaminophen 1gm IV Allergies Allergy/AdvReac Type Severity Reaction Status Date / Time nickel Allergy Intermediate RASH Verified 12/12/23 11:18 Penicillins Allergy Intermediate HIVES A Verified 12/12/23 11:18 CHILD Sulfa (Sulfonamide Allergy Intermediate Hives Verified 12/12/23 11:18 Antibiotics) Home Medications Medication Instructions Recorded Confirmed Type multivitamin (Multiple Vitamins 1 tab PO DAILY 03/12/19 12/21/23 History tablet) omega-3 acid ethyl esters 1 gram 2 cap PO DAILY 03/12/19 12/21/23 History capsule polyethylene glycol 3350 17 17 g PO DAILY 03/12/19 12/21/23 History gram/dose oral powder aspirin 81 mg tablet,delayed 162 mg PO DAILY 08/14/21 12/21/23 History release (Joey Low Dose Aspirin) cyclosporine 0.1 %-chondroitin 1 drp ophthalmic (eye) Q12H 08/07/22 12/21/23 History sulfate A sodium 0.25 % eye drops cholecalciferol (vitamin D3) 25 25 mcg PO DAILY 04/17/23 12/21/23 History mcg (1,000 unit) capsule verapamil 240 mg 24 hr 240 mg PO DAILY #30 caps 04/17/23 12/21/23 Rx capsule,extended release atorvastatin 10 mg tablet 10 mg PO DAILY #90 tabs 07/16/23 12/21/23 Rx [id number] 1 tab PO DAILY PRN headache #10 09/21/23 12/21/23 Rx 50 mg-325 mg-40 mg tablet tabs famotidine 20 mg tablet (Pepcid) 20 mg PO BID #60 tabs 10/24/23 12/21/23 Rx trazodone 50 mg tablet 50 - 100 mg (1 - 2 x 50 mg) PO HS 12/17/23 12/21/23 Rx PRN Sleep #90 tabs cyclobenzaprine 10 mg tablet 10 mg PO BID PRN MUSCLE SPASMS #60 12/20/23 12/21/23 Rx tabs Past Med/Surg History Problem List (Updated 12/22/23 @ 01:11 by Sandhya Ricks DO) Hypertensive urgency Shortness of breath (Acute) Headache (Acute) HTN (hypertension) (Acute) Urinary incontinence Weight gain Encounter for screening and preventative care Muscle pain Dyslipidemia Encounter for wellness examination in adult Migraine (Acute) Suicidal ideation (Acute) Syncope (Acute) KIMBERLYN (generalized anxiety disorder) Major depression Antiplatelet or antithrombotic long-term use Old cerebellar infarct without late effect Vasovagal syncope Seizure-like activity Ingrown toenail of both feet Cervicogenic headache Encounter for examination following treatment at hospital UTI (urinary tract infection) Hx of atypical migraine Hyperventilation (Acute) Visual disturbance (Acute) Near syncope (Acute) Headache (Acute) Acute confusion (Acute) COVID-19 (Acute) Onychomycosis of great toe Memory impairment (Acute) Hair loss (Acute) Fatigue (Acute) Dry skin (Acute) DVT prophylaxis H/O stroke without residual deficits Complicated migraine (Acute) History of cerebellar stroke GERD (gastroesophageal reflux disease) Altered mental state (Acute) Transient ischemic attack (TIA) (Acute) Cerebral aneurysm without rupture Cerebral infarct (Acute) Common migraine without aura (Acute) Hyperlipidemia (Acute) Migraine headache (Chronic) Palpitations (Acute) Unruptured cerebral aneurysm (Acute) Symptomatic anemia Left radial head fracture (Acute) Anemia (Acute) Headache (Acute) Vitamin D deficiency Medical History Lacunar infarction Surgical History History of sinus surgery History of hemorrhoidectomy Status post tubal ligation S/P tonsillectomy S/P hernia repair S/P hysterectomy Family History Mother , age 87 of congestive heart failure Diabetes Stroke Hypertension Heart disease Brother Cancer Systemic lupus erythematosus Father , age 57 of an [place] Myocardial infarction Social History Smoking Status: Never smoker Age Quit Using Tobacco: 27; Second Hand Exposure: No; Do You Dip or Chew Tobacco: No; Hx Alcohol Use: No Hx Substance Use: No Preferred Language: Frisian Communication Ability: Effective Visual Impairment: Limited Hearing Ability: Normal Coordinate Measuring Machine Operator Required: No Beliefs That Will Affect Care: None marital status: Current Living Situation: Spouse current occupational status: retired 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 How many Children do You have: 4 Feels Safe at Home: Yes Childhood Exposure to Second-Hand Smoke: Yes Diet: regular caffeine: Yes (coffee) during the past year weight has: remained stable Dental Care, Regularly: Yes Physical Activity Frequency: Does not Exercise Seatbelt Use: always Sunscreen Use: No Assistive Devices: Glasses Review of Systems Review of Systems: All systems reviewed & are unremarkable except as noted in HPI & below Physical Exam Physical Exam: General: patient resting comfortably, NAD, non-toxic in appearance, AA&O x 4 Skin: warm, dry, intact, no rashes or lesions HEENT: NC/AT, PERRL, EOMI, anicteric sclera, conjunctiva without injection, external ear normal to inspection and nontender, nares patent, moist mucus membranes, dentition intact, no oropharyngeal lesions, neck supple, trachea midline, no LAD, no thyromegaly, no JVD Heart: +S1/S2, regular, no m/r/g Lungs: equal air entry bilaterally, no rales/rhonchi/wheezes Abd: +BS, soft, NT/ND, no masses/organomegaly/ascites Ext: warm, 2+ pulses in UE/LE bilaterally, no clubbing/cyanosis. mild 1+ edema of bilateral LE Neuro: nonfocal, patient AA&O x 4, speech intact, no facial droop, moving all extremities on command with equal strength 5/5 Results & Data Results & Data Vital Signs (Past 12 Hours) Vital Signs Temp Pulse Pulse Resp BP BP Pulse Ox 12/21/23 23:40 63 190/90 H 12/21/23 23:31 57 L 17 99 12/21/23 23:31 177/76 H 12/21/23 23:30 60 14 98 12/21/23 23:21 174/93 H 12/21/23 23:21 66 22 98 12/21/23 23:20 62 25 H 98 12/21/23 23:18 190/90 H 12/21/23 23:18 63 27 H 98 12/21/23 23:10 70 30 H 98 12/21/23 23:00 69 14 97 12/21/23 23:00 167/84 H 12/21/23 22:50 72 19 96 12/21/23 22:40 71 21 97 12/21/23 22:35 70 19 98 12/21/23 22:35 190/92 H 12/21/23 22:01 64 14 95 12/21/23 22:01 173/107 H 12/21/23 22:00 70 26 H 92 12/21/23 21:50 63 19 99 12/21/23 21:41 64 20 98 12/21/23 21:41 63 12/21/23 20:37 98 12/21/23 20:31 36.0 C L 78 19 215/111 H 96 12/21/23 20:28 69 16 173/93 H 98 O2 Del Method 12/21/23 23:40 12/21/23 23:31 12/21/23 23:31 12/21/23 23:30 12/21/23 23:21 12/21/23 23:21 12/21/23 23:20 12/21/23 23:18 12/21/23 23:18 12/21/23 23:10 12/21/23 23:00 12/21/23 23:00 12/21/23 22:50 12/21/23 22:40 12/21/23 22:35 12/21/23 22:35 12/21/23 22:01 12/21/23 22:01 12/21/23 22:00 12/21/23 21:50 12/21/23 21:41 12/21/23 21:41 12/21/23 20:37 Room Air 12/21/23 20:31 Room Air 12/21/23 20:28 Room Air Laboratory Results Laboratory Results WBC 4.30 K/ul (4.8-10.8) L 12/21/23 21: RBC 3.77 M/uL (4.20-5.40) L 12/21/23 21: Hgb 12.3 g/dl (12.0-16.0) 12/21/23 21: POC Hgb 12.2 g/dl (12.0-16.0) 12/21/23 21: Hct 36.0 % (37.0-47.0) L 12/21/23 21: POC Hct 36 % (37-47) L 12/21/23 21: MCV 95.5 fL (80.0-100.0) 12/21/23 21: MCH 32.6 pg (25.0-34.0) 12/21/23 21: MCHC 34.2 g/dL (32.0-36.0) 12/21/23: RDW Std Deviation 45.9 fL (36.4-46.3) 12/21/23: RDW Coeff of Lopez 13.2 % (11.5-14.5) 12/21/23 21: Plt Count 189 K/uL (130-400) 12/21/23 21: MPV 10.3 fL (9.4-12.4) 12/21/23 21: Immature Gran % (Auto) 0.2 % 12/21/23 21:28 Neut % (Auto) 40.7 % 12/21/23 21: Lymph % (Auto) 49.8 % 12/21/23 21: Sanders % (Auto) 7.2 % 12/21/23 21: Eos % (Auto) 1.4 % 12/21/23 21:28 Baso % (Auto) 0.7 % 12/21/23 21:28 Neut # (Auto) 1.75 K/uL (1.40-6.50) 12/21/23: Lymph # (Auto) 2.14 K/uL (1.20-3.40) 12/21/23: Sanders # (Auto) 0.31 K/uL (0.11-0.59) 12/21/23: Eos # (Auto) 0.06 K/uL (0.00-0.50) 12/21/23: Baso # (Auto) 0.03 K/uL (0.00-0.20) 12/21/23: Immature Gran # (Auto) 0.01 K/uL (0.01-0.20) 12/21/23 POC Sodium 140 mmol/L (135-144) 12/21/23: Sodium 140 mmol/L (136-145) 12/21/23: POC Potassium 4.2 mmol/L (3.3-5.0) 12/21/23: Potassium 4.4 mmol/L (3.5-5.1) 12/21/23: POC Chloride 106 mmol/L (101-112) 12/21/23: Chloride 107 mmol/L (98-107) 12/21/23 Carbon Dioxide 27 mmol/L (21-32) 12/21/23: POC Total CO2 25 mmol/L (24-31) 12/21/23: Anion Gap 6 (3-11) 12/21/23: POC Anion Gap 14.0 mmol/L (16-25) L 12/21/23 21: POC BUN 16 mg/dl (7-18) 12/21/23: BUN 16 mg/dl (6-23) 12/21/23: Creatinine 0.84 mg/dl (0.6-1.2) 12/21/23: POC Creatinine 0.8 mg/dl (0.6-1.3) 12/21/23: Est Cr Clr Drug Dosing 64.2 ml/min 12/21/23: Est GFR ( Amer) 83.9 ml/min 12/21/23: Est GFR (Non-Af Amer) 72.4 ml/min 12/21/23 21: BUN/Creatinine Ratio 19.0 (10-20) 12/21/23: Glucose 104 mg/dl (70-99(Fasting)) H 12/21/23: POC Glucose (other) 103 mg/dl (70-99) H 12/21/23 21: Calcium 9.6 mg/dl (8.6-10.3) 12/21/23: POC Ioniz Calcium Vicente 1.23 mmol/l (1.12-1.32) 12/21/23 21: Phosphorus 2.9 mg/dl (2.5-4.9) 12/21/23: Magnesium 2.0 mg/dl (1.7-2.4) 12/21/23: Total Bilirubin 0.3 mg/dl (0.2-1.0) 12/21/23: AST 21 U/L (13-39) 12/21/23: ALT 18 U/L (7-52) 12/21/23: Alkaline Phosphatase 83 U/L (34-104) 12/21/23: Troponin I High Sens 3.4 pg/ml (0-14) 12/21/23: Total Protein 7.3 gm/dl (6.0-8.3) 12/21/23: Albumin 4.2 gm/dl (3.4-5.0) 12/21/23: Globulin 3.1 gm/dl (2.5-4.0) 12/21/23: Albumin/Globulin Ratio 1.4 (0.9-2) 12/21/23: Lipase 26 U/L (11-82) 12/21/23: Urine Color Yellow 12/21/23 21: Urine Appearance Clear (Clear) 12/21/23 21: Urine pH 6.5 (4.5-7.5) 12/21/23 21: Ur Specific [place] 1.010 (1.000-1.030) 12/21/23 21: Urine Protein Negative (Negative) 12/21/23 21: Urine Glucose (UA) Negative (Negative) 12/21/23 21:20 Urine Ketones Negative (Negative) 12/21/23 21:20 Urine Blood Negative (Negative) 12/21/23 21:20 Urine Nitrite Negative (Negative) 12/21/23 21:20 Urine Bilirubin Negative (Negative) 12/21/23 21:20 Urine Urobilinogen Negative (Negative) 12/21/23 21:20 Ur Leukocyte Esterase Negative (Negative) 12/21/23 21:20 Impressions Head CTA 12/21/23 20:44 Exam(s): CTA HEAD W/WO Contrast IV Amt: 119ML OPTIRAY 320 EXAM: CT Angiography Head Without and With Intravenous Contrast CLINICAL HISTORY: Reason for exam: dizzy. TECHNIQUE: Axial computed tomographic angiography images of the head without and with intravenous contrast. CTDI is 37.01 mGy and DLP is 1006.72 mGy-cm. Automated exposure control was utilized for the study. A dose lowering technique was utilized adhering to the principles of ALARA. MIP reconstructed images were created and reviewed. CONTRAST: Patient received 119ML OPTIRAY 320 of IV contrast COMPARISON: January 08, 2022 FINDINGS: VASCULATURE: Right internal carotid artery: No acute findings. Intracranial segment is patent with no significant stenosis. No aneurysm. Right anterior cerebral artery: Normally anatomic variant of hypoplasia of the right A1 segment. The anterior cerebral arteries fill from the left side. No occlusion or significant stenosis. No aneurysm. Right middle cerebral artery: Unremarkable. No occlusion or significant stenosis. No aneurysm. Right posterior cerebral artery: See below. Right vertebral artery: Unremarkable as visualized. Left internal carotid artery: No acute findings. Intracranial segment is patent with no significant stenosis. No aneurysm. Left anterior cerebral artery: Unremarkable. No occlusion or significant stenosis. No aneurysm. Left middle cerebral artery: Unremarkable. No occlusion or significant stenosis. No aneurysm. Left posterior cerebral artery: See below. Left vertebral artery: Unremarkable as visualized. Basilar artery: The basilar artery is small due to normal anatomic variant of origin of the posterior cerebral artery from the anterior circulation. No occlusion or significant stenosis. No aneurysm. HEAD: Brain: No acute findings. No hemorrhage. No edema. Normal enhancement. Ventricles: Unremarkable. No ventriculomegaly. Bones/joints: No acute fracture. Soft tissues: Unremarkable. Sinuses: Unremarkable as visualized. No acute sinusitis. Mastoid air cells: Unremarkable as visualized. No mastoid effusion. IMPRESSION: The arterial structures of the brain are within normal limits as described above. No aneurysm, vascular malformation, or large vessel occlusion is identified. Unremarkable appearance of the brain. No intracranial hemorrhage or infarct is identified. Electronically signed by: Jay Jay Ricks MD 12/21/23 22:53 PM Neck CTA 12/21/23 20:44 Exam(s): CTA NECK With Contrast IV Amt: 119 ml opti 320 EXAM: CT Angiography Neck With Intravenous Contrast CLINICAL HISTORY: Reason for exam: dizzy. TECHNIQUE: Routine carotid CT angiography protocol was performed with intravenous contrast. NASCET criteria using the distal ICAs for comparison were used for evaluation of stenoses. CTDI is 37.01 mGy and DLP is 1006.72 mGy-cm. Automated exposure control was utilized for the study. A dose lowering technique was utilized adhering to the principles of ALARA. MIP reconstructed images were created and reviewed. CONTRAST: Patient received 119 ml opti 320 of IV contrast COMPARISON: None. FINDINGS: VASCULATURE: Right common carotid artery: Unremarkable. No occlusion or significant stenosis. No dissection. Right internal carotid artery: Unremarkable. Extracranial segment is patent with no occlusion or significant stenosis. No dissection. Right external carotid artery: Unremarkable. No occlusion. Right vertebral artery: The right vertebral artery is congenitally small but patent. No occlusion or significant stenosis. No dissection. Left common carotid artery: The proximal left common carotid artery is mildly tortuous but widely patent. No occlusion or significant stenosis. No dissection. Left internal carotid artery: Unremarkable. Extracranial segment is patent with no occlusion or significant stenosis. No dissection. Left external carotid artery: Unremarkable. No occlusion. Left vertebral artery: Unremarkable. No occlusion or significant stenosis. No dissection. NECK: Bones/joints: Mild degenerative changes in the cervical spine. No acute fracture or subluxation is seen. Soft tissues: Unremarkable. Lung apices: Clear. CAROTID STENOSIS REFERENCE USING NASCET CRITERIA: % ICA stenosis = (1 - narrowest ICA diameter/diameter of distal cervical ICA) x 100. Mild - <50% stenosis. Moderate - 50-69% stenosis. Severe - 70-94% stenosis. Near occlusion - 95-99% stenosis. Occluded - 100% stenosis. IMPRESSION: No acute findings in the arteries of the neck. Electronically signed by: Jay Jay Ricks MD 12/21/23 22:59 PM ECG Additional Comments: EKG per my interpretation wtih NSR at 71bpm, normal axis, BU=714, QRS=82, NVd=852, no acute ischemic changes, voltage criteria for LVH, some non-specific ST changes Code Status & VTE Plan VTE Prophylaxis Plan VTE Prophylaxis will be ordered: Yes PG Care Time/CCT Total # of Minutes Spent Total Time Spent with Patient: Total time spent is greater than 50% in coordination of care (as documented) at patient's floor/unit and/or counseling patient: Coding Level of Care Code 40878 INT INP/OBS CARE 375MIN Diagnoses Hypertensive urgency I16.0 Shortness of breath R06.02 Headache R51.9 Headache chronicity pattern: unspecified pattern Headache type: unspecified Intractability: not intractable (3) Headache Headache chronicity pattern: unspecified pattern Headache type: unspecified Intractability: not intractable Qualified Code(s): R51.9 - Headache, unspecified
[2023-12-22 00:27] LABS: Phosphorus 2.9 mg/dl (2.5-4.9)
[2023-12-22 00:50] LABS: Appearance Urine Clear (Clear); Bilirubin Urine Negative (Negative); Blood Urine Negative (Negative); Color Urine Yellow; Glucose Urine UA Negative (Negative); Ketones Urine Negative (Negative); Leukocyte Esterase Urine Negative (Negative); Nitrite Urine Negative (Negative); Protein Urine Negative (Negative); Urobilinogen Urine Negative (Negative); pH Urine 6.5 (4.5-7.5)
[2023-12-22] MEDS ORDERED: ONDANSETRON INJ 2 MG/ML 2 ML VIAL IV PRN (00:51)
[2023-12-22] MEDS ORDERED: oxyCODONE HCL IR 5 MG TAB (IMMEDIATE RELEASE) PO PRN (01:22)
[2023-12-22] MEDS: CYCLOBENZAPRINE HCL 10 MG TAB PO PRN (01:58)
[2023-12-22] MEDS: traZODone HCL 100 MG TAB PO PRN (02:01)
[2023-12-22] MEDS: ACETAMINOPHEN 325 MG TAB PO PRN (02:01)
[2023-12-22] MEDS: hydrALAZINE 10 MG TAB PO PRN (02:02)
--- NOTE | 2023-12-22 08:23 | XRay Report ---
XR chest 1V portable HISTORY: Chest pain, nonspecific COMPARISON: Chest 08/14/2021. FINDINGS: There are low lung volumes. No pneumothorax. No pleural effusions. The cardiac silhouette r emains top normal in size. The lungs are clear. No acute fractures. IMPRESSION: No significant change compared to the prior study. No acute process. ACT 112: Negative or not required by law. Electronically signed by: Pb Ayala M.D. 12/22/2023 8:21 AM
[2023-12-22] MEDS: ATORVASTATIN 10 MG TAB PO SCH (09:00)
[2023-12-22] MEDS: VERAPAMIL HCL 240 MG TABCR PO SCH (09:00)
[2023-12-22] MEDS: LOSARTAN POTASSIUM 25 MG TAB PO SCH (09:00)
[2023-12-22] MEDS: ASPIRIN 81 MG ECTAB PO SCH (09:00)
[2023-12-22] MEDS: POLYETHYLENE (MIRALAX) 17 GM PACK PO SCH (09:00)
[2023-12-22] MEDS: FAMOTIDINE 20 MG TAB PO SCH (09:00)
--- NOTE | 2023-12-22 11:31 | Electrocardiogram Report ---
Test Reason : Blood Pressure : / mmHG Vent. Rate : 071 BPM Atrial Rate : 071 BPM P-R Int : 136 ms QRS Dur : 082 ms QT Int : 404 ms P-R-T Axes : 016 -04 011 degrees QTc Int : 439 ms Normal sinus rhythm Minimal voltage criteria for LVH, may be normal variant ( R in aVL ) Borderline ECG When compared with ECG of 29-OCT-2022 02:58, Non-specific change in ST segment in Lateral leads Confirmed by Vladimir Guillen ([id number]) on 12/22/2023 11:30:53 AM Referred By: Mona Paul Confirmed By:Vladimir Guillen
--- NOTE | 2023-12-22 12:27 | XCELERA ---
[id number]
--- NOTE | 2023-12-22 17:11 | Discharge Summary ---
Discharge Summary Date of Service December 22, 2023 Notes For Next Care Provider pt feels improved, she admits to some non compliance to her calan, she states that she takes it for headaches, added losartan to regimen, reinforced lifestyle changes and follow up with primary care Admission HPI Per Admitting Provider Kristin Valdovinos is a pleasant 68yo female with history of HTN, HLP, GERD and prior CVA presenting with complaint of headache and hypertension. Patient reports having a fairly severe headache all last week. She was taking Tylenol and Ibuprofen with minimal improvement. The headache did resolve eventually however returned again on 12/19/23. Headache has been fairly persistent since 12/19/23. She checked her blood pressure today and it was found to be elevated at 188/96. Patient has had some nausea as well as LE edema over the last week. She reports some decreased exercise tolerance and mild MONTANEZ. She denies chest pain or back pain, no visual changes or focal neurologic deficits, no abdominal pain, vomiting or diarrhea. Patient is compliant with her medications. She is only on Verapamil for her blood pressure. She has been taking Ibuprofen for her headache as well as pain in her knee. Denies stimulant use or other OTC medications/cold remedies She drinks caffeinated tea x 1 daily - no energy drinks She has taken Fioricet for her headache. Does not use triptans. She does snore - no prior sleep study. She was started on Baclofen on 12/11/23 by her PCP for treatment of muscle spasm - small amount of 10mg po BID. This has since been discontinued and patient has returned to taking Flexeril Patient was told that she had a cerebral aneurysm in 2013. She did have an MRA of the brain performed on 07/10/2019. 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 No new aneurysm. Hypertensive upon arrival with blood pressure 215/111 ER Course: NSS x 1L Labetalol 10mg IV Acetaminophen 1gm IV Principal Dx & Hospital Course #1 = Principal Diagnosis (1) Hypertensive urgency: 68yo female presenting with hypertensive urgency. She describes a persistent, severe headache. Blood pressure at home was >180mmHg. Patient with no evidence of end-organ dysfunction. She has been given IV Labetalol with some improvement in her blood pressure. EKG with no acute ischemic changes. CXR with no pulmonary edema. Troponin and renal function are WNL. -Continue Verapamil -adding losartan reinforced lifestyle changes (2) Shortness of breath: Resolved -Echo with preserved EF no RWMA concentric LVH (3) Headache: Patient with persistent headache. history of the same that is why was Rx Verapamil, now resolved -Tylenol PRN Plan Insomnia: chronic. stable -Continue Trazodone 100mg po qHS PRN GERD: chronic. stable -Continue Pepcid 20mg po BID TIA: no new neurologic deficits -Continue ASA and Atorvastatin Discharge Exam awake and alert, oriented x3 no shortness of breath lungs clear Updated Medication List Medication Instructions Recorded Confirmed Type multivitamin (Multiple Vitamins 1 tab PO DAILY 03/12/19 12/21/23 History tablet) omega-3 acid ethyl esters 1 gram 2 cap PO DAILY 03/12/19 12/21/23 History capsule polyethylene glycol 3350 17 17 g PO DAILY 03/12/19 12/21/23 History gram/dose oral powder aspirin 81 mg tablet,delayed 162 mg PO DAILY 08/14/21 12/21/23 History release (Joey Low Dose Aspirin) cyclosporine 0.1 %-chondroitin 1 drp ophthalmic (eye) Q12H 08/07/22 12/21/23 History sulfate A sodium 0.25 % eye drops cholecalciferol (vitamin D3) 25 25 mcg PO DAILY 04/17/23 12/21/23 History mcg (1,000 unit) capsule verapamil 240 mg 24 hr 240 mg PO DAILY #30 caps 04/17/23 12/21/23 Rx capsule,extended release atorvastatin 10 mg tablet 10 mg PO DAILY #90 tabs 07/16/23 12/21/23 Rx icrzixeynz-grslquiycmbcm-mscenssb 1 tab PO DAILY PRN headache #10 09/21/2312/20 Rx 50 mg-325 mg-40 mg tablet tabs famotidine 20 mg tablet (Pepcid) 20 mg PO BID #60 tabs 10/24/23 12/21/23 Rx trazodone 50 mg tablet 50 - 100 mg (1 - 2 x 50 mg) PO HS 12/17/23 12/21/23 Rx PRN Sleep #90 tabs cyclobenzaprine 10 mg tablet 10 mg PO BID PRN MUSCLE SPASMS #60 12/20/23 12/21/23 Rx tabs losartan 25 mg tablet 25 mg PO QAM #30 tabs 12/22/23 Rx Hospital Stay Data Consultations 12/21/23 23:10 ED Decision to Admit Stat Diagnostic Imagining Performed 12/21/23 20:44 CT angio head wo/w Stat CT angio neck with con Stat Pending Results Patient Have Any Pending Studies at Discharge: No Discharge Instructions Given to Patient (Per Discharging Provider) please consider lifestyle changes to help your blood pressure gentle but consistent daily exercise low salt diet, 2000mg a day or less reduce caffeine intake to 2 servings or less a day you have been given a new medicine and please follow up with your primary care doctor to discuss your blood pressure Total Time Total Time Spent Total Time Spent (In Minutes): It required greater than 30 minutes to prepare this patient for discharge. Coding Level of Care Code 06432 INP/OBS DISCH >30 MIN Diagnoses Hypertensive urgency I16.0 Shortness of breath R06.02 Headache R51.9 Headache chronicity pattern: unspecified pattern Headache type: unspecified Intractability: not intractable
== END 2023-12-22 14:39 | disposition home or self-care (01) | DRG 305 ==
LOC: ED 20:28 → SUATTDRO 23:54 → 2S 23:54 → INTOOBSV 23:54 → 2S 12-22 01:18